=== PATIENT | female | born 1990 | race Caucasian/White ===

== ENCOUNTER 2021-02-13 02:26 | Emergency (ER) | payer OTHER, SELFPAY ==
[2021-02-13] VITALS (7 sets, daily range): BP systolic 92–108; BP diastolic 61–86; PULSE 39–54; RESP 11–14; TEMP 36.4; O2SAT 96–100; BMI 18.8
--- NOTE | ~2021-02-13 | CT_ITS ---
EXAMINATION: CT SOFT TISSUE NECK WITH CONTRAST CT CHEST WITH CONTRAST CLINICAL INFORMATION: Massive left sternal notch. Shortness of breath. Chest wall pain. COMPARISON: None TECHNIQUE: Following the intravenous administration of 60 mL of Omnipaque 350 intravenous contrast, helical imaging was performed in the axial plane with generation of coronal and sagittal reformatted images. This CT examination was performed using dose optimization techniques as appropriate, variously including the following: *Automated exposure control *Adjustment of mA and/or kV according to patient size (this includes techniques or standardized protocols for targeted exams where dose is matched to indication/reason for exam; i.e. extremities or head) *Use of iterative reconstruction technique DLP: 579 mGy-cm FINDINGS: NECK No cervical adenopathy is identified. The parotid glands are homogeneous in attenuation. The submandibular glands are normal. No contour abnormality or pathologic enhancement is seen within the oral cavity or pharyngeal mucosal space. The laryngeal structures are normal. The parapharyngeal fat is preserved. The carotid sheath vasculature opacify normally. No extra mucosal soft tissue mass or fluid collection is seen. No retropharyngeal fluid collection is seen. The thyroid gland is normal. The mastoid air cells and visualized portions of the paranasal sinuses are well-aerated. The temporomandibular joints are normal. No periapical disease is identified. No osseous abnormalities are seen. The imaged portions of the brain parenchyma are unremarkable. CHEST There is a destructive process centered at the left sternoclavicular articulation with erosive changes at the articulation between the proximal left clavicle superolateral aspect of the manubrium, associated periosteal reaction and new bone formation. There is ill-defined soft tissue within this destructive process and surrounding the left sternoclavicular articulation. The extent of this process measures 5.8 x 4.5 x 5.6 cm. Lungs are clear. No pleural effusion or pneumothorax. Normal heart size. No mediastinal adenopathy. Axilla are unremarkable. Imaged abdomen unremarkable. CT/CT soft tissue neck w con IMPRESSION: * Destructive masslike process centered at the LEFT sternoclavicular joint measuring up to 5.8 cm. The absence of sign/symptoms of infection, a neoplastic process must be considered. Tissue sampling is indicated. * No lymphadenopathy or evidence of metastatic disease within the neck or chest.
--- NOTE | 2021-02-13 02:51 | PC.NURSE ---
PT BELONGINGS PLACED IN [facility] ROOM BY SECURITY.
[2021-02-13 03:00] LABS: Glucose, Whole Blood 93 mg/dL (60-115)
--- NOTE | 2021-02-13 03:33 | ED.GENADULT ---
HPI - General Adult General Chief complaint: General Medical Stated complaint: Insomnia, substance abuse Time Seen by Provider: 02/13/21 03:21 Source: patient and EMS Mode of arrival: EMS History of Present Illness HPI narrative: 30-year-old female brought in by EMS after she was found on a sidewalk. Initially, patient was complaining of having not slept or eaten for 4 days and states that she is homeless and admits to heroin/cocaine/crack use. Patient states that she has had a mass at the upper portion of her chest for couple of weeks now but is otherwise a poor historian that is struggling to stay awake. Related Data Allergies Allergy/AdvReac Type Severity Reaction Status Date / Time No Known Allergies Allergy Unverified 05/14/20 18:46 [No Known Allergies*] Review of Systems Review of Systems: Pertinent positives and negatives as stated in HPI and remaining 10 point review of systems unable to obtain due to patient's drowsiness. [facility] Past Medical History Source: nursing notes reviewed Medical History Graves disease Opiate addiction Social History Social History Advance Directives: No Advance Directives Information Provided: No Physical Exam Vital Signs: Vital Signs: Last Vital Signs Temp 97.6 F 02/13/21 02:45 Pulse 39 L 02/13/21 08:00 Resp 14 02/13/21 08:00 BP 107/86 02/13/21 08:00 Pulse Ox 98 02/13/21 08:00 Body Mass Index 18.8 VITAL SIGNS: Reviewed. GENERAL: Unkempt, does not appear well, in no acute distress. HEAD: Normocephalic/atraumatic EYES: PERRLA, EOMI EARS: Ext canals without abnormality OROPHARYNX: no oral lesions noted, posterior pharynx clear and non-erythematous without noted tonsillar enlargement/erythema/exudates NECK: Supple, no adenopathy LUNGS: Normal breath sounds. No adventitious sounds or accessory muscle use. SpO2<100> CHEST WALL: There is a noted firm mass just left of the sternal notch without noted fluctuance CARDIOVASCULAR: Regular rate and rhythm without noted murmurs, no JVD or lower extremity edema. ABDOMEN: Soft, non-tender, non-distended with bowel sounds. SKIN: Inspection of the skin reveals no rashes, but noted track gaspar NEUROLOGIC: Alert and oriented x 4. Strength and sensation to light touch were grossly intact x 4. Course Course Course Narrative: 30-year-old female with history and clinical presentation consistent with significant polysubstance use and no evidence to suggest that patient is struggling with insomnia here in the ER. Concerns regarding the mass noted to the chest wall as possible abscess versus malunion. Review of investigations significant for destructive lesion at the left clavicle, however history and objective data in consistent with osteomyelitis after discussion with inpatient hospitalist team. In addition, patient remains drowsy and is found to be COVID-19 positive and will require further evaluation by subspecialty. Case was [place] [facility] [place]. Medical Decision Making Lab Data Result diagrams: 02/13/21 04:27 02/13/21 04:27 Labs: Lab Results 02/13/21 02/13/21 02/13/21 Range/Units 02:56 04:27 04:27 WBC 6.7 (4.8-10.8) X10*3/uL RBC 4.62 (4.20-5.50) X10*6/uL Hgb 12.9 (12.0-16.0) g/dl Hct 41.4 (37-47) % MCV 89.6 (80-98) fL MCH 27.9 (27.0-33.0) pg MCHC 31.2 (31.0-35.0) g/dl RDW 15.7 (11.0-16.0) % Plt Count 272 (160-400) X10*3/uL MPV 9.2 L (9.4-12.3) fL Immature Gran % (Auto) 0.1 (0.0-0.4) % Neut % (Auto) 46.7 (45-73) % Lymph % (Auto) 43.9 H (20-40) % [place] % (Auto) 7.4 (2-11) % Eos % (Auto) 1.5 (0-4) % Baso % (Auto) 0.4 (0-2) % Lymph # (Auto) 3.0 (1.2-4.9) X10*3/uL [place] # (Auto) 0.5 (0.1-1.2) X10*3/uL Eos # (Auto) 0.1 (0.0-0.4) X10*3/uL Baso # (Auto) 0.0 (0.0-0.2) X10*3/uL Abs Immat Gran (auto) 0.01 (0.00-0.03) X10*3/uL Absolute Neuts (auto) 3.1 (2.0-8.3) X10*3/uL Absolute Nucleated RBC 0.000 (0.0-0.012) X10*3/uL Nucleated RBC % (auto) 0.0 (0.0-0.2) /100WBC Sodium 145 (135-145) mmol/L Potassium 3.6 (3.3-5.1) mmol/L Chloride 105 (96-108) mmol/L Carbon Dioxide 33 H (22-29) mmol/L Anion Gap 11 L (12-20) BUN 10 (9-16) mg/dL Creatinine 0.78 (0.5-1.4) mg/dL Estim Creat Clear Calc 83.8 Estimated GFR > 60 POC Glucose 93 (60-115) mg/dL Random Glucose 93 (60-115) mg/dL Calcium 9.7 (8.4-10.2) mg/dL Total Bilirubin 0.3 (0.0-1.0) mg/dL AST 53 H (5-31) U/L ALT 50 H (0-31) U/L Alkaline Phosphatase 113 (39-117) U/L Total Protein 9.3 H (6.5-8.0) g/dL Albumin 4.3 (3.5-5.0) g/dL TSH 9.35 H (0.32-4.0) uIU/mL Free T4 0.92 (0.71-1.85) ng/dL Beta HCG, Quant < 2 mIU/mL ECG Data Attestation: I personally reviewed and interpreted this ECG as follows: Prior ECG tracings: available for review (05/12/2014 patient is now bradycardic and noted inverted T-wave in V2 but otherwise consistent) Interpretation: Sinus bradycardia, HR -36, inverted T-waves V2, NV/QRS/QTC are within normal limits. Discharge Plan Discharge Clinical Impression: Deformity, clavicle Patient Disposition: [facility] Transfer Details: Destructive lesion at left clavicle requiring subspecialty
[2021-02-13 04:32] LABS: Basophils Percent Auto 0.4 % (0-2); Eosinophils Absolute Auto 0.1 X10*3/uL (0.0-0.4); Eosinophils Percent Auto 1.5 % (0-4); Hematocrit 41.4 % (37-47); Hemoglobin 12.9 g/dl (12.0-16.0); Imm Gran Abs Auto 0.01 X10*3/uL (0.00-0.03); Imm Gran Pct Auto 0.1 % (0.0-0.4); Lymphocytes Percent Auto 43.9 % (20-40); MANUAL DIFF FLAG NO; Mean Corpuscular HGB Conc 31.2 g/dl (31.0-35.0); Mean Corpuscular Hemoglobin 27.9 pg (27.0-33.0); Mean Corpuscular Volume 89.6 fL (80-98); Mean Platelet Volume 9.2 fL (9.4-12.3); Monocytes Absolute Auto 0.5 X10*3/uL (0.1-1.2); Monocytes Percent Auto 7.4 % (2-11); Neutrophils Absolute Auto 3.1 X10*3/uL (2.0-8.3); Neutrophils Percent Auto 46.7 % (45-73); Platelet Count 272 X10*3/uL (160-400); Red Blood Count 4.62 X10*6/uL (4.20-5.50); Red Cell Distribution Width 15.7 % (11.0-16.0); White Blood Count 6.7 X10*3/uL (4.8-10.8)
[2021-02-13 05:07] LABS: Alanine Aminotransferase 50 U/L (0-31); Albumin Level 4.3 g/dL (3.5-5.0); Alkaline Phosphatase 113 U/L (39-117); Anion Gap 11 (12-20); Aspartate Amino Transferase 53 U/L (5-31); Bilirubin Total 0.3 mg/dL (0.0-1.0); Blood Urea Nitrogen 10 mg/dL (9-16); Calcium 9.7 mg/dL (8.4-10.2); Carbon Dioxide 33 mmol/L (22-29); Chloride 105 mmol/L (96-108); Creatinine Clr Calc Pharmacy 83.8; Estimated Glomerular Filt Rate > 60; Glucose Random 93 mg/dL (60-115); Potassium 3.6 mmol/L (3.3-5.1); Sodium 145 mmol/L (135-145); Total Protein 9.3 g/dL (6.5-8.0)
[2021-02-13 05:19] LABS: HCG Quantitative < 2 mIU/mL
[2021-02-13] MEDS: iohexoL 350 MG/ML 100 ML INFUS..BTL 60 ML IV (05:36)
[2021-02-13 05:51] LABS: TSH reflex Free T4 9.35 uIU/mL (0.32-4.0)
[2021-02-13 06:28] LABS: Free T4 (Free Thyroxine) 0.92 ng/dL (0.71-1.85)
[2021-02-13] MEDS: 0.9 % Sodium Chloride 1,000 ML 999 ML IV (06:43)
--- NOTE | 2021-02-13 07:35 | ECG_ITS ---
Test Reason : BRADYCARDIA Blood Pressure : / mmHG Vent. Rate : 036 BPM Atrial Rate : 036 BPM P-R Int : 124 ms QRS Dur : 090 ms QT Int : 522 ms P-R-T Axes : 067 072 037 degrees QTc Int : 403 ms Marked sinus bradycardia Nonspecific T wave abnormality Abnormal ECG When compared with ECG of 12-MAY-2014 10:03, Vent. rate has decreased BY 77 BPM Nonspecific T wave abnormality has replaced inverted T waves in Inferior leads T wave inversion now evident in Anterior leads Referred By: Amber Jiang Electronically Signed By:GUILLERMINA MALLOY
--- NOTE | 2021-02-13 07:38 | PC.NURSE ---
Report received from JOSE GUADALUPE Macias. Patient came to ER with complaints of insomnia. Patient is asleep on stretcher at this time. Arousable with significant stimulation. Remains bradycardic with rate 38-45. Respirations regular and even with O2 sat 100%. Enlarged area above left clavicle, will be getting a biopsy and admitted. Fluids finished infusing. component technician at bedside to obtain additional labs. Will continue to monitor.
--- NOTE | 2021-02-13 08:00 | PC.NURSE ---
@2403 DR RUEDA REQUEST CALL TO BE PLACED TO [facility] PT TX LINE [phone] AJITH ANSWERS, TAKES PT INFO,CALL BACK NUMBER AND ASKS TO SPEAK WITH DR RUEDA. DR RUEDA TAKES OVER CALL RIGHT AWAY.
--- NOTE | 2021-02-13 08:23 | PC.NURSE ---
@2815 CALL BACK FROM [facility] PT PLACEMENT LINE DEVIN ASKS TO SPEAK WITH DR MOHIT RUEDA TAKES OVER CALL RIGHT AWAY
[2021-02-13 08:27] LABS: COVID-19 Test Positive (Negative)
--- NOTE | 2021-02-13 10:05 | PC.NURSE ---
Patient remains asleep, arousable with stimuli. Found to be COVID positive. Plan is for transfer to [facility] at this time. Remains bradycardic on monitor. Respirations regular and even. IV patent. Awaiting transfer.
--- NOTE | 2021-02-13 11:15 | PC.NURSE ---
@11:00AM CALL FROM [facility] PT PLACEMENT WITH ROOM ASSIGNMENT SHANTE GIVES ROOM NUMBER OF [id number], ROOM 80A AND RN TO RN TO BE CALLED TO [phone]
--- NOTE | 2021-02-13 12:28 | PC.NURSE ---
RN TO RN REPORT GIVEN. PT AMBULATED TO BATHROOM INDEPENDENTLY, NO ISSUES. MORE ALERT AT THIS TIME, ORIENTED AND AWARE OF PLAN FOR TRANSFER. PT REPORTS EXPERIENCING WD SXS, COWS SCORE 9. CURRENTLY CONSUMING 2 BUNS DAILY LAST USE YESTERDAY. MD AWARE.
[2021-02-13 12:30] LABS: Glucose Urine UA NEG (NEG); Leukocyte Esterase Urine NEG (NEG); Nitrite Urine NEG (NEG); PH 6.5 (5.0-8.0); Urine Blood NEG (NEG); Urine Ketones NEG (NEG); Urine Protein NEG (NEG-TRACE)
[2021-02-13 12:35] LABS: Appearance Urine CLEAR; Color Urine YELLOW
--- NOTE | 2021-02-13 12:39 | PC.NURSE ---
@1233PM [facility] CALLED FOR ALS TRANSFER FOR THIS PT,,PER ANSWERS AND SAYS ABOUT A HALF HOUR TO AN HOUR D/T NO ALS TRUCK AVAILABLE AT THIS TIME
[2021-02-13] MEDS: ALPRAZolam 0.5 MG TABLET PO (13:16)
== END 2021-02-13 13:25 | disposition short-term general hospital (02) ==
PROVIDERS: Emergency Provider Student in an Organized Health Care Education/Training Program
DX: M95.8 Other specified acquired deformities of musculoskeletal system (principal); U07.1 COVID-19; G47.00 Insomnia, unspecified; F11.20 Opioid dependence, uncomplicated; E05.00 Thyrotoxicosis with diffuse goiter without thyrotoxic crisis or storm; Z59.0 Homelessness
CPT/HCPCS: 36415; 70491; 71260; 80053; 81003; 82947; 84439; 84443; 84702; 85025; 87040; 87635; 93005; 96360; 99285; Q9967

== ENCOUNTER 2021-12-06 11:44 | Observation (INO) | payer OTHER, SELFPAY ==
[2021-12-06 11:57] VITALS: BP 130/90; PULSE 75; O2SAT 100
[2021-12-06 12:12] VITALS: PULSE 65; RESP 18; TEMP 37; O2SAT 98; BMI 18.1
[2021-12-06 12:37] LABS: MANUAL DIFF FLAG NO
[2021-12-06 12:39] LABS: Basophils Percent Auto 0.6 % (0-2); Eosinophils Absolute Auto 0.1 X10*3/uL (0.0-0.4); Eosinophils Percent Auto 2.8 % (0-4); Hematocrit 35.2 % (37.0-47.0); Imm Gran Abs Auto 0.01 X10*3/uL (0.00-0.03); Imm Gran Pct Auto 0.2 % (0.0-0.4); Lymphocytes Absolute Auto 1.4 X10*3/uL (1.2-4.9); Lymphocytes Percent Auto 30.9 % (20-40); Mean Corpuscular HGB Conc 31.3 g/dl (31.0-35.0); Mean Corpuscular Hemoglobin 28.4 pg (27.0-33.0); Mean Corpuscular Volume 90.7 fL (80.0-98.0); Mean Platelet Volume 9.1 fL (9.4-12.3); Monocytes Absolute Auto 0.4 X10*3/uL (0.1-1.2); Monocytes Percent Auto 7.7 % (2-11); Neutrophils Absolute Auto 2.7 x10*3/uL (2.0-8.3); Neutrophils Percent Auto 57.8 % (45-73); Platelet Count 227 X10*3/uL (160-400); Red Blood Count 3.88 X10*6/uL (4.20-5.50); Red Cell Distribution Width 13.6 % (11.0-16.0); White Blood Count 4.7 X10*3/uL (4.8-10.8)
[2021-12-06 12:46] LABS: INTERNATIONAL NORM RATIO 1.1 (0.9-1.1)
[2021-12-06 12:48] LABS: Lactic Acid 1.3 mmol/L (0.5-2.0)
[2021-12-06 12:59] LABS: Alanine Aminotransferase 29 U/L (0-31); Albumin Level 3.5 g/dL (3.5-5.0); Alkaline Phosphatase 84 U/L (39-117); Anion Gap 10 (12-20); Aspartate Amino Transferase 30 U/L (5-31); Bilirubin Direct < 0.2 mg/dL (0.0-0.5); Bilirubin Total < 0.2 mg/dL (0.0-1.0); Blood Urea Nitrogen 11 mg/dL (9-16); Calcium 9.2 mg/dL (8.4-10.2); Carbon Dioxide 30 mmol/L (22-29); Chloride 104 mmol/L (96-108); Estimated Glomerular Filt Rate > 60; Glucose Random 124 mg/dL (60-115); Potassium 4.1 mmol/L (3.3-5.1); Sodium 140 mmol/L (135-145); Total Protein 6.9 g/dL (6.5-8.0)
--- NOTE | 2021-12-06 15:47 | ED.EXTPRO ---
HPI - Extremity Problem General Chief complaint: Extremity Injury, Upper Stated complaint: BASHIR HAND PAIN S/P IVDU A WEEK AGO Time Seen by Provider: 12/06/21 12:28 Source: patient and EMS Mode of arrival: EMS Limitations: no limitations History of Present Illness HPI Narrative: Patient comes to the emergency room complaining of bilateral hand pain, swelling. Patient admits to be IV drug user, she usually does not injecting her hands. Only in the forearms. Patient denies fever or chills. Related Data Allergies Allergy/AdvReac Type Severity Reaction Status Date / Time No Known Allergies Allergy Verified 12/06/21 12:17 [No Known Allergies*] Review of Systems Review of Systems: Constitutional : No Weight loss, No Fever, No Chills, No Night Sweats, No Fatigue, No Malaise ENT/Mouth : No Hearing loss, No Ear Pain, No Nasal Congestion, No Sinus Pain, No Hoarseness, No sore throat, No Rhinorrhea, No Swallowing Difficulty Eyes: No Eye Pain, No Swelling, No Redness, No Foreign Body, No Discharge, No Vision Changes Cardiovascular : No Chest Pain, No SOB, No Dyspnea on Exertion, No Orthopnea, No Edema, No Palpitations Respiratory : No Cough, No Sputum, No Wheezing, No Smoke Exposure, No Dyspnea Gastrointestinal : No Nausea, No Vomiting, No Diarrhea, No Constipation, No abdominal Pain, No Hematochezia, No Melena Genitourinary : no irregular bleeding, No Dysuria, No Urinary Frequency, No Hematuria, No Urinary Incontinence, No Urgency, No Flank Pain, No Urinary Flow Changes, No Hesitancy Musculoskeletal : No joint pain, No Myalgias, No Joint Swelling Skin : Complaining of bilateral hand pain, swelling, erythema Neuro : No Weakness, No Numbness, No Paresthesias, No Loss of Consciousness, No Dizziness, No Headache Psych : No Anxiety/Panic, No Depression, No SI/HI/AH/VH, No Social Issues, Heme/Lymph: No Bruising, No Bleeding,No Lymphadenopathy Endocrine : No Polyuria, No Polydipsia, No Temperature Intolerance PMFSH Past Medical History Medical History Graves disease Opiate addiction Social History Social History Alcohol intake: unknown Patient Tobacco Use Status: Tobacco use Unknown Advance Directives: No Advance Directives Information Provided: No Patient : No Physical Exam Vital Signs: Vital Signs: Last Vital Signs Temp 98.2 F 12/06/21 15:57 Pulse 65 12/06/21 15:57 Resp 16 12/06/21 15:57 BP 123/86 12/06/21 15:57 Pulse Ox 100 12/06/21 15:57 BMI result Body Mass Index 18.1 Const: Other: Appearance: Alert. Oriented X3. No acute distress. Eyes: Pupils equal, round and reactive to light. ENT: Pharynx normal. Neck: Normal inspection. Neck supple. No lymph nodes noted. No crepitus CVS: Normal heart rate and rhythm. Pulses normal. Normal S1 and S2 Respiratory: No respiratory distress. Breath sounds normal. No Wheezing. No rales Abdomen: Soft and nontender. No rigidity. No distention. Skin: Skin warm and dry. C extremities below Extremities: No lower extremity edema. Bilateral hands are edematous, erythematous, pain to touch. Patient is able to flex and extend all fingers and abduct/adduct fingers. See picture below Neuro: Oriented X 3. No motor deficit. No sensory deficit. Moving all extremities. No slurred speech. CN 2 through 12 grossly intact Psych: calm, cooperative, normal affect Course Course Course Narrative: Patient was started on vancomycin and Zosyn. At this time, imaging studies not necessary, tenosynovitis not suspected. Patient is able to flex and extend both hands abduct and adduct all fingers. Abscesses are not suspected. MDM - Extremity (Nontraumatic) Lab Data Result diagrams: 12/06/21 12:27 12/06/21 12:27 Labs: Lab Results 12/06/21 12/06/21 12/06/21 Range/Units 12:27 12:27 12:27 WBC 4.7 L (4.8-10.8) X10*3/uL RBC 3.88 L (4.20-5.50) X10*6/uL Hgb 11.0 L (12.0-16.0) g/dl Hct 35.2 L (37.0-47.0) % MCV 90.7 (80.0-98.0) fL MCH 28.4 (27.0-33.0) pg MCHC 31.3 (31.0-35.0) g/dl RDW 13.6 (11.0-16.0) % Plt Count 227 (160-400) X10*3/uL MPV 9.1 L (9.4-12.3) fL Immature Gran % (Auto) 0.2 (0.0-0.4) % Neut % (Auto) 57.8 (45-73) % Lymph % (Auto) 30.9 (20-40) % [place] % (Auto) 7.7 (2-11) % Eos % (Auto) 2.8 (0-4) % Baso % (Auto) 0.6 (0-2) % Lymph # (Auto) 1.4 (1.2-4.9) X10*3/uL [place] # (Auto) 0.4 (0.1-1.2) X10*3/uL Eos # (Auto) 0.1 (0.0-0.4) X10*3/uL Baso # (Auto) 0.0 (0.0-0.2) X10*3/uL Abs Immat Gran (auto) 0.01 (0.00-0.03) X10*3/uL Absolute Neuts (auto) 2.7 (2.0-8.3) x10*3/uL Absolute Nucleated RBC 0.000 (0.0-0.012) X10*3/uL Nucleated RBC % (auto) 0.0 (0.0-0.2) /100WBC PT 12.0 (9.9-13.0) SEC INR 1.1 (0.9-1.1) Sodium 140 (135-145) mmol/L Potassium 4.1 (3.3-5.1) mmol/L Chloride 104 (96-108) mmol/L Carbon Dioxide 30 H (22-29) mmol/L Anion Gap 10 L (12-20) BUN 11 (9-16) mg/dL Creatinine 0.66 (0.5-1.4) mg/dL Estim Creat Clear Calc 83.0 Estimated GFR > 60 Random Glucose 124 H (60-115) mg/dL Lactic Acid (0.5-2.0) mmol/L Calcium 9.2 (8.4-10.2) mg/dL Total Bilirubin < 0.2 (0.0-1.0) mg/dL Direct Bilirubin < 0.2 (0.0-0.5) mg/dL AST 30 D (5-31) U/L ALT 29 (0-31) U/L Alkaline Phosphatase 84 D (39-117) U/L Total Protein 6.9 D (6.5-8.0) g/dL Albumin 3.5 (3.5-5.0) g/dL TSH 4.88 H (0.32-4.0) uIU/mL COVID-19 ([facility]) (Negative) COVID-19 Clin Com 12/06/21 12/06/21 Range/Units 12:27 16:00 WBC (4.8-10.8) X10*3/uL RBC (4.20-5.50) X10*6/uL Hgb (12.0-16.0) g/dl Hct (37.0-47.0) % MCV (80.0-98.0) fL MCH (27.0-33.0) pg MCHC (31.0-35.0) g/dl RDW (11.0-16.0) % Plt Count (160-400) X10*3/uL MPV (9.4-12.3) fL Immature Gran % (Auto) (0.0-0.4) % Neut % (Auto) (45-73) % Lymph % (Auto) (20-40) % [place] % (Auto) (2-11) % Eos % (Auto) (0-4) % Baso % (Auto) (0-2) % Lymph # (Auto) (1.2-4.9) X10*3/uL [place] # (Auto) (0.1-1.2) X10*3/uL Eos # (Auto) (0.0-0.4) X10*3/uL Baso # (Auto) (0.0-0.2) X10*3/uL Abs Immat Gran (auto) (0.00-0.03) X10*3/uL Absolute Neuts (auto) (2.0-8.3) x10*3/uL Absolute Nucleated RBC (0.0-0.012) X10*3/uL Nucleated RBC % (auto) (0.0-0.2) /100WBC PT (9.9-13.0) SEC INR (0.9-1.1) Sodium (135-145) mmol/L Potassium (3.3-5.1) mmol/L Chloride (96-108) mmol/L Carbon Dioxide (22-29) mmol/L Anion Gap (12-20) BUN (9-16) mg/dL Creatinine (0.5-1.4) mg/dL Estim Creat Clear Calc Estimated GFR Random Glucose (60-115) mg/dL Lactic Acid 1.3 (0.5-2.0) mmol/L Calcium (8.4-10.2) mg/dL Total Bilirubin (0.0-1.0) mg/dL Direct Bilirubin (0.0-0.5) mg/dL AST (5-31) U/L ALT (0-31) U/L Alkaline Phosphatase (39-117) U/L Total Protein (6.5-8.0) g/dL Albumin (3.5-5.0) g/dL TSH (0.32-4.0) uIU/mL COVID-19 ([facility]) Negative (Negative) COVID-19 Clin Com See Note Discharge Plan Discharge Clinical Impression: Cellulitis of hand Patient Disposition: Admitted As Inpatient
[2021-12-06 15:57] VITALS: BP 123/86; PULSE 65; RESP 16; TEMP 36.8; O2SAT 100
[2021-12-06 16:24] LABS: COVID-19 Test Negative (Negative)
[2021-12-06] MEDS: Piperacillin Sodium/Tazobactam 3.375 GM in 0.9 % Sodium Chloride 50 ML IV (16:26)
[2021-12-06 16:28] LABS: TSH reflex Free T4 4.88 uIU/mL (0.32-4.0)
[2021-12-06] MEDS: vancomycin HCL 750 MG in 0.9 % Sodium Chloride 250 ML 265 MG IV (16:48)
[2021-12-06 17:04] LABS: Free T4 (Free Thyroxine) 0.84 ng/dL (0.71-1.85)
[2021-12-06 17:06] LABS: C Reactive Protein 1.35 mg/dL (< or = 0.50)
[2021-12-06 17:39] LABS: Erythrocyte Sedimentation Rate 49 MM/HR (0-20)
--- NOTE | 2021-12-06 17:41 | PM.IMHP ---
History of Present Illness Date of Service: 12/06/21 Attending physician on admission: Richard Lake Chief Complaint: hand cellulitis 31-year-old female ivdu came to the hospital because of hand cellulitis- patient says that she has regular uses heroin IV was injected in arms- has swelling of and from 1-2 days duration and also pain and swelling. [place] [address] and with friends, currently having erythema and pain in the hands that is why decided to come to the hospital. Denies any new complaint of chest pain or shortness of breath or abdominal pain or fever or chills or nausea or vomiting Denies any cough Denies any weakness or numbness. Review of Systems Review of Systems: As above. Yes all other systems are reviewed and are negative [facility] Medical History Graves disease Opiate addiction Pertinent family history: she denies any family hx of any disease. Social History Alcohol intake: unknown Patient Tobacco Use Status: Tobacco use Unknown Advance Directives: No Advance Directives Information Provided: No Patient : No Meds Allergies Allergy/AdvReac Type Severity Reaction Status Date / Time No Known Allergies Allergy Verified 12/06/21 12:17 [No Known Allergies*] Active Medications: Current Medications Enoxaparin Sodium (Enoxaparin Sodium 40 Mg/0.4 Ml Syringe) 40 mg SUBCUT DAILY [facility] Lactated Ringer's (Lr) 1,000 mls @ 100 mls/hr IVCONT .Q10H [facility] Piperacillin Sod/Tazobactam (Sod 3.375 gm/ Sodium Chloride) 50 mls @ 100 mls/hr IV Q6H [facility] Pharmacy Consult (Consult Rx Vancomycin Dosing) 1 each MISCELLANE DAILY PRN PRN Reason: Consult order Sodium Chloride (0.9 % Sodium Chloride Flush 3 Ml Syringe) 3 ml IVFLUSH QSHIFT [facility] Physical Exam Vital Signs and Narrative: Vital Signs: Last Vital Signs Temp 98.2 F 12/06/21 15:57 Pulse 65 12/06/21 15:57 Resp 16 12/06/21 15:57 BP 123/86 12/06/21 15:57 Pulse Ox 100 12/06/21 15:57 BMI result Body Mass Index 18.1 Appearance: Alert.? Oriented X3.? not in distress.? Eyes: Pupils equal, round and reactive to light.? Sclera nonicteric.? ENT: Pharynx normal.? Moist mucous membranes. cvs: rrr, [id number] , no murmur res: clear to auscultation ,no rhonchii or wheezing abd: no rebound or guarding ,nt, bs present. ext pulses present ,, bilateral hands swelling and erythema, but still can move all the fingers and make soft fist. neuro: axo3 , nonfocal. Results Labs CBC and Chem 7: 12/06/21 12:27 12/06/21 12:27 Labs: Laboratory Results - last 24 hr 12/06/21 12/06/21 12/06/21 12: 12:27 12:27 MCV 90.7 MCH 28.4 MCHC 31.3 RDW 13.6 Plt Count 227 MPV 9.1 L Immature Gran % (Auto) 0.2 Neut % (Auto) 57.8 Lymph % (Auto) 30.9 [place] % (Auto) 7.7 Eos % (Auto) 2.8 Baso % (Auto) 0.6 Lymph # (Auto) 1.4 [place] # (Auto) 0.4 Eos # (Auto) 0.1 Baso # (Auto) 0.0 Abs Immat Gran (auto) 0.01 Absolute Neuts (auto) 2.7 Absolute Nucleated RBC 0.000 Nucleated RBC % (auto) 0.0 ESR PT 12.0 INR 1.1 Anion Gap 10 L Estim Creat Clear Calc 83.0 Estimated GFR > 60 Random Glucose 124 H Lactic Acid Calcium 9.2 Total Bilirubin < 0.2 Direct Bilirubin < 0.2 AST 30 D ALT 29 Alkaline Phosphatase 84 D C-Reactive Protein 1.35 H Total Protein 6.9 D Albumin 3.5 TSH 4.88 H Free T4 0.84 COVID-19 ([facility]) COVID-19 Clin Com 12/06/21 12/06/21 12/06/21 12: 12:27 16:00 MCV MCH MCHC RDW Plt Count MPV Immature Gran % (Auto) Neut % (Auto) Lymph % (Auto) [place] % (Auto) Eos % (Auto) Baso % (Auto) Lymph # (Auto) [place] # (Auto) Eos # (Auto) Baso # (Auto) Abs Immat Gran (auto) Absolute Neuts (auto) Absolute Nucleated RBC Nucleated RBC % (auto) ESR 49 H PT INR Anion Gap Estim Creat Clear Calc Estimated GFR Random Glucose Lactic Acid 1.3 Calcium Total Bilirubin Direct Bilirubin AST ALT Alkaline Phosphatase C-Reactive Protein Total Protein Albumin TSH Free T4 COVID-19 ([facility]) Negative COVID-19 Clin Com See Note Assessment and Plan (1) Drug abuse: Status: Acute (2) Cellulitis of hand: Status: Acute Plan 31-year-old female who came to the hospital because of bilateral hand cellulitis in the setting of IVDU. 1. Bilateral hand cellulitis lactic acid normal, blood cultures sent, ESR CRP pending not septic started on broad-spectrum IV antibiotics , pain control if patient cellulitis worsen then may need imaging study id evaluation added. 2. IVDU: Urine toxicology psych for urine abuse. DVT prophylaxis with subQ Lovenox. Quality Stroke Does the patient have a stroke diagnosis?: No VTE Prior VTE?: No VTE Risk Level:: Medical - moderate - high VTE Device Contraindication: N/A - Device Ordered VTE Drug Contraindication: N/A - Med Ordered
[2021-12-06 20:00] VITALS: BP 124/74; PULSE 44; RESP 16; TEMP 36.8; O2SAT 99
[2021-12-06] MEDS: Lactated Ringers 1,000 ML 100 ML IVCONT (20:45)
[2021-12-06] MEDS: Enoxaparin Sodium 40 MG/0.4 ML SYRINGE SUBCUT (20:46)
--- NOTE | 2021-12-06 20:59 | PHA.PROG ---
Admission Date/Time: December 06, 2021 17:38 Indication: Weight in k.184 kg Serum Creatinine - Last 168 Hours 12/06/21 12:27 Creatinine 0.66 Estimated CrCl and GFR - Last 168 Hours 12/06/21 12:27 Estim Creat Clear Calc 83.0 Estimated GFR > 60 Vancomycin Loading Dose: 750 Current Vancomycin Dosing Regimen: 750 Q 12 Vancomycin Monitoring using AUC goal of 400 - 600 range with trough as surrogate marker: 443 Date and Time for next Vancomycin Level to be drawn: 12/07 @ 1500 Pharmacist Comments on Vancomycin Plan: Vancomycin dosing will take advantage of [employer] as a clinical decision support tool that uses Bayesian modeling to calculate individual patient's pharmacokinetic parameters and forecast the patient's drug concentration time course with the target goal AUC 24 range of 400 - 600 mg/L/hr.
[2021-12-06 23:52] VITALS: BP 139/91; PULSE 51; RESP 18; TEMP 36.6; O2SAT 100
--- NOTE | 2021-12-07 | ECG_ITS ---
Test Reason : bradycardia Blood Pressure : / mmHG Vent. Rate : 043 BPM Atrial Rate : 043 BPM P-R Int : 134 ms QRS Dur : 088 ms QT Int : 448 ms P-R-T Axes : 033 050 040 degrees QTc Int : 378 ms Marked sinus bradycardia Abnormal ECG When compared with ECG of 13-FEB-2021 07:41, No significant change was found Referred By: Richard Lake Electronically Signed By:Abdelrahman Lugo
[2021-12-07] MEDS: Piperacillin Sodium/Tazobactam 3.375 GM in 0.9 % Sodium Chloride 50 ML IV ×5 (01:00→23:25)
[2021-12-07] MEDS: 0.9 % Sodium Chloride Flush 3 ML SYRINGE IVFLUSH ×2 (01:01→23:28)
[2021-12-07 01:33] LABS: Amphetamine Screen Urine Not Detected (Not Detect); Barbiturates, Urine Not Detected (Not Detect); Benzodiazepines Screen Urine Not Detected (Not Detect); Cannabinoid Screen Urine POSITIVE (Not Detect); Cocaine Screen Urine POSITIVE (Not Detect); Fentanyl, urine POSITIVE (Not Detect); Opiate Screen Urine POSITIVE (Not Detect); Phencyclidine Screen Urine Not Detected (Not Detect)
[2021-12-07 04:00] VITALS: BP 130/85; PULSE 53; RESP 17; TEMP 37.2; O2SAT 98
[2021-12-07] MEDS: vancomycin HCL 750 MG in 0.9 % Sodium Chloride 250 ML 265 MG IV (04:38)
[2021-12-07 07:14] LABS: Hematocrit 34.9 % (37.0-47.0); Mean Corpuscular HGB Conc 31.5 g/dl (31.0-35.0); Mean Corpuscular Hemoglobin 28.4 pg (27.0-33.0); Mean Corpuscular Volume 90.2 fL (80.0-98.0); Mean Platelet Volume 9.4 fL (9.4-12.3); Platelet Count 238 X10*3/uL (160-400); Red Blood Count 3.87 X10*6/uL (4.20-5.50); Red Cell Distribution Width 13.8 % (11.0-16.0); White Blood Count 6.8 X10*3/uL (4.8-10.8)
[2021-12-07 07:16] LABS: Anion Gap 12 (12-20); Blood Urea Nitrogen 11 mg/dL (9-16); Calcium 8.7 mg/dL (8.4-10.2); Carbon Dioxide 25 mmol/L (22-29); Chloride 106 mmol/L (96-108); Creatinine Clr Calc Pharmacy 85.5; Estimated Glomerular Filt Rate > 60; Glucose Random 96 mg/dL (60-115); Potassium 4.3 mmol/L (3.3-5.1); Sodium 139 mmol/L (135-145)
[2021-12-07 07:55] VITALS: BP 117/64; PULSE 86; RESP 20; TEMP 36.2; O2SAT 98
[2021-12-07] MEDS: methADONE HCl 20 MG/2 ML ORAL.CONC PO (08:32)
[2021-12-07] MEDS: Enoxaparin Sodium 40 MG/0.4 ML SYRINGE SUBCUT (08:32)
--- NOTE | 2021-12-07 08:58 | MHC.CM.PN ---
CM met with Patient at bedside and addressed DAVIDSON with her, providing her with the original and placing a copy on the chart.Patient has received no Covid vax and [place] with [place]. Returning to the community appears to be the plan for dc and CM has initiated and will follow for dc planning.PCP is Dr. Sun.
--- NOTE | 2021-12-07 09:22 | MHC.RECOVRN ---
Met with pt in 354 after consult placed for substance use. Pt reports using heroin, 2 bundles daily, IV, and occasional cocaine use. Pt is currently experiencing withdrawal symptoms including diaphoresis, body aches, diarrhea, and anxiety. Pt would like to utilize methadone to manage withdrawal symptoms. Pt reports being on methadone in the past, a couple months ago, 65 mg. After discussion with Miranda Rand APRN, as well as provider, pt ordered 20 mg methadone now.
--- NOTE | 2021-12-07 10:54 | HE.PHANOTE ---
Vancomcycin Dosing Addendum Vancomycin trought scheduled today for 1500. Continue current regimen for now.
[2021-12-07 11:04] VITALS: BP 118/67; PULSE 80; RESP 19; TEMP 36.3; O2SAT 97
--- NOTE | 2021-12-07 11:36 | P.PNIM_ITS ---
Subjective Subjective Date of Service: 12/07/21 Interval History: b/l hand cellulitis ,possible opoid withdrawal. Review of Systems Still has bilateral hand swelling and pain, we also feel very anxious nauseated- she said feels with opioid withdrawals. Physical Exam Vital Signs: Vital Signs: Last Vital Signs Temp 97.3 F 12/07/21 11:04 Pulse 80 12/07/21 11:04 Resp 19 12/07/21 11:04 BP 118/67 12/07/21 11:04 Pulse Ox 97 12/07/21 11:04 BMI result Body Mass Index 18.1 Appearance: Alert.? Oriented X3.? not in distress.? Eyes: Pupils equal, round and reactive to light.? Sclera nonicteric.? ENT: Pharynx normal.? Moist mucous membranes. cvs: rrr, [id number] , no murmur res: clear to auscultation ,no rhonchii or wheezing abd: no rebound or guarding ,nt, bs present. ext pulses present , bilateral hands swelling and erythema, but still can move all the fingers and make soft fist. neuro: axo3 , nonfocal.? Objective Data Active Medications Enoxaparin Sodium (Enoxaparin Sodium 40 Mg/0.4 Ml Syringe) 40 mg SUBCUT DAILY [facility] Last Admin: 12/07/21 08:32 Dose: 40 mg Documented by: GLORIA Hydroxyzine HCl (Hydroxyzine Hcl 50 Mg Tablet) 50 mg PO Q8H PRN PRN Reason: anxiety/restlessness Lactated Ringer's (Lr) 1,000 mls @ 100 mls/hr IVCONT .Q10H [facility] Last Infusion: 12/07/21 07:01 Dose: 0 mls/hr Documented by: GLORIA Piperacillin Sod/Tazobactam (Sod 3.375 gm/ Sodium Chloride) 50 mls @ 100 mls/hr IV Q6H [facility] Last Infusion: 12/07/21 06:22 Dose: 0 mls/hr Documented by: CATHY Vancomycin HCl 750 mg/ Sodium (Chloride) 265 mls @ 265 mls/hr IV Q12H [facility] Last Infusion: 12/07/21 05:48 Dose: 0 mls/hr Documented by: CATHY Pharmacy Consult (Consult Rx Vancomycin Dosing) 1 each MISCELLANE DAILY PRN PRN Reason: Consult order Sodium Chloride (0.9 % Sodium Chloride Flush 3 Ml Syringe) 3 ml IVFLUSH QSHIFT [facility] Last Admin: 12/07/21 07:52 Dose: Not Given Documented by: GLORIA Non-Admin Reason: IV Running Labs CBC & Chem 7: 12/07/21 06:53 12/07/21 06:53 Labs: Laboratory Results - last 24 hr 12/06/21 12/06/21 12/06/21 12:27 12:27 12:27 MCV 90.7 MCH 28.4 MCHC 31.3 RDW 13.6 Plt Count 227 MPV 9.1 L Immature Gran % (Auto) 0.2 Neut % (Auto) 57.8 Lymph % (Auto) 30.9 Wallace % (Auto) 7.7 Eos % (Auto) 2.8 Baso % (Auto) 0.6 Lymph # (Auto) 1.4 Wallace # (Auto) 0.4 Eos # (Auto) 0.1 Baso # (Auto) 0.0 Abs Immat Gran (auto) 0.01 Absolute Neuts (auto) 2.7 Absolute Nucleated RBC 0.000 Nucleated RBC % (auto) 0.0 ESR PT 12.0 INR 1.1 Anion Gap 10 L Estim Creat Clear Calc 83.0 Estimated GFR > 60 Random Glucose 124 H Lactic Acid Calcium 9.2 Total Bilirubin < 0.2 Direct Bilirubin < 0.2 AST 30 D ALT 29 Alkaline Phosphatase 84 D C-Reactive Protein 1.35 H Total Protein 6.9 D Albumin 3.5 TSH 4.88 H Free T4 0.84 Urine Opiates Screen Urine Fentanyl Screen Ur Barbiturates Screen Ur Phencyclidine Scrn Ur Amphetamines Screen U Benzodiazepines Scrn Urine Cocaine Screen U Marijuana (THC) Screen COVID-19 ([facility]) COVID-19 Clin Com 12/06/21 12/06/21 12/06/21 12:27 12:27 16:00 MCV MCH MCHC RDW Plt Count MPV Immature Gran % (Auto) Neut % (Auto) Lymph % (Auto) Wallace % (Auto) Eos % (Auto) Baso % (Auto) Lymph # (Auto) Wallace # (Auto) Eos # (Auto) Baso # (Auto) Abs Immat Gran (auto) Absolute Neuts (auto) Absolute Nucleated RBC Nucleated RBC % (auto) ESR 49 H PT INR Anion Gap Estim Creat Clear Calc Estimated GFR Random Glucose Lactic Acid 1.3 Calcium Total Bilirubin Direct Bilirubin AST ALT Alkaline Phosphatase C-Reactive Protein Total Protein Albumin TSH Free T4 Urine Opiates Screen Urine Fentanyl Screen Ur Barbiturates Screen Ur Phencyclidine Scrn Ur Amphetamines Screen U Benzodiazepines Scrn Urine Cocaine Screen U Marijuana (THC) Screen COVID-19 ([facility]) Negative COVID-19 Clin Com See Note 12/07/21 12/07/21 12/07/21 00:50 06:53 06:53 MCV 90.2 MCH 28.4 MCHC 31.5 RDW 13.8 Plt Count 238 MPV 9.4 Immature Gran % (Auto) Neut % (Auto) Lymph % (Auto) Wallace % (Auto) Eos % (Auto) Baso % (Auto) Lymph # (Auto) Wallace # (Auto) Eos # (Auto) Baso # (Auto) Abs Immat Gran (auto) Absolute Neuts (auto) Absolute Nucleated RBC 0.000 Nucleated RBC % (auto) 0.0 ESR PT INR Anion Gap 12 Estim Creat Clear Calc 85.5 Estimated GFR > 60 Random Glucose 96 Lactic Acid Calcium 8.7 Total Bilirubin Direct Bilirubin AST ALT Alkaline Phosphatase C-Reactive Protein Total Protein Albumin TSH Free T4 Urine Opiates Screen POSITIVE H Urine Fentanyl Screen POSITIVE H Ur Barbiturates Screen Not Detected Ur Phencyclidine Scrn Not Detected Ur Amphetamines Screen Not Detected U Benzodiazepines Scrn Not Detected Urine Cocaine Screen POSITIVE H U Marijuana (THC) Screen POSITIVE H COVID-19 ([facility]) COVID-19 Clin Com Assessment and Plan (1) Drug abuse: Status: Acute (2) Cellulitis of hand: Status: Acute (3) Bradycardia: Status: Acute Plan 31-year-old female who came to the hospital because of bilateral hand cellulitis in the setting of IVDU. ?1. Bilateral hand cellulitis ?lactic acid normal, blood cultures pending, ESR: 49, CRP :1.35 ?not septic ?started on broad-spectrum IV antibiotics , pain control, vanco trough ?if patient cellulitis worsen then may need imaging study ?id evaluation added. 2.? IVDU: ? Urine toxicology ?psych for? urine abuse. 3. possible opoiods withdrawal: added methadone . 4. bradycardia: tsh improving(02/15: 9.35 , yesterday tsh 4.88) free t4 :0.84 normal asymptomatic ekg seems qtc fine , sinus moniter on tele ? DVT prophylaxis with subQ Lovenox. Quality Stroke Does the patient have a stroke diagnosis?: No VTE Prior VTE?: No VTE Risk Level:: Medical - moderate - high VTE Device Contraindication: N/A - Device Ordered VTE Drug Contraindication: N/A - Med Ordered
[2021-12-07] MEDS: Lactated Ringers 1,000 ML 100 ML IVCONT ×2 (12:04→23:32)
[2021-12-07 12:14] VITALS: BMI 18.1
--- NOTE | 2021-12-07 12:18 | MHC.CLN ---
PT IS MODERATELY MALNOURISHED PT WITH MILDLY DEPLETED SUBCUTANEOUS FAT AND MUSCLE MASS WITH 14% SIGNIFICANT WT LOSS R/T HOMELESSNESS AND IVDU DIET RX: REGULAR-APPROPRIATE PT NOT RECEPTIVE TO DRINKING ENSURE SUPPLEMENTS AT THIS TIME MONITOR PO INTAKE CLOSELY SEE FULL CLINICAL NUTRITION ASSESSMENT
--- NOTE | 2021-12-07 12:35 | HO.ADDICT_ITS ---
History of Present Illness Date of Service: 12/07/2021 Chief Complaint: Bilateral hand cellulitis Reason for Consult: opioid withdrawal Requesting physician: Richard Lake Discussed with referring provider: Yes Sources of Information: patient interviewed and chart reviewed Additional Sources of Information: Recovery Support RN [facility] Narrative: Patient is a 31 year old female with hx of Graves disease and OUD, currently medically admitted with bilateral hand cellulitis. Reporting daily IV heroin use and experiencing withdrawal sx. Consult requested to address sx Patient initially seen by Recovery Support RN--visibly uncomfortable. Restless, diaphoretic, reporting nausea, chills 20mg methadone ordered with good effect. When seen by this senior writer, still restless, but per RN other sx, including restlessness improved. Patient drowsy and reporting some improvement in sx, not feeling well. Will follow up when appropriate to obtain substance use history. Patient was able to report to [facility] 2 bundles of IV heroin usse QD and previous history of MOUD--methadone. [facility] chart review shows ED visits and hospital admissions related to RUMA dating back to 2013. Review of Systems Constitutional: Reports as per HPI Diagnostics Vital Signs (24Hr): Vital Signs - 24 hr 12/06/21 15:57 12/06/21 20:00 12/06/21 23:52 Temperature 98.2 F 98.3 F 97.8 F Pulse Rate 65 44 L 51 Respiratory Rate 16 16 18 Blood Pressure 123/86 124/74 139/91 H Pulse Oximetry 100 99 100 12/07/21 04:00 12/07/21 07:55 12/07/21 11:04 Temperature 98.9 F 97.2 F 97.3 F Pulse Rate 53 86 80 Respiratory Rate 17 20 19 Blood Pressure 130/85 117/64 118/67 Pulse Oximetry 98 98 97 BMI result Body Mass Index 18.1 Labs Results: 12/07/21 06:53 12/07/21 06:53 Labs: Laboratory Results - last 48 hr 12/06/21 12/06/21 12/06/21 12:27 12:27 12:27 WBC 4.7 L RBC 3.88 L Hgb 11.0 L Hct 35.2 L MCV 90.7 MCH 28.4 MCHC 31.3 RDW 13.6 Plt Count 227 MPV 9.1 L Immature Gran % (Auto) 0.2 Neut % (Auto) 57.8 Lymph % (Auto) 30.9 Wilkes % (Auto) 7.7 Eos % (Auto) 2.8 Baso % (Auto) 0.6 Lymph # (Auto) 1.4 Wilkes # (Auto) 0.4 Eos # (Auto) 0.1 Baso # (Auto) 0.0 Abs Immat Gran (auto) 0.01 Absolute Neuts (auto) 2.7 Absolute Nucleated RBC 0.000 Nucleated RBC % (auto) 0.0 ESR PT 12.0 INR 1.1 Sodium 140 Potassium 4.1 Chloride 104 Carbon Dioxide 30 H Anion Gap 10 L BUN 11 Creatinine 0.66 Estim Creat Clear Calc 83.0 Estimated GFR > 60 Random Glucose 124 H Lactic Acid Calcium 9.2 Total Bilirubin < 0.2 Direct Bilirubin < 0.2 AST 30 D ALT 29 Alkaline Phosphatase 84 D C-Reactive Protein 1.35 H Total Protein 6.9 D Albumin 3.5 TSH 4.88 H Free T4 0.84 Urine Opiates Screen Urine Fentanyl Screen Ur Barbiturates Screen Ur Phencyclidine Scrn Ur Amphetamines Screen U Benzodiazepines Scrn Urine Cocaine Screen U Marijuana (THC) Screen COVID-19 ([facility]) COVID-Crossborders 12/06/21 12/06/21 12/06/21 12:27 12:27 16:00 WBC RBC Hgb Hct MCV MCH MCHC RDW Plt Count MPV Immature Gran % (Auto) Neut % (Auto) Lymph % (Auto) Wilkes % (Auto) Eos % (Auto) Baso % (Auto) Lymph # (Auto) Wilkes # (Auto) Eos # (Auto) Baso # (Auto) Abs Immat Gran (auto) Absolute Neuts (auto) Absolute Nucleated RBC Nucleated RBC % (auto) ESR 49 H PT INR Sodium Potassium Chloride Carbon Dioxide Anion Gap BUN Creatinine Estim Creat Clear Calc Estimated GFR Random Glucose Lactic Acid 1.3 Calcium Total Bilirubin Direct Bilirubin AST ALT Alkaline Phosphatase C-Reactive Protein Total Protein Albumin TSH Free T4 Urine Opiates Screen Urine Fentanyl Screen Ur Barbiturates Screen Ur Phencyclidine Scrn Ur Amphetamines Screen U Benzodiazepines Scrn Urine Cocaine Screen U Marijuana (THC) Screen COVID-19 ([facility]) Negative COVID-Crossborders See Note 12/07/21 12/07/21 12/07/21 00:50 06:53 06:53 WBC 6.8 RBC 3.87 L Hgb 11.0 L Hct 34.9 L MCV 90.2 MCH 28.4 MCHC 31.5 RDW 13.8 Plt Count 238 MPV 9.4 Immature Gran % (Auto) Neut % (Auto) Lymph % (Auto) Wilkes % (Auto) Eos % (Auto) Baso % (Auto) Lymph # (Auto) Wilkes # (Auto) Eos # (Auto) Baso # (Auto) Abs Immat Gran (auto) Absolute Neuts (auto) Absolute Nucleated RBC 0.000 Nucleated RBC % (auto) 0.0 ESR PT INR Sodium 139 Potassium 4.3 Chloride 106 Carbon Dioxide 25 Anion Gap 12 BUN 11 Creatinine 0.64 Estim Creat Clear Calc 85.5 Estimated GFR > 60 Random Glucose 96 Lactic Acid Calcium 8.7 Total Bilirubin Direct Bilirubin AST ALT Alkaline Phosphatase C-Reactive Protein Total Protein Albumin TSH Free T4 Urine Opiates Screen POSITIVE H Urine Fentanyl Screen POSITIVE H Ur Barbiturates Screen Not Detected Ur Phencyclidine Scrn Not Detected Ur Amphetamines Screen Not Detected U Benzodiazepines Scrn Not Detected Urine Cocaine Screen POSITIVE H U Marijuana (THC) Screen POSITIVE H COVID-19 ([facility]) COVID-19 Clin Com Mental Status Exam Mental Status Exam Patient Appearance: Perspiring (diaphoretic, ill appearing ) Medications Medications Current Medications Enoxaparin Sodium (Enoxaparin Sodium 40 Mg/0.4 Ml Syringe) 40 mg SUBCUT DAILY [facility] Last Admin: 12/07/21 08:32 Dose: 40 mg Documented by: Hydroxyzine HCl (Hydroxyzine Hcl 50 Mg Tablet) 50 mg PO Q8H PRN PRN Reason: anxiety/restlessness Lactated Ringer's (Lr) 1,000 mls @ 100 mls/hr IVCONT .Q10H [facility] Last Infusion: 12/07/21 12:06 Dose: 0 mls/hr Documented by: Piperacillin Sod/Tazobactam (Sod 3.375 gm/ Sodium Chloride) 50 mls @ 100 mls/hr IV Q6H [facility] Last Admin: 12/07/21 12:01 Dose: 100 mls/hr Documented by: Vancomycin HCl 750 mg/ Sodium (Chloride) 265 mls @ 265 mls/hr IV Q12H [facility] Last Infusion: 12/07/21 05:48 Dose: Infused Documented by: Pharmacy Consult (Consult Rx Vancomycin Dosing) 1 each MISCELLANE DAILY PRN PRN Reason: Consult order Sodium Chloride (0.9 % Sodium Chloride Flush 3 Ml Syringe) 3 ml IVFLUSH QSHIFT [facility] Last Admin: 12/07/21 07:52 Dose: Not Given Documented by: Allergies Allergies Allergy/AdvReac Type Severity Reaction Status Date / Time No Known Allergies Allergy Verified 12/06/21 12:17 [No Known Allergies*] Assessment & Plan Assessment & Plan (1) Opioid withdrawal: Status: Acute Code(s): F11.23 - Opioid dependence with withdrawal Assessment and Plan: * methadone 10mg one time dose PRN for withdrawal * will follow up in AM to determine dosing --likely 30mg I spent __50____ minutes with the patient and/or on the patient floor today, greater than?50% of which was spent counseling/coordinating care. PMFSH Past Medical History Medical History (Updated 12/07/21 @ 12:57 by Miranda Rand CNP) Drug abuse Graves disease Opiate addiction Social History Social History Alcohol intake: unknown Patient Tobacco Use Status: Tobacco use Unknown Tobacco use type: Cigarette Cigarettes Per Day: 5 Second Hand Smoke Exposure: No service: No Current occupational status: unemployed
[2021-12-07 15:16] VITALS: BP 165/91; PULSE 43; RESP 17; TEMP 36.6; O2SAT 100
--- NOTE | 2021-12-07 15:35 | W.PM.IDCN ---
History of Present Illness Data of Consult Service Date: 12/07/21 Requesting physician: Richard Lake Primary Care Provider: DO JOHANA Poole Reason for consult: hand erythema She comes in with bilateral hand redness and pain. [place] [address] and uses IV drugs. She is difficult to get history from due to somnolence. Review of Systems Review of Systems: Yes all other systems are reviewed and are negative PMFSH Past Medical History Medical History Drug abuse Graves disease Opiate addiction Family History Family history: reviewed and not pertinent Social History Social History Alcohol intake: unknown Patient Tobacco Use Status: Tobacco use Unknown Tobacco use type: Cigarette Cigarettes Per Day: 5 Second Hand Smoke Exposure: No service: No Current occupational status: unemployed Meds Allergies Allergy/AdvReac Type Severity Reaction Status Date / Time No Known Allergies Allergy Verified 12/06/21 12:17 [No Known Allergies*] Active Medications: Current Medications Enoxaparin Sodium (Enoxaparin Sodium 40 Mg/0.4 Ml Syringe) 40 mg SUBCUT DAILY [facility] Last Admin: 12/07/21 08:32 Dose: 40 mg Documented by: Hydroxyzine HCl (Hydroxyzine Hcl 50 Mg Tablet) 50 mg PO Q8H PRN PRN Reason: anxiety/restlessness Lactated Ringer's (Lr) 1,000 mls @ 100 mls/hr IVCONT .Q10H [facility] Last Infusion: 12/07/21 12:38 Dose: 100 mls/hr Documented by: Piperacillin Sod/Tazobactam (Sod 3.375 gm/ Sodium Chloride) 50 mls @ 100 mls/hr IV Q6H [facility] Last Infusion: 12/07/21 12:38 Dose: Infused Documented by: Vancomycin HCl 750 mg/ Sodium (Chloride) 265 mls @ 265 mls/hr IV Q12H [facility] Last Infusion: 12/07/21 05:48 Dose: Infused Documented by: Methadone HCl (Methadone Hcl 20 Mg/2 Ml Oral.Conc) 10 mg PO ONCE PRN PRN Reason: Opiate Withdrawal Pharmacy Consult (Consult Rx Vancomycin Dosing) 1 each MISCELLANE DAILY PRN PRN Reason: Consult order Sodium Chloride (0.9 % Sodium Chloride Flush 3 Ml Syringe) 3 ml IVFLUSH QSHIFT [facility] Last Admin: 12/07/21 15:24 Dose: Not Given Documented by: Physical Exam Vital Signs: Vital Signs: Last Vital Signs Temp 97.8 F 12/07/21 15:16 Pulse 43 L 12/07/21 15:16 Resp 17 12/07/21 15:16 BP 165/91 H 12/07/21 15:16 Pulse Ox 100 12/07/21 15:16 BMI result Body Mass Index 18.1 Const: General: cooperative Eyes: General: appearance normal, both eyes and all related structures Resp: Effort & Inspection: normal respiratory effort Cardio: Rate: regular rate Rhythm: regular rhythm GI: Palpation (GI): Soft to palpation and nontender Skin: General skin exam: no rashes or lesions noted Extrem: Other: erythema bilateral hands can make fist Results Labs CBC & Chem 7: 12/07/21 06:53 12/07/21 06:53 Labs: Short CBC 12/07/21 Range/Units 06:53 WBC 6.8 (4.8-10.8) X10*3/uL Hgb 11.0 L (12.0-16.0) g/dl Hct 34.9 L (37.0-47.0) % Plt Count 238 (160-400) X10*3/uL BMP 12/07/21 06:53 Sodium 139 Potassium 4.3 Chloride 106 Carbon Dioxide 25 BUN 11 Creatinine 0.64 Calcium 8.7 Microbiology Microbiology Results: Microbiology 12/06/21 12:27 Blood - Venous Blood Culture - Preliminary No growth after 24 hours. 12/06/21 12:27 Blood - Venous Blood Culture - Preliminary No growth after 24 hours. Assessment and Plan (1) Cellulitis of hand: Status: Acute Probable staph and strep,less likely Pseudomonas in hand She has chronic left clavicular destructive lesion. She has HIV and Hepatitis C risk factors. Plan Would give Vancomycin and Zosyn Await cultures. Would see if clavicular lesion able to be biopsied by IR. Check HIV and Hepatitis C.
[2021-12-07 15:41] LABS: Vancomycin Trough 7.3 mcg/mL (10.0-20.0)
[2021-12-07] MEDS: vancomycin HCL 1,000 MG in 0.9 % Sodium Chloride 250 ML 270 MG IV (17:46)
[2021-12-07 19:36] VITALS: BP 162/89; PULSE 44; RESP 17; TEMP 36.9; O2SAT 100
[2021-12-07 23:50] VITALS: BP 177/103; PULSE 43; RESP 17; TEMP 36.9; O2SAT 99
[2021-12-08 03:20] VITALS: BP 187/96; PULSE 40; RESP 16; TEMP 36.9; O2SAT 100
[2021-12-08 04:19] LABS: ~HepC Num1 10.89 S/CO (0.00-0.79); ~Hepatitis C Antibody Reactive (Nonreactive)
[2021-12-08 04:28] LABS: HIV AB/AG Nonreactive (Nonreactive); HIV Num 1 0.07 S/CO (0.00-0.99)
[2021-12-08 05:27] LABS: Hematocrit 42.1 % (37.0-47.0); Hemoglobin 13.5 g/dl (12.0-16.0); Mean Corpuscular HGB Conc 32.1 g/dl (31.0-35.0); Mean Corpuscular Hemoglobin 28.5 pg (27.0-33.0); Mean Platelet Volume 11.5 fL (9.4-12.3); Platelet Count 145 X10*3/uL (160-400); Red Blood Count 4.73 X10*6/uL (4.20-5.50); Red Cell Distribution Width 13.8 % (11.0-16.0); White Blood Count 5.8 X10*3/uL (4.8-10.8)
[2021-12-08 05:46] LABS: Anion Gap 17 (12-20); Blood Urea Nitrogen 8 mg/dL (9-16); Calcium 9.3 mg/dL (8.4-10.2); Carbon Dioxide 20 mmol/L (22-29); Chloride 104 mmol/L (96-108); Creatinine Clr Calc Pharmacy 81.7; Estimated Glomerular Filt Rate > 60; Glucose Random 96 mg/dL (60-115); Potassium 4.3 mmol/L (3.3-5.1); Sodium 137 mmol/L (135-145)
[2021-12-08] MEDS: Piperacillin Sodium/Tazobactam 3.375 GM in 0.9 % Sodium Chloride 50 ML IV (06:18)
[2021-12-08] MEDS: hydrOXYzine HCL 50 MG TABLET PO (06:18)
[2021-12-08] MEDS: vancomycin HCL 1,000 MG in 0.9 % Sodium Chloride 250 ML 270 MG IV (06:55)
[2021-12-08 07:18] VITALS: BP 170/88; PULSE 38; RESP 17; TEMP 36.4; O2SAT 99
--- NOTE | 2021-12-08 07:41 | HE.PHANOTE ---
Vancomycin Dosing Addendum Vancomycin trough was 7.3 after 2 doses... the dose was then increased to 1000 mg q12h last night. Pt Cr is stable. Trough may be somewhat on the higher side. Insight is predicting an AUC of 566, trough of 15.8. Trough today at 1600.
[2021-12-08] MEDS: methADONE HCl 20 MG/2 ML ORAL.CONC 30 MG PO (09:37)
[2021-12-08] MEDS: Enoxaparin Sodium 40 MG/0.4 ML SYRINGE SUBCUT (09:37)
[2021-12-08] MEDS: Naloxone HCl Nasal TAKE HOME 4 MG SPRAY NOSTRILALT (11:32)
[2021-12-08 11:34] VITALS: BP 131/84; PULSE 50; RESP 17; TEMP 37.1; O2SAT 98
--- NOTE | 2021-12-08 12:01 | PC.NURSE ---
Patient was getting anxious and very persistent of leaving home. No reason given,just that she must go home and her ride is already here. Here for bilat hand cellulitis related to IV drug injections. Was seen by Miranda Rand this morning,received one dose of methadone for withdrawals. Dr Story,nursing power press supervisor and Miranda Rand notified. Narcan given to patient to take home. Patient alert and oriented,aware of risks of leaving,IV and quality assurance monitor body out.AMA form signed . Walked out accompanied by her father.
--- NOTE | 2021-12-08 12:16 | PM.DS ---
DS: Providers Provider Date of Service: 12/08/21 Date of admission: 12/06/21 17:38 Primary care physician: Lanette Sun DO Consults: 12/06/21 17:41 Consult to Psychiatry Routine Consulting Provider: Psych Covering Reason for consultation: heroine abuse Has provider been notified: No 12/06/21 17:50 Consult to Infectious Diseases Routine Consulting Provider: Annamarie Williamson Reason for consultation: b/l hand cellulitis Has provider been notified: No DS: Diagnosis Discharge Diagnosis (1) Cellulitis of hand: Status: Acute DS: Summary Hospital Course Hospital Course: from initial hpi: Chief Complaint: hand cellulitis ?31-year-old female ivdu? came to the hospital because of hand cellulitis-? patient says that she has regular uses heroin IV was injected in arms- has swelling of and from 1-2 days duration and also pain and swelling. ? She [place] [address] and with friends, currently having erythema and pain in the? hands that is why decided to? come to the hospital. ? Denies any new complaint of chest pain or shortness of breath or abdominal pain or fever or chills or nausea or vomiting Denies any cough Denies any weakness or numbness. hospital course: Patient was admitted for bilateral hand cellulitis associated with intravenous drug use. She was treated with vancomycin and Zosyn. She had some improvement but was still requiring IV antibiotics. Patient decided to leave against medical advice. She was made aware of the risk of doing so including . Patient demonstrated understanding. For her opiate dependence with withdrawal she was treated with methadone. Patient was also noted to have asymptomatic sinus bradycardia, Did not require intervention. Time Spent with Patient Time attestation: Total time spent providing and/or coordinating discharge services: Discharge coordination time: Greater than 30 minutes Quality: Safe Use of Opioids Does Pt have an Active Cancer Diagnosis on the Problem List?: No Quality: Stroke Does the patient have a stroke diagnosis?: No Physical Exam Vital Signs: Vital Signs: Last Vital Signs Temp 98.8 F 12/08/21 11:34 Pulse 50 12/08/21 11:34 Resp 17 12/08/21 11:34 BP 131/84 12/08/21 11:34 Pulse Ox 98 12/08/21 11:34 BMI result Body Mass Index 18.1 General: AO X 3, no acute distress Resp: CTA bilateral, no accessory muscles used CVS: S1,S2,RRR GI: soft, non tender, non distended Neuro: motor grossly intact, alert Psych: appropriate affect, appropriate insight skin: bilateral hand erythema DS: Data Data Completed and Pending Labs on day of discharge: Laboratory Results - last 24 hr 12/07/21 12/07/21 12/07/21 15:04 16:42 16:42 WBC RBC Hgb Hct MCV MCH MCHC RDW Plt Count MPV Absolute Nucleated RBC Nucleated RBC % (auto) Sodium Potassium Chloride Carbon Dioxide Anion Gap BUN Creatinine Estim Creat Clear Calc Estimated GFR Random Glucose Calcium Vancomycin Trough 7.3 L Hepatitis C Ab ([facility]) Reactive H HIV 1&2 Ab/P24 Ag 4thGn Nonreactive 12/08/21 12/08/21 05:00 05:00 WBC 5.8 RBC 4.73 D Hgb 13.5 D Hct 42.1 D MCV 89.0 MCH 28.5 MCHC 32.1 RDW 13.8 Plt Count 145 L D MPV 11.5 Absolute Nucleated RBC 0.000 Nucleated RBC % (auto) 0.0 Sodium 137 Potassium 4.3 Chloride 104 Carbon Dioxide 20 L Anion Gap 17 BUN 8 L Creatinine 0.67 Estim Creat Clear Calc 81.7 Estimated GFR > 60 Random Glucose 96 Calcium 9.3 D Vancomycin Trough Hepatitis C Ab ([facility]IA) HIV 1&2 Ab/P24 Ag 4thGn Preliminary micro results at discharge 12/06/21 12:27 Blood Culture - Preliminary Blood - Venous No growth after 24 hours. 12/06/21 12:27 Blood Culture - Preliminary Blood - Venous No growth after 24 hours. Discharge Plan Discharge Patient Disposition: Left Against Medical Advice Discharge Diagnosis: cellulitis, opiate withdrawal Referrals: Lanette Sun DO [Primary Care Provider] - 1 Week Discharge Orders: Discharge Order (Routine); Ordered 12/08/21 Ordered By: Robert Story Care Plan Goals: left ama Health Concerns: left ama Plan of Treatment: juanita dawn Assessment: left ama Discharge Date/Time: 12/08/21 11:35
--- NOTE | 2021-12-08 16:39 | P.PNADD_ITS ---
Subjective Subjective Date of Service: 12/08/21 Reason For Visit: Bilateral hand cellulitis Interim History: Patient seen in follow up X2 by this property underwriter Awake, alert, pleasant. reporting mild withdrawal sx. Methadone 30mg administered with good effect. RN notified this property underwriter that patient was requesting to be discharged. Patient seen again, stating that she wanted to leave to her friends home. Declined any medications at this time. Denied any withdrawal sx. Aare of risks and benefits realted to treatment/no treatment. Harm reduction discussion, including safer injection and overdose prevention. Patient aware of resources and Diagnostics Vital Signs (24Hr): Vital Signs - 24 hr 12/07/21 19:36 12/07/21 23:50 12/08/21 03:20 Temperature 98.4 F 98.4 F 98.5 F Pulse Rate 44 L 43 L 40 L Respiratory Rate 17 17 16 Blood Pressure 162/89 H 177/103 H 187/96 H Pulse Oximetry 100 99 100 12/08/21 07:18 12/08/21 11:34 Temperature 97.6 F 98.8 F Pulse Rate 38 L 50 Respiratory Rate 17 17 Blood Pressure 170/88 H 131/84 Pulse Oximetry 99 98 BMI result Body Mass Index 18.1 Labs Results: 12/08/21 05:00 12/08/21 05:00 Labs: Laboratory Results - last 48 hr 12/06/21 12/06/21 12/07/21 12:27 12:27 00:50 WBC RBC Hgb Hct MCV MCH MCHC RDW Plt Count MPV Absolute Nucleated RBC Nucleated RBC % (auto) ESR 49 H Sodium Potassium Chloride Carbon Dioxide Anion Gap BUN Creatinine Estim Creat Clear Calc Estimated GFR Random Glucose Calcium C-Reactive Protein 1.35 H Free T4 0.84 Vancomycin Trough Urine Opiates Screen POSITIVE H Urine Fentanyl Screen POSITIVE H Ur Barbiturates Screen Not Detected Ur Phencyclidine Scrn Not Detected Ur Amphetamines Screen Not Detected U Benzodiazepines Scrn Not Detected Urine Cocaine Screen POSITIVE H U Marijuana (THC) Screen POSITIVE H Hepatitis C Ab (EIA) HIV 1&2 Ab/P24 Ag 4thGn 12/07/21 12/07/21 12/07/21 06:53 06:53 15:04 WBC 6.8 RBC 3.87 L Hgb 11.0 L Hct 34.9 L MCV 90.2 MCH 28.4 MCHC 31.5 RDW 13.8 Plt Count 238 MPV 9.4 Absolute Nucleated RBC 0.000 Nucleated RBC % (auto) 0.0 ESR Sodium 139 Potassium 4.3 Chloride 106 Carbon Dioxide 25 Anion Gap 12 BUN 11 Creatinine 0.64 Estim Creat Clear Calc 85.5 Estimated GFR > 60 Random Glucose 96 Calcium 8.7 C-Reactive Protein Free T4 Vancomycin Trough 7.3 L Urine Opiates Screen Urine Fentanyl Screen Ur Barbiturates Screen Ur Phencyclidine Scrn Ur Amphetamines Screen U Benzodiazepines Scrn Urine Cocaine Screen U Marijuana (THC) Screen Hepatitis C Ab (EIA) HIV 1&2 Ab/P24 Ag 4thGn 12/07/21 12/07/21 12/08/21 16:42 16:42 05:00 WBC 5.8 RBC 4.73 D Hgb 13.5 D Hct 42.1 D MCV 89.0 MCH 28.5 MCHC 32.1 RDW 13.8 Plt Count 145 L D MPV 11.5 Absolute Nucleated RBC 0.000 Nucleated RBC % (auto) 0.0 ESR Sodium Potassium Chloride Carbon Dioxide Anion Gap BUN Creatinine Estim Creat Clear Calc Estimated GFR Random Glucose Calcium C-Reactive Protein Free T4 Vancomycin Trough Urine Opiates Screen Urine Fentanyl Screen Ur Barbiturates Screen Ur Phencyclidine Scrn Ur Amphetamines Screen U Benzodiazepines Scrn Urine Cocaine Screen U Marijuana (THC) Screen Hepatitis C Ab (EIA) Reactive H HIV 1&2 Ab/P24 Ag 4thGn Nonreactive 12/08/21 05:00 WBC RBC Hgb Hct MCV MCH MCHC RDW Plt Count MPV Absolute Nucleated RBC Nucleated RBC % (auto) ESR Sodium 137 Potassium 4.3 Chloride 104 Carbon Dioxide 20 L Anion Gap 17 BUN 8 L Creatinine 0.67 Estim Creat Clear Calc 81.7 Estimated GFR > 60 Random Glucose 96 Calcium 9.3 D C-Reactive Protein Free T4 Vancomycin Trough Urine Opiates Screen Urine Fentanyl Screen Ur Barbiturates Screen Ur Phencyclidine Scrn Ur Amphetamines Screen U Benzodiazepines Scrn Urine Cocaine Screen U Marijuana (THC) Screen Hepatitis C Ab (EIA) HIV 1&2 Ab/P24 Ag 4thGn Medications Allergies Allergies Allergy/AdvReac Type Severity Reaction Status Date / Time No Known Allergies Allergy Verified 12/06/21 12:17 [No Known Allergies*] Assessment & Plan Assessment & Plan Plan Would give Vancomycin and Zosyn Await cultures. Would see if clavicular lesion able to be biopsied by IR. Check HIV and Hepatitis C. I spent minutes with the patient and/or on the patient floor today, greater than?50% of which was spent counseling/coordinating care.
== END 2021-12-08 11:35 | disposition left against medical advice (07) ==
LOC: HO.ED 16:44 → HO.EDOVER 17:43 → HO.S3 18:54
PROVIDERS: Internal Medicine; Admitting Provider Internal Medicine; Emergency Provider Emergency Medicine; PCP Internal Medicine; Visit Provider Internal Medicine
DX: F11.23 Opioid dependence with withdrawal (principal); F11.282 Opioid dependence with opioid-induced sleep disorder; F11.288 Opioid dependence with other opioid-induced disorder; L03.113 Cellulitis of right upper limb; L03.114 Cellulitis of left upper limb; R61 Generalized hyperhidrosis; R00.1 Bradycardia, unspecified; M75.92 Shoulder lesion, unspecified, left shoulder; E05.00 Thyrotoxicosis with diffuse goiter without thyrotoxic crisis or storm; F17.210 Nicotine dependence, cigarettes, uncomplicated; Z20.822 Contact with and (suspected) exposure to COVID-19; Z11.4 Encounter for screening for human immunodeficiency virus [HIV]; Z11.59 Encounter for screening for other viral diseases; Z79.899 Other long term (current) drug therapy; Z59.02 Unsheltered homelessness; Z53.29 Procedure and treatment not carried out because of patient's decision for other reasons
CPT/HCPCS: 36415; 80048; 80076; 80202; 80307; 83605; 84439; 84443; 85025; 85027; 85610; 85652; 86140; 86803; 87040; 87389; 87635; 93005; 96361; 96365; 96366; 96367; 96372; 96375; 99218; 99285; J1650; J2543; J3370

== ENCOUNTER 2022-01-19 16:43 | Inpatient (IN) | payer OTHER, SELFPAY ==
--- NOTE | ~2022-01-19 | CT_ITS ---
EXAMINATION: CT HAND WITHOUT CONTRAST, RIGHT CLINICAL INFORMATION: IV drug use. Thumb swelling. COMPARISON: None TECHNIQUE: Contiguous axial CT images of the right hand were obtained without contrast. Multiplanar reformats were provided and reviewed. This CT examination was performed using dose optimization techniques as appropriate, variously including the following: *Automated exposure control *Adjustment of mA and/or kV according to patient size (this includes techniques or standardized protocols for targeted exams where dose is matched to indication/reason for exam; i.e. extremities or head) *Use of iterative reconstruction technique DLP: 116 mGy-cm FINDINGS: No acute fracture or dislocation. Cortical deformity at the base of the 5th metacarpal, likely the sequela of remote trauma. Normal carpal alignment. No significant joint space narrowing or marginal osteophytes. No concerning lytic or blastic osseous lesion. No periosteal reaction or CT evidence of acute osteomyelitis. There is skin thickening with prominent subcutaneous edema along the lateral aspect of the distal radius and extending along the base of the thumb. Volar to the distal radius there is a thick-walled fluid collection measuring approximately 1.1 x 1.2 cm in axial dimension (axial image 55/78), likely representing a small abscess. The visualized flexor and extensor tendons are grossly intact however, evaluation is limited on CT examination. CT/CT hand RT wo con IMPRESSION: Probable abscess formation within the soft tissues volar to the distal radius measuring up to 1.2 cm in greatest dimension. Prominent adjacent soft tissue edema/skin thickening extending along the lateral aspect of the radial styloid and base of the thumb, consistent with acute cellulitis. No CT evidence of adjacent osteomyelitis.
--- NOTE | ~2022-01-19 | XR_ITS ---
EXAMINATION: XR HAND, RIGHT CLINICAL INFORMATION: Right hand cellulitis COMPARISON: CT scan right hand, yesterday 01/19/2022. TECHNIQUE: PA, lateral, and oblique views of the right hand. FINDINGS: The soft tissue abscesses seen on the CT scan performed yesterday, not appreciated plain films today. Some mild degenerative changes present at the interphalangeal joints. No bony destructive lesions are seen to suggest osteomyelitis. No fractures. XR/XR hand RT min 3V IMPRESSION: No evidence of osteomyelitis. Mild degenerative changes.
[2022-01-19 16:55] VITALS: BP 112/68; BP 114/76; PULSE 68; RESP 16; TEMP 37.4; O2SAT 97; BMI 17.4
[2022-01-19 17:05] VITALS: BP 114/76; PULSE 56; RESP 16; TEMP 37.6; O2SAT 100
--- NOTE | 2022-01-19 17:05 | ED_ITS ---
HPI - Skin/Abscess/Foreign Bdy General Chief complaint: Skin/Abscess/Foreign Body Stated complaint: right hand infection Time Seen by Provider: 01/19/22 16:54 Source: patient, EMS and police Mode of arrival: EMS Limitations: no limitations History of Present Illness HPI narrative: patient comes to the emergency room in police custody. Patient has been complaining right hand swelling, pain. Patient is known to be an IV drug user. Patient was discharged from this hospital on December 08 for a similar complain t. However, the pain and swelling and erythema were on the dorsum of the hand, proximal to the thumb, now the swelling and redness expanded to the distal aspect of the thumb. Patient states that it hurts a lot to flex and extend the thumb on the right hand. Patient complaining of chills, no fever. Patient admits to using IV heroin earlier this morning. Related Data Home Medications Medication Instructions Recorded Confirmed No Known Home Meds 01/19/22 01/19/22 Allergies Allergy/AdvReac Type Severity Reaction Status Date / Time No Known Allergies Allergy Verified 12/06/21 12:17 [No Known Allergies*] Review of Systems Review of Systems: Constitutional : No Weight loss, No Fever, complaining of Chills, No Night Sweats, No Fatigue, No Malaise ENT/Mouth : No Hearing loss, No Ear Pain, No Nasal Congestion, No Sinus Pain, No Hoarseness, No sore throat, No Rhinorrhea, No Swallowing Difficulty Eyes: No Eye Pain, No Swelling, No Redness, No Foreign Body, No Discharge, No Vision Changes Cardiovascular : No Chest Pain, No SOB, No Dyspnea on Exertion, No Orthopnea, No Edema, No Palpitations Respiratory : No Cough, No Sputum, No Wheezing, No Smoke Exposure, No Dyspnea Gastrointestinal : No Nausea, No Vomiting, No Diarrhea, No Constipation, No abdominal Pain, No Hematochezia, No Melena Genitourinary : no irregular bleeding, No Dysuria, No Urinary Frequency, No Hematuria, No Urinary Incontinence, No Urgency, No Flank Pain, No Urinary Flow Changes, No Hesitancy Musculoskeletal : No joint pain, No Myalgias, complaining of left hand, thumb pain and swelling Skin : complaining of erythema in right forearm and right hand Neuro : No Weakness, No Numbness, No Paresthesias, No Loss of Consciousness, No Dizziness, No Headache Psych : No Anxiety/Panic, No Depression, No SI/HI/AH/VH, No Social Issues, Heme/Lymph: No Bruising, No Bleeding,No Lymphadenopathy Endocrine : No Polyuria, No Polydipsia, No Temperature Intolerance PMF Past Medical History Medical History Drug abuse Graves disease HCV (hepatitis C virus) Opiate addiction Social History Social History Alcohol intake: unknown Patient Tobacco Use Status: Tobacco use Unknown Tobacco use type: Cigarette Cigarettes Per Day: 5 Second Hand Smoke Exposure: No Advance Directives: No Advance Directives Information Provided: No service: No Current occupational status: unemployed Physical Exam Vital Signs: Vital Signs: Last Vital Signs Temp 99.6 F 01/19/22 17:05 Pulse 52 01/19/22 19:19 Resp 13 01/19/22 19:19 BP 117/83 01/19/22 19:19 Pulse Ox 98 01/19/22 19:19 BMI result Body Mass Index 17.4 Course Course Course Narrative: I was informed by the patient's nurse that the patient has poor access, multiple providers had already tried ultrasound-guided IV placement, including external jugular. I was able to insert an internal jugular on the right side some obtain labs and IV access. Patient was started on vancomycin, Zosyn and IV fluids. Sepsis not suspected. Per police department, at this time, since patient is being admitted, patient is no longer under their custody. They state that the offenses that she was arrested for a minor, not a threat to the public. Patient was given a sheet of information regarding her court date. CT scan shows a probable abscess formation within the soft tissue, volar to the distal radius, approximately 1.2 cm. At this time, there is no obvious abscess that we can easily drain. Orthopedic clinics consult will be obtained by our hospitalist. I discussed the patient with Dr. Barcenas, patient being admitted. MDM - Skin/Abscess/Foreign Bdy Lab Data Result diagrams: 01/19/22 19:29 01/19/22 19:29 Labs: Lab Results 01/19/22 01/19/22 01/19/22 Range/Units 17:08 17:31 19:29 WBC 3.7 L (4.8-10.8) X10*3/uL RBC 3.33 L D (4.20-5.50) X10*6/uL Hgb 9.7 L D (12.0-16.0) g/dl Hct 30.2 L D (37.0-47.0) % MCV 90.7 (80.0-98.0) fL MCH 29.1 (27.0-33.0) pg MCHC 32.1 (31.0-35.0) g/dl RDW 14.0 (11.0-16.0) % Plt Count 167 (160-400) X10*3/uL MPV 10.0 (9.4-12.3) fL Immature Gran % (Auto) 0.8 H (0.0-0.4) % Neut % (Auto) 56.5 (45-73) % Lymph % (Auto) 32.2 (20-40) % [place] % (Auto) 9.2 (2-11) % Eos % (Auto) 0.8 (0-4) % Baso % (Auto) 0.5 (0-2) % Lymph # (Auto) 1.2 (1.2-4.9) X10*3/uL [place] # (Auto) 0.3 (0.1-1.2) X10*3/uL Eos # (Auto) 0.0 (0.0-0.4) X10*3/uL Baso # (Auto) 0.0 (0.0-0.2) X10*3/uL Abs Immat Gran (auto) 0.03 (0.00-0.03) X10*3/uL Absolute Neuts (auto) 2.1 (2.0-8.3) x10*3/uL Absolute Nucleated RBC 0.000 (0.0-0.012) X10*3/uL Nucleated RBC % (auto) 0.0 (0.0-0.2) /100WBC ESR (0-20) MM/HR Sodium (135-145) mmol/L Potassium (3.3-5.1) mmol/L Chloride (96-108) mmol/L Carbon Dioxide (22-29) mmol/L Anion Gap (12-20) BUN (9-16) mg/dL Creatinine (0.5-1.4) mg/dL Estim Creat Clear Calc Estimated GFR Random Glucose (60-115) mg/dL Lactic Acid 1.3 (0.5-2.0) mmol/L Calcium (8.4-10.2) mg/dL Total Bilirubin (0.0-1.0) mg/dL Direct Bilirubin (0.0-0.5) mg/dL AST (5-31) U/L ALT (0-31) U/L Alkaline Phosphatase (39-117) U/L C-Reactive Protein (< or = 0.50) mg/dL C-React Prot High Sens Total Protein (6.5-8.0) g/dL Albumin (3.5-5.0) g/dL TSH (0.32-4.0) uIU/mL Free T4 (0.71-1.85) ng/dL Beta HCG, Quant mIU/mL Ethyl Alcohol mg/dL COVID-19 ([facility]) Negative (Negative) COVID-19 Clin Com See Note 01/19/22 01/19/22 01/19/22 Range/Units 19:29 19:29 19:29 WBC (4.8-10.8) X10*3/uL RBC (4.20-5.50) X10*6/uL Hgb (12.0-16.0) g/dl Hct (37.0-47.0) % MCV (80.0-98.0) fL MCH (27.0-33.0) pg MCHC (31.0-35.0) g/dl RDW (11.0-16.0) % Plt Count (160-400) X10*3/uL MPV (9.4-12.3) fL Immature Gran % (Auto) (0.0-0.4) % Neut % (Auto) (45-73) % Lymph % (Auto) (20-40) % [place] % (Auto) (2-11) % Eos % (Auto) (0-4) % Baso % (Auto) (0-2) % Lymph # (Auto) (1.2-4.9) X10*3/uL [place] # (Auto) (0.1-1.2) X10*3/uL Eos # (Auto) (0.0-0.4) X10*3/uL Baso # (Auto) (0.0-0.2) X10*3/uL Abs Immat Gran (auto) (0.00-0.03) X10*3/uL Absolute Neuts (auto) (2.0-8.3) x10*3/uL Absolute Nucleated RBC (0.0-0.012) X10*3/uL Nucleated RBC % (auto) (0.0-0.2) /100WBC ESR 34 H (0-20) MM/HR Sodium 139 (135-145) mmol/L Potassium 3.6 (3.3-5.1) mmol/L Chloride 104 (96-108) mmol/L Carbon Dioxide 32 H (22-29) mmol/L Anion Gap 7 L (12-20) BUN 18 H D (9-16) mg/dL Creatinine 0.64 (0.5-1.4) mg/dL Estim Creat Clear Calc 81.9 Estimated GFR > 60 Random Glucose 111 (60-115) mg/dL Lactic Acid (0.5-2.0) mmol/L Calcium 8.4 D (8.4-10.2) mg/dL Total Bilirubin 0.3 (0.0-1.0) mg/dL Direct Bilirubin 0.2 (0.0-0.5) mg/dL AST 41 H (5-31) U/L ALT 37 H (0-31) U/L Alkaline Phosphatase 67 D (39-117) U/L C-Reactive Protein 0.19 (< or = 0.50) mg/dL C-React Prot High Sens Cancelled Total Protein 6.6 (6.5-8.0) g/dL Albumin 3.3 L (3.5-5.0) g/dL TSH (0.32-4.0) uIU/mL Free T4 (0.71-1.85) ng/dL Beta HCG, Quant < 2 mIU/mL Ethyl Alcohol mg/dL COVID-19 ([facility]) (Negative) COVID-19 Clin Com 01/19/22 01/19/22 Range/Units 19:29 19:29 WBC (4.8-10.8) X10*3/uL RBC (4.20-5.50) X10*6/uL Hgb (12.0-16.0) g/dl Hct (37.0-47.0) % MCV (80.0-98.0) fL MCH (27.0-33.0) pg MCHC (31.0-35.0) g/dl RDW (11.0-16.0) % Plt Count (160-400) X10*3/uL MPV (9.4-12.3) fL Immature Gran % (Auto) (0.0-0.4) % Neut % (Auto) (45-73) % Lymph % (Auto) (20-40) % [place] % (Auto) (2-11) % Eos % (Auto) (0-4) % Baso % (Auto) (0-2) % Lymph # (Auto) (1.2-4.9) X10*3/uL [place] # (Auto) (0.1-1.2) X10*3/uL Eos # (Auto) (0.0-0.4) X10*3/uL Baso # (Auto) (0.0-0.2) X10*3/uL Abs Immat Gran (auto) (0.00-0.03) X10*3/uL Absolute Neuts (auto) (2.0-8.3) x10*3/uL Absolute Nucleated RBC (0.0-0.012) X10*3/uL Nucleated RBC % (auto) (0.0-0.2) /100WBC ESR (0-20) MM/HR Sodium (135-145) mmol/L Potassium (3.3-5.1) mmol/L Chloride (96-108) mmol/L Carbon Dioxide (22-29) mmol/L Anion Gap (12-20) BUN (9-16) mg/dL Creatinine (0.5-1.4) mg/dL Estim Creat Clear Calc Estimated GFR Random Glucose (60-115) mg/dL Lactic Acid (0.5-2.0) mmol/L Calcium (8.4-10.2) mg/dL Total Bilirubin (0.0-1.0) mg/dL Direct Bilirubin (0.0-0.5) mg/dL AST (5-31) U/L ALT (0-31) U/L Alkaline Phosphatase (39-117) U/L C-Reactive Protein (< or = 0.50) mg/dL C-React Prot High Sens Total Protein (6.5-8.0) g/dL Albumin (3.5-5.0) g/dL TSH 4.27 H (0.32-4.0) uIU/mL Free T4 0.95 (0.71-1.85) ng/dL Beta HCG, Quant mIU/mL Ethyl Alcohol < 10 mg/dL COVID-19 ([facility]) (Negative) COVID-19 Clin Com Imaging Data Hand CT: Radiologist's impression: FINDINGS: No acute fracture or dislocation. Cortical deformity at the base of the 5th metacarpal, likely the sequela of remote trauma. Normal carpal alignment. No significant joint space narrowing or marginal osteophytes. No concerning lytic or blastic osseous lesion. No periosteal reaction or CT evidence of acute osteomyelitis. There is skin thickening with prominent subcutaneous edema along the lateral aspect of the distal radius and extending along the base of the thumb. Volar to the distal radius there is a thick-walled fluid collection measuring approximately 1.1 x 1.2 cm in axial dimension (axial image 55/78), likely representing a small abscess. The visualized flexor and extensor tendons are grossly intact however, evaluation is limited on CT examination.? CT/CT hand RT wo con IMPRESSION: Probable abscess formation within the soft tissues volar to the distal radius measuring up to 1.2 cm in greatest dimension. Prominent adjacent soft tissue edema/skin thickening extending along the lateral aspect of the radial styloid and base of the thumb, consistent with acute cellulitis. ? No CT evidence of adjacent osteomyelitis. Discharge Plan Discharge Clinical Impression: Cellulitis of hand Patient Disposition: Admitted As Inpatient Prescriptions: No Action No Known Home Meds 0RF
[2022-01-19 17:35] LABS: COVID-19 Test Negative (Negative); IDNOW Serial# 9DB6401D
[2022-01-19 17:48] LABS: Lactic Acid 1.3 mmol/L (0.5-2.0)
--- NOTE | 2022-01-19 18:00 | PHA.MEDREC ---
Pharmacy Consult ? Medication Reconciliation Pharmacy has completed the medication reconciliation. pt has not started doxy
[2022-01-19 19:19] VITALS: BP 117/83; PULSE 52; RESP 13; O2SAT 98
[2022-01-19 19:34] LABS: MANUAL DIFF FLAG NO
[2022-01-19 19:41] LABS: Basophils Percent Auto 0.5 % (0-2); Eosinophils Percent Auto 0.8 % (0-4); Hematocrit 30.2 % (37.0-47.0); Hemoglobin 9.7 g/dl (12.0-16.0); Imm Gran Abs Auto 0.03 X10*3/uL (0.00-0.03); Imm Gran Pct Auto 0.8 % (0.0-0.4); Lymphocytes Absolute Auto 1.2 X10*3/uL (1.2-4.9); Lymphocytes Percent Auto 32.2 % (20-40); Mean Corpuscular HGB Conc 32.1 g/dl (31.0-35.0); Mean Corpuscular Hemoglobin 29.1 pg (27.0-33.0); Mean Corpuscular Volume 90.7 fL (80.0-98.0); Monocytes Absolute Auto 0.3 X10*3/uL (0.1-1.2); Monocytes Percent Auto 9.2 % (2-11); Neutrophils Absolute Auto 2.1 x10*3/uL (2.0-8.3); Neutrophils Percent Auto 56.5 % (45-73); Platelet Count 167 X10*3/uL (160-400); Red Blood Count 3.33 X10*6/uL (4.20-5.50); White Blood Count 3.7 X10*3/uL (4.8-10.8)
[2022-01-19 19:50] LABS: Ethanol < 10 mg/dL
[2022-01-19 19:56] LABS: C Reactive Protein 0.19 mg/dL (< or = 0.50)
[2022-01-19 19:58] LABS: Alanine Aminotransferase 37 U/L (0-31); Albumin Level 3.3 g/dL (3.5-5.0); Alkaline Phosphatase 67 U/L (39-117); Anion Gap 7 (12-20); Aspartate Amino Transferase 41 U/L (5-31); Bilirubin Direct 0.2 mg/dL (0.0-0.5); Bilirubin Total 0.3 mg/dL (0.0-1.0); Blood Urea Nitrogen 18 mg/dL (9-16); Calcium 8.4 mg/dL (8.4-10.2); Carbon Dioxide 32 mmol/L (22-29); Chloride 104 mmol/L (96-108); Creatinine Clr Calc Pharmacy 81.9; Estimated Glomerular Filt Rate > 60; Glucose Random 111 mg/dL (60-115); Potassium 3.6 mmol/L (3.3-5.1); Sodium 139 mmol/L (135-145); Total Protein 6.6 g/dL (6.5-8.0)
[2022-01-19 19:59] LABS: HCG Quantitative < 2 mIU/mL
[2022-01-19 20:00] VITALS: PULSE 41; RESP 13; O2SAT 99
[2022-01-19] MEDS: Piperacillin Sodium/Tazobactam 3.375 GM in 0.9 % Sodium Chloride 50 ML IV (20:03)
[2022-01-19] MEDS: 0.9 % Sodium Chloride 1,000 ML 999 ML IVCONT (20:03)
--- NOTE | 2022-01-19 20:06 | PC.NURSE ---
medicated per provider order.
[2022-01-19] MEDS: Lidocaine HCl 2 % MPF 5 ML VIAL INFILTRATI (20:07)
[2022-01-19 20:10] LABS: Erythrocyte Sedimentation Rate 34 MM/HR (0-20)
[2022-01-19 20:13] LABS: TSH reflex Free T4 4.27 uIU/mL (0.32-4.0)
[2022-01-19 20:45] LABS: Free T4 (Free Thyroxine) 0.95 ng/dL (0.71-1.85)
--- NOTE | 2022-01-19 21:04 | PC.NURSE ---
pt sleeping, vss - bradycardic (40-45bpm). medicated per provider order order.
[2022-01-19] MEDS: vancomycin HCL 750 MG in 0.9 % Sodium Chloride 250 ML 265 MG IV (21:06)
--- NOTE | 2022-01-19 21:43 | PM.IMHP ---
History of Present Illness Date of Service: 01/19/22 Chief Complaint: right thumb pain redness and swelling 31-year-old female with a past medical history of IV drug abuse, heroin abuse, hepatitis-C presented to the hospital today with a chief complaint of right thumb pain redness and swelling. Patient was brought in by the police-patient was in custody; subsequently police released her from custody after she was brought to the ER. Patient reports that over the past 2 weeks she has been having pain redness and swelling in her right thumb; denies injecting into the right thumb; denies any subjective fevers. Mentions that her range of motion of the thumb is significantly limited because of the pain. Patient reports she uses heroin every day and last use was the day before coming to the hospital. Denies being on any methadone program on Suboxone. Reports he drinks occasional alcohol and uses tobacco. Denies any chest pain or palpitations. Denies any fever chills cough or sputum production. Denies any GI symptoms. Review of all other systems is negative except mentioned above ER course: Per ER team patient noted to have right thumb pain redness and swelling concerning for cellulitis; CT scan showed 1.2 cm abscess-unable to drain; no gas; admitted to the hospital for antibiotics and possible orthopedics consult for further evaluation. FORMERLY [facility], [facility]–1983 Medical History Drug abuse Graves disease HCV (hepatitis C virus) Opiate addiction Social History Alcohol intake: unknown Patient Tobacco Use Status: Tobacco use Unknown Tobacco use type: Cigarette Cigarettes Per Day: 5 Second Hand Smoke Exposure: No Advance Directives: No Advance Directives Information Provided: No service: No Current occupational status: unemployed Meds Allergies Allergy/AdvReac Type Severity Reaction Status Date / Time No Known Allergies Allergy Verified 12/06/21 12:17 [No Known Allergies*] Active Medications: Current Medications Pharmacy Consult (Consult Rx Perform Med Rec) 1 each MISCELLANE ONCE PRN PRN Reason: Consult order Home Medications Medication Instructions Recorded Confirmed Last Taken Type No Known Home Meds 01/19/22 01/19/22 Unknown History Physical Exam Vital Signs and Narrative: Vital Signs: Last Vital Signs Temp 99.6 F 01/19/22 17:05 Pulse 41 L 01/19/22 20:00 Resp 13 01/19/22 20:00 BP 117/83 01/19/22 19:19 Pulse Ox 99 01/19/22 20:00 BMI result Body Mass Index 17.4 Gen: Appears be in no acute distress HEENT: NCAT, Moist mucosa. Pulmonary: Vesicular breath sounds, fair air entry CVS: Normal S1-S2 Abdomen: BS+, Soft, Nontender Extremities: Warm well perfused ; right thumb base warm tender and erythematous; range of motion limited secondary to the pain Neuro: Alert and awake. Results Labs CBC and Chem 7: 01/19/22 19:29 01/19/22 19:29 Labs: Laboratory Results - last 24 hr 01/19/22 01/19/22 01/19/22 17:08 17:31 19:29 MCV 90.7 MCH 29.1 MCHC 32.1 RDW 14.0 Plt Count 167 MPV 10.0 Immature Gran % (Auto) 0.8 H Neut % (Auto) 56.5 Lymph % (Auto) 32.2 [place] % (Auto) 9.2 Eos % (Auto) 0.8 Baso % (Auto) 0.5 Lymph # (Auto) 1.2 [place] # (Auto) 0.3 Eos # (Auto) 0.0 Baso # (Auto) 0.0 Abs Immat Gran (auto) 0.03 Absolute Neuts (auto) 2.1 Absolute Nucleated RBC 0.000 Nucleated RBC % (auto) 0.0 ESR Anion Gap Estim Creat Clear Calc Estimated GFR Random Glucose Lactic Acid 1.3 Calcium Total Bilirubin Direct Bilirubin AST ALT Alkaline Phosphatase C-Reactive Protein C-React Prot High Sens Total Protein Albumin TSH Free T4 Beta HCG, Quant Ethyl Alcohol COVID-19 ([facility]) Negative COVID-19 Clin Com See Note 01/19/22 01/19/22 01/19/22 19:29 19:29 19:29 MCV MCH MCHC RDW Plt Count MPV Immature Gran % (Auto) Neut % (Auto) Lymph % (Auto) [place] % (Auto) Eos % (Auto) Baso % (Auto) Lymph # (Auto) [place] # (Auto) Eos # (Auto) Baso # (Auto) Abs Immat Gran (auto) Absolute Neuts (auto) Absolute Nucleated RBC Nucleated RBC % (auto) ESR 34 H Anion Gap 7 L Estim Creat Clear Calc 81.9 Estimated GFR > 60 Random Glucose 111 Lactic Acid Calcium 8.4 D Total Bilirubin 0.3 Direct Bilirubin 0.2 AST 41 H ALT 37 H Alkaline Phosphatase 67 D C-Reactive Protein 0.19 C-React Prot High Sens Cancelled Total Protein 6.6 Albumin 3.3 L TSH Free T4 Beta HCG, Quant < 2 Ethyl Alcohol COVID-19 ([facility]) COVID-19 [facility] 01/19/22 01/19/22 19:29 19:29 MCV MCH MCHC RDW Plt Count MPV Immature Gran % (Auto) Neut % (Auto) Lymph % (Auto) [place] % (Auto) Eos % (Auto) Baso % (Auto) Lymph # (Auto) [place] # (Auto) Eos # (Auto) Baso # (Auto) Abs Immat Gran (auto) Absolute Neuts (auto) Absolute Nucleated RBC Nucleated RBC % (auto) ESR Anion Gap Estim Creat Clear Calc Estimated GFR Random Glucose Lactic Acid Calcium Total Bilirubin Direct Bilirubin AST ALT Alkaline Phosphatase C-Reactive Protein C-React Prot High Sens Total Protein Albumin TSH 4.27 H Free T4 0.95 Beta HCG, Quant Ethyl Alcohol < 10 COVID-19 ([facility]) COVID-19 Clin [facility] Imaging Radiologist's Impressions: Impressions Hand CT 01/19/22 17:25 IMPRESSION: Probable abscess formation within the soft tissues volar to the distal radius measuring up to 1.2 cm in greatest dimension. Prominent adjacent soft tissue edema/skin thickening extending along the lateral aspect of the radial styloid and base of the thumb, consistent with acute cellulitis. No CT evidence of adjacent osteomyelitis. Assessment and Plan (1) Opioid withdrawal: Status: Acute (2) Cellulitis of hand: Status: Acute Plan 31-year-old female with a past medical history of IV drug abuse, heroin abuse, hepatitis-C presented to the hospital today with a chief complaint of right thumb pain redness and swelling. Noted to have right thumb cellulitis/ abscess. Admitted for further management. Right thumb cellulitis /sepsis: CT scan showed 1.2 cm abscess in the distal radius; adjacent soft tissue swelling; Will continue the patient on IV vancomycin Consult orthopedics for further recommendations Id consult Pain control History of opiate abuse: Monitor on COWS protocol. Addiction Medicine consult. pupils are slightly decreased in size but patient response to verbal commands and breathing comfortably. Will monitor. Low threshold for Narcan. History of hep C: Outpatient follow-up with PCP/ GI. DVT prophylaxis: Lovenox Code status: Full code Quality Stroke Does the patient have a stroke diagnosis?: No VTE Prior VTE?: No VTE Risk Level:: Medical - moderate - high VTE Device Contraindication: Treatment Not Indicated VTE Drug Contraindication: N/A - Med Ordered
--- NOTE | 2022-01-19 21:57 | PHA.PROG ---
Admission Date/Time: January 19, 2022 21:39 Indication: OTHER? POSSIBLE CELLULITIS ABCESS Weight in k.37 kg Adjusted body weight in K.448 [place] body weight in K.5 Obesity Dosing Indication % IBW: Serum Creatinine - Last 168 Hours 01/19/22 19:29 Creatinine 0.64 Estimated CrCl and GFR - Last 168 Hours 01/19/22 19:29 Estim Creat Clear Calc 81.9 Estimated GFR > 60 Vancomycin Loading Dose: 750MG X1 GIVEN IN ED Current Vancomycin Dosing Regimen: 750MG Q12H Vancomycin Monitoring using AUC goal of 400 - 600 range with trough as surrogate marker: AUC 448, TROUGH 12.7 Date and Time for next Vancomycin Level to be drawn: 01/21 @0500 Pharmacist Comments on Vancomycin Plan: EMERGENCY DEPARTMENT DID NOT GIVE TRUE LOADING DOSE, DUE TO THIS ERROR, PATIENT WILL TAKE ABOUT 60 HOURS TO REACH THERAPEUTIC LEVEL Vancomycin dosing will take advantage of [employer] as a clinical decision support tool that uses Bayesian modeling to calculate individual patient's pharmacokinetic parameters and forecast the patient's drug concentration time course with the target goal AUC 24 range of 400 - 600 mg/L/hr.
[2022-01-19 23:17] LABS: Appearance Urine CLEAR; Color Urine YELLOW; Glucose Urine UA NEG (NEG); Leukocyte Esterase Urine NEG (NEG); Nitrite Urine NEG (NEG); PH 7.5 (5.0-8.0); Specific Gravity - Urine 1.015 (1.005-1.025); Urine Blood NEG (NEG); Urine Ketones NEG (NEG); Urine Protein NEG (NEG-TRACE)
[2022-01-19 23:27] VITALS: BP 129/76; PULSE 44; RESP 16; TEMP 36.6; O2SAT 98
--- NOTE | 2022-01-19 23:28 | PC.NURSE ---
PATIENT HAD HAM SANDWICH AND LEO MARY FOR DINNER ,ALSO HAD 3 ICE CREAM FOR SNACK .
[2022-01-19 23:31] LABS: Amphetamine Screen Urine Not Detected (Not Detect); Barbiturates, Urine Not Detected (Not Detect); Benzodiazepines Screen Urine Not Detected (Not Detect); Cannabinoid Screen Urine Not Detected (Not Detect); Cocaine Screen Urine POSITIVE (Not Detect); Fentanyl, urine POSITIVE (Not Detect); Opiate Screen Urine POSITIVE (Not Detect); Phencyclidine Screen Urine Not Detected (Not Detect)
[2022-01-20] MEDS: Enoxaparin Sodium 40 MG/0.4 ML SYRINGE SUBCUT ×2 (02:31→20:44)
[2022-01-20] MEDS: Dextrose 5 % and 0.45 % NaCl 1,000 ML 100 ML IVCONT ×2 (02:31→11:56)
--- NOTE | 2022-01-20 02:37 | PC.NURSE ---
medicated per provider order, IVF started.
[2022-01-20 04:00] VITALS: BP 142/83; PULSE 72; RESP 16; TEMP 36.4; O2SAT 98
[2022-01-20 07:36] LABS: MANUAL DIFF FLAG NO
[2022-01-20 07:45] LABS: Basophils Percent Auto 0.5 % (0-2); Eosinophils Absolute Auto 0.1 X10*3/uL (0.0-0.4); Eosinophils Percent Auto 2.4 % (0-4); Hematocrit 35.8 % (37.0-47.0); Hemoglobin 11.1 g/dl (12.0-16.0); Imm Gran Abs Auto 0.01 X10*3/uL (0.00-0.03); Imm Gran Pct Auto 0.3 % (0.0-0.4); Lymphocytes Absolute Auto 1.4 X10*3/uL (1.2-4.9); Lymphocytes Percent Auto 37.3 % (20-40); Mean Corpuscular Hemoglobin 28.2 pg (27.0-33.0); Mean Corpuscular Volume 90.9 fL (80.0-98.0); Mean Platelet Volume 10.9 fL (9.4-12.3); Monocytes Absolute Auto 0.3 X10*3/uL (0.1-1.2); Monocytes Percent Auto 7.8 % (2-11); Neutrophils Absolute Auto 1.9 x10*3/uL (2.0-8.3); Neutrophils Percent Auto 51.7 % (45-73); Red Blood Count 3.94 X10*6/uL (4.20-5.50); Red Cell Distribution Width 14.2 % (11.0-16.0); White Blood Count 3.7 X10*3/uL (4.8-10.8)
[2022-01-20] MEDS: vancomycin HCL 750 MG in 0.9 % Sodium Chloride 250 ML 265 MG IV ×2 (07:45→20:43)
[2022-01-20 08:02] LABS: Anion Gap 13 (12-20); Blood Urea Nitrogen 13 mg/dL (9-16); Calcium 8.3 mg/dL (8.4-10.2); Carbon Dioxide 23 mmol/L (22-29); Chloride 108 mmol/L (96-108); Creatinine Clr Calc Pharmacy 78.2; Estimated Glomerular Filt Rate > 60; Glucose Random 126 mg/dL (60-115); Magnesium 1.9 mg/dL (1.6-2.6); Potassium 3.5 mmol/L (3.3-5.1); Sodium 140 mmol/L (135-145)
[2022-01-20 08:14] LABS: Platelet Count 115 X10*3/uL (160-400)
--- NOTE | 2022-01-20 08:25 | P.CONOP_ITS ---
History of Present Illness HPI Consult date: 01/20/22 Chief complaint: Right hand cellulitis/abscess Narrative: This is a 31-year-old female who came into the emergency department with wors ening pain and redness of the right thumb. At the time of examination patient is asleep in her stretcher. Difficult to obtain a history because she is asleep and not cooperative with waking up. When she does wake, she states her right thumb hurts and nothing more. She was admitted to medical service, started on iv abx and orthopedics was consulted for further recommendations. Review of Systems Review of Systems: per [facility] Past Medical History Medical History Drug abuse Graves disease HCV (hepatitis C virus) Opiate addiction Social History Social History Alcohol intake: unknown Patient Tobacco Use Status: Tobacco use Unknown Tobacco use type: Cigarette Cigarettes Per Day: 5 Second Hand Smoke Exposure: No Advance Directives: No Advance Directives Information Provided: No service: No Current occupational status: unemployed Meds Allergies Allergy/AdvReac Type Severity Reaction Status Date / Time No Known Allergies Allergy Verified 12/06/21 12:17 [No Known Allergies*] Active Medications: Current Medications Acetaminophen (Acetaminophen 325 Mg Tablet) 650 mg PO Q6H PRN PRN Reason: Pain, Mild (Pain Scale 1-3) Docusate Sodium (Docusate Sodium 100 Mg Capsule) 100 mg PO BID [facility] Enoxaparin Sodium (Enoxaparin Sodium 40 Mg/0.4 Ml Syringe) 40 mg SUBCUT Q24H [facility] Last Admin: 01/20/22 02:31 Dose: 40 mg Documented by: Hydromorphone HCl (Hydromorphone Hcl 1 Mg/Ml Syringe) 0.5 mg IVPUSH Q4H PRN; Protocol PRN Reason: Pain, Severe (Pain Scale 7-10) Dextrose/Sodium Chloride (D51/2ns) 1,000 mls @ 100 mls/hr IVCONT .Q10H [facility] Last Admin: 01/20/22 02:31 Dose: 100 mls/hr Documented by: Vancomycin HCl 750 mg/ Sodium (Chloride) 265 mls @ 265 mls/hr IV Q12H [facility] Last Admin: 01/20/22 07:45 Dose: 265 mls/hr Documented by: Melatonin (Melatonin 3 Mg Tablet) 6 mg PO BEDTIME PRN PRN Reason: Insomnia Pharmacy Consult (Consult Rx Perform Med Rec) 1 each MISCELLANE ONCE PRN PRN Reason: Consult order Pharmacy Consult (Consult Rx Vancomycin Dosing) 1 each MISCELLANE DAILY PRN PRN Reason: Consult order Senna (Sennosides 8.6 Mg Tablet) 17.2 mg PO BEDTIME PRN PRN Reason: Constipation Sodium Chloride (0.9 % Sodium Chloride Flush 3 Ml Syringe) 3 ml IVFLUSH QSHIFT [facility] Last Admin: 01/20/22 07:45 Dose: Not Given Documented by: Home Medications Medication Instructions Recorded Confirmed Last Taken Type No Known Home Meds 01/19/22 01/19/22 Unknown History Physical Exam Vital Signs: Vital Signs: Last Vital Signs Temp 97.6 F 01/20/22 04:00 Pulse 72 01/20/22 04:00 Resp 16 01/20/22 04:00 BP 142/83 H 01/20/22 04:00 Pulse Ox 98 01/20/22 04:00 BMI result Body Mass Index 17.4 Const: General: comfortable and alert Extrem: Other: Right hand with redness along the thumb with abraisons to the lateral side of the thumb. No pain in the wrist with axial loading Mild discomfort in the cmc joint with axial loading Mild pain with flexion of the IP joint of the thumb She can actively move the hand and make a fist No abscess in the dorsum or thenar eminence of the right hand There is some swelling and tension along the base of the thumb on the lateral side Results Labs Result Diagrams: 01/20/22 07:30 01/20/22 07:30 Labs: Abnormal lab results 01/19/22 01/19/22 01/19/22 Range/Units 19:29 19:29 19:29 WBC 3.7 L (4.8-10.8) X10*3/uL RBC 3.33 L D (4.20-5.50) X10*6/uL Hgb 9.7 L D (12.0-16.0) g/dl Hct 30.2 L D (37.0-47.0) % Plt Count (160-400) X10*3/uL Immature Gran % (Auto) 0.8 H (0.0-0.4) % Absolute Neuts (auto) (2.0-8.3) x10*3/uL ESR 34 H (0-20) MM/HR Carbon Dioxide 32 H (22-29) mmol/L Anion Gap 7 L (12-20) BUN 18 H D (9-16) mg/dL Random Glucose (60-115) mg/dL Calcium (8.4-10.2) mg/dL AST 41 H (5-31) U/L ALT 37 H (0-31) U/L Albumin 3.3 L (3.5-5.0) g/dL TSH (0.32-4.0) uIU/mL Urine Opiates Screen (Not Detect) Urine Fentanyl Screen (Not Detect) Urine Cocaine Screen (Not Detect) 01/19/22 01/19/22 01/20/22 Range/Units 19:29 23:12 07:30 WBC 3.7 L (4.8-10.8) X10*3/uL RBC 3.94 L (4.20-5.50) X10*6/uL Hgb 11.1 L (12.0-16.0) g/dl Hct 35.8 L (37.0-47.0) % Plt Count 115 L D (160-400) X10*3/uL Immature Gran % (Auto) (0.0-0.4) % Absolute Neuts (auto) 1.9 L (2.0-8.3) x10*3/uL ESR (0-20) MM/HR Carbon Dioxide (22-29) mmol/L Anion Gap (12-20) BUN (9-16) mg/dL Random Glucose (60-115) mg/dL Calcium (8.4-10.2) mg/dL AST (5-31) U/L ALT (0-31) U/L Albumin (3.5-5.0) g/dL TSH 4.27 H (0.32-4.0) uIU/mL Urine Opiates Screen POSITIVE H (Not Detect) Urine Fentanyl Screen POSITIVE H (Not Detect) Urine Cocaine Screen POSITIVE H (Not Detect) 01/20/22 Range/Units 07:30 WBC (4.8-10.8) X10*3/uL RBC (4.20-5.50) X10*6/uL Hgb (12.0-16.0) g/dl Hct (37.0-47.0) % Plt Count (160-400) X10*3/uL Immature Gran % (Auto) (0.0-0.4) % Absolute Neuts (auto) (2.0-8.3) x10*3/uL ESR (0-20) MM/HR Carbon Dioxide (22-29) mmol/L Anion Gap (12-20) BUN (9-16) mg/dL Random Glucose 126 H (60-115) mg/dL Calcium 8.3 L (8.4-10.2) mg/dL AST (5-31) U/L ALT (0-31) U/L Albumin (3.5-5.0) g/dL TSH (0.32-4.0) uIU/mL Urine Opiates Screen (Not Detect) Urine Fentanyl Screen (Not Detect) Urine Cocaine Screen (Not Detect) H & H 01/19/22 01/20/22 Range/Units 19:29 07:30 Hgb 9.7 L D 11.1 L (12.0-16.0) g/dl Hct 30.2 L D 35.8 L (37.0-47.0) % All other labs normal. Diagnostic results Wrist/Hand CT: report reviewed (Probable abscess formation within the soft tissues volar to the distal radius measuring up to 1.2 cm in greatest dimension. Prominent adjacent soft tissue edema/skin thickening extending along the lateral aspect of the radial styloid and base of the thumb, consistent with acute cellulitis. No CT ev) Assessment and Plan (1) Cellulitis of hand: Status: Acute Plan Continue with IV abx and ROm of the hand and wrist. No evidence of septic joint involvement or abscess that requires drainage. No further intervention warranted at this time. If symptoms worsen, please reach out to the orthopedic team. Procedures Date of Service Date of Service: 01/20/22
--- NOTE | 2022-01-20 08:56 | PHA.PROG ---
Admission Date/Time: January 19, 2022 21:39 Indication: Right Hand Cellulitis/Abcess, sepsis Weight in k.37 kg Adjusted body weight in K.448 [place] body weight in K.5 Obesity Dosing Indication % IBW:88% Serum Creatinine - Last 168 Hours 01/19/22 01/20/22 19:29 07:30 Creatinine 0.64 0.67 Estimated CrCl and GFR - Last 168 Hours 01/19/22 01/20/22 19:29 07:30 Estim Creat Clear Calc 81.9 78.2 Estimated GFR > 60 > 60 Vancomycin Loading Dose: N/A Current Vancomycin Dosing Regimen: 750 mg Q12H Date and Time for next Vancomycin Level to be drawn: 01/21 @ 0500 Pharmacist Comments on Vancomycin Plan: Renal function is stable. Continue current regimen. Adequate loading dose was not given to the patient. Patient received vancomycin 750 mg (18 mg/kg). Patient's trough prior to the 4th dose may not be at therapeutic levels however expected AUC is 466 with a trough of 13.4. Lesa Milton PharmD Vancomycin dosing will take advantage of [employer] as a clinical decision support tool that uses Bayesian modeling to calculate individual patient's pharmacokinetic parameters and forecast the patient's drug concentration time course with the target goal AUC 24 range of 400 - 600 mg/L/hr.
[2022-01-20] MEDS: Docusate Sodium 100 MG CAPSULE PO ×2 (10:46→20:43)
[2022-01-20] MEDS: methADONE HCl 20 MG/2 ML ORAL.CONC 30 MG PO (10:46)
--- NOTE | 2022-01-20 12:15 | MHC.CM.PN ---
Addendum entered by Jillian Martínez 01/20/22 12:22: HCP ON FILE VAX X 1 Original Note: Female 31 DX Cellulitis She lives alone. She states that she is independent. She is on Suboxone. DP home with resumption of Suboxone. Patient will arrange for transport. She needs Care team consult when medically cleared.
--- NOTE | 2022-01-20 12:44 | P.PNIM_ITS ---
Subjective Subjective Date of Service: 01/20/22 Interval History: Somnolent easily arousable, complaining of withdrawal symptoms and pain in right thumb, denies fever chills, denies use of IV drugs in thumb, no acute issues since admission. Review of Systems [employer] no headache no dizziness CVS no chest pain GI no nausea, no vomiting, no abdominal pain General no fevers, no chills Review of Systems: Yes all other systems are reviewed and are negative Physical Exam 2 Vital Signs: Vital Signs: Last Vital Signs Temp 97.6 F 01/20/22 04:00 Pulse 72 01/20/22 04:00 Resp 16 01/20/22 04:00 BP 142/83 H 01/20/22 04:00 Pulse Ox 98 01/20/22 04:00 BMI result Body Mass Index 17.4 Const: Other: Gen: Somnolent easily arousable, in no acute distress Neck is supple Pulmonary:? Clear to auscultation, no wheeze no rhonchi CVS:? Normal S1-S2 Abdomen: BS+, Soft, Nontender Extremities: Lower extremities no edema Right hand examination: right thumb base warm, tender and erythematous, no fluctuation, no in duration, good range of motion MCP and IP joint, dry scaly skin with fissures Neuro: Nonfocal Objective Data Active Medications Acetaminophen (Acetaminophen 325 Mg Tablet) 650 mg PO Q6H PRN PRN Reason: Pain, Mild (Pain Scale 1-3) Docusate Sodium (Docusate Sodium 100 Mg Capsule) 100 mg PO BID [facility] Last Admin: 01/20/22 10:46 Dose: 100 mg Documented by: ERIKA Enoxaparin Sodium (Enoxaparin Sodium 40 Mg/0.4 Ml Syringe) 40 mg SUBCUT Q24H [facility] Last Admin: 01/20/22 02:31 Dose: 40 mg Documented by: MADDENL Hydromorphone HCl (Hydromorphone Hcl 1 Mg/Ml Syringe) 0.5 mg IVPUSH Q4H PRN; Protocol PRN Reason: Pain, Severe (Pain Scale 7-10) Vancomycin HCl 750 mg/ Sodium (Chloride) 265 mls @ 265 mls/hr IV Q12H [facility] Last Infusion: 01/20/22 10:28 Dose: 265 mls/hr Documented by: ERIKA Dextrose/Lactated Ringer's ([id number]) 1,000 mls @ 100 mls/hr IVCONT .Q10H [facility] Melatonin (Melatonin 3 Mg Tablet) 6 mg PO BEDTIME PRN PRN Reason: Insomnia Pharmacy Consult (Consult Rx Perform Med Rec) 1 each MISCELLANE ONCE PRN PRN Reason: Consult order Pharmacy Consult (Consult Rx Vancomycin Dosing) 1 each MISCELLANE DAILY PRN PRN Reason: Consult order Senna (Sennosides 8.6 Mg Tablet) 17.2 mg PO BEDTIME PRN PRN Reason: Constipation Sodium Chloride (0.9 % Sodium Chloride Flush 3 Ml Syringe) 3 ml IVFLUSH QSHIFT [facility] Last Admin: 01/20/22 07:45 Dose: Not Given Documented by: ERIKA Non-Admin Reason: IV Running Labs CBC & Chem 7: 01/20/22 07:30 01/20/22 07:30 Labs: Laboratory Results - last 24 hr 01/19/22 01/19/22 01/19/22 17:08 17:31 19:29 MCV 90.7 MCH 29.1 MCHC 32.1 RDW 14.0 Plt Count 167 MPV 10.0 Immature Gran % (Auto) 0.8 H Neut % (Auto) 56.5 Lymph % (Auto) 32.2 [place] % (Auto) 9.2 Eos % (Auto) 0.8 Baso % (Auto) 0.5 Lymph # (Auto) 1.2 [place] # (Auto) 0.3 Eos # (Auto) 0.0 Baso # (Auto) 0.0 Abs Immat Gran (auto) 0.03 Absolute Neuts (auto) 2.1 Absolute Nucleated RBC 0.000 Nucleated RBC % (auto) 0.0 ESR Anion Gap Estim Creat Clear Calc Estimated GFR Random Glucose Lactic Acid 1.3 Calcium Magnesium Total Bilirubin Direct Bilirubin AST ALT Alkaline Phosphatase C-Reactive Protein C-React Prot High Sens Total Protein Albumin TSH Free T4 Beta HCG, Quant Urine Color Urine Appearance Urine pH Ur Specific [place] Urine Protein Urine Glucose (UA) Urine Ketones Urine Blood Urine Nitrite Ur Leukocyte Esterase Urine Opiates Screen Urine Fentanyl Screen Ur Barbiturates Screen Ur Phencyclidine Scrn Ur Amphetamines Screen U Benzodiazepines Scrn Urine Cocaine Screen U Marijuana (THC) Screen Ethyl Alcohol COVID-19 ([facility]) Negative COVID-19 Clin Com See Note 05/01/19/22 01/19/22 19:29 19:29 19:29 MCV MCH MCHC RDW Plt Count MPV Immature Gran % (Auto) Neut % (Auto) Lymph % (Auto) [place] % (Auto) Eos % (Auto) Baso % (Auto) Lymph # (Auto) [place] # (Auto) Eos # (Auto) Baso # (Auto) Abs Immat Gran (auto) Absolute Neuts (auto) Absolute Nucleated RBC Nucleated RBC % (auto) ESR 34 H Anion Gap 7 L Estim Creat Clear Calc 81.9 Estimated GFR > 60 Random Glucose 111 Lactic Acid Calcium 8.4 D Magnesium Total Bilirubin 0.3 Direct Bilirubin 0.2 AST 41 H ALT 37 H Alkaline Phosphatase 67 D C-Reactive Protein 0.19 C-React Prot High Sens Cancelled Total Protein 6.6 Albumin 3.3 L TSH Free T4 Beta HCG, Quant < 2 Urine Color Urine Appearance Urine pH Ur Specific [place] Urine Protein Urine Glucose (UA) Urine Ketones Urine Blood Urine Nitrite Ur Leukocyte Esterase Urine Opiates Screen Urine Fentanyl Screen Ur Barbiturates Screen Ur Phencyclidine Scrn Ur Amphetamines Screen U Benzodiazepines Scrn Urine Cocaine Screen U Marijuana (THC) Screen Ethyl Alcohol COVID-19 ([facility]) COVID-19 Clin Com 01/19/22 01/19/22 01/19/22 19:29 19:29 23:12 MCV MCH MCHC RDW Plt Count MPV Immature Gran % (Auto) Neut % (Auto) Lymph % (Auto) [place] % (Auto) Eos % (Auto) Baso % (Auto) Lymph # (Auto) [place] # (Auto) Eos # (Auto) Baso # (Auto) Abs Immat Gran (auto) Absolute Neuts (auto) Absolute Nucleated RBC Nucleated RBC % (auto) ESR Anion Gap Estim Creat Clear Calc Estimated GFR Random Glucose Lactic Acid Calcium Magnesium Total Bilirubin Direct Bilirubin AST ALT Alkaline Phosphatase C-Reactive Protein C-React Prot High Sens Total Protein Albumin TSH 4.27 H Free T4 0.95 Beta HCG, Quant Urine Color YELLOW Urine Appearance CLEAR Urine pH 7.5 Ur Specific [place] 1.015 Urine Protein NEG Urine Glucose (UA) NEG Urine Ketones NEG Urine Blood NEG Urine Nitrite NEG Ur Leukocyte Esterase NEG Urine Opiates Screen Urine Fentanyl Screen Ur Barbiturates Screen Ur Phencyclidine Scrn Ur Amphetamines Screen U Benzodiazepines Scrn Urine Cocaine Screen U Marijuana (THC) Screen Ethyl Alcohol < 10 COVID-19 ([facility]) COVID-19 Clin Com 01/19/22 01/20/22 01/20/22 23:12 07:30 07:30 MCV 90.9 MCH 28.2 MCHC 31.0 RDW 14.2 Plt Count 115 L D MPV 10.9 Immature Gran % (Auto) 0.3 Neut % (Auto) 51.7 Lymph % (Auto) 37.3 [place] % (Auto) 7.8 Eos % (Auto) 2.4 Baso % (Auto) 0.5 Lymph # (Auto) 1.4 [place] # (Auto) 0.3 Eos # (Auto) 0.1 Baso # (Auto) 0.0 Abs Immat Gran (auto) 0.01 Absolute Neuts (auto) 1.9 L Absolute Nucleated RBC 0.000 Nucleated RBC % (auto) 0.0 ESR Anion Gap 13 Estim Creat Clear Calc 78.2 Estimated GFR > 60 Random Glucose 126 H Lactic Acid Calcium 8.3 L Magnesium 1.9 Total Bilirubin Direct Bilirubin AST ALT Alkaline Phosphatase C-Reactive Protein C-React Prot High Sens Total Protein Albumin TSH Free T4 Beta HCG, Quant Urine Color Urine Appearance Urine pH Ur Specific [place] Urine Protein Urine Glucose (UA) Urine Ketones Urine Blood Urine Nitrite Ur Leukocyte Esterase Urine Opiates Screen POSITIVE H Urine Fentanyl Screen POSITIVE H Ur Barbiturates Screen Not Detected Ur Phencyclidine Scrn Not Detected Ur Amphetamines Screen Not Detected U Benzodiazepines Scrn Not Detected Urine Cocaine Screen POSITIVE H U Marijuana (THC) Screen Not Detected Ethyl Alcohol COVID-19 ([facility]) COVID-19 Clin Com Assessment and Plan (1) Opioid withdrawal: Status: Acute (2) Cellulitis of hand: Status: Acute (3) HCV (hepatitis C virus): Status: Acute Plan 31-year-old female with a past medical history of IV drug abuse, heroin abuse, hepatitis-C presented to the hospital today with a chief complaint of right t humb pain redness and swelling.? Noted to have right thumb? cellulitis/ abscess.? Admitted for further management.? Right thumb cellulitis: Persistent right thumb pain, worse with movement, no induration no fluctuation at base of thumb CT scan showed? 1.2 cm abscess in the distal radius; adjacent soft tissue swelling; continue IV vancomycin and IV Zosyn Seen by orthopedic surgery they recommend to continue IV antibiotic, I&D not recommended Await ID input Continue as needed iv Dilaudid History of opiate/cocaine abuse:? U tox positive for opiates fentanyl and cocaine Complaining of withdrawal symptoms, seen by Addiction Team methadone 30 mg x 1 given Will add as needed Atarax/Ativan History of hep C: Outpatient follow-up with PCP/ GI.? DVT prophylaxis:? Lovenox Code status: Full code Will need continued inpatient hospitalization due to right thumb cellulitis requiring IV antibiotics and for opioid withdrawal being followed by addiction team. Quality Stroke Does the patient have a stroke diagnosis?: No VTE Prior VTE?: No VTE Risk Level:: Medical - moderate - high VTE Device Contraindication: Treatment Not Indicated VTE Drug Contraindication: N/A - Med Ordered
[2022-01-20] MEDS: Dextrose 5 % and Lactated Ring 1,000 ML 100 ML IVCONT ×2 (14:04→23:42)
[2022-01-20] MEDS: Piperacillin Sodium/Tazobactam 3.375 GM in 0.9 % Sodium Chloride 50 ML IV ×2 (14:05→20:01)
--- NOTE | 2022-01-20 15:21 | PC.NURSE ---
PT SLEPT MOST OF DAY. ALERT AND ORIENTED WHILE AWAKE.
--- NOTE | 2022-01-20 17:13 | PC.NURSE ---
Report given to Catina SHI and [facility]
[2022-01-20 17:34] VITALS: BP 134/84; PULSE 54; RESP 14; TEMP 36.8; O2SAT 99
--- NOTE | 2022-01-20 19:52 | HO.ADDICTCON ---
History of Present Illness Date of Service: 01/20/2022 Chief Complaint: Right hand cellulitis/abscess Reason for Consult: opioid use disorder--acute withdrawal Requesting physician: Adrian Choudhury Discussed with referring provider: No Sources of Information: patient interviewed and chart reviewed HPI Narrative: Patient is a 31 year old female with OUD currently medically admitted with abscess of the hand. Minimal history gathered as patient was not feeling well initiallly and unwilling to engage in interview with RN. She did report 2 bundles of heroin daily. Agreeable to methadone. Last use prior to ED admission Seen by recovery support during previous admission, additional substance use history gathered during that visit Review of Systems Constitutional: Reports as per HPI Diagnostics Vital Signs (24Hr): Vital Signs - 24 hr 01/19/22 20:00 01/19/22 23:27 01/20/22 04:00 Temperature 97.8 F 97.6 F Pulse Rate 41 L 44 L 72 Respiratory Rate 13 16 16 Blood Pressure 129/76 142/83 H Pulse Oximetry 99 98 98 01/20/22 17:34 Temperature 98.3 F Pulse Rate 54 Respiratory Rate 14 Blood Pressure 134/84 Pulse Oximetry 99 BMI result Body Mass Index 17.4 Labs Results: 01/20/22 07:30 01/20/22 07:30 Labs: Laboratory Results - last 48 hr 01/19/22 01/19/22 01/19/22 17:08 17:31 19:29 WBC 3.7 L RBC 3.33 L D Hgb 9.7 L D Hct 30.2 L D MCV 90.7 MCH 29.1 MCHC 32.1 RDW 14.0 Plt Count 167 MPV 10.0 Immature Gran % (Auto) 0.8 H Neut % (Auto) 56.5 Lymph % (Auto) 32.2 Adams % (Auto) 9.2 Eos % (Auto) 0.8 Baso % (Auto) 0.5 Lymph # (Auto) 1.2 Adams # (Auto) 0.3 Eos # (Auto) 0.0 Baso # (Auto) 0.0 Abs Immat Gran (auto) 0.03 Absolute Neuts (auto) 2.1 Absolute Nucleated RBC 0.000 Nucleated RBC % (auto) 0.0 ESR Sodium Potassium Chloride Carbon Dioxide Anion Gap BUN Creatinine Estim Creat Clear Calc Estimated GFR Random Glucose Lactic Acid 1.3 Calcium Magnesium Total Bilirubin Direct Bilirubin AST ALT Alkaline Phosphatase C-Reactive Protein C-React Prot High Sens Total Protein Albumin TSH Free T4 Beta HCG, Quant Urine Color Urine Appearance Urine pH Ur Specific Floyd Urine Protein Urine Glucose (UA) Urine Ketones Urine Blood Urine Nitrite Ur Leukocyte Esterase Urine Opiates Screen Urine Fentanyl Screen Ur Barbiturates Screen Ur Phencyclidine Scrn Ur Amphetamines Screen U Benzodiazepines Scrn Urine Cocaine Screen U Marijuana (THC) Screen Ethyl Alcohol COVID-19 ([facility]) Negative COVID-19 Clin Com See Note 01/19/22 01/19/22 01/19/22 19:29 19:29 19:29 WBC RBC Hgb Hct MCV MCH MCHC RDW Plt Count MPV Immature Gran % (Auto) Neut % (Auto) Lymph % (Auto) Adams % (Auto) Eos % (Auto) Baso % (Auto) Lymph # (Auto) Adams # (Auto) Eos # (Auto) Baso # (Auto) Abs Immat Gran (auto) Absolute Neuts (auto) Absolute Nucleated RBC Nucleated RBC % (auto) ESR 34 H Sodium 139 Potassium 3.6 Chloride 104 Carbon Dioxide 32 H Anion Gap 7 L BUN 18 H D Creatinine 0.64 Estim Creat Clear Calc 81.9 Estimated GFR > 60 Random Glucose 111 Lactic Acid Calcium 8.4 D Magnesium Total Bilirubin 0.3 Direct Bilirubin 0.2 AST 41 H ALT 37 H Alkaline Phosphatase 67 D C-Reactive Protein 0.19 C-React Prot High Sens Cancelled Total Protein 6.6 Albumin 3.3 L TSH Free T4 Beta HCG, Quant < 2 Urine Color Urine Appearance Urine pH Ur Specific Floyd Urine Protein Urine Glucose (UA) Urine Ketones Urine Blood Urine Nitrite Ur Leukocyte Esterase Urine Opiates Screen Urine Fentanyl Screen Ur Barbiturates Screen Ur Phencyclidine Scrn Ur Amphetamines Screen U Benzodiazepines Scrn Urine Cocaine Screen U Marijuana (THC) Screen Ethyl Alcohol COVID-19 ([facility]) COVID-19 [facility] Com 01/19/22 01/19/22 01/19/22 19:29 19:29 23:12 WBC RBC Hgb Hct MCV MCH MCHC RDW Plt Count MPV Immature Gran % (Auto) Neut % (Auto) Lymph % (Auto) Adams % (Auto) Eos % (Auto) Baso % (Auto) Lymph # (Auto) Adams # (Auto) Eos # (Auto) Baso # (Auto) Abs Immat Gran (auto) Absolute Neuts (auto) Absolute Nucleated RBC Nucleated RBC % (auto) ESR Sodium Potassium Chloride Carbon Dioxide Anion Gap BUN Creatinine Estim Creat Clear Calc Estimated GFR Random Glucose Lactic Acid Calcium Magnesium Total Bilirubin Direct Bilirubin AST ALT Alkaline Phosphatase C-Reactive Protein C-React Prot High Sens Total Protein Albumin TSH 4.27 H Free T4 0.95 Beta HCG, Quant Urine Color YELLOW Urine Appearance CLEAR Urine pH 7.5 Ur Specific Floyd 1.015 Urine Protein NEG Urine Glucose (UA) NEG Urine Ketones NEG Urine Blood NEG Urine Nitrite NEG Ur Leukocyte Esterase NEG Urine Opiates Screen Urine Fentanyl Screen Ur Barbiturates Screen Ur Phencyclidine Scrn Ur Amphetamines Screen U Benzodiazepines Scrn Urine Cocaine Screen U Marijuana (THC) Screen Ethyl Alcohol < 10 COVID-19 ([facility]) COVID-19 Clin Com 01/19/22 01/20/22 01/20/22 23:12 07:30 07:30 WBC 3.7 L RBC 3.94 L Hgb 11.1 L Hct 35.8 L MCV 90.9 MCH 28.2 MCHC 31.0 RDW 14.2 Plt Count 115 L D MPV 10.9 Immature Gran % (Auto) 0.3 Neut % (Auto) 51.7 Lymph % (Auto) 37.3 Adams % (Auto) 7.8 Eos % (Auto) 2.4 Baso % (Auto) 0.5 Lymph # (Auto) 1.4 Adams # (Auto) 0.3 Eos # (Auto) 0.1 Baso # (Auto) 0.0 Abs Immat Gran (auto) 0.01 Absolute Neuts (auto) 1.9 L Absolute Nucleated RBC 0.000 Nucleated RBC % (auto) 0.0 ESR Sodium 140 Potassium 3.5 Chloride 108 Carbon Dioxide 23 Anion Gap 13 BUN 13 Creatinine 0.67 Estim Creat Clear Calc 78.2 Estimated GFR > 60 Random Glucose 126 H Lactic Acid Calcium 8.3 L Magnesium 1.9 Total Bilirubin Direct Bilirubin AST ALT Alkaline Phosphatase C-Reactive Protein C-React Prot High Sens Total Protein Albumin TSH Free T4 Beta HCG, Quant Urine Color Urine Appearance Urine pH Ur Specific Floyd Urine Protein Urine Glucose (UA) Urine Ketones Urine Blood Urine Nitrite Ur Leukocyte Esterase Urine Opiates Screen POSITIVE H Urine Fentanyl Screen POSITIVE H Ur Barbiturates Screen Not Detected Ur Phencyclidine Scrn Not Detected Ur Amphetamines Screen Not Detected U Benzodiazepines Scrn Not Detected Urine Cocaine Screen POSITIVE H U Marijuana (THC) Screen Not Detected Ethyl Alcohol COVID-19 ([facility]) COVID-19 Clin Com Imaging Radiology Impressions: ITS Impressions Hand CT 01/19/22 17:25 IMPRESSION: Probable abscess formation within the soft tissues volar to the distal radius measuring up to 1.2 cm in greatest dimension. Prominent adjacent soft tissue edema/skin thickening extending along the lateral aspect of the radial styloid and base of the thumb, consistent with acute cellulitis. No CT evidence of adjacent osteomyelitis. Hand X-Ray 01/20/22 09:24 IMPRESSION: No evidence of osteomyelitis. Mild degenerative changes. Mental Status Exam Mental Status Exam Narrative: ill appearing Medications Medications Current Medications Acetaminophen (Acetaminophen 325 Mg Tablet) 650 mg PO Q6H PRN PRN Reason: Pain, Mild (Pain Scale 1-3) Docusate Sodium (Docusate Sodium 100 Mg Capsule) 100 mg PO BID [facility] Last Admin: 01/20/22 10:46 Dose: 100 mg Documented by: Enoxaparin Sodium (Enoxaparin Sodium 40 Mg/0.4 Ml Syringe) 40 mg SUBCUT Q24H [facility] Last Admin: 01/20/22 02:31 Dose: 40 mg Documented by: Hydromorphone HCl (Hydromorphone Hcl 1 Mg/Ml Syringe) 0.5 mg IVPUSH Q4H PRN; Protocol PRN Reason: Pain, Severe (Pain Scale 7-10) Hydroxyzine HCl (Hydroxyzine Hcl 25 Mg Tablet) 25 mg PO Q6H PRN PRN Reason: anxiety/restlessness Vancomycin HCl 750 mg/ Sodium (Chloride) 265 mls @ 265 mls/hr IV Q12H [facility] Last Infusion: 01/20/22 10:28 Dose: Infused Documented by: Dextrose/Lactated Ringer's (D5lr) 1,000 mls @ 100 mls/hr IVCONT .Q10H [facility] Last Admin: 01/20/22 14:04 Dose: 100 mls/hr Documented by: Piperacillin Sod/Tazobactam (Sod 3.375 gm/ Sodium Chloride) 50 mls @ 100 mls/hr IV Q6H [facility] Last Infusion: 01/20/22 15:02 Dose: Infused Documented by: Lorazepam (Lorazepam 2 Mg/Ml Vial) 0.5 mg IVPUSH Q6H PRN PRN Reason: anxiety/restlessness Melatonin (Melatonin 3 Mg Tablet) 6 mg PO BEDTIME PRN PRN Reason: Insomnia Methadone HCl (Methadone Hcl 20 Mg/2 Ml Oral.Conc) 40 mg PO DAILY [facility] Pharmacy Consult (Consult Rx Perform Med Rec) 1 each MISCELLANE ONCE PRN PRN Reason: Consult order Pharmacy Consult (Consult Rx Vancomycin Dosing) 1 each MISCELLANE DAILY PRN PRN Reason: Consult order Senna (Sennosides 8.6 Mg Tablet) 17.2 mg PO BEDTIME PRN PRN Reason: Constipation Sodium Chloride (0.9 % Sodium Chloride Flush 3 Ml Syringe) 3 ml IVFLUSH QSHIFT [facility] Last Admin: 01/20/22 15:36 Dose: Not Given Documented by: Allergies Allergies Allergy/AdvReac Type Severity Reaction Status Date / Time No Known Allergies Allergy Verified 12/06/21 12:17 [No Known Allergies*] Assessment & Plan Assessment & Plan (1) Opioid withdrawal: Status: Acute Code(s): F11.23 - Opioid dependence with withdrawal Assessment and Plan: methadone 30mg administered with good effect methadone 40mg tomorrow (01/21) RSRN to coordinate community OTP referral I spent ____25__ minutes with the patient and/or on the patient floor today, greater than?50% of which was spent counseling/coordinating care. [facility] Past Medical History Medical History Drug abuse Graves disease HCV (hepatitis C virus) Opiate addiction Social History Social History Alcohol intake: unknown Patient Tobacco Use Status: Tobacco use Unknown Tobacco use type: Cigarette Cigarettes Per Day: 5 Second Hand Smoke Exposure: No Advance Directives: No Advance Directives Information Provided: No service: No Current occupational status: unemployed
[2022-01-20 20:06] VITALS: BP 149/76; PULSE 45; TEMP 35.5; O2SAT 95
--- NOTE | 2022-01-20 20:30 | PC.NURSE ---
Assumed care of pt Pt tolerating abx Denies any pain NAD Will continue to monitor
[2022-01-20 21:55] VITALS: PULSE 45
--- NOTE | 2022-01-20 23:00 | PC.NURSE ---
Pt ambulatory to bathroom Gait even and steady
[2022-01-21] MEDS: Piperacillin Sodium/Tazobactam 3.375 GM in 0.9 % Sodium Chloride 50 ML IV ×4 (03:26→23:40)
[2022-01-21] MEDS: vancomycin HCL 750 MG in 0.9 % Sodium Chloride 250 ML 265 MG IV ×2 (06:16→19:47)
[2022-01-21] MEDS: 0.9 % Sodium Chloride Flush 3 ML SYRINGE IVFLUSH ×3 (07:48→19:54)
[2022-01-21 07:53] VITALS: BP 120/76; PULSE 51; RESP 16; TEMP 36.7; O2SAT 100
[2022-01-21 08:21] LABS: Creatinine Clr Calc Pharmacy 79.4; Estimated Glomerular Filt Rate > 60
[2022-01-21] MEDS: methADONE HCl 20 MG/2 ML ORAL.CONC 40 MG PO (09:12)
--- NOTE | 2022-01-21 09:15 | PHA.PROG ---
Admission Date/Time: January 19, 2022 21:39 Indication: Right Hand Cellulitis/Abcess, sepsis Weight in k.37 kg Adjusted body weight in K.448 [place] body weight in K.5 Obesity Dosing Indication % IBW:88% Serum Creatinine - Last 168 Hours 01/19/22 01/20/22 01/21/22 19:29 07:30 04:53 Creatinine 0.64 0.67 0.66 Estimated CrCl and GFR - Last 168 Hours 01/19/22 01/20/22 01/21/22 19:29 07:30 04:53 Estim Creat Clear Calc 81.9 78.2 79.4 Estimated GFR > 60 > 60 > 60 Vancomycin Loading Dose: N/A Current Vancomycin Dosing Regimen: 750 mg Q12H Vancomycin Trough 10.0 mcg/mL (10.0-20.0) 01/21/22 04:53 Pharmacist Comments on Vancomycin Plan: Trough is slightly subtherapeutic as it was drawn 2 hour prior to next dose instead of 1 hour. This is most likely due to patient no receiving an adequate loading dose. Patient is expected to be therapeutic after 4th dose. Renal function is stable. Continue current regimen. Expected AUC 423 with a trough of 11.6 Next trough 01/22 @ 1700 Lesa Milton PharmD Vancomycin dosing will take advantage of [employer] as a clinical decision support tool that uses Bayesian modeling to calculate individual patient's pharmacokinetic parameters and forecast the patient's drug concentration time course with the target goal AUC 24 range of 400 - 600 mg/L/hr.
[2022-01-21 12:13] VITALS: BP 116/83; PULSE 39; RESP 19; TEMP 36.5; O2SAT 99
--- NOTE | 2022-01-21 13:57 | P.PNIM_ITS ---
Subjective Subjective Date of Service: 01/21/22 Interval History: Awake alert complaining of withdrawal symptoms and right thumb pain, no acute overnight events denies fever chills, Review of Systems [employer] no headache no dizziness CVS no chest pain GI no nausea, no vomiting, no abdominal pain General no fevers, no chills Review of Systems: Yes all other systems are reviewed and are negative Physical Exam Vital Signs: Vital Signs: Last Vital Signs Temp 97.7 F 01/21/22 12:13 Pulse 39 L 01/21/22 12:13 Resp 19 01/21/22 12:13 BP 116/83 01/21/22 12:13 Pulse Ox 99 01/21/22 12:13 BMI result Body Mass Index 17.4 Const: Other: Gen:? Awake alert, no acute distress Neck supple Pulmonary:? Clear to auscultation, no wheeze no rhonchi CVS:? Normal S1-S2 Abdomen: BS+, Soft, Nontender Extremities:? Lower extremities no edema Right hand examination: right thumb less redness and swelling,no fluctuation, no induration, good range of motion MCP and IP joint, dry scaly skin with fissures Neuro:? Nonfocal Objective Data Active Medications Acetaminophen (Acetaminophen 325 Mg Tablet) 650 mg PO Q6H PRN PRN Reason: Pain, Mild (Pain Scale 1-3) Docusate Sodium (Docusate Sodium 100 Mg Capsule) 100 mg PO BID [facility] Last Admin: 01/21/22 09:12 Dose: Not Given Documented by: SUKHDEV Non-Admin Reason: Patient Refused Enoxaparin Sodium (Enoxaparin Sodium 40 Mg/0.4 Ml Syringe) 40 mg SUBCUT Q24H [facility] Last Admin: 01/20/22 20:44 Dose: 40 mg Documented by: TIFFAINE Hydromorphone HCl (Hydromorphone Hcl 1 Mg/Ml Syringe) 0.5 mg IVPUSH Q4H PRN; Protocol PRN Reason: Pain, Severe (Pain Scale 7-10) Hydroxyzine HCl (Hydroxyzine Hcl 25 Mg Tablet) 25 mg PO Q6H PRN PRN Reason: anxiety/restlessness Vancomycin HCl 750 mg/ Sodium (Chloride) 265 mls @ 265 mls/hr IV Q12H [facility] Last Infusion: 01/21/22 07:48 Dose: 0 mls/hr Documented by: SUKHDEV Dextrose/Lactated Ringer's (D5lr) 1,000 mls @ 100 mls/hr IVCONT .Q10H [facility] Last Admin: 01/21/22 07:50 Dose: Not Given Documented by: SUKHDEV Non-Admin Reason: IV Running Piperacillin Sod/Tazobactam (Sod 3.375 gm/ Sodium Chloride) 50 mls @ 100 mls/hr IV Q6H [facility] Last Infusion: 01/21/22 08:18 Dose: 0 mls/hr Documented by: SUKHDEV Lorazepam (Lorazepam 2 Mg/Ml Vial) 0.5 mg IVPUSH Q6H PRN PRN Reason: anxiety/restlessness Melatonin (Melatonin 3 Mg Tablet) 6 mg PO BEDTIME PRN PRN Reason: Insomnia Methadone HCl (Methadone Hcl 20 Mg/2 Ml Oral.Conc) 40 mg PO DAILY [facility] Last Admin: 01/21/22 09:12 Dose: 40 mg Documented by: SUKHDEV Pharmacy Consult (Consult Rx Perform Med Rec) 1 each MISCELLANE ONCE PRN PRN Reason: Consult order Pharmacy Consult (Consult Rx Vancomycin Dosing) 1 each MISCELLANE DAILY PRN PRN Reason: Consult order Senna (Sennosides 8.6 Mg Tablet) 17.2 mg PO BEDTIME PRN PRN Reason: Constipation Sodium Chloride (0.9 % Sodium Chloride Flush 3 Ml Syringe) 3 ml IVFLUSH QSHIFT [facility] Last Admin: 01/21/22 07:48 Dose: 3 ml Documented by: SUKHDEV Labs CBC & Chem 7: 01/20/22 07:30 01/21/22 04:53 Labs: Laboratory Results - last 24 hr 01/21/22 01/21/22 04:53 04:53 Estim Creat Clear Calc 79.4 Estimated GFR > 60 Vancomycin Trough 10.0 Microbiology Microbiology Results: Microbiology 01/19/22 19:28 Blood Culture - Preliminary Blood - Venous No growth after 24 hours. 01/19/22 17:31 Blood Culture - Preliminary Blood - Venous No growth after 24 hours. Assessment and Plan (1) Opioid withdrawal: Status: Acute (2) Cellulitis of hand: Status: Acute (3) HCV (hepatitis C virus): Status: Acute Plan 31-year-old female with a past medical history of IV drug abuse, heroin abuse, hepatitis-C presented to the hospital today with a chief complaint of right thumb pain redness and swelling.? Noted to have right thumb? cellulitis/ abscess .? Admitted for further management.? Right thumb cellulitis: less redness and swelling, afebrile, persistent pain worse with movement, no induration, no fluctuation at base of thumb, Seen by orthopedic surgery they recommend to continue IV antibiotic, I&D not recommended Await ID input CT scan showed? 1.2 cm abscess in the distal radius; adjacent soft tissue swelling; on IV vancomycin and IV Zosyn day2 , blood cultures x2 negative times 24 hours,if blood cultures remain negative will transition to by mouth antibiotic and discharge home Continue as needed iv Dilaudid History of opiate/cocaine abuse:? U tox positive for opiates fentanyl and cocaine Complaining of withdrawal symptoms, receiving methadone through Addiction Team, continue prn Atarax/Ativan, Outpatient community referral as per Addiction Team . Bradycardia chronic asymptomatic, normal TSH prior EKGs normal, methadone contr ibuting History of hep C: Outpatient follow-up with PCP/ GI.? DVT prophylaxis:? Lovenox Code status: Full code Will need continued inpatient hospitalization due to right thumb cellulitis requiring IV antibiotics and for opioid withdrawal being followed by addiction team. Quality Stroke Does the patient have a stroke diagnosis?: No VTE Prior VTE?: No VTE Risk Level:: Medical - moderate - high VTE Device Contraindication: Treatment Not Indicated VTE Drug Contraindication: N/A - Med Ordered
[2022-01-21 15:08] VITALS: BP 107/72; PULSE 48; RESP 20; TEMP 36.4; O2SAT 100
--- NOTE | 2022-01-21 15:10 | MHC.RECOVRN ---
Met with pt this morning in [facility] 9 to follow up regarding methadone initiation. 1100- Pt reports 40 mg was helpful and would like to continue tx outpatient. Pt would like linkage to [facility] in [place]. Pt does not have an ID, t/w will attempt to obtain one from [facility] [place]. HELLEN obtained. 1500-Awaiting email with copy of pts ID from [facility]. Referral sent to [facility]. Will forward ID once received.
--- NOTE | 2022-01-21 15:36 | P.CNID_ITS ---
History of Present Illness Data of Consult Service Date: 01/21/22 Requesting physician: Adrian Choudhury Primary Care Provider: DO JOHANA Poole Reason for consult: cellulitis/abscess right hand thumb She presents in police custody and now is released with a court date. She has complaints of right hand pain after injecting heroin into thumb. She does not give much information. She has no fever or chills now. She has no bacteremia. She has Hepatitis C antibody positive and HIV negative. Review of Systems Review of Systems: Yes all other systems are reviewed and are negative PMFSH Past Medical History Medical History Drug abuse Graves disease HCV (hepatitis C virus) Opiate addiction Family History Family history: reviewed and not pertinent Social History Social History Household Members: None Housing: Homeless Do you presently have visiting nurse or other home services: No Alcohol intake: unknown Patient Tobacco Use Status: Tobacco use Unknown Tobacco use type: Cigarette Cigarettes Per Day: 5 Second Hand Smoke Exposure: No Substance Use Type: Crack/Cocaine and Heroin service: No Current occupational status: unemployed Meds Allergies Allergy/AdvReac Type Severity Reaction Status Date / Time No Known Allergies Allergy Verified 12/06/21 12:17 [No Known Allergies*] Active Medications: Current Medications Acetaminophen (Acetaminophen 325 Mg Tablet) 650 mg PO Q6H PRN PRN Reason: Pain, Mild (Pain Scale 1-3) Docusate Sodium (Docusate Sodium 100 Mg Capsule) 100 mg PO BID [facility] Last Admin: 01/21/22 09:12 Dose: Not Given Documented by: Enoxaparin Sodium (Enoxaparin Sodium 40 Mg/0.4 Ml Syringe) 40 mg SUBCUT Q24H [facility] Last Admin: 01/20/22 20:44 Dose: 40 mg Documented by: Hydromorphone HCl (Hydromorphone Hcl 1 Mg/Ml Syringe) 0.5 mg IVPUSH Q4H PRN; Protocol PRN Reason: Pain, Severe (Pain Scale 7-10) Hydroxyzine HCl (Hydroxyzine Hcl 25 Mg Tablet) 25 mg PO Q6H PRN PRN Reason: anxiety/restlessness Vancomycin HCl 750 mg/ Sodium (Chloride) 265 mls @ 265 mls/hr IV Q12H [facility] Last Infusion: 01/21/22 07:48 Dose: Infused Documented by: Dextrose/Lactated Ringer's (D5lr) 1,000 mls @ 100 mls/hr IVCONT .Q10H [facility] Last Admin: 01/21/22 07:50 Dose: Not Given Documented by: Piperacillin Sod/Tazobactam (Sod 3.375 gm/ Sodium Chloride) 50 mls @ 100 mls/hr IV Q6H [facility] Last Infusion: 01/21/22 08:18 Dose: Infused Documented by: Lorazepam (Lorazepam 2 Mg/Ml Vial) 0.5 mg IVPUSH Q6H PRN PRN Reason: anxiety/restlessness Melatonin (Melatonin 3 Mg Tablet) 6 mg PO BEDTIME PRN PRN Reason: Insomnia Methadone HCl (Methadone Hcl 20 Mg/2 Ml Oral.Conc) 40 mg PO DAILY [facility] Last Admin: 01/21/22 09:12 Dose: 40 mg Documented by: Pharmacy Consult (Consult Rx Perform Med Rec) 1 each MISCELLANE ONCE PRN PRN Reason: Consult order Pharmacy Consult (Consult Rx Vancomycin Dosing) 1 each MISCELLANE DAILY PRN PRN Reason: Consult order Senna (Sennosides 8.6 Mg Tablet) 17.2 mg PO BEDTIME PRN PRN Reason: Constipation Sodium Chloride (0.9 % Sodium Chloride Flush 3 Ml Syringe) 3 ml IVFLUSH QSHIFT [facility] Last Admin: 01/21/22 07:48 Dose: 3 ml Documented by: Home Medications Medication Instructions Recorded Confirmed Last Taken Type No Known Home Meds 01/19/22 01/19/22 Unknown History Physical Exam Vital Signs: Vital Signs: Last Vital Signs Temp 97.6 F 01/21/22 15:08 Pulse 48 L 01/21/22 15:08 Resp 20 01/21/22 15:08 BP 107/72 01/21/22 15:08 Pulse Ox 100 01/21/22 15:08 BMI result Body Mass Index 17.4 Const: General: cooperative HEENT: Head: Yes normal to inspection Mouth: Normal oral and palatal mucosa present Resp: Effort & Inspection: normal respiratory effort Cardio: Rate: regular rate Rhythm: regular rhythm GI: Palpation (GI): Soft to palpation and nontender Skin: General skin exam: no rashes or lesions noted Extrem: Other: right hand mild erythema,can make fist Results Labs CBC & Chem 7: 01/20/22 07:30 01/21/22 04:53 Labs: BMP 01/21/22 04:53 Creatinine 0.66 Microbiology Microbiology Results: Microbiology 01/19/22 19:28 Blood - Venous Blood Culture - Preliminary No growth after 24 hours. 01/19/22 17:31 Blood - Venous Blood Culture - Preliminary No growth after 24 hours. Assessment and Plan (1) Cellulitis of hand: Status: Acute Cellulitis resolving. No abscess reported to drain now (2) HCV (hepatitis C virus): Status: Acute Would give po Augmentin and Doxycycline for a week. Follow with Hand Surgery. Check Hepatitis C viral load
--- NOTE | 2022-01-21 15:54 | P.PNADD_ITS ---
Subjective Subjective Date of Service: 01/21/22 Reason For Visit: Right hand cellulitis/abscess Interim History: Patient seen in follow up Received methadone 40mg today Awake, alert, pleasant and engaged in interview Noted to be bradycardic in the mid to high 40's.? methadone contributing. HR prior to initiating methadone was noted to be mid 40's, 50's. Last admission, same concern. When seen by this feature writer, patient reporting withdrawal sx were addressed by methadone and no c/o nausea, chills, restlessness, or pain. While PRN anxiety and pain medications are ordered, patient has not yet required any. Review of Systems Constitutional: Reports as per HPI and Reports no additional constitutional complaints Mental Status Exam Mental Status Exam Patient Appearance: Appropriate Patient Orientation: Person, Place, Time and Situation Affect Description: Calm Judgement: Fair Diagnostics Vital Signs (24Hr): Vital Signs - 24 hr 01/20/22 17:34 01/20/22 20:06 01/21/22 07:53 Temperature 98.3 F 96 F L 98.0 F Pulse Rate 54 45 L 51 Respiratory Rate 14 16 Blood Pressure 134/84 149/76 H 120/76 Pulse Oximetry 99 95 100 01/21/22 12:13 01/21/22 15:08 Temperature 97.7 F 97.6 F Pulse Rate 39 L 48 L Respiratory Rate 19 20 Blood Pressure 116/83 107/72 Pulse Oximetry 99 100 BMI result Body Mass Index 17.4 Labs Results: 01/20/22 07:30 01/21/22 04:53 Labs: Laboratory Results - last 48 hr 01/19/22 01/19/22 01/19/22 17:08 17:31 19:29 WBC 3.7 L RBC 3.33 L D Hgb 9.7 L D Hct 30.2 L D MCV 90.7 MCH 29.1 MCHC 32.1 RDW 14.0 Plt Count 167 MPV 10.0 Immature Gran % (Auto) 0.8 H Neut % (Auto) 56.5 Lymph % (Auto) 32.2 [place] % (Auto) 9.2 Eos % (Auto) 0.8 Baso % (Auto) 0.5 Lymph # (Auto) 1.2 [place] # (Auto) 0.3 Eos # (Auto) 0.0 Baso # (Auto) 0.0 Abs Immat Gran (auto) 0.03 Absolute Neuts (auto) 2.1 Absolute Nucleated RBC 0.000 Nucleated RBC % (auto) 0.0 ESR Sodium Potassium Chloride Carbon Dioxide Anion Gap BUN Creatinine Estim Creat Clear Calc Estimated GFR Random Glucose Lactic Acid 1.3 Calcium Magnesium Total Bilirubin Direct Bilirubin AST ALT Alkaline Phosphatase C-Reactive Protein C-React Prot High Sens Total Protein Albumin TSH Free T4 Beta HCG, Quant Urine Color Urine Appearance Urine pH Ur Specific [place] Urine Protein Urine Glucose (UA) Urine Ketones Urine Blood Urine Nitrite Ur Leukocyte Esterase Vancomycin Trough Urine Opiates Screen Urine Fentanyl Screen Ur Barbiturates Screen Ur Phencyclidine Scrn Ur Amphetamines Screen U Benzodiazepines Scrn Urine Cocaine Screen U Marijuana (THC) Screen Ethyl Alcohol COVID-19 ([facility]) Negative COVID-[place] See Note 01/19/22 01/19/22 01/19/22 19:29 19:29 19:29 WBC RBC Hgb Hct MCV MCH MCHC RDW Plt Count MPV Immature Gran % (Auto) Neut % (Auto) Lymph % (Auto) [place] % (Auto) Eos % (Auto) Baso % (Auto) Lymph # (Auto) [place] # (Auto) Eos # (Auto) Baso # (Auto) Abs Immat Gran (auto) Absolute Neuts (auto) Absolute Nucleated RBC Nucleated RBC % (auto) ESR 34 H Sodium 139 Potassium 3.6 Chloride 104 Carbon Dioxide 32 H Anion Gap 7 L BUN 18 H D Creatinine 0.64 Estim Creat Clear Calc 81.9 Estimated GFR > 60 Random Glucose 111 Lactic Acid Calcium 8.4 D Magnesium Total Bilirubin 0.3 Direct Bilirubin 0.2 AST 41 H ALT 37 H Alkaline Phosphatase 67 D C-Reactive Protein 0.19 C-React Prot High Sens Cancelled Total Protein 6.6 Albumin 3.3 L TSH Free T4 Beta HCG, Quant < 2 Urine Color Urine Appearance Urine pH Ur Specific [place] Urine Protein Urine Glucose (UA) Urine Ketones Urine Blood Urine Nitrite Ur Leukocyte Esterase Vancomycin Trough Urine Opiates Screen Urine Fentanyl Screen Ur Barbiturates Screen Ur Phencyclidine Scrn Ur Amphetamines Screen U Benzodiazepines Scrn Urine Cocaine Screen U Marijuana (THC) Screen Ethyl Alcohol COVID-19 ([facility]) COVID-[place] 01/19/22 01/19/22 01/19/22 19:29 19:29 23:12 WBC RBC Hgb Hct MCV MCH MCHC RDW Plt Count MPV Immature Gran % (Auto) Neut % (Auto) Lymph % (Auto) [place] % (Auto) Eos % (Auto) Baso % (Auto) Lymph # (Auto) [place] # (Auto) Eos # (Auto) Baso # (Auto) Abs Immat Gran (auto) Absolute Neuts (auto) Absolute Nucleated RBC Nucleated RBC % (auto) ESR Sodium Potassium Chloride Carbon Dioxide Anion Gap BUN Creatinine Estim Creat Clear Calc Estimated GFR Random Glucose Lactic Acid Calcium Magnesium Total Bilirubin Direct Bilirubin AST ALT Alkaline Phosphatase C-Reactive Protein C-React Prot High Sens Total Protein Albumin TSH 4.27 H Free T4 0.95 Beta HCG, Quant Urine Color YELLOW Urine Appearance CLEAR Urine pH 7.5 Ur Specific [place] 1.015 Urine Protein NEG Urine Glucose (UA) NEG Urine Ketones NEG Urine Blood NEG Urine Nitrite NEG Ur Leukocyte Esterase NEG Vancomycin Trough Urine Opiates Screen Urine Fentanyl Screen Ur Barbiturates Screen Ur Phencyclidine Scrn Ur Amphetamines Screen U Benzodiazepines Scrn Urine Cocaine Screen U Marijuana (THC) Screen Ethyl Alcohol < 10 COVID-19 ([facility]) COVID-19 Clin Com 01/19/22 01/20/22 01/20/22 23:12 07:30 07:30 WBC 3.7 L RBC 3.94 L Hgb 11.1 L Hct 35.8 L MCV 90.9 MCH 28.2 MCHC 31.0 RDW 14.2 Plt Count 115 L D MPV 10.9 Immature Gran % (Auto) 0.3 Neut % (Auto) 51.7 Lymph % (Auto) 37.3 [place] % (Auto) 7.8 Eos % (Auto) 2.4 Baso % (Auto) 0.5 Lymph # (Auto) 1.4 [place] # (Auto) 0.3 Eos # (Auto) 0.1 Baso # (Auto) 0.0 Abs Immat Gran (auto) 0.01 Absolute Neuts (auto) 1.9 L Absolute Nucleated RBC 0.000 Nucleated RBC % (auto) 0.0 ESR Sodium 140 Potassium 3.5 Chloride 108 Carbon Dioxide 23 Anion Gap 13 BUN 13 Creatinine 0.67 Estim Creat Clear Calc 78.2 Estimated GFR > 60 Random Glucose 126 H Lactic Acid Calcium 8.3 L Magnesium 1.9 Total Bilirubin Direct Bilirubin AST ALT Alkaline Phosphatase C-Reactive Protein C-React Prot High Sens Total Protein Albumin TSH Free T4 Beta HCG, Quant Urine Color Urine Appearance Urine pH Ur Specific [place] Urine Protein Urine Glucose (UA) Urine Ketones Urine Blood Urine Nitrite Ur Leukocyte Esterase Vancomycin Trough Urine Opiates Screen POSITIVE H Urine Fentanyl Screen POSITIVE H Ur Barbiturates Screen Not Detected Ur Phencyclidine Scrn Not Detected Ur Amphetamines Screen Not Detected U Benzodiazepines Scrn Not Detected Urine Cocaine Screen POSITIVE H U Marijuana (THC) Screen Not Detected Ethyl Alcohol COVID-19 ([facility]) COVID-19 [employer] Com 01/21/22 01/21/22 04:53 04:53 WBC RBC Hgb Hct MCV MCH MCHC RDW Plt Count MPV Immature Gran % (Auto) Neut % (Auto) Lymph % (Auto) [place] % (Auto) Eos % (Auto) Baso % (Auto) Lymph # (Auto) [place] # (Auto) Eos # (Auto) Baso # (Auto) Abs Immat Gran (auto) Absolute Neuts (auto) Absolute Nucleated RBC Nucleated RBC % (auto) ESR Sodium Potassium Chloride Carbon Dioxide Anion Gap BUN Creatinine 0.66 Estim Creat Clear Calc 79.4 Estimated GFR > 60 Random Glucose Lactic Acid Calcium Magnesium Total Bilirubin Direct Bilirubin AST ALT Alkaline Phosphatase C-Reactive Protein C-React Prot High Sens Total Protein Albumin TSH Free T4 Beta HCG, Quant Urine Color Urine Appearance Urine pH Ur Specific [place] Urine Protein Urine Glucose (UA) Urine Ketones Urine Blood Urine Nitrite Ur Leukocyte Esterase Vancomycin Trough 10.0 Urine Opiates Screen Urine Fentanyl Screen Ur Barbiturates Screen Ur Phencyclidine Scrn Ur Amphetamines Screen U Benzodiazepines Scrn Urine Cocaine Screen U Marijuana (THC) Screen Ethyl Alcohol COVID-19 ([facility]) COVID-19 Clin Com Imaging Radiology Impressions: ITS Impressions Hand CT 01/19/22 17:25 IMPRESSION: Probable abscess formation within the soft tissues volar to the distal radius measuring up to 1.2 cm in greatest dimension. Prominent adjacent soft tissue edema/skin thickening extending along the lateral aspect of the radial styloid and base of the thumb, consistent with acute cellulitis. No CT evidence of adjacent osteomyelitis. Hand X-Ray 01/20/22 09:24 IMPRESSION: No evidence of osteomyelitis. Mild degenerative changes. Medications Medications Current Medications Acetaminophen (Acetaminophen 325 Mg Tablet) 650 mg PO Q6H PRN PRN Reason: Pain, Mild (Pain Scale 1-3) Docusate Sodium (Docusate Sodium 100 Mg Capsule) 100 mg PO BID [facility] Last Admin: 01/21/22 09:12 Dose: Not Given Documented by: Enoxaparin Sodium (Enoxaparin Sodium 40 Mg/0.4 Ml Syringe) 40 mg SUBCUT Q24H [facility] Last Admin: 01/20/22 20:44 Dose: 40 mg Documented by: Hydromorphone HCl (Hydromorphone Hcl 1 Mg/Ml Syringe) 0.5 mg IVPUSH Q4H PRN; Protocol PRN Reason: Pain, Severe (Pain Scale 7-10) Hydroxyzine HCl (Hydroxyzine Hcl 25 Mg Tablet) 25 mg PO Q6H PRN PRN Reason: anxiety/restlessness Vancomycin HCl 750 mg/ Sodium (Chloride) 265 mls @ 265 mls/hr IV Q12H [facility] Last Infusion: 01/21/22 07:48 Dose: Infused Documented by: Dextrose/Lactated Ringer's ([id number]) 1,000 mls @ 100 mls/hr IVCONT .Q10H [facility] Last Admin: 01/21/22 07:50 Dose: Not Given Documented by: Piperacillin Sod/Tazobactam (Sod 3.375 gm/ Sodium Chloride) 50 mls @ 100 mls/hr IV Q6H [facility] Last Infusion: 01/21/22 08:18 Dose: Infused Documented by: Lorazepam (Lorazepam 2 Mg/Ml Vial) 0.5 mg IVPUSH Q6H PRN PRN Reason: anxiety/restlessness Melatonin (Melatonin 3 Mg Tablet) 6 mg PO BEDTIME PRN PRN Reason: Insomnia Methadone HCl (Methadone Hcl 20 Mg/2 Ml Oral.Conc) 35 mg PO DAILY [facility] Pharmacy Consult (Consult Rx Perform Med Rec) 1 each MISCELLANE ONCE PRN PRN Reason: Consult order Pharmacy Consult (Consult Rx Vancomycin Dosing) 1 each MISCELLANE DAILY PRN PRN Reason: Consult order Senna (Sennosides 8.6 Mg Tablet) 17.2 mg PO BEDTIME PRN PRN Reason: Constipation Sodium Chloride (0.9 % Sodium Chloride Flush 3 Ml Syringe) 3 ml IVFLUSH QSHIFT [facility] Last Admin: 01/21/22 07:48 Dose: 3 ml Documented by: Allergies Allergies Allergy/AdvReac Type Severity Reaction Status Date / Time No Known Allergies Allergy Verified 12/06/21 12:17 [No Known Allergies*] Assessment & Plan Assessment & Plan (1) Opioid withdrawal: Status: Acute Code(s): F11.23 - Opioid dependence with withdrawal Assessment and Plan: * symptoms improved * due to bradycardia, methadone dose will not be increased any further at this time. Dose decreased to 35mg tomorrow (01/22) * ? of better candidate for buprenorphine. Addiciton medicine will follow up tmrw and discuss with patient --case discussed with Kristy Lozada NP I spent ___25___ minutes with the patient and/or on the patient floor today, greater than?50% of which was spent counseling/coordinating care.
[2022-01-21 16:00] VITALS: PULSE 48
--- NOTE | 2022-01-21 16:28 | PC.NURSE ---
Report taken from ED. pt arrived to unit. admit completed by admit/d/c rn. safety and fall precautions maintained. no acute issues upon arrival. call pascal within reach. pt repositioning self in bed
[2022-01-21] MEDS: Dextrose 5 % and Lactated Ring 1,000 ML 100 ML IVCONT (17:27)
[2022-01-21 19:59] VITALS: BP 119/74; PULSE 51; RESP 16; TEMP 37; O2SAT 99
[2022-01-21 23:28] VITALS: BP 119/68; PULSE 87; RESP 18; TEMP 37.1; O2SAT 98
[2022-01-22] VITALS: PULSE 87
[2022-01-22] MEDS: LORazepam 2 MG/ML VIAL 0.5 MG IVPUSH ×2 (00:17→12:34)
[2022-01-22 03:30] VITALS: BP 121/87; PULSE 40; RESP 16; TEMP 36.7; O2SAT 100
[2022-01-22] MEDS: Piperacillin Sodium/Tazobactam 3.375 GM in 0.9 % Sodium Chloride 50 ML IV (05:18)
[2022-01-22] MEDS: Dextrose 5 % and Lactated Ring 1,000 ML 100 ML IVCONT (05:21)
[2022-01-22 07:42] VITALS: BP 123/77; PULSE 43; RESP 18; TEMP 36.4; O2SAT 100
[2022-01-22 08:00] VITALS: PULSE 48
[2022-01-22] MEDS: methADONE HCl 20 MG/2 ML ORAL.CONC 35 MG PO (08:41)
[2022-01-22] MEDS: 0.9 % Sodium Chloride Flush 3 ML SYRINGE IVFLUSH (08:41)
[2022-01-22] MEDS: Docusate Sodium 100 MG CAPSULE PO (08:42)
[2022-01-22] MEDS: Amoxicillin/Potassium Clav 875 MG TABLET PO (08:42)
[2022-01-22 08:52] LABS: Anion Gap 13 (12-20); Blood Urea Nitrogen 7 mg/dL (9-16); Calcium 8.8 mg/dL (8.4-10.2); Carbon Dioxide 25 mmol/L (22-29); Chloride 106 mmol/L (96-108); Creatinine Clr Calc Pharmacy 79.4; Estimated Glomerular Filt Rate > 60; Glucose Random 91 mg/dL (60-115); Potassium 4.3 mmol/L (3.3-5.1); Sodium 140 mmol/L (135-145)
--- NOTE | 2022-01-22 11:58 | MHC.RECOVSUP ---
Recovery Support note: This telegraphic typewriter repairer followed up with patient to discuss discharge plan. Patient would like to continue with methadone. Last dose letter provided. Information on the [facility] on [facility] provided. Patient has contact information for this telegraphic typewriter repairer in the event that she has any issues. Patient is reports she will need to go to the [place] [employer] after discharge to get her property. Encouraged patient to discuss this with CM prior to discharge. This telegraphic typewriter repairer is available as needed.
[2022-01-22 11:59] VITALS: BP 128/85; PULSE 55; RESP 18; TEMP 36.9; O2SAT 99
--- NOTE | 2022-01-22 13:04 | PM.DS ---
DS: Providers Provider Date of Service: 01/22/22 Date of admission: 01/19/22 21:39 Primary care physician: Lanette Sun DO Consults: 01/19/22 21:39 Addiction Medicine Routine Consulting Provider: Miranda Rand Reason for consultation: opiate abuse Consult to Infectious Diseases Routine Consulting Provider: Annamarie Williamson Reason for consultation: cellulitis/absces Consult to Orthopedics Routine Consulting Provider: Lucinda Tillman Reason for consultation: cellulitis/abscess of thumb DS: Diagnosis Discharge Diagnosis (1) Opioid withdrawal: Status: Acute DS: Summary Hospital Course Hospital Course: Chief Complaint:? right thumb pain redness and swelling ?31-year-old female with a past medical history of IV drug abuse, heroin abuse, hepatitis-C presented to the hospital today with a chief complaint of right thumb pain redness and swelling.? Patient was brought in by the police-patient was in custody; subsequently police released her from custody after she was brought to the ER.? Patient reports that over the past 2 weeks she has been having pain redness and swelling in her right thumb; denies injecting into the right thumb; denies any subjective fevers.? Mentions that her range of motion of the thumb is significantly limited because of the pain.? Patient reports she uses heroin every day and last use was the day before coming to the hospital.? Denies being on any methadone program on Suboxone.? Reports he drinks occasional alcohol and uses tobacco.? Denies any chest pain or palpitations.? Denies any fever chills cough or sputum production.? Denies any GI symptoms.? Review of all other systems is negative except mentioned above ER course: Per ER team patient noted to have right thumb pain redness and swelling concerning for cellulitis; CT scan showed 1.2 cm abscess-unable to drain; no gas; admitted to the hospital for antibiotics and possible orthopedics consult for further evaluation.? Hospital course 31-year-old female with a past medical history of IV drug abuse, heroin abuse, hepatitis-C presented to the hospital today with a chief complaint of right thumb pain redness and swelling.? Noted to have right thumb? cellulitis/ abscess. Admitted for further management.? Right thumb cellulitis CT scan showed 1.2 cm abscess within the soft tissues distal to radius , patient admitted to medical floor treated with IV vancomycin and Zosyn, seen by orthopedic surgery they recommend to continue IV antibiotics I&D was not recommended, patient responded well to above treatment redness swelling has significantly resolved patient is afebrile blood cultures x2 showed no growth patient seen by Infectious Disease she recommend 1 week of by mouth doxycycline and Augmentin. Polysubstance abuse,U tox positive for opiates fentanyl and cocaine, patient complained of withdrawal symptoms therefore seen by addiction team treated with methadone, good response, outpatient follow-up at clinic has been set up by recovery team patient has been strongly advised to abstain from illicit drug use. Bradycardia chronic asymptomatic, normal TSH prior EKGs normal History of hep C: Outpatient follow-up with PCP/ GI.? Time Spent with Patient Time attestation: Total time spent providing and/or coordinating discharge services: Discharge coordination time: Greater than 30 minutes Quality: Safe Use of Opioids Does Pt have an Active Cancer Diagnosis on the Problem List?: No Quality: Stroke Does the patient have a stroke diagnosis?: No Physical Exam Vital Signs: Vital Signs: Last Vital Signs Temp 98.4 F 01/22/22 11:59 Pulse 55 01/22/22 11:59 Resp 18 01/22/22 11:59 BP 128/85 01/22/22 11:59 Pulse Ox 99 01/22/22 11:59 BMI result Body Mass Index 17.4 Const: Other: Gen:? Awake alert, no acute distress Neck? supple Pulmonary:? Clear to auscultation, no wheeze no rhonchi CVS:? Normal S1-S2 Abdomen: BS+, Soft, Nontender Extremities:? Lower extremities no edema Right hand examination: right thumb redness and swelling resolved, no fluctuation, good range of motion MCP and IP joint, dry scaly skin with fissures Neuro:? Nonfocal DS: Data Data Completed and Pending Labs on day of discharge: Laboratory Results - last 24 hr 01/22/22 08:07 Sodium 140 Potassium 4.3 D Chloride 106 Carbon Dioxide 25 Anion Gap 13 BUN 7 L Creatinine 0.66 Estim Creat Clear Calc 79.4 Estimated GFR > 60 Random Glucose 91 Calcium 8.8 D Preliminary micro results at discharge 01/19/22 19:28 Blood Culture - Preliminary Blood - Venous No growth after 48 hours. 01/19/22 17:31 Blood Culture - Preliminary Blood - Venous No growth after 48 hours. Discharge Plan Discharge Patient Disposition: Home, Self-Care Discharge Diagnosis: Right thumb cellulitis/abscess Polysubstance abuse Bradycardia Referrals: Lanette Sun DO [Primary Care Provider] - 1 Week Discharge Medications: New doxycycline hyclate 100 mg Tablet 100 mg PO Q12H Qty: 14 0RF amoxicillin-pot clavulanate 875-125 mg Tablet 875 mg PO Q12H Qty: 14 0RF Discharge Orders: Discharge Order (Routine); Ordered 01/22/22 Ordered By: Adrian Choudhury Diet: advance to usual diet Activity on Discharge: As tolerated Stand Alone Forms: Patient Portal Discharge page Care Plan Goals: Right hand cellulitis take Augmentin and doxycycline 1 tablet twice daily for total 7 days, outpatient follow-up in clinic as arranged by Addiction Team Health Concerns: Polysubstance abuse/hepatitis-C strongly recommend to abstain from illicit drug use Plan of Treatment: Outpatient follow-up with primary care physician Assessment: As per discharge summary
--- NOTE | 2022-01-22 13:10 | MHC.CM.PN ---
PT TO DC HOME TODAY WITH RESUMPTION OF SUBOXONE TREATMENT PT TO ARRANGE TRANSPORT
--- NOTE | 2022-01-22 15:00 | HO.ADDICTPRO ---
Subjective Subjective Date of Service: 01/22/22 Reason For Visit: Right hand cellulitis/abscess Guardianship: No Medical Problems Affecting Mental Status: No Interim History: Patient pulse today at 0742 was 43. patient had received methadone 35mg this am, reduced from 40mg received yesterday. Reports ongoing withdrawal symptoms of chills, restlessness. Denies cravings. Medication Compliance: Yes Side effects from medications: No Review of Systems Review of Systems Reports as per HPI, and no additional complaints stated. Constitutional: Reports no additional constitutional complaints Mental Status Exam Mental Status Exam Narrative: NAD. Patient Appearance: Appropriate Patient Orientation: Person, Place, Time and Situation Level of Consciousness: Appropriate Patient Behavior: Appropriate, Cooperative and Good Eye Contact Mood Description: Calm Affect Description: Calm and Appropriate Patient Cognition Impaired: No Ability to Follow Directions: Excellent Speech Pattern: Clear, Appropriate and Coherent Memory Description: Intact Hallucinations: None Delusions: Not Present Thought Process: Intact Thought Content: positive for Intact Judgement: Fair Judgement and Insight: Judgement and insight regarding substance use disorder fair but adequate. Diagnostics Vital Signs (24Hr): Vital Signs - 24 hr 01/21/22 15:08 01/21/22 19:59 01/21/22 23:28 Temperature 97.6 F 98.6 F 98.7 F Pulse Rate 48 L 51 87 Respiratory Rate 20 16 18 Blood Pressure 107/72 119/74 119/68 Pulse Oximetry 100 99 98 01/22/22 03:30 01/22/22 07:42 01/22/22 11:59 Temperature 98.1 F 97.5 F 98.4 F Pulse Rate 40 L 43 L 55 Respiratory Rate 16 18 18 Blood Pressure 121/87 123/77 128/85 Pulse Oximetry 100 100 99 BMI result Body Mass Index 17.4 Labs Results: 01/20/22 07:30 01/22/22 08:07 Labs: Laboratory Results - last 48 hr 01/21/22 01/21/22 01/22/22 04:53 04:53 08:07 Sodium 140 Potassium 4.3 D Chloride 106 Carbon Dioxide 25 Anion Gap 13 BUN 7 L Creatinine 0.66 0.66 Estim Creat Clear Calc 79.4 79.4 Estimated GFR > 60 > 60 Random Glucose 91 Calcium 8.8 D Vancomycin Trough 10.0 Imaging Radiology Impressions: ITS Impressions Hand CT 01/19/22 17:25 IMPRESSION: Probable abscess formation within the soft tissues volar to the distal radius measuring up to 1.2 cm in greatest dimension. Prominent adjacent soft tissue edema/skin thickening extending along the lateral aspect of the radial styloid and base of the thumb, consistent with acute cellulitis. No CT evidence of adjacent osteomyelitis. Hand X-Ray 01/20/22 09:24 IMPRESSION: No evidence of osteomyelitis. Mild degenerative changes. Medications Medications Current Medications Acetaminophen (Acetaminophen 325 Mg Tablet) 650 mg PO Q6H PRN PRN Reason: Pain, Mild (Pain Scale 1-3) Amoxicillin/Clavulanate Potassium (Amoxicillin/Potassium Clav 875 Mg Tablet) 875 mg PO Q12H [facility] Last Admin: 01/22/22 08:42 Dose: 875 mg Documented by: Docusate Sodium (Docusate Sodium 100 Mg Capsule) 100 mg PO BID [facility] Last Admin: 01/22/22 08:42 Dose: 100 mg Documented by: Doxycycline Hyclate (Doxycycline Hyclate 100 Mg Tablet) 100 mg PO Q12H [facility] Last Admin: 01/22/22 08:42 Dose: 100 mg Documented by: Enoxaparin Sodium (Enoxaparin Sodium 40 Mg/0.4 Ml Syringe) 40 mg SUBCUT Q24H [facility] Last Admin: 01/21/22 19:54 Dose: Not Given Documented by: Hydromorphone HCl (Hydromorphone Hcl 1 Mg/Ml Syringe) 0.5 mg IVPUSH Q4H PRN; Protocol PRN Reason: Pain, Severe (Pain Scale 7-10) Hydroxyzine HCl (Hydroxyzine Hcl 25 Mg Tablet) 25 mg PO Q6H PRN PRN Reason: anxiety/restlessness Lorazepam (Lorazepam 2 Mg/Ml Vial) 0.5 mg IVPUSH Q6H PRN PRN Reason: anxiety/restlessness Last Admin: 01/22/22 12:34 Dose: 0.5 mg Documented by: Melatonin (Melatonin 3 Mg Tablet) 6 mg PO BEDTIME PRN PRN Reason: Insomnia Methadone HCl (Methadone Hcl 20 Mg/2 Ml Oral.Conc) 35 mg PO DAILY [facility] Last Admin: 01/22/22 08:41 Dose: 35 mg Documented by: Pharmacy Consult (Consult Rx Perform Med Rec) 1 each MISCELLANE ONCE PRN PRN Reason: Consult order Pharmacy Consult (Consult Rx Vancomycin Dosing) 1 each MISCELLANE DAILY PRN PRN Reason: Consult order Senna (Sennosides 8.6 Mg Tablet) 17.2 mg PO BEDTIME PRN PRN Reason: Constipation Sodium Chloride (0.9 % Sodium Chloride Flush 3 Ml Syringe) 3 ml IVFLUSH QSHIFT [facility] Last Admin: 01/22/22 08:41 Dose: 3 ml Documented by: Allergies Allergies Allergy/AdvReac Type Severity Reaction Status Date / Time No Known Allergies Allergy Verified 12/06/21 12:17 [No Known Allergies*] Assessment & Plan Assessment & Plan (1) Opioid withdrawal: Status: Acute Code(s): F11.23 - Opioid dependence with withdrawal Assessment and Plan: Patient reports overall improvement regarding withdrawals, however does continuen with some chills, restlessness . No diaphoresis, agitation noted. She reports that she was receiving methadone 65mg daily at [facility]. We discussed the bradycardia. She is aware of this, but states that she does not believe in any way it is related to methadone. We discussed keeping dose low at this time, and that she can discuss further with providers at [facility]. She has already been referred to the clinic. I offered a switch to suboxone, with microdosing, and a referral to [facility] for continued suboxone dosing. She stated that she has taken suboxone in the past, but she does not like it. She is not interested in suboxone at this time. She plans to present to methadone clinic tomorrow morning. She asked to speak with clinician from addiction consult team, regarding resources. He has been notified, and plans to see her prior to discharge, which is expected to be later today. Plan 1. Keep methadone dose at 35mg daily. 2. Patient to present to [facility] methadone clinic morning after discharge, for intake. I spent minutes with the patient and/or on the patient floor today, greater than?50% of which was spent counseling/coordinating care. Education Patient educated on: diagnosis, medication risk/benefits and substance abuse Informed Consent: understands
== END 2022-01-22 15:49 | disposition home or self-care (01) | DRG 383 ==
LOC: HO.ED 21:05 → HO.EDOVER 22:52 → HO.IMC 01-21 09:59
PROVIDERS: Admitting Provider Hospitalist; Emergency Provider Emergency Medicine; PCP Internal Medicine; Visit Provider Hospitalist
DX: L02.511 Cutaneous abscess of right hand (principal); F11.23 Opioid dependence with withdrawal; L03.113 Cellulitis of right upper limb; F19.10 Other psychoactive substance abuse, uncomplicated; Z20.822 Contact with and (suspected) exposure to COVID-19; Z86.19 Personal history of other infectious and parasitic diseases
CPT/HCPCS: 36415; 73130; 73200; 80048; 80076; 80202; 80307; 81003; 82077; 82565; 83605; 83735; 84439; 84443; 84702; 85025; 85652; 86140; 87040; 87635; 96361; 96374; 96375; 99285; J1650; J2060; J2543; J3370

== ENCOUNTER 2022-01-28 19:14 | Emergency (ER) | payer OTHER, SELFPAY ==
[2022-01-28 19:18] VITALS: BP 118/78; BP 142/86; PULSE 71; PULSE 75; RESP 16; TEMP 36.9; O2SAT 96; O2SAT 98; BMI 18.8
--- NOTE | 2022-01-28 19:40 | ECG_ITS ---
Test Reason : CHEST PAIN Blood Pressure : / mmHG Vent. Rate : 049 BPM Atrial Rate : 049 BPM P-R Int : 124 ms QRS Dur : 082 ms QT Int : 394 ms P-R-T Axes : 029 038 046 degrees QTc Int : 355 ms Sinus bradycardia with sinus arrhythmia Possible Anterior infarct , age undetermined Abnormal ECG When compared with ECG of 28-JAN-2022 19:27, Previous ECG has undetermined rhythm, needs review ST no longer elevated in Inferior leads ST no longer depressed in Anterior leads T wave inversion no longer evident in Lateral leads QT has shortened Referred By: Siva Huffman Electronically Signed By:LIZETTE LOPEZ MD
--- NOTE | 2022-01-28 19:42 | ED.CHESTPAIN ---
HPI - Chest Pain General Chief Complaint: Chest Pain Stated Complaint: drug use - cp Time Seen by Provider: 01/28/22 19:39 Source: patient, EMS and police Mode of arrival: EMS Limitations: no limitations History of Present Illness HPI narrative: 31-year-old female past medical history significant for hepatitis-C, IV drug abuse, presenting via ambulance and PD custody with complaints of bilateral hand pain and swellingX1 week and chest pain x1 day. Patient tells me that she thinks that she is withdrawing in her chest is hurting, she tells me she uses all drugs IV. She tells me she is having substernal severe chest pain, nonradiating. Tells me she has not had this before. She last used drugs this morning. She also reports bilateral hand pain and swelling, she tells me that she injects drugs to bilateral hands. Does not use clean needles. Reports subjective fevers and chills. Denies shortness of breath, nausea, vomiting, abdominal pain. MD complaint: chest pain Timing of current episode: constant Prior episodes: Yes Pain location: substernal Pain radiation: none Severity: severe Quality: sharp Relieving factors: nothing Exacerbating factors: nothing Treatment prior to arrival: none Related Data Previous Rx's Medication Instructions Recorded amoxicillin 875 mg-potassium 875 mg PO Q12H #14 tab 01/22/22 clavulanate 125 mg tablet doxycycline hyclate 100 mg tablet 100 mg PO Q12H #14 tab 01/22/22 cephalexin 500 mg tablet 500 mg PO Q6H 10 Days #40 tab 01/28/22 doxycycline hyclate 100 mg capsule 100 mg PO BID 10 Days #20 cap 01/28/22 Allergies Allergy/AdvReac Type Severity Reaction Status Date / Time No Known Allergies Allergy Verified 12/06/21 12:17 [No Known Allergies*] Review of Systems Review of Systems: Constitutional : No Weight loss, No Fever, No Chills, No Fatigue, No Malaise ENT/Mouth : No sore throat, No Rhinorrhea Eyes: No Eye Pain, No Swelling, No Redness Cardiovascular : + Chest Pain, No SOB, No Dyspnea on Exertion, No Orthopnea, No Edema, No Palpitations Respiratory : No Cough, No Sputum, No Wheezing Gastrointestinal : No Nausea, No Vomiting, No Diarrhea, No Constipation, No abdominal Pain, No Hematochezia, No Melena Genitourinary : No Dysuria, No Urinary Frequency, No Hematuria, Musculoskeletal : No joint pain, No Myalgias, No Joint Swelling Skin : + Skin Lesions, No rash Neuro : No Weakness, No Numbness, No Dizziness, No Headache Psych : No Anxiety/Panic, No Depression All other systems reviewed and are negative Yes all other systems are reviewed and are negative [facility] Past Medical History Attestation statement: The following information was validated with the patient. Source: old records reviewed and nursing notes reviewed Medical History Drug abuse Graves disease HCV (hepatitis C virus) Opiate addiction Social History Social History Household Members: None Housing: Homeless Do you presently have visiting nurse or other home services: No Alcohol intake: unknown Patient Tobacco Use Status: Tobacco use Unknown Tobacco use type: Cigarette Cigarettes Per Day: 5 Second Hand Smoke Exposure: No Substance Use Type: Crack/Cocaine and Heroin Advance Directives: No Advance Directives Information Provided: No service: No Current occupational status: unemployed Physical Exam Vital Signs: Vital Signs: Last Vital Signs Temp 98.5 F 01/28/22 19:18 Pulse 71 01/28/22 19:18 Resp 16 01/28/22 19:18 BP 118/78 01/28/22 19:18 Pulse Ox 98 01/28/22 19:18 BMI result Body Mass Index 18.8 VSS Appearance: Alert.? Oriented X3.? No acute distress.? Head: Normocephalic, atraumatic, no step-offs or deformities Eyes: Pupils equal, round and reactive to light.? ENT: Pharynx normal.? Neck: Normal inspection.? Neck supple.? CVS: Normal heart rate and rhythm.? Pulses normal.? Respiratory: No respiratory distress.? Breath sounds normal.? Abdomen: Soft and nontender.? Skin: Skin warm and dry.? Normal skin color.? Normal skin turgor.?+ cellulitis noted to bilateral hands, worse on the right hand she has skin cracking noted to the right thumb, early abscess formation noted to the right hand. Bilateral hands are warm, erythematous and painful. Extremities: No lower extremity edema.? No calf ttp. 5/5 strength to bilateral upper and lower extremities Back: No midline tenderness, no C-spine tenderness, full range of motion, no CVA tenderness bilaterally Neuro: Oriented X 3.? No motor deficit.? No sensory deficit. CN 2-12 intact Course Reevaluation(s) Reevaluation #1: Delay in labs and imaging due to patient being a tough stick. Time: 20:24 Reevaluation #2: Patient's CBC appears to be at baseline. No acute electrolyte abnormalities requiring intervention. Transaminases slightly elevated. Troponin negative, EKG nonischemic. COVID negative. UA, urine toxicology pending. Unlikely ACS, unlikely PE. Likely withdrawal. Time: 22:22 Reevaluation #3: At this time patient will be discharged back to group home with doxycycline and Keflex she was given a dose here today. At this time patient comfortably resting no acute distress, with no pain. Involuntary movements improved after Ativan. I suspect these are from opiate withdrawal. Comfortable with discharge home. In time of discharge patient with no complaints, vital signs stable. Time: 23:05 MDM - Chest Pain MDM Narrative Medical decision making narrative: 1944 31 yo f presents via ambulance with police with complaints of chest pain, subjective fevers and chills, bilateral hand swelling and pain. Physical examination significant for cellulitis noted to bilateral hands, worse on the right hand she has skin cracking noted to the right thumb, early abscess formation noted to the right hand however unable to drain at this time. Bilateral hands are warm, erythematous and painful. Regular rate, fast rhythm. Lungs clear. Abdomen soft nontender nondistended. Neuro exam is nonfocal. Patient is having involuntary body movements. Plan at this time is EKG, troponin, blood cultures, lactic acid, urine, PECK, chest CT. Medical Records Data Attestation: I reviewed the patient's medical records. Lab Data Attestation: I reviewed the patient's lab results. Result diagrams: 01/28/22 20:47 01/28/22 20:47 Labs: Lab Results 01/28/22 01/28/22 01/28/22 Range/Units 20:45 20:46 20:47 WBC 7.4 (4.8-10.8) X10*3/uL RBC 4.04 L (4.20-5.50) X10*6/uL Hgb 11.5 L (12.0-16.0) g/dl Hct 35.6 L (37.0-47.0) % MCV 88.1 (80.0-98.0) fL MCH 28.5 (27.0-33.0) pg MCHC 32.3 (31.0-35.0) g/dl RDW 14.1 (11.0-16.0) % Plt Count 235 D (160-400) X10*3/uL MPV 9.7 (9.4-12.3) fL Immature Gran % (Auto) 0.4 (0.0-0.4) % Neut % (Auto) 66.4 (45-73) % Lymph % (Auto) 25.2 (20-40) % [place] % (Auto) 6.7 (2-11) % Eos % (Auto) 0.9 (0-4) % Baso % (Auto) 0.4 (0-2) % Lymph # (Auto) 1.9 (1.2-4.9) X10*3/uL [place] # (Auto) 0.5 (0.1-1.2) X10*3/uL Eos # (Auto) 0.1 (0.0-0.4) X10*3/uL Baso # (Auto) 0.0 (0.0-0.2) X10*3/uL Abs Immat Gran (auto) 0.03 (0.00-0.03) X10*3/uL Absolute Neuts (auto) 4.9 (2.0-8.3) x10*3/uL Absolute Nucleated RBC 0.000 (0.0-0.012) X10*3/uL Nucleated RBC % (auto) 0.0 (0.0-0.2) /100WBC Sodium (135-145) mmol/L Potassium (3.3-5.1) mmol/L Chloride (96-108) mmol/L Carbon Dioxide (22-29) mmol/L Anion Gap (12-20) BUN (9-16) mg/dL Creatinine (0.5-1.4) mg/dL Estim Creat Clear Calc Estimated GFR Random Glucose (60-115) mg/dL Lactic Acid 1.3 (0.5-2.0) mmol/L Calcium (8.4-10.2) mg/dL Magnesium (1.6-2.6) mg/dL Total Bilirubin (0.0-1.0) mg/dL AST (5-31) U/L ALT (0-31) U/L Alkaline Phosphatase (39-117) U/L Troponin I High Sens (<3.5-17.0) ng/L Total Protein (6.5-8.0) g/dL Albumin (3.5-5.0) g/dL Ethyl Alcohol < 10 mg/dL COVID-19 ([facility]) (Negative) COVID-19 Clin Com 01/28/22 01/28/22 01/28/22 Range/Units 20:47 20:47 20:47 WBC (4.8-10.8) X10*3/uL RBC (4.20-5.50) X10*6/uL Hgb (12.0-16.0) g/dl Hct (37.0-47.0) % MCV (80.0-98.0) fL MCH (27.0-33.0) pg MCHC (31.0-35.0) g/dl RDW (11.0-16.0) % Plt Count (160-400) X10*3/uL MPV (9.4-12.3) fL Immature Gran % (Auto) (0.0-0.4) % Neut % (Auto) (45-73) % Lymph % (Auto) (20-40) % [place] % (Auto) (2-11) % Eos % (Auto) (0-4) % Baso % (Auto) (0-2) % Lymph # (Auto) (1.2-4.9) X10*3/uL [place] # (Auto) (0.1-1.2) X10*3/uL Eos # (Auto) (0.0-0.4) X10*3/uL Baso # (Auto) (0.0-0.2) X10*3/uL Abs Immat Gran (auto) (0.00-0.03) X10*3/uL Absolute Neuts (auto) (2.0-8.3) x10*3/uL Absolute Nucleated RBC (0.0-0.012) X10*3/uL Nucleated RBC % (auto) (0.0-0.2) /100WBC Sodium 138 (135-145) mmol/L Potassium 4.2 (3.3-5.1) mmol/L Chloride 102 (96-108) mmol/L Carbon Dioxide 26 (22-29) mmol/L Anion Gap 14 (12-20) BUN 20 H D (9-16) mg/dL Creatinine 0.67 (0.5-1.4) mg/dL Estim Creat Clear Calc 84.7 Estimated GFR > 60 Random Glucose 86 (60-115) mg/dL Lactic Acid (0.5-2.0) mmol/L Calcium 8.7 (8.4-10.2) mg/dL Magnesium 2.0 (1.6-2.6) mg/dL Total Bilirubin 0.4 (0.0-1.0) mg/dL AST 58 H (5-31) U/L ALT 51 H (0-31) U/L Alkaline Phosphatase 90 D (39-117) U/L Troponin I High Sens < 3.5 (<3.5-17.0) ng/L Total Protein 7.5 (6.5-8.0) g/dL Albumin 3.6 (3.5-5.0) g/dL Ethyl Alcohol mg/dL COVID-19 ([facility]) Negative (Negative) COVID-19 Clin Com See Note ECG Data ECG #1: Attestation: I personally reviewed and interpreted this ECG as follows: ECG interpretation date: 01/28/22 ECG interpretation time: 23:03 Prior ECG tracings: available for review Interpretation: Ventricular rate of 49 UT normal QRS normal, QT/QTC normal. EKG shows sinus bradycardia with sinus arrhythmia. No ST elevations or inversions concerning for ischemia. No significant changes when compared to EKG from 12/07/2021. Critical Care Time Critical Care Time Critical Care Time: No Discharge Plan Discharge Clinical Impression: Cellulitis of hand, Chest pain not due to acute coronary syndrome Patient Disposition: Home, Self-Care Instructions: Cellulitis (ED), Chest Wall Pain (ED) Additional Instructions: Take your medications as prescribed. If you were prescribed antibiotics today, it is important that you take your medication to their entirety, do not skip any doses, do not finish them early. Follow-up with your primary care provider this week. Return to the emergency department with new or worsening symptoms. Such as fevers, chills, chest pain, shortness of breath, nausea, vomiting, dizziness, headache, vision changes, lethargy In case of emergency call 911 Your symptoms are likely secondary to withdraw from drugs. Prescriptions: New doxycycline hyclate 100 mg capsule 100 mg PO BID 10 Days Qty: 20 0RF cephalexin 500 mg tablet 500 mg PO Q6H 10 Days Qty: 40 0RF No Action doxycycline hyclate 100 mg Tablet 100 mg PO Q12H Qty: 14 0RF amoxicillin-pot clavulanate 875-125 mg Tablet 875 mg PO Q12H Qty: 14 0RF Referrals: Physician,Unknown J [Primary Care Provider] - 2 days
[2022-01-28] MEDS: LORazepam 2 MG/ML VIAL 1 MG IVPUSH (20:48)
[2022-01-28] MEDS: 0.9 % Sodium Chloride 1,000 ML 999 ML IV (20:49)
[2022-01-28 20:54] LABS: MANUAL DIFF FLAG NO
[2022-01-28 20:56] LABS: Basophils Percent Auto 0.4 % (0-2); Eosinophils Absolute Auto 0.1 X10*3/uL (0.0-0.4); Eosinophils Percent Auto 0.9 % (0-4); Hematocrit 35.6 % (37.0-47.0); Hemoglobin 11.5 g/dl (12.0-16.0); Imm Gran Abs Auto 0.03 X10*3/uL (0.00-0.03); Imm Gran Pct Auto 0.4 % (0.0-0.4); Lymphocytes Absolute Auto 1.9 X10*3/uL (1.2-4.9); Lymphocytes Percent Auto 25.2 % (20-40); Mean Corpuscular HGB Conc 32.3 g/dl (31.0-35.0); Mean Corpuscular Hemoglobin 28.5 pg (27.0-33.0); Mean Corpuscular Volume 88.1 fL (80.0-98.0); Mean Platelet Volume 9.7 fL (9.4-12.3); Monocytes Absolute Auto 0.5 X10*3/uL (0.1-1.2); Monocytes Percent Auto 6.7 % (2-11); Neutrophils Absolute Auto 4.9 x10*3/uL (2.0-8.3); Neutrophils Percent Auto 66.4 % (45-73); Platelet Count 235 X10*3/uL (160-400); Red Blood Count 4.04 X10*6/uL (4.20-5.50); Red Cell Distribution Width 14.1 % (11.0-16.0); White Blood Count 7.4 X10*3/uL (4.8-10.8)
[2022-01-28 21:11] LABS: Lactic Acid 1.3 mmol/L (0.5-2.0)
[2022-01-28 21:13] LABS: Ethanol < 10 mg/dL
[2022-01-28 21:22] LABS: Troponin-I High Sensitivity < 3.5 ng/L (<3.5-17.0)
[2022-01-28 21:57] LABS: Alanine Aminotransferase 51 U/L (0-31); Albumin Level 3.6 g/dL (3.5-5.0); Alkaline Phosphatase 90 U/L (39-117); Anion Gap 14 (12-20); Aspartate Amino Transferase 58 U/L (5-31); Bilirubin Total 0.4 mg/dL (0.0-1.0); Blood Urea Nitrogen 20 mg/dL (9-16); Calcium 8.7 mg/dL (8.4-10.2); Carbon Dioxide 26 mmol/L (22-29); Chloride 102 mmol/L (96-108); Creatinine Clr Calc Pharmacy 84.7; Estimated Glomerular Filt Rate > 60; Glucose Random 86 mg/dL (60-115); Potassium 4.2 mmol/L (3.3-5.1); Sodium 138 mmol/L (135-145); Total Protein 7.5 g/dL (6.5-8.0)
[2022-01-28 22:09] LABS: COVID-19 Test Negative (Negative)
[2022-01-28] MEDS: cephALEXin 500 MG CAPSULE PO (23:26)
== END 2022-01-28 23:40 | disposition home or self-care (01) ==
PROVIDERS: Physician Assistant; Emergency Provider Internal Medicine
DX: R07.9 Chest pain, unspecified (principal); L03.114 Cellulitis of left upper limb; L03.113 Cellulitis of right upper limb; F11.23 Opioid dependence with withdrawal; Z20.822 Contact with and (suspected) exposure to COVID-19
CPT/HCPCS: 80053; 82077; 83605; 83735; 84484; 85025; 87040; 87635; 93005; 96361; 96374; 99284; J2060

== ENCOUNTER 2024-05-12 21:12 | Inpatient (IN) | payer MEDICAID, SELFPAY ==
--- NOTE | ~2024-05-12 | CT_ITS ---
EXAMINATION: CT HEAD WITHOUT CONTRAST CLINICAL INFORMATION: Encephalopathy. COMPARISON: None. TECHNIQUE: Contiguous axial imaging was performed from the skullbase to vertex without intravenous administration of contrast. This CT examination was performed using dose optimization techniques as appropriate, variously including the following: *Automated exposure control *Adjustment of mA and/or kV according to patient size (this includes techniques or standardized protocols for targeted exams where dose is matched to indication/reason for exam; i.e. extremities or head) *Use of iterative reconstruction technique DLP: 1060 mGy-cm. FINDINGS: There is no evidence of acute intracranial hemorrhage or territorial infarction. No abnormal mass effect or midline shift is seen. Rose to white matter differentiation is well preserved. No extra-axial fluid collections are identified. The ventricles are normal in size. There is no abnormal attenuation within the brain parenchyma. The osseous structures and soft tissues are normal. The paranasal sinuses are well aerated. There is fluid in the dependent mastoid air cells, more so on the left side. CT/CT head/brain wo IV con IMPRESSION: No acute intracranial hemorrhage or territorial infarction. Moderate left mastoid effusion and milder amount of fluid in the right mastoid air cells, of indeterminate etiology. Electronically signed by: Corky Ennis MD 05/13/2024 01:28 PM EDT RP
--- NOTE | ~2024-05-12 | XR_ITS ---
EXAMINATION: XR CHEST CLINICAL INFORMATION: Encephalopathy COMPARISON: None available. TECHNIQUE: Frontal view of the chest was obtained. FINDINGS: No significant abnormality is noted involving the heart, lungs, mediastinum, bony thorax or soft tissues. XR/XR chest 1V IMPRESSION: Unremarkable examination. Electronically signed by: Kenneth Hall MD 05/13/2024 01:56 PM EDT RP
--- NOTE | ~2024-05-12 | CT_ITS ---
EXAMINATION: CT ABDOMEN AND PELVIS WITHOUT CONTRAST CLINICAL INFORMATION: Biliary diarrhea. COMPARISON: None available. TECHNIQUE: Multidetector volumetric imaging was performed from the superior aspect of the liver through the pubic symphysis. Sagittal and coronal reformatted images were obtained on the technologist's workstation. This CT examination was performed using dose optimization techniques as appropriate, variously including the following: *Automated exposure control *Adjustment of mA and/or kV according to patient size (this includes techniques or standardized protocols for targeted exams where dose is matched to indication/reason for exam; i.e. extremities or head) *Use of iterative reconstruction technique DLP: 384 mGy-cm FINDINGS: LUNG BASES: No pleural or pericardial effusion. LIVER, GALLBLADDER, AND BILIARY TREE: The noncontrast liver is normal in size and contour. No biliary ductal dilatation is present. The gallbladder is unremarkable. PANCREAS: Unremarkable. SPLEEN: Unremarkable. ADRENAL GLANDS: Unremarkable. KIDNEYS AND URETERS: The kidneys are symmetric in size. No hydronephrosis or perinephric stranding. BLADDER: Unremarkable. GASTROINTESTINAL TRACT: Diffuse colonic wall thickening. The distal colon and rectum are fluid-filled. No small bowel obstruction. Appendix is within normal limits. ABDOMINAL WALL: No significant hernia is appreciated. LYMPH NODES: No bulky lymphadenopathy. VASCULAR: Normal caliber terminal aorta. PELVIC VISCERA: Unremarkable. OSSEOUS STRUCTURES: Age-indeterminate moderate L1 compression fracture. CT/CT abdomen pelvis wo IV con IMPRESSION: Diffuse colonic wall thickening. The distal colon and rectum are fluid-filled. These findings likely represent colitis. Infectious and inflammatory etiologies should be considered. Age-indeterminate moderate L1 compression fracture. Consider MRI lumbar spine to assess acuity. Electronically signed by: Dallas Magana MD 05/13/2024 02:34 PM EDT
--- NOTE | 2024-05-12 21:25 | PC.NURSE ---
pt medicated per OCT for pt safety. order placed at 2123, medication given right away, scanned into system later at 2142 once safer to do so.
--- NOTE | 2024-05-12 21:35 | PC.NURSE ---
pt incont of large amount of BM at this time, unable to control bowels or body movements. pt flailing all extremities, unsafe on the bed. assist full body sponge bath, bed changed, room cleaned. all soiled clothes double bagged in belongings bags, will need clothes to go home in.
[2024-05-12] MEDS: LORazepam 2 MG/ML VIAL IM (21:42)
[2024-05-12] MEDS: Loperamide HCl 2 MG CAPSULE 4 MG PO (21:43)
[2024-05-12] MEDS: Haloperidol Lactate 5 MG/ML VIAL IM (21:43)
[2024-05-12] MEDS: diphenhydrAMINE HCL 50 MG/ML VIAL IM (21:43)
[2024-05-12 21:58] VITALS: BP 133/88; PULSE 120; RESP 18; TEMP 36.6; O2SAT 97; BMI 20.5
--- NOTE | 2024-05-12 22:06 | ED_ITS ---
HPI - Overdose General Chief Complaint: General Medical Stated Complaint: involuntary movements,vomiting,strange behavior Time Seen by Provider: 05/12/24 21:20 Source: EMS Mode of arrival: EMS Limitations: altered mental status History of Present Illness ED Provider: mariel VAUGHN Narrative: Patient's history of polysubstance abuse opiates fentanyl and cocaine was found by PD on the street vomiting strange behavior with involuntary movements intoxicated from unknown substance incontinent of stool and urine having diarrhea on arrival Related Data Previous Rx's ?Medication ?Instructions ?Recorded amoxicillin 875 mg-potassium 875 mg PO Q12H #14 tabs 01/22/22 clavulanate 125 mg tablet doxycycline hyclate 100 mg tablet 100 mg PO Q12H #14 tabs 01/22/22 cephalexin 500 mg tablet 500 mg PO Q6H 10 days #40 tabs 01/28/22 doxycycline hyclate 100 mg capsule 100 mg PO BID 10 days #20 caps 01/28/22 Allergies Allergy/AdvReac Type Severity Reaction Status Date / Time No Known Allergies Allergy Verified 05/12/24 22:09 [No Known Allergies*] Review of Systems Review of Systems: Yes Unobtainable due to mental status PMFSH Past Medical History Medical History HCV (hepatitis C virus) Drug abuse Opiate addiction Graves disease Social History Social History Household Members: None Housing: Homeless Do you presently have visiting nurse or other home services: No Alcohol intake: unknown Comment: ashwin Patient Tobacco Use Status: Tobacco use Unknown Tobacco use type: Cigarette Cigarettes Per Day: 5 Smoked in Last 30 Days: No Second Hand Smoke Exposure: No Use of substances other than those prescribed or required for medical reasons: Yes Substance Use Type: Marijuana Last Used Substance: Just Prior to Admission service: No Current occupational status: unemployed Physical Exam Vital Signs: Vital Signs: Last Vital Signs Temp 97.8 F 05/12/24 21:58 Pulse 71 05/13/24 06:30 Resp 16 05/13/24 06:30 BP 101/68 05/13/24 06:30 Pulse Ox 96 05/13/24 06:30 O2 Del Method Room Air 05/13/24 06:30 BMI result Body Mass Index 20.5 Appearance: Alert. Not staying still moving all over Eyes: PERRLA, No Nystagmus HEENT: Pharynx normal. Oral Mucosa moist atraumatic Neck: Normal inspection. Neck supple. CVS: Normal heart rate and rhythm. Pulses normal. Respiratory: No respiratory distress. Equal air entry bilateral, no wheezing/rales/rhonchi Abdomen: Soft and nontender. Bowel sounds are present, no mass palpable, no CVA tenderness Skin: Skin warm and dry. Normal skin color. Normal skin turgor. Extremities: No lower extremity edema. No calf tenderness Neuro: Intoxicated moving all 4 extremities Medications Administered Discontinued Medications Generic Name Dose Route Start Last Admin Trade Name Freq PRN Reason Stop Dose Admin Diphenhydramine HCl 50 mg 05/12/24 21:24 05/12/24 21:43 Diphenhydramine Hcl 50 Mg/Ml Vial IM 05/12/24 21:25 50 mg ONCE ONE Administration Haloperidol Lactate 5 mg 05/12/24 21:24 05/12/24 21:43 Haloperidol Lactate 5 Mg/Ml Vial IM 05/12/24 21:25 5 mg STAT STA Administration Loperamide HCl 4 mg 05/12/24 21:29 05/12/24 21:43 Loperamide Hcl 2 Mg Capsule PO 05/12/24 21:30 4 mg ONCE ONE Administration Lorazepam 2 mg 05/12/24 21:24 05/12/24 21:42 Lorazepam 2 Mg/Ml Vial IM 05/12/24 21:25 2 mg ONCE ONE Administration Ondansetron HCl 4 mg 05/12/24 21:34 05/13/24 04:15 Ondansetron Hcl 4 Mg/2 Ml Vial IVPUSH 05/12/24 21:35 Not Given ONCE ONE Medical Decision Making Medical Decision Making MDM Narrative: Patient's history of polysubstance abuse came here intoxicated had to give Haldol and Ativan to stop moving around during stay in the ER patient had loose bowels which areblood-tinged had 4 large bowel movements also patient has vomited few times Differential Diagnosis Differential Diagnoses: The differential diagnosis associated with the presentation includes Polysubstance abuse/colitis Lab Data [facility] Lab Attestation statement: I reviewed the patient's lab results. Labs: Lab Results 05/13/24 Range/Units 05:26 Stool Occult Blood POSITIVE (NEGATIVE) C. difficile Tox B Gene NEGATIVE (Negative) Discharge Plan Discharge Clinical Impression: Polysubstance abuse Patient Disposition: Still a Patient Prescriptions: No Action doxycycline hyclate 100 mg capsule 100 mg PO BID 10 Days Qty: 20 0RF cephalexin 500 mg tablet 500 mg PO Q6H 10 Days Qty: 40 0RF doxycycline hyclate 100 mg Tablet 100 mg PO Q12H Qty: 14 0RF amoxicillin-pot clavulanate 875-125 mg Tablet 875 mg PO Q12H Qty: 14 0RF Print Language: Serbian
[2024-05-13] VITALS (8 sets, daily range): BP systolic 101–136; BP diastolic 60–89; PULSE 65–87; RESP 14–16; TEMP 36.3–36.6; O2SAT 93–99
--- NOTE | 2024-05-13 04:12 | MHC.EDTECH ---
jennifer fink from [facility] (). Done at 0000 and 0200
--- NOTE | 2024-05-13 04:12 | PC.NURSE ---
pt resting comfortably with eyes closed, changes position periodically, O2 maintaining 94% on monitor, has had a few other episodes of bowel incontinence.
--- NOTE | 2024-05-13 05:24 | MHC.EDTECH ---
Patient changed due to BM incontinence. Stool seems bloody and foamy. C-DIFF panel ordered. Pt tolerate well. Responds to verbal stimuli
[2024-05-13 05:34] LABS: OBS Int Ctl Valid YES; OBS1 POSITIVE (NEGATIVE)
[2024-05-13 06:32] LABS: CDiff Gene PCR NEGATIVE (Negative)
[2024-05-13 09:16] LABS: MANUAL DIFF FLAG NO
[2024-05-13 09:23] LABS: Basophils Percent Auto 0.3 % (0-2); Eosinophils Absolute Auto 0.1 X10*3/uL (0.0-0.4); Eosinophils Percent Auto 0.7 % (0-4); Hematocrit 41.1 % (37.0-47.0); Hemoglobin 12.6 g/dl (12.0-16.0); Imm Gran Abs Auto 0.22 X10*3/uL (0.00-0.03); Imm Gran Pct Auto 1.5 % (0.0-0.4); Lymphocytes Absolute Auto 1.2 X10*3/uL (1.2-4.9); Lymphocytes Percent Auto 8.5 % (20-40); Mean Corpuscular HGB Conc 30.7 g/dl (31.0-35.0); Mean Corpuscular Hemoglobin 26.6 pg (27.0-33.0); Mean Corpuscular Volume 86.9 fL (80.0-98.0); Mean Platelet Volume 9.6 fL (9.4-12.3); Monocytes Absolute Auto 0.6 X10*3/uL (0.1-1.2); Monocytes Percent Auto 4.3 % (2-11); Neutrophils Absolute Auto 12.3 x10*3/uL (2.0-8.3); Neutrophils Percent Auto 84.7 % (45-73); Platelet Count 243 X10*3/uL (160-400); Red Blood Count 4.73 X10*6/uL (4.20-5.50); Red Cell Distribution Width 16.3 % (11.0-16.0); White Blood Count 14.6 X10*3/uL (4.8-10.8)
[2024-05-13] MEDS: 0.9 % Sodium Chloride 1,000 ML 999 ML IVCONT (09:23)
[2024-05-13 09:42] LABS: Alanine Aminotransferase 58 U/L (0-31); Albumin Level 4.3 g/dL (3.5-5.0); Alkaline Phosphatase 289 U/L (39-117); Anion Gap 19 (12-20); Aspartate Amino Transferase 100 U/L (5-31); Bilirubin Total 0.6 mg/dL (0.0-1.0); Blood Urea Nitrogen 39 mg/dL (9-16); Calcium 9.9 mg/dL (8.4-10.2); Carbon Dioxide 25 mmol/L (22-29); Chloride 108 mmol/L (96-108); Creatinine Clr Calc Pharmacy 45.1; Estimated Glomerular Filt Rate 41; Ethanol < 10 mg/dL; Glucose Random 97 mg/dL (60-115); Potassium 4.2 mmol/L (3.3-5.1); Sodium 148 mmol/L (135-145); Total Protein 9.2 g/dL (6.5-8.0)
--- NOTE | 2024-05-13 09:55 | PC.NURSE ---
Pt incontinent of stool. Red specks/mucus looking stool. MD Amato called to bedside to evaluate. Pt cleaned up, new bed linens placed. 20g IV placed in left bicep ultrasound guided. D5 1/2 NS running at 200ml/hr, pt NPO at this time d/t drowsiness. A/ox3, respirations even and unlabored, no increased wob/sob noted, s1 and s2 heard, NSR on monitor technician. Dulce Maria BAUM at bedside, plan to admit pt. Call pascal within reach, all needs met at this time.
--- NOTE | 2024-05-13 10:08 | ED_ITS ---
HPI - General Adult General Chief complaint: General Medical Stated complaint: involuntary movements,vomiting,strange behavior Time Seen by Provider: 05/12/24 21:20 Source: EMS Mode of arrival: EMS Limitations: altered mental status Related Data Previous Rx's ?Medication ?Instructions ?Recorded amoxicillin 875 mg-potassium 875 mg PO Q12H #14 tabs 01/22/22 clavulanate 125 mg tablet doxycycline hyclate 100 mg tablet 100 mg PO Q12H #14 tabs 01/22/22 cephalexin 500 mg tablet 500 mg PO Q6H 10 days #40 tabs 01/28/22 doxycycline hyclate 100 mg capsule 100 mg PO BID 10 days #20 caps 01/28/22 Allergies Allergy/AdvReac Type Severity Reaction Status Date / Time No Known Allergies Allergy Verified 05/12/24 22:09 [No Known Allergies*] PMFSH Past Medical History Medical History HCV (hepatitis C virus) Drug abuse Opiate addiction Graves disease Social History Social History Household Members: None Housing: Homeless Do you presently have visiting nurse or other home services: No Alcohol intake: unknown Comment: ashwin Patient Tobacco Use Status: Tobacco use Unknown Tobacco use type: Cigarette Cigarettes Per Day: 5 Smoked in Last 30 Days: No Second Hand Smoke Exposure: No Use of substances other than those prescribed or required for medical reasons: Yes Substance Use Type: Marijuana Last Used Substance: Just Prior to Admission service: No Current occupational status: unemployed Physical Exam ED Vital Signs: Vital Signs - 24 hr 05/12/24 21:58 05/13/24 00:46 05/13/24 02:03 Temperature 97.8 F Pulse Rate 120 H 80 81 Respiratory Rate 18 14 16 Blood Pressure 133/88 106/64 112/70 Pulse Oximetry 97 93 94 Oxygen Delivery Method Room Air Room Air Room Air 05/13/24 04:06 05/13/24 06:30 05/13/24 09:13 Temperature 97.7 F Pulse Rate 76 71 65 Respiratory Rate 16 16 15 Blood Pressure 108/73 101/68 119/89 Pulse Oximetry 94 96 95 Oxygen Delivery Method Room Air Room Air Room Air BMI result Body Mass Index 20.5 Medications Administered Discontinued Medications Generic Name Dose Route Start Last Admin Trade Name Freq PRN Reason Stop Dose Admin Diphenhydramine HCl 50 mg 05/12/24 21:24 05/12/24 21:43 Diphenhydramine Hcl 50 Mg/Ml Vial IM 05/12/24 21:25 50 mg ONCE ONE Administration Haloperidol Lactate 5 mg 05/12/24 21:24 05/12/24 21:43 Haloperidol Lactate 5 Mg/Ml Vial IM 05/12/24 21:25 5 mg STAT STA Administration Sodium Chloride 1,000 mls @ 999 mls/hr 05/13/24 09:00 05/13/24 09:23 Ns IVCONT 05/13/24 10:00 999 mls/hr .Q1H1M FADI Administration Loperamide HCl 4 mg 05/12/24 21:29 05/12/24 21:43 Loperamide Hcl 2 Mg Capsule PO 05/12/24 21:30 4 mg ONCE ONE Administration Lorazepam 2 mg 05/12/24 21:24 05/12/24 21:42 Lorazepam 2 Mg/Ml Vial IM 05/12/24 21:25 2 mg ONCE ONE Administration Ondansetron HCl 4 mg 05/12/24 21:34 05/13/24 04:15 Ondansetron Hcl 4 Mg/2 Ml Vial IVPUSH 05/12/24 21:35 Not Given ONCE ONE Medical Decision Making Lab Data 05/13/24 09:13 05/13/24 09:13 Labs: Lab Results 05/13/24 05/13/24 05/13/24 Range/Units 05:26 09:12 09:13 WBC 14.6 H (4.8-10.8) X10*3/uL RBC 4.73 (4.20-5.50) X10*6/uL Hgb 12.6 (12.0-16.0) g/dl Hct 41.1 (37.0-47.0) % MCV 86.9 (80.0-98.0) fL MCH 26.6 L (27.0-33.0) pg MCHC 30.7 L (31.0-35.0) g/dl RDW 16.3 H (11.0-16.0) % Plt Count 243 (160-400) X10*3/uL MPV 9.6 (9.4-12.3) fL Immature Gran % (Auto) 1.5 H (0.0-0.4) % Neut % (Auto) 84.7 H (45-73) % Lymph % (Auto) 8.5 L (20-40) % Mcleod % (Auto) 4.3 (2-11) % Eos % (Auto) 0.7 (0-4) % Baso % (Auto) 0.3 (0-2) % Lymph # (Auto) 1.2 (1.2-4.9) X10*3/uL Mcleod # (Auto) 0.6 (0.1-1.2) X10*3/uL Eos # (Auto) 0.1 (0.0-0.4) X10*3/uL Baso # (Auto) 0.0 (0.0-0.2) X10*3/uL Abs Immat Gran (auto) 0.22 H (0.00-0.03) X10*3/uL Absolute Neuts (auto) 12.3 H (2.0-8.3) x10*3/uL Absolute Nucleated RBC 0.000 (0.0-0.012) X10*3/uL Nucleated RBC % (auto) 0.0 (0.0-0.2) /100WBC Sodium 148 H (135-145) mmol/L Potassium 4.2 (3.3-5.1) mmol/L Chloride 108 (96-108) mmol/L Carbon Dioxide 25 (22-29) mmol/L Anion Gap 19 (12-20) BUN 39 H (9-16) mg/dL Creatinine 1.48 H (0.5-1.4) mg/dL Estim Creat Clear Calc 45.1 Estimated GFR 41 Random Glucose 97 (60-115) mg/dL Lactic Acid 1.0 (0.5-2.0) mmol/L Calcium 9.9 D (8.4-10.2) mg/dL Total Bilirubin 0.6 (0.0-1.0) mg/dL AST 100 H (5-31) U/L ALT 58 H (0-31) U/L Alkaline Phosphatase 289 H (39-117) U/L Total Protein 9.2 H (6.5-8.0) g/dL Albumin 4.3 (3.5-5.0) g/dL Stool Occult Blood POSITIVE (NEGATIVE) Ethyl Alcohol < 10 mg/dL C. difficile Tox B Gene NEGATIVE (Negative) Discharge Plan Discharge Clinical Impression: Polysubstance abuse Patient Disposition: Still a Patient Prescriptions: No Action doxycycline hyclate 100 mg capsule 100 mg PO BID 10 Days Qty: 20 0RF cephalexin 500 mg tablet 500 mg PO Q6H 10 Days Qty: 40 0RF doxycycline hyclate 100 mg Tablet 100 mg PO Q12H Qty: 14 0RF amoxicillin-pot clavulanate 875-125 mg Tablet 875 mg PO Q12H Qty: 14 0RF Print Language: Polish
[2024-05-13] MEDS: Dextrose 5 % and 0.45 % NaCl 1,000 ML 200 ML IVCONT (10:37)
--- OUTSIDE RECORDS SUMMARY | 2024-05-13 10:38 | XMS_ITS | Continuity of Care Document ---
Author Organization [facility] ter Address [address] [place] [address]- Care Team Providers Care Handbag Frames Inspector Name Role Phone Hayden Rehman MD Primary Care Physician [phone] Encounter [facility] Date(s): 09/05/19 - 09/12/[address] [address]- [facility] Attending Physician: Lanette Sun DO Allergies, Adverse Reactions, Alerts Substance Reaction Severity Status NKA Active Immunizations Given and Recorded Vaccine Date Status Refusal Reason influenza virus vaccine, inactivated 11/09/16 Give n tetanus/diphtheria/pertussis, acel(Tdap) 11/09/16 Given Not Given Vaccine Date Status Refusal Reason pneumococcal 23-valent vaccine 01/19/17 Not Given Patient Refuses Medications Clonidine 0 Refills, Maintenance, 02/07/19 10:58:41 EDT Start Date: 02/07/19 Status: Ordered ibuprofen 600 mg oral tablet 600 mg, 1, tablet, By Mouth, Every 8 hours, PRN, with food or milk not to exceed 3200 mg/day, # 30 tablet, Refills 0, Tot. Refills 0, Maintenance, as needed for pain, 04/12/18 9:42:05 EDT, Print Requisition Start Date: 04/12/18 Status: Ordered Suboxone 4 mg-1 mg sublingual film Sublingual, Daily, 0 Refills, Maintenance, 02/07/19 10:59:08 EDT Start Date: 02/07/19 Status: Ordered Tylenol 325 mg oral tablet 650 mg, 2, tablet, By Mouth, Every 8 hours, PRN, not to exceed 4000 mg/day, # 120 tablet, Refills 0, Tot. 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 Sex
--- OUTSIDE RECORDS SUMMARY | 2024-05-13 10:38 | XMS_ITS | Continuity of Care Document ---
Author Organization [facility] ter Address [address] [place] [id number]- Care Team Providers Care Vice President Mission Integration Name Role Phone Ori SHULTZ, Hayden Mario Primary Care Physician Encounter [facility] [place](s): 01/17/22 - 01/18/[address] [address]- Encounter Diagnosis Polysubstance abuse(Final) - 01/18/22 Discharge Disposition: A-D/C Home Attending Physician: Rikki Wing MD Admitting Physician: Rikki Wing MD Referring Physician: Not on Staff, Referring MD Allergies, Adverse Reactions, Alerts No Known Allergies Immunizations Given and Recorded Vaccine Date Status Refusal Reason influenza virus vaccine, inactivated 11/09/16 Give n tetanus/diphtheria/pertussis, acel(Tdap) 11/09/16 Given Not Given Vaccine Date Status Refusal Reason pneumococcal 23-valent vaccine 01/19/17 Not Given Patient Refuses Medications doxycycline hyclate 100 mg oral capsule 1 capsule = 100 mg, By Mouth, Daily, for 10 days, # 10 capsule, 0 Refills, Acute 01/28/22 14:29:00 EDT, 01/18/22 14:29:00 EDT, Capsule, [facility], Partial fill upon patient request if the prescription is for a schedule II opioid drug. Start Date: 01/18/22 Stop Date: 01/28/22 Status: Ordered Tylenol 325 mg oral tablet [...] diffuse goiter(Confirmed) Active Hepatitis C(Confirmed) 2018 Active Results Radiology Reports * Exam Date Time Procedure Performing Provider Status 01/18/22 2:07 AM Chest Portable Nieves Alma Rosa; Auth (Verified) Notes: (Chest Portable) Reason For Exam: Shortness of Breath RESULT: Chest Portable Examination: Portable chest performed on 01/18/2022. History: Shortness of breath. Cocaine use. Findings: A frontal view of the chest is compared to a prior study dated 04/12/2018. The cardiac and mediastinal silhouettes are within normal limits. The lungs are clear. The osseous and soft tissue structures are unremarkable. IMPRESSION: There is no acute cardiopulmonary disease. WSN: [id number] Ordering Physician: Sepideh Parrish Dictated By: Arleen Mcclelland MD Dictated Date/Time: 01/18/22 8:02 am Reviewed By: Arleen Mcclelland MD Signed By: Arleen Mcclelland MD Signed Date/Time: 01/18/22 8:02 am Transcribed By: JORGE Transcribed Date/Time: 01/18/22 8:01 am Vital Signs Most recent to oldest [Reference Range]: 1 2 3 Oxygen Saturation [94-100 %] 98 % (01/18/22 3:01 PM) 97 % (01/18/22 12:08 PM) 97 % (01/18/22 11:01 AM) Pulse Rate [55-90 bpm] 56 bpm (01/18/22 3:01 PM) 66 bpm (01/18/22 12:08 PM) 59 bpm (01/18/22 11:01 AM) Blood Pressure [90-138/55-84 mm Hg] 126/77mm Hg (01/18/22 3:01 PM) 105/71mm Hg (01/18/22 12:08 PM) 107/73mm Hg (01/18/22 11:01 AM) Respiratory Rate [16-30 br/min] 18 br/min (01/18/22 3:01 PM) 18 br/min (01/18/22 12:08 PM) 18 br/min (01/18/22 11:01 AM) Temperature [96.8-100.4 DegF] 98.2 DegF (01/18/22 12:08 PM) 98.7 DegF (01/18/22 2:48 AM) 99.1 DegF (01/17/22 11:10 PM) Liters per Minute 2 L/min (01/18/22 7:54 AM) 2 L/min (01/18/22 3:21 AM) 1 L/min (01/18/22 2:48 AM) Mode of Delivery (Oxygen) Room air (01/18/22 3:01 PM) Room air (01/18/22 12:08 PM) Nasal cannula (01/18/22 7:54 AM) Temperature Route Oral (01/18/22 12:08 PM) Rectal (01/18/22 2:48 AM) Oral (01/17/22 11:10 PM) Social History Social History Type Response Tobacco Use: 4 or less cigar ettes(less than 1/4 pack)/day in last 30 days. Sex
--- OUTSIDE RECORDS SUMMARY | 2024-05-13 10:38 | XMS_ITS | Continuity of Care Document ---
Author Organization [facility] Address [address] [place] [id number]- Care Team Providers Care Admissions Advisor Name Role Phone Ori SHULTZ, Hayden Mario Primary Care Physician [place] [facility] [place] 02/16/21 - 04/25/21 [facility] [address] [place] [id number] Attending Physician: Audi Chou MD Admitting Physician: Audi Chou MD Referring Physician: Joe Nunn MD Allergies, Adverse Reactions, Alerts Substance Reaction Severity Status NKA Active Immunizations Given and Recorded Vaccine Date Status Refusal Reason influenza virus vaccine, inactivated 11/09/16 Give n tetanus/diphtheria/pertussis, acel(Tdap) 11/09/16 Given Not Given Vaccine Date Status Refusal Reason pneumococcal 23-valent vaccine 01/19/17 Not Given Patient Refuses Medications Tylenol 325 mg oral tablet 650 mg, [...]
--- OUTSIDE RECORDS SUMMARY | 2024-05-13 10:38 | XMS_ITS | Continuity of Care Document ---
Author Organization [facility] Address [address] [place] [address]- Care Team Providers Care Radio Director Name Role Phone Hayden Rehman MD Primary Care Physician Encounter [facility] [place] Date(s): 03/26/21 - 04/25/21 [facility] [address] [place] [id number] Attending Physician: AdmAlan wang Admitting Physician: Admtr, ArMonica Referring Physician: Admtr, Ar8 Allergies, Adverse Reactions, Alerts Substance Reaction Severity [...]
--- OUTSIDE RECORDS SUMMARY | 2024-05-13 10:38 | XMS_ITS | Continuity of Care Document ---
Author Organization [facility] ter Address [address] [place] [address]- Care Team Providers Care Director Of Student Life Name Role Phone Hayden Rehman MD Primary Care Physician [phone] [place] [facility] [place] 02/13/21 - 02/16/[address] [address] Discharge Disposition: A-D/C AMA Attending Physician: Joe Nunn MD Admitting Physician: Kathia Odom MD Referring Physician: Not on Staff, Referring MD Allergies, Adverse Reactions, Alerts Substance Reaction Severity Status NKA Active Immunizations Given and Recorded Vaccine Date Status Refusal Reason influenza virus vaccine, inactivated 11/09/16 Give n tetanus/diphtheria/pertussis, acel(Tdap) 11/09/16 Given Not Given Vaccine Date Status Refusal Reason pneumococcal 23-valent vaccine 01/19/17 Not Given Patient Refuses Medications Bactrim DS 800 mg-160 mg oral tablet 1 tablet, By Mouth, 2 times a day, for 42 days, # 84 tablet, 0 Refills, Acute 03/30/21 11:39:00 EDT, 02/16/21 11:39:00 EDT, Tablet, Partial fill upon patient request if the prescription is for a schedule II opioid drug. Start Date: 02/16/21 Stop Date: 03/30/21 Status: Ordered methadone 5 mg oral tablet 5 mg, Tablet, By Mouth, 02/16/21 9:00:00 EDT Start Date: 02/16/21 Stop Date: 02/16/21 Status: Completed Tylenol 325 mg oral tablet 650 mg, [...] goiter(Confirmed) Active Hepatitis C(Confirmed) 2018 Active Results Orders for Microbiology Reports Name Date AFB Culture w/ AFB Smear, Nonrespiratory (ACID FAST CULT,NON-RESP) 02/13/21 Anaerobic Culture (ANAEROBIC CULTURE) Fungal Culture, Nonrespiratory (FUNGAL C ULT,NON-RESPIRATORY) 02/13/21 Sterile Body Fluid Culture W/ Gram Smear (STERILE FLUID CULT.) 02/13/21 Blood Culture 02/13/21 Blood Culture #2 02/13/21 Microbiology Reports TEST:Anaerobic Culture STATUS:Auth (Verified) BODY SITE: SOURCE:JOINT COLLECTED DATE/TIME:02/13/21 10:00 PM Anaerobic Culture SPECIMEN DESCRIPTION : JOINT FLUID LEFT STERNOCLAVICULAR JOINT SPECIAL REQUESTS : NONE CULTURE : NO ANAEROBES ISOLATED REPORT STATUS : FINAL 02/15/2021 TEST:Sterile Fluid Culture STATUS:Auth (Verified) BODY SITE: SOURCE:JOINT COLLECTED DATE/TIME:02/13/21 10:00 PM Sterile Fluid Culture SPECIMEN DESCRIPTION : JOINT FLUID LEFT STERNOCLAVICULAR JOINT SPECIAL REQUESTS : NONE GRAM STAIN : 1+ TISSUE CELLS 1+ RBC'S NO ORGANISMS SEEN CULTURE : 1+ STAPHYLOCOCCUS AUREUS, METHICILLIN RESISTANT. METHICILLIN RESISTANT STAPH AUREUS SHOULD BE CONSIDERED CLINICALLY RESISTANT TO ALL BETA-LACTAMS. Result reported to the [facility]. CRITICAL VALUE CALLED AND VERIFIED BY READBACK FOR: STAPH SPECIES IN CULTURE TO Noemy LIMA AT 0850,02/15/21 BY 173. REPORT STATUS : FINAL 02/16/2021 ORGANISM 1+ STAPHYLOCOCCUS AUREUS, METHICILLIN RESISTANT. METHICILLIN RESISTANT STAPH AUREUS SHOULD BE CONSIDERED CLINICALLY RESISTANT TO ALL BETA-LACTAMS. Result reported to the [facility]. METHOD MIN. INHIB. CONC. (MCG/ML) CIPROFLOXACIN SUSCEPTIBLE CLINDAMYCIN SUSCEPTIBLE ERYTHROMYCIN RESISTANT INDUCIBLE CLINDAMYCI NEGATIVE LEVOFLOXACIN SUSCEPTIBLE LINEZOLID SUSCEPTIBLE OXACILLIN RESISTANT RIFAMPIN SUSCEPTIBLE RIFAMPIN RIFAMPIN SHOULD NOT BE USED ALONE FOR ANTIMICROBIAL RIFAMPIN THERAPY. TETRACYCLINE SUSCEPTIBLE TRIMETH/SULFAMETHOX SUSCEPTIBLE VANCOMYCIN SUSCEPTIBLE TEST:Fungal Culture, Non-Respiratory STATUS:Unauthenticated BODY SITE: SOURCE:JOINT COLLECTED DATE/TIME:02/13/21 10:00 PM Fungal Culture, Non-Respiratory SPECIMEN DESCRIPTION : JOINT FLUID LEFT STERNOCLAVICULAR JOINT SPECIAL REQUESTS : ADD ON [id number] DIRECT EXAM : NO FUNGAL ELEMENTS OBSERVED CULTURE : NO FUNGI ISOLATED AFTER 1 DAY REPORT STATUS : PRELIMINARY REPORT TEST:AFB Culture w/AFB Smear, Non-Respiratory STATUS:Unauthenticated BODY SITE: SOURCE:JOINT COLLECTED DATE/TIME:02/13/21 10:00 PM AFB Culture w/AFB Smear, Non-Respiratory SPECIMEN DESCRIPTION : JOINT FLUID LEFT STERNOCLAVICULAR JOINT SPECIAL REQUESTS : ADD ON [id number] DIRECT EXAM : NO ACID FAST BACILLI SEEN ON DIRECT SMEAR, TEST PERFORMED AT [facility] CULTURE : SPECIMEN SENT TO [facility], [place], [place] REPORT STATUS : PRELIMINARY REPORT TEST:Blood Culture, Second Order STATUS:Unauthenticated BODY SITE: SOURCE:Blood COLLECTED DATE/TIME:02/13/21 6:16 PM Blood Culture, Second Order SPECIMEN DESCRIPTION : BLOOD NO SITE SPECIAL REQUESTS : NONE CULTURE : NO GROWTH 3 DAYS REPORT STATUS : PRELIMINARY REPORT TEST:Blood Culture STATUS:Unauthenticated BODY SITE: SOURCE:Blood COLLECTED DATE/TIME:02/13/21 4:50 PM Blood Culture SPECIMEN DESCRIPTION : BLOOD SPECIAL REQUESTS : NONE CULTURE : NO GROWTH 3 DAYS REPORT STATUS : PRELIMINARY REPORT Vital Signs Most recent to oldest [Reference Range]: 1 2 3 Weight 38 kg (02/15/21 12:36 PM) Oxygen Saturation [94-100 %] 100 % (02/16/21 8:00 AM) 100 % (02/16/21 4:00 AM) 99 % (02/16/21 12:16 AM) Pulse Rate [55-90 bpm] 53 bpm *L* (02/16/21 8:00 AM) 80 bpm (02/16/21 4:00 AM) 81 bpm (02/16/21 12:16 AM) Blood Pressure [90-138/55-84 mm Hg] 109/75mm Hg (02/16/21 8:00 AM) 114/75mm Hg (02/16/21 4:00 AM) 104/69mm Hg (02/16/21 12:16 AM) Respiratory Rate [16-30 br/min] 18 br/min (02/16/21 9:39 AM) 17 br/min (02/16/21 8:00 AM) 17 br/min (02/16/21 4:00 AM) Temperature [96.8-100.4 DegF] 98.6 DegF (02/16/21 8:00 AM) 98.5 DegF (02/16/21 4:00 AM) 98.1 DegF (02/16/21 12:16 AM) Mode of Delivery (Oxygen) Room air (02/16/21 12:16 AM) Room air (02/15/21 8:00 PM) Room air (02/15/21 3:42 PM) Blood pressure sites Arm, right (02/16/21 8:00 AM) Arm, right (02/16/21 4:00 AM) Arm, right (02/16/21 12:16 AM) Temperature Route Oral (02/16/21 8:00 AM) Oral (02/16/21 4:00 AM) Oral (02/16/21 12:16 AM) Weight Obtained Via Bed scale (02/15/21 12:36 PM) Social History Social History Type Response Tobacco Use: 4 or less cigar ettes(less than 1/4 pack)/day in last 30 days. Sex
--- NOTE | 2024-05-13 10:52 | P.HPHOSP_ITS ---
History of Present Illness Date of Service: 05/13/24 Attending physician on admission: Robert Story Chief Complaint: erratic behavior 33 year old female with history of graves disease, history of hep c (unclear if treated), and polysubstance abuse presented to the ED via EMS last night after being found down in an alley. The patient is somnolent but arousable smelling of feces and urine on exam. She is oriented x3 and has no complaints but is a very limited historian due to somnolence. She states she only smoked marijuana which she got from her friend yesterday, denies other substance use. Denies alcohol use. Per the RN, patient came in agitated with erratic behavior requiring benadryl, haldol, and ativan. Since last night has been incontinent of diarrhea which patient states started several days ago. Denies fevers, chills, abd pain, nausea, vomiting. RN reports flecks of bright red blood in the stool. CDiff was negative. Stool occult blood positive. No anemia. Leukocytosis 14.5. Maico with creat 1.48, BUN 39, sodium 148. Total bili within normal limits. Lactic acid 1.0. AST 100, ALT 58, alkaline phosphatase 269. In the ED has received loperamide, Haldol, lorazepam, Benadryl, 1 L IV NS and 1 L D5/0.45% NS. Review of Systems 2 Review of Systems: Yes all other systems are reviewed and are negative [facility] Medical History HCV (hepatitis C virus) Drug abuse Opiate addiction Graves disease Social History Household Members: None Housing: Homeless Do you presently have visiting nurse or other home services: No Alcohol intake: unknown Comment: ashwin Patient Tobacco Use Status: Tobacco use Unknown Tobacco use type: Cigarette Cigarettes Per Day: 5 Smoked in Last 30 Days: No Second Hand Smoke Exposure: No Use of substances other than those prescribed or required for medical reasons: Yes Substance Use Type: Marijuana Last Used Substance: Just Prior to Admission Advance Directives: No Advance Directives Information Provided: No service: No Current occupational status: unemployed Meds Allergies Allergy/AdvReac Type Severity Reaction Status Date / Time No Known Allergies Allergy Verified 05/12/24 22:09 [No Known Allergies*] Active Medications: Current Medications Dextrose/Sodium Chloride (D51/2ns) 1,000 mls @ 200 mls/hr IVCONT .Q5H FADI Last Admin: 05/13/24 10:37 Dose: 200 mls/hr Physical Exam 2 Vital Signs and Narrative: Vital Signs: Last Vital Signs Temp 97.7 F 05/13/24 09:13 Pulse 65 05/13/24 09:13 Resp 15 05/13/24 09:13 BP 119/89 05/13/24 09:13 Pulse Ox 95 05/13/24 09:13 O2 Del Method Room Air 05/13/24 09:13 BMI result Body Mass Index 20.5 Constitutional - somnolent but arousable, No apparent distress, smelling of feces and urine Eyes - PERRLA, EOMI Cardiovascular - S1S2, RRR, No edema Respiratory - Normal lung expansion, Normal respiratory effort, No respiratory distress, CTA bilaterally Gastrointestinal - NT / ND; +BS; No rebound or guarding Extremities - no calf tenderness bilaterally, no swelling Skin - Warm/Dry. Scarring noted bue, no scabbing or appreciable abscess noted Neurological - somnolent but arousable, oriented x3, limited historian Psychological - Appropriate affect Results Labs 05/13/24 09:13 05/13/24 09:13 Labs: Laboratory Results - last 24 hr 05/13/24 05/13/24 05/13/24 05:26 09:12 09:13 MCV 86.9 MCH 26.6 L MCHC 30.7 L RDW 16.3 H Plt Count 243 MPV 9.6 Immature Gran % (Auto) 1.5 H Neut % (Auto) 84.7 H Lymph % (Auto) 8.5 L [place] % (Auto) 4.3 Eos % (Auto) 0.7 Baso % (Auto) 0.3 Lymph # (Auto) 1.2 [place] # (Auto) 0.6 Eos # (Auto) 0.1 Baso # (Auto) 0.0 Abs Immat Gran (auto) 0.22 H Absolute Neuts (auto) 12.3 H Absolute Nucleated RBC 0.000 Nucleated RBC % (auto) 0.0 Anion Gap 19 Estim Creat Clear Calc 45.1 Estimated GFR 41 Random Glucose 97 Lactic Acid 1.0 Calcium 9.9 D Total Bilirubin 0.6 AST 100 H ALT 58 H Alkaline Phosphatase 289 H Total Protein 9.2 H Albumin 4.3 Stool Occult Blood POSITIVE Ethyl Alcohol < 10 C. difficile Tox B Gene NEGATIVE Assessment and Plan (1) Heme positive stool: Status: Acute (2) Acute hypernatremia: Status: Acute (3) MAICO (acute kidney injury): Status: Acute (4) Toxic metabolic encephalopathy: Status: Acute (5) Polysubstance abuse: Status: Acute Plan 33 year old female with history of graves disease, history of hep c (unclear if treated), and polysubstance abuse admitted for further management of MAICO #Acute kidney injury -likely due to hypovolemia from GI losses and poor PO intake -IV LR -Avoid nephrotoxins -monitor i&o -follow renal fx/lytes #Acute hypernatremia -due to dehydration -Received 1L IV NS, 1L IV D5/0.45% NS. Continue IV LR -follow lytes #Acute diarrhea with BRBPR -no significant anemia but possibly hemoconcentrated -CDiff negative, +stool occult blood -Check GI panel -check CT abd/pelvis to evaluate for acute pathology -Recheck CBC -GI consult -follow h/h #Acute metabolic encephalopathy -suspect toxic in setting of likely r/t drug use -UDS pending. Check UA given incontinence -check head ct and cxr -monitor mentation -keep NPO for now given lethargy, advance diet once more awake. IVF as abvoe #Acute leukocytosis -suspect concentrated due to dehdyration vs reactive from diarrhea. No sepsis -follow cbc #Transaminitits -likely r/t drug use -check hep panel, viral load, hiv #Hx Graves -not currently on meds. Check TSH w/ refelx free t4 dvt prophylaxis- scps given gi bleed full code pt requires inpt stay at least 2 midnights for management of maico and toxic metabolic encephalopathy currently npo requiring ivf, monitoring of renal function/lytes and mentation Quality Stroke Does the patient have a stroke diagnosis?: No VTE Prior VTE?: No VTE Risk Level:: Medical - moderate - high VTE Device Contraindication: N/A - Device Ordered VTE Drug Contraindication: Treatment Not Indicated
[2024-05-13 11:39] LABS: MANUAL DIFF FLAG NO
[2024-05-13 11:44] LABS: Appearance Urine Cloudy; Color Urine Dark Yellow; Glucose Urine UA Negative (Negative); Leukocyte Esterase Urine Trace (Negative); Nitrite Urine Negative (Negative); Specific Gravity - Urine 1.025 (1.005-1.025); UMIC TRIGGER UACC YES; Urine Blood Negative (Negative); Urine Ketones Trace mg/dL (Negative); Urine Protein 30 (1+) mg/dL (Neg-Trace)
[2024-05-13 11:47] LABS: Basophils Percent Auto 0.2 % (0-2); Hematocrit 32.7 % (37.0-47.0); Hemoglobin 10.2 g/dl (12.0-16.0); Imm Gran Abs Auto 0.09 X10*3/uL (0.00-0.03); Imm Gran Pct Auto 0.9 % (0.0-0.4); Lymphocytes Percent Auto 10.7 % (20-40); Mean Corpuscular HGB Conc 31.2 g/dl (31.0-35.0); Mean Corpuscular Hemoglobin 27.1 pg (27.0-33.0); Mean Platelet Volume 9.6 fL (9.4-12.3); Monocytes Absolute Auto 0.4 X10*3/uL (0.1-1.2); Monocytes Percent Auto 4.5 % (2-11); Neutrophils Percent Auto 83.7 % (45-73); Platelet Count 167 X10*3/uL (160-400); Red Blood Count 3.76 X10*6/uL (4.20-5.50); Red Cell Distribution Width 16.2 % (11.0-16.0); White Blood Count 9.5 X10*3/uL (4.8-10.8)
[2024-05-13 12:01] LABS: Amphetamine Screen Urine Not Detected (Not Detect); Barbiturates, Urine Not Detected (Not Detect); Benzodiazepines Screen Urine Not Detected (Not Detect); Buprenorphine Scr Not Detected (Not Detect); Cannabinoid Screen Urine POSITIVE (Not Detect); Cocaine Screen Urine POSITIVE (Not Detect); Fentanyl, urine POSITIVE (Not Detect); Methadone Screen, Urine Positive (Not Detect); Opiate Screen Urine POSITIVE (Not Detect); Oxycodone Screen Urine Not Detected (Not Detect); Phencyclidine Screen Urine Not Detected (Not Detect)
[2024-05-13 12:05] LABS: TSH reflex Free T4 4.71 uIU/mL (0.32-4.0)
[2024-05-13] MEDS: Pantoprazole Sodium 40 MG/10 ML VIAL IVPUSH ×2 (12:24→17:19)
[2024-05-13] MEDS: Lactated Ringers 1,000 ML 100 ML IVCONT (12:26)
[2024-05-13 12:28] LABS: Bacteria Urine None Seen (None Seen); RBC Urine 0-2 /HPF (0-2); WBC Urine 0-5 /HPF (0-5)
[2024-05-13 12:40] LABS: Free T4 (Free Thyroxine) 0.75 ng/dL (0.71-1.85)
--- NOTE | 2024-05-13 12:48 | PHA.MEDREC ---
Addendum entered by Cee Winters RPh 05/13/24 12:57: reviewed by [facility]. Original Note: Pharmacy Consult ? Medication Reconciliation Pharmacy has completed the medication reconciliation. Tried to spake with patient, however she was not responsive. Called patient mother to confirm med list. Patients mother doesn't think her daughter takes any medication because she is an addict. There are no claims for patient.
--- NOTE | 2024-05-13 12:53 | PC.NURSE ---
Late Charting: Resumed care of pt at 0700. Pt arousable to verbal stimuli, respirations even and unlabored, s1 and s2 heard, abdomen soft, non-tender on palpation. Plan for admit d/t MAICO, hypernatremia, and + occult stool. 20g IV ultrasound guided placed in left bicep by MD Amato. LR running at 100ml/hr. Pt incontinent of stool, full bed changed and washed up. Mucus like stool with red specks, liquid, stool sample taken and sent to lab. Pt straight cath, 400ml dark yellow urine. Pt aware of NPO. Resting quietly in bed, call pascal within reach, all needs met at this time.
[2024-05-13 13:34] LABS: HBS Num1 0.65 mIU/mL (0-7.99); HBc Num1 0.18 S/CO (0.00-0.79); HBsAGNum1 0.23 S/CO (0.00-0.99); HIV AB/AG Nonreactive (Nonreactive); HIV Num 1 0.06 S/CO (0.00-0.99); Hepatitis B Core Antibody Nonreactive (Nonreactive); Hepatitis B Surface Antigen Negative (Negative); ~HepC Num1 12.27 S/CO (0.00-0.79); ~Hepatitis B Surface Antibody NONREACTIVE (Nonreactive); ~Hepatitis C Antibody Reactive (Nonreactive)
--- NOTE | 2024-05-13 13:43 | PC.NURSE ---
Patient with fecal incontinence, changed and repositioned
[2024-05-13 15:20] LABS: Adenovirus F 40/41 Not Detected (Not Detect.); Astrovirus Not Detected (Not Detect.); Campylobacter Not Detected (Not Detect.); Cryptosporidium Not Detected (Not Detect.); Cyclospora cayetanensis Not Detected (Not Detect.); E. coli EAEC Not Detected (Not Detect.); E. coli EPEC Detected (Not Detect.); E. coli ETEC Not Detected (Not Detect.); E. coli STEC Not Detected (Not Detect.); Entamoeba histolytica Not Detected (Not Detect.); Giardia lamblia Not Detected (Not Detect.); Norovirus GI/GII Not Detected (Not Detect.); Plesiomonas shigelloides Not Detected (Not Detect.); Rotavirus A Not Detected (Not Detect.); Salmonella Not Detected (Not Detect.); Sapovirus Not Detected (Not Detect.); Shigella sp./EIEC Not Detected (Not Detect.); Vibrio Not Detected (Not Detect.); Vibrio Cholerae Not Detected (Not Detect.); Yersinia enterocolitica Not Detected (Not Detect.)
[2024-05-13] MEDS: Azithromycin 500 MG in 0.9 % Sodium Chloride 250 ML 125 MG IV ×2 (17:16→19:45)
--- NOTE | 2024-05-13 17:21 | PM.EVENT ---
Event Note Date of Service: 05/13/24 Event Note: GI Consult- Full note dictated. History from RN and EMR. The patient is presently uncooperative in regard to giving any history due to her recent polysubstance abuse and treatment for her agitation on admission. Imp: Based on her clinical history, her CT results, and the GI panel results with an apparent + EPEC infection, I suspect this represents an infectious colitis. There has been no sign of bleeding since admission to the medical floor. Her abdomen is benign. She has already received a dose of IV Azithromycin. Rec: Supportive care, observation, and advance diet as tolerated. If problems persist a Flexible Sigmoidoscopy or colonoscopy can be done at some point. Thanks Time Spent With Patient Time: Total time managing care of this patient today ____ minutes.
[2024-05-14] MEDS: Lactated Ringers 1,000 ML 100 ML IVCONT ×2 (00:59→09:23)
--- NOTE | 2024-05-14 01:39 | CONS_ITS ---
DATE OF SERVICE: 05/13/2024 REASON FOR CONSULTATION: Diarrhea, abnormal CT scan of GI tract, and hematochezia. HISTORY OF PRESENT ILLNESS: This has been obtained strictly from the patient's nurse, and the medical record. The patient has not been speaking due to a combination of polysubstance abuse, medication for agitation, and perhaps some underlying emotional issue. The patient is an unfortunate 33-year-old female with a history of substance abuse who was brought to the ER after being found outside with poor mental status. She was found to have a tox screen positive for several items including fentanyl, cocaine, methadone, and marijuana. She had to be treated for agitation in the ER with medications including Haldol and Benadryl. She did have some diarrhea in the ER, mixed with red blood. She has continued to have diarrhea on the medical floor, but no further bleeding. There has been no melena. There has been no nausea, no vomiting by report. Her GI panel was positive for EPEC and she received a dose of IV azithromycin for that. I do not have any report of previous GI problems such as inflammatory bowel disease. CURRENT MEDICATIONS: Include acetaminophen, IV azithromycin, Imodium p.r.n., milk of magnesia p.r.n., Zofran p.r.n., and IV pantoprazole. PAST MEDICAL HISTORY: Polysubstance abuse, Graves disease. Positive hepatitis C antibody. SOCIAL HISTORY: This is not readily available, but she obviously has a history of substance abuse. REVIEW OF SYSTEMS: Not available. PHYSICAL EXAMINATION: GENERAL: Patient is a young female in no distress. SKIN: Warm and dry. She is somewhat pale. ABDOMEN: Soft, nondistended, and no obvious tenderness. LABORATORY DATA: White blood cell count on admission was 14.6 with a repeat of 9.5. Hemoglobin 12.6 on admission with repeat of 10.2. Normal MCV. Platelets 167,000. Sodium 148, potassium 4.2, BUN 39, creatinine 1.5, AST 100, ALT 58, alkaline phosphatase 289, total bilirubin 0.6, albumin 4.3, TSH 4.7. Stool was heme positive. GI panel was positive for EPEC. Her toxicology screen was positive for opiates, methadone, fentanyl, cocaine and marijuana. Alcohol level was nondetectable. Stool for C diff was negative. Hepatitis B antigen was negative. Hepatitis C antibody is positive. Hepatitis C viral load is pending. HIV is negative. Her CT of her abdomen and pelvis describes a normal-appearing liver, pancreas, and spleen. There is some diffuse colonic wall thickening consistent with possible colitis. There is no bowel obstruction. She had a CT scan of the head that was negative for any acute hemorrhage or infarction. IMPRESSION: The patient is a 33-year-old unfortunate female with history of polysubstance abuse presenting with some diarrhea, some bleeding, abnormal CT scan of the colon, and positive GI panel. This may very well represent an infectious colitis, and I would therefore finish the treatment for that and continue supportive care with IV fluids and observation. At this point, I do not think a colonoscopy or sigmoidoscopy is required given her clinical history, but clearly if her symptoms of the diarrhea and bleeding persist, then we may need to proceed with that at some point. However at this point, I would see how she does after treatment for the presumed infection. Hopefully things will stabilize and her diet will be able to be advanced. I doubt, this represents inflammatory bowel disease or ischemic bowel. This has been discussed with the hospitalist staff. Please contact me if she has any worsening GI issues such as bleeding or persistent diarrhea. Thank for consultation. MD CHIQUITA Rosenthal/GABRIELA / [id number] GENEVIEVE
[2024-05-14 04:00] VITALS: BP 138/95; PULSE 64; RESP 16; TEMP 36.7; O2SAT 97
[2024-05-14] MEDS: Pantoprazole Sodium 40 MG/10 ML VIAL IVPUSH ×2 (05:53→15:44)
[2024-05-14 07:46] VITALS: BP 150/94; PULSE 60; RESP 14; TEMP 37.2; O2SAT 97
--- NOTE | 2024-05-14 08:46 | P.PNIM_ITS ---
Subjective Subjective Date of Service: 05/14/24 Physical Exam 2 Vital Signs: Vital Signs: Last Vital Signs Temp 98.9 F 05/14/24 07:46 Pulse 60 05/14/24 07:46 Resp 14 05/14/24 07:46 BP 150/94 H 05/14/24 07:46 Pulse Ox 97 05/14/24 07:46 O2 Del Method Room Air 05/14/24 07:46 BMI result Body Mass Index 20.5 General: AO X 3, no acute distress Resp: CTA bilateral, no accessory muscles used CVS: S1,S2,RRR GI: soft, non tender, non distended Neuro: motor grossly intact, alert Psych: appropriate affect, appropriate insight Objective Data Active Medications Acetaminophen (Acetaminophen 325 Mg Tablet) 650 mg PO Q6H PRN PRN Reason: Pain, Mild (Pain Scale 1-3), fever or headache Lactated Ringer's (Lr) 1,000 mls @ 100 mls/hr IVCONT .Q10H [facility] Last Admin: 05/14/24 05:09 Dose: Not Given Documented By: KRISSY Non-Admin Reason: IV Running Loperamide HCl (Loperamide Hcl 2 Mg Capsule) 2 mg PO Q4H PRN PRN Reason: Diarrhea Magnesium Hydroxide (Milk Of Magnesia 30 Ml Oral.Susp) 30 ml PO DAILY PRN PRN Reason: Constipation Ondansetron HCl (Ondansetron Hcl 4 Mg/2 Ml Vial) 4 mg IVPUSH Q8H PRN PRN Reason: Nausea and Vomiting Pantoprazole Sodium (Pantoprazole Sodium 40 Mg/10 Ml Vial) 40 mg IVPUSH BID@0630,1630 [facility] Last Admin: 05/14/24 05:53 Dose: 40 mg Documented By: KRISSY Labs 05/13/24 11:33 05/13/24 09:13 Labs: Laboratory Results - last 24 hr 05/13/24 05/13/24 05/13/24 09:12 09:13 11:08 MCV 86.9 MCH 26.6 L MCHC 30.7 L RDW 16.3 H Plt Count 243 MPV 9.6 Immature Gran % (Auto) 1.5 H Neut % (Auto) 84.7 H Lymph % (Auto) 8.5 L [place] % (Auto) 4.3 Eos % (Auto) 0.7 Baso % (Auto) 0.3 Lymph # (Auto) 1.2 [place] # (Auto) 0.6 Eos # (Auto) 0.1 Baso # (Auto) 0.0 Abs Immat Gran (auto) 0.22 H Absolute Neuts (auto) 12.3 H Absolute Nucleated RBC 0.000 Nucleated RBC % (auto) 0.0 Anion Gap 19 Estim Creat Clear Calc 45.1 Estimated GFR 41 Random Glucose 97 Lactic Acid 1.0 Calcium 9.9 D Total Bilirubin 0.6 AST 100 H ALT 58 H Alkaline Phosphatase 289 H Total Protein 9.2 H Albumin 4.3 TSH 4.71 H Free T4 0.75 Urine Color Urine Appearance Urine pH Ur Specific [place] Urine Protein Urine Glucose (UA) Urine Ketones Urine Blood Urine Nitrite Ur Leukocyte Esterase Urine RBC Urine WBC Ur Squamous Epith Cells Urine Bacteria Hyaline Casts Stl C. cayetanensis PCR Not Detected Stool Rotavirus A PCR Not Detected Stl Adenov F 40/41 PCR Not Detected Stool Astrovirus (PCR) Not Detected Stool Campylobacter PCR Not Detected Stool Cryptosporidium PCR Not Detected Stl Sh Tox Pr E STEC PCR Not Detected Stool E coli O157 PCR Not applicable Stl Enterotoxigenic E PCR Not Detected Stool EPEC (PCR) Detected A Stool EAEC (PCR) Not Detected Stl E. histolytica PCR Not Detected Stool Giardia Lamblia PCR Not Detected Stl P. shigelloides PCR Not Detected Stool Salmonella PCR Not Detected Stool Sapovirus (PCR) Not Detected Stl Shigella/EIEC PCR Not Detected St Y.enterocolitica PCR Not Detected Stool Vibrio (PCR) Not Detected Stl Vibrio cholerae PCR Not Detected Stl Norovirus GI/GII PCR Not Detected Urine Opiates Screen Ur Buprenorphine Scrn Ur Oxycodone Screen Urine Methadone Screen Urine Fentanyl Screen Ur Barbiturates Screen Ur Phencyclidine Scrn Ur Amphetamines Screen U Benzodiazepines Scrn Urine Cocaine Screen U Marijuana (THC) Screen Ethyl Alcohol < 10 Hep Bs Antigen Hep Bs Antibody Hep B Core Total Ab Hepatitis C Ab (EIA) HIV 1&2 Ab/P24 Ag 4thGn 05/13/24 11:33 MCV 87.0 MCH 27.1 MCHC 31.2 RDW 16.2 H Plt Count 167 D MPV 9.6 Immature Gran % (Auto) 0.9 H Neut % (Auto) 83.7 H Lymph % (Auto) 10.7 L [place] % (Auto) 4.5 Eos % (Auto) 0.0 Baso % (Auto) 0.2 Lymph # (Auto) 1.0 L [place] # (Auto) 0.4 Eos # (Auto) 0.0 Baso # (Auto) 0.0 Abs Immat Gran (auto) 0.09 H Absolute Neuts (auto) 8.0 Absolute Nucleated RBC 0.000 Nucleated RBC % (auto) 0.0 Anion Gap Cancelled Estim Creat Clear Calc Cancelled Estimated GFR Cancelled Random Glucose Cancelled Lactic Acid Calcium Cancelled Total Bilirubin AST ALT Alkaline Phosphatase Total Protein Albumin TSH Free T4 Urine Color Dark Yellow Urine Appearance Cloudy Urine pH 5.0 Ur Specific [place] 1.025 Urine Protein 30 (1+) H Urine Glucose (UA) Negative Urine Ketones Trace Urine Blood Negative Urine Nitrite Negative Ur Leukocyte Esterase Trace H Urine RBC 0-2 Urine WBC 0-5 Ur Squamous Epith Cells 3-5 Urine Bacteria None Seen Hyaline Casts 3-5 Stl C. cayetanensis PCR Stool Rotavirus A PCR Stl Adenov F 40/41 PCR Stool Astrovirus (PCR) Stool Campylobacter PCR Stool Cryptosporidium PCR Stl Sh Tox Pr E STEC PCR Stool E coli O157 PCR Stl Enterotoxigenic E PCR Stool EPEC (PCR) Stool EAEC (PCR) Stl E. histolytica PCR Stool Giardia Lamblia PCR Stl P. shigelloides PCR Stool Salmonella PCR Stool Sapovirus (PCR) Stl Shigella/EIEC PCR St Y.enterocolitica PCR Stool Vibrio (PCR) Stl Vibrio cholerae PCR Stl Norovirus GI/GII PCR Urine Opiates Screen POSITIVE H Ur Buprenorphine Scrn Not Detected Ur Oxycodone Screen Not Detected Urine Methadone Screen Positive H Urine Fentanyl Screen POSITIVE H Ur Barbiturates Screen Not Detected Ur Phencyclidine Scrn Not Detected Ur Amphetamines Screen Not Detected U Benzodiazepines Scrn Not Detected Urine Cocaine Screen POSITIVE H U Marijuana (THC) Screen POSITIVE H Ethyl Alcohol Hep Bs Antigen Negative Hep Bs Antibody NONREACTIVE Hep B Core Total Ab Nonreactive Hepatitis C Ab (EIA) Reactive H HIV 1&2 Ab/P24 Ag 4thGn Nonreactive Assessment and Plan (1) Toxic metabolic encephalopathy: Status: Acute Plan 33F PMH graves, hcv, polysubstance depednence presented with diarrhea, lizeth, ams Acute toxic metabolic encephalopathy Due to polysubstance abuse imrpoved lizeth hydrate, monitor colitis ecodianna, s/p 1gm azithro symptomatic management polysubstance dependence monitor for withdrawal history of graves not on meds, outpatient follow up hcv outpatient follow up low risk for dvt - early ambulation full code reason for continued hospitalization:needing iv hydration, still with diarrhea Quality Stroke Does the patient have a stroke diagnosis?: No VTE Prior VTE?: No VTE Risk Level:: Medical - moderate - high VTE Device Contraindication: N/A - Device Ordered VTE Drug Contraindication: Treatment Not Indicated
[2024-05-14] MEDS: Loperamide HCl 2 MG CAPSULE PO (09:22)
[2024-05-14 10:20] LABS: Basophils Percent Auto 0.4 % (0-2); Eosinophils Percent Auto 0.1 % (0-4); Hemoglobin 10.5 g/dl (12.0-16.0); Imm Gran Abs Auto 0.06 X10*3/uL (0.00-0.03); Imm Gran Pct Auto 0.5 % (0.0-0.4); Lymphocytes Absolute Auto 1.8 X10*3/uL (1.2-4.9); Lymphocytes Percent Auto 15.5 % (20-40); MANUAL DIFF FLAG SCAN; Mean Corpuscular HGB Conc 31.8 g/dl (31.0-35.0); Mean Corpuscular Hemoglobin 26.9 pg (27.0-33.0); Mean Corpuscular Volume 84.6 fL (80.0-98.0); Monocytes Absolute Auto 0.7 X10*3/uL (0.1-1.2); Monocytes Percent Auto 5.9 % (2-11); Neutrophils Absolute Auto 8.8 x10*3/uL (2.0-8.3); Neutrophils Percent Auto 77.6 % (45-73); PLT CLUMP 1; Red Cell Distribution Width 16.2 % (11.0-16.0); SCAN SMEAR FLAG 1
[2024-05-14 10:21] LABS: White Blood Count 11.4 X10*3/uL (4.8-10.8)
[2024-05-14 10:45] LABS: Anion Gap 17 (12-20); Blood Urea Nitrogen 24 mg/dL (9-16); Chloride 110 mmol/L (96-108); Glucose Random 67 mg/dL (60-115); Potassium 3.8 mmol/L (3.3-5.1); Sodium 142 mmol/L (135-145)
[2024-05-14 10:52] LABS: SLIDE REVIEW VERIFIED
[2024-05-14 11:05] LABS: Calcium 8.2 mg/dL (8.4-10.2); Carbon Dioxide 19 mmol/L (22-29); Creatinine Clr Calc Pharmacy 90.3; Estimated Glomerular Filt Rate > 60
--- NOTE | 2024-05-14 14:08 | MHC.CM.PN ---
Pt said she lives alone, she does not have any home health services or DME. HCP discussed, she declined to complete form. She does not have a PCP, declined to complete one. DCP: home, self care. CM to follow for DC needs.
[2024-05-14 15:10] VITALS: BP 152/86; PULSE 67; RESP 18; TEMP 36.5; O2SAT 96
[2024-05-14 19:35] VITALS: BP 141/89; PULSE 71; RESP 18; TEMP 36.3; O2SAT 99
[2024-05-14 21:12] LABS: HCV Log PCR 6.44 Log IU/mL (NOT DETECTED)
[2024-05-15 03:45] VITALS: BP 137/84; PULSE 53; RESP 16; TEMP 36.4; O2SAT 97
[2024-05-15] MEDS: Pantoprazole Sodium 40 MG/10 ML VIAL IVPUSH (05:35)
[2024-05-15 07:07] VITALS: BP 157/98; PULSE 56; RESP 15; TEMP 36.2; O2SAT 96
[2024-05-15 09:55] LABS: Alanine Aminotransferase 33 U/L (0-31); Alkaline Phosphatase 120 U/L (39-117); Anion Gap 12 (12-20); Aspartate Amino Transferase 40 U/L (5-31); Bilirubin Direct 0.1 mg/dL (0.0-0.5); Bilirubin Total 0.4 mg/dL (0.0-1.0); Blood Urea Nitrogen 11 mg/dL (9-16); Calcium 8.4 mg/dL (8.4-10.2); Carbon Dioxide 23 mmol/L (22-29); Chloride 106 mmol/L (96-108); Creatinine Clr Calc Pharmacy 96.8; Estimated Glomerular Filt Rate > 60; Glucose Fasting 138 mg/dL (60-99); Potassium 3.4 mmol/L (3.3-5.1); Sodium 138 mmol/L (135-145); Total Protein 6.5 g/dL (6.5-8.0)
--- NOTE | 2024-05-15 10:58 | P.DS_ITS ---
DS: Providers Provider Date of Service: 05/15/24 Date of admission: 05/13/24 10:54 Date of discharge: 05/15/24 Primary care physician: Unknown Physician Consults: 05/13/24 10:46 Consult to Gastroenterology Routine Consulting Provider: Imtiaz Koehler Reason for consultation: bloody diarrhea DS: Diagnosis Discharge Diagnosis (1) Toxic metabolic encephalopathy: Status: Acute (2) Acute hypernatremia: Status: Acute (3) Polysubstance abuse: Status: Acute (4) MAICO (acute kidney injury): Status: Acute (5) Colitis: Status: Acute DS: Summary Hospital Course Hospital Course: Admission note HPI 33 year old female with history of graves disease, history of hep c (unclear if treated), and polysubstance abuse presented to the ED via EMS last night after being found down in an alley. The patient is somnolent but arousable smelling of feces and urine on exam. She is oriented x3 and has no complaints but is a very limited historian due to somnolence. She states she only smoked marijuana which she got from her friend yesterday, denies other substance use. Denies alcohol use. Per the RN, patient came in agitated with erratic behavior requiring benadryl, haldol, and ativan. Since last night has been incontinent of diarrhea which patient states started several days ago. Denies fevers, chills, abd pain, nausea, vomiting. RN reports flecks of bright red blood in the stool. CDiff was negative. Stool occult blood positive. No anemia. Leukocytosis 14.5. Maico with creat 1.48, BUN 39, sodium 148. Total bili within normal limits. Lactic acid 1.0. AST 100, ALT 58, alkaline phosphatase 269. In the ED has received loperamide, Haldol, lorazepam, Benadryl, 1 L IV NS and 1 L D5/0.45% NS. Hospital course The patient was treated for Colitis with IV fluids and antibiotics as shown on CT scan of the abdomen. evaluated by GI specialist who recommended medical management and avoid any procedures. She was monitored for drug abuse and altered mentation which improved back to baseline. The patient was advised about plan of discharge but she did not wait and decided to leave AMA. To send 5 more days of antibiotics for treatment. Discharge plan Avoid drugs Continue Augmentin Drink plenty of fluids Time Attestation Discharge Coordination Time (in mins): 38 Quality: Safe Use of Opioids Does Pt have an Active Cancer Diagnosis on the Problem List?: No Quality: Stroke Does the patient have a stroke diagnosis?: No Physical Exam Vital Signs: Vital Signs: Last Vital Signs Temp 97.2 F 05/15/24 07:07 Pulse 56 05/15/24 07:07 Resp 15 05/15/24 07:07 BP 157/98 H 05/15/24 07:07 Pulse Ox 96 05/15/24 07:07 O2 Del Method Room Air 05/15/24 07:07 BMI result Body Mass Index 20.5 Const: Other: Constitutional : Awake, interactive, not in distress Neck : Normal inspection, Supple Cardiovascular : RRR, no JVP, no lower extremity edema Respiratory : good bilateral air entry, no crackles, wheezes or rhonchi Gastrointestinal: soft, lax, Normal bowel sounds, Non tender Skin : Warm, Dry Neurological : Alert & oriented x3, No focal deficit DS: Data Data Completed and Pending Completed studies during hospitalization [Text1]: Procedures Insertion of Infusion Device into Right Internal Jugular Vein, Percutaneous Approach (01/19/22) Labs on day of discharge: Laboratory Results - last 24 hr 05/13/24 05/14/24 05/15/24 11:33 10:00 09:00 Sodium 138 Potassium 3.4 Chloride 106 Carbon Dioxide 19 L 23 Anion Gap 12 BUN 11 Creatinine 0.74 0.69 Estim Creat Clear Calc 90.3 96.8 Estimated GFR > 60 > 60 Fasting Glucose 138 H Calcium 8.2 L D 8.4 Total Bilirubin 0.4 Direct Bilirubin 0.1 AST 40 H ALT 33 H Alkaline Phosphatase 120 H Total Protein 6.5 Albumin 3.0 L Hep C Viral Load 8027970 H Hep C Viral Load Log 6.[address] scan - abdomen: Radiologist's impression: ITS Impressions Chest X-Ray 05/13/24 12:10 IMPRESSION: Unremarkable examination. Electronically signed by: Kenneth Hall MD 05/13/2024 01:56 PM EDT RP Abdomen/Pelvis CT 05/13/24 12:39 IMPRESSION: Diffuse colonic wall thickening. The distal colon and rectum are fluid-filled. These findings likely represent colitis. Infectious and inflammatory etiologies should be considered. Age-indeterminate moderate L1 compression fracture. Consider MRI lumbar spine to assess acuity. Electronically signed by: Dallas Magana MD 05/13/2024 02:34 PM EDT RP Head CT 05/13/24 12:39 IMPRESSION: No acute intracranial hemorrhage or territorial infarction. Moderate left mastoid effusion and milder amount of fluid in the right mastoid air cells, of indeterminate etiology. Electronically signed by: Corky Ennis MD 05/13/2024 01:28 PM EDT RP Discharge Plan Discharge Anticipated Discharge Date/Time: 05/15/24 10:54 Patient Disposition: Left Against Medical Advice Discharge Diagnosis: Colitis Referrals: Physician,Unknown J [Primary Care Provider] - 1 Week Discharge Medications: New amoxicillin-pot clavulanate 875-125 mg tablet 1 tab PO BID Qty: 10 0RF Discharge Orders: Discharge Order (Routine); Ordered 05/15/24 Ordered By: Markell Dutta Diet: Advance to usual diet Activity on Discharge: As tolerated Print Language: Luxembourgish Care Plan Goals: Avoid drugs Continue Augmentin Health Concerns: . Plan of Treatment: . Assessment: . Discharge Date/Time: 05/15/24 10:12
== END 2024-05-15 10:12 | disposition left against medical advice (07) | DRG 248 ==
LOC: HO.ED 05-13 10:35 → HO.EDOVER 05-13 10:55 → HO.S3 05-13 11:42
PROVIDERS: Internal Medicine; Admitting Provider Physician Assistant; Emergency Provider Emergency Medicine; Visit Provider Student in an Organized Health Care Education/Training Program
DX: A04.0 Enteropathogenic Escherichia coli infection (principal); G92.8 Other toxic encephalopathy; N17.9 Acute kidney failure, unspecified; E87.0 Hyperosmolality and hypernatremia; E86.1 Hypovolemia; K62.5 Hemorrhage of anus and rectum; E86.0 Dehydration; E05.00 Thyrotoxicosis with diffuse goiter without thyrotoxic crisis or storm; F19.220 Other psychoactive substance dependence with intoxication, uncomplicated; Z59.02 Unsheltered homelessness
CPT/HCPCS: 36415; 70450; 71045; 74176; 80048; 80053; 80076; 80307; 81001; 81003; 82272; 83605; 84439; 84443; 85025; 86704; 86706; 86803; 87340; 87389; 87493; 87507; 87522; 99285; J0456; J1200; J1630; J2060; J2470; J7120

== ENCOUNTER → 2024-05-13 10:54 | Outpatient (BNV) | payer MEDICAID, SELFPAY | PROVIDERS: Admitting Provider Physician Assistant; Emergency Provider Emergency Medicine; Visit Provider Physician Assistant | DX: G92.8 Other toxic encephalopathy (principal); F19.10 Other psychoactive substance abuse, uncomplicated; N17.9 Acute kidney failure, unspecified; R19.7 Diarrhea, unspecified | CPT/HCPCS: 99223; 99232; 99239 ==

== ENCOUNTER 2024-11-18 06:58 | Inpatient (IN) | payer MEDICAID, SELFPAY ==
[2024-11-18] VITALS (7 sets, daily range): BP systolic 107–143; BP diastolic 65–96; PULSE 73–92; RESP 14–20; TEMP 37.4–39.1; O2SAT 94–100; BMI 18.3
--- NOTE | ~2024-11-18 | XR_ITS ---
EXAMINATION: XR HAND 3 OR MORE VIEWS RIGHT, XR WRIST 3 OR MORE VIEWS RIGHT HISTORY: r/o osteo COMPARISON: Comparison is made with the prior examination of the right hand dated 01/20/2022. FINDINGS: Six views of the right hand and wrist are submitted. Osseous mineralization is normal. There is no fracture or dislocation. There is severe arthritis involving the DIP joints of the 2nd, 3rd, and 4th fingers with joint space narrowing, osteophyte formation and multiple erosions. The remaining joint spaces are maintained. There is marked dorsal soft tissue swelling. XR/XR hand RT min 3V IMPRESSION: Marked dorsal soft tissue swelling. 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 If there remains clinical concern for osteomyelitis, MRI can be performed. Electronically signed by: Imtiaz Alves MD 11/18/2024 09:00 AM EDT
--- NOTE | ~2024-11-18 | XR_ITS ---
EXAMINATION: XR HAND 3 OR MORE VIEWS RIGHT, XR WRIST 3 OR MORE VIEWS RIGHT HISTORY: r/o osteo COMPARISON: Comparison is made with the prior examination of the right hand dated 01/20/2022. FINDINGS: Six views of the right hand and wrist are submitted. Osseous mineralization is normal. There is no fracture or dislocation. There is severe arthritis involving the DIP joints of the 2nd, 3rd, and 4th fingers with joint space narrowing, osteophyte formation and multiple erosions. The remaining joint spaces are maintained. There is marked dorsal soft tissue swelling. XR/XR wrist RT min 3V IMPRESSION: Marked dorsal soft tissue swelling. 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 If there remains clinical concern for osteomyelitis, MRI can be performed. Electronically signed by: Imtiaz Alves MD 11/18/2024 09:00 AM EDT
--- NOTE | ~2024-11-18 | MR_ITS ---
EXAMINATION: MR LUMBAR SPINE WITHOUT AND WITH CONTRAST CLINICAL INFORMATION: IV drug abuser, low back pain. Difficulty ambulating. COMPARISON: None available. TECHNIQUE: MRI of the lumbar spine was obtained using routine sequences with and without contrast. Intravenous contrast: (Gadavist) 5 mL. No reported immediate complications. FINDINGS: Last rib-bearing vertebra labeled T12. There is a hypointense T1 hyperintense T2 STIR heterogeneously enhancing signal within the inferior endplate of L2 and superior endplate of L3 and to a lesser extent into the posterior elements. There is no abnormal enhancement within the intervertebral disc L2-3. There is no overt abscess/phlegmon in the epidural compartment of the central spinal canal. There is no phlegmon and/or abscess in the prevertebral compartment. There is no abnormal enhancement in the leptomeningeal compartment. There is an old superior endplate compression deformity representing 40% volume loss with a 3 mm retropulsion upon central canal at L1 vertebra. There is a grade 1 anterolisthesis T12-L1. There is a grade 1 retrolisthesis L1-2. There is multilevel marginal osteophyte formation and disc desiccation. The conus medullaris and at inferior endplate of L1 with normal signal. T12-L1: No disc herniation. No neuroforamina stenosis. L1-2: Broad-based disc bulging. Facet joint hypertrophy as well as ligamentum flavum. No central spinal canal stenosis. Bilateral neuroforamina narrowing. L2-3: Broad-based disc bulging. Facet joint and ligamentum flavum hypertrophy. Reduced AP diameter of the thecal sac and the neural foramina likely encroaching the neural elements. L3-4: Broad-based disc bulging. Facet joint and ligamentum flavum hypertrophy. Reduced AP diameter of the thecal sac and the neural foramina likely encroaching the neural elements. L4-5: Broad-based disc bulging. Facet joint and ligamentum flavum hypertrophy. Reduced AP diameter of the thecal sac and the neural foramina encroaching the neural elements. L5-S1: Broad-based disc bulging. Facet joint hypertrophy. No central spinal canal stenosis bilateral neuroforamina stenosis encroaching the exiting nerve roots. Fat-containing umbilical hernia. MR/MR lumbar spine wo/w con IMPRESSION: Concerning osteomyelitis without abscess and/or phlegmon or epidural abscess at L2-3. Multilevel spondylosis L2-3 to L5-S1 resulting in central spinal canal and bilateral neuroforamina stenosis. Electronically signed by: Trevon Whaley MD 11/18/2024 12:52 PM EDT
--- NOTE | 2024-11-18 07:17 | ED_ITS ---
HPI - General Adult General Chief complaint: Back Pain/Injury Stated complaint: methadone clinic-edema R hand from shooting up Time Seen by Provider: 11/18/24 07:17 Source: patient, EMS, RN notes reviewed and old records reviewed Mode of arrival: EMS History of Present Illness ED Provider: Brittanie Ndiaye PA-C HPI narrative: 34-year-old female with a past medical history of Graves disease, hepatitis-C, polysubstance abuse, presenting to the ED via EMS from methadone clinic complaining of severe low back pain x 1 week with difficulty ambulating. Also reports right hand and right foot pain, swelling, erythema x few days. Admits to active IVDA of heroin and cocaine. Does inject into right hand. Denies injecting into foot. Denies fever, chills, nausea/vomiting, abdominal pain, incontinence Related Data Home Medications ?Medication ?Instructions ?Recorded ?Confirmed methadone 10 mg/mL oral 80 mg PO DAILY 11/18/24 11/18/24 concentrate (Methadone Intensol) Previous Rx's ?Medication ?Instructions ?Recorded amoxicillin 875 mg-potassium 1 tab PO BID #10 tabs 05/15/24 clavulanate 125 mg tablet Allergies Allergy/AdvReac Type Severity Reaction Status Date / Time No Known Allergies Allergy Verified 11/18/24 07:38 [No Known Allergies*] Review of Systems 2 Review of Systems: Yes all other systems are reviewed and are negative Constitutional: Constitutional: Reports as per [facility] Past Medical History Attestation statement: The following information was validated with the patient. Source: old records reviewed Medical History HCV (hepatitis C virus) Drug abuse Opiate addiction Graves disease Social History Social History Household Members: Unknown / Unable to assess Housing: Homeless Do you presently have visiting nurse or other home services: No Unable to assess alcohol history related to: Unknown Alcohol intake: unknown Comment: ashwin Patient Tobacco Use Status: Tobacco use Unknown Tobacco use type: Cigarette Cigarettes Per Day: 5 Smoked in Last 30 Days: Yes Second Hand Smoke Exposure: No Use of substances other than those prescribed or required for medical reasons: Yes Substance Use Type: Crack/Cocaine and IV Drugs Substance Use Frequency: Daily Last Used Substance: Days (ago) Any prior treatment program specific to substance use: Yes ([facility] methadone clinic) Advance Directives: Yes Advance Directives Information Provided: Yes Advance Directives on File: No Do you have a plan to hurt others: No Plan Patient : No service: No Current occupational status: unemployed Physical Exam ED Vital Signs: Vital Signs - 24 hr 11/18/24 07:36 11/18/24 10:00 Temperature 99.7 F Pulse Rate 73 92 Respiratory Rate 20 14 Blood Pressure 135/80 107/65 Pulse Oximetry 100 96 Oxygen Delivery Method Room Air Room Air BMI result Body Mass Index 18.3 Const Other: Appears under the influence General: cooperative, no acute distress and poor hygiene Orientation/consciousness: patient oriented x3 Limitations: no limitations HENMT Head: Yes normal to inspection and Yes atraumatic Ears: hearing grossly normal bilaterally General nose exam: Normal external nose present Face and sinus: Yes normal facial exam Eyes General: appearance normal, both eyes and all related structures EOM: EOMs intact bilaterally Neck Neck: Yes normal visual inspection and Yes no meningeal signs Resp Effort & Inspection: normal respiratory effort and no respiratory distress Auscultation: clear to auscultation bilaterally Cardio Rate: regular rate Heart sounds: S1 normal heart sound present and S2 normal heart sound present Back/Spine/Pelvis Other: + lower lumbar midline and paraspinal reproducible tenderness. No erythema or warmth. No lesions. No ecchymosis. Skin Rashes: no rashes Neuro General: patient oriented x3, tone normal, moves all extremities, no meningeal signs, no focal motor deficits and CN's II-XI intact bilaterally Cranial nerves: Yes CN's II-XII intact bilaterally Extrem Other: Please refer to images above. Right hand with appreciable +swelling, wound with surrounding erythema and warmth extending proximally. + ttp Right foot with diffuse swelling and erythema. Warm to touch. Diffusely tender. NV intact No crepitus. compartments soft. No fluctuance or induration Course Course Course Narrative: -1152---no leukocytosis. H&H at patient's baseline. ESR and CRP elevated -chronic transaminitis. Viral testing negative -UA infected XR wrist RT min 3V/XR hand RT min 3V IMPRESSION: Marked dorsal soft tissue swelling. 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 If there remains clinical concern for osteomyelitis, MRI can be performed. 1301--MR lumbar spine wo/w con IMPRESSION: Concerning osteomyelitis without abscess and/or phlegmon or epidural abscess at L2-3. Multilevel spondylosis L2-3 to L5-S1 resulting in central spinal canal and bilateral neuroforamina stenosis. > plan to admit for further management Medications Administered Generic Name Dose Route Start Last Admin Trade Name Freedwin PRN Reason Stop Dose Admin Acetaminophen 650 mg 11/18/24 13:30 11/18/24 16:03 Acetaminophen 325 Mg Tablet PO 650 mg Q6H PRN Administration Pain, Mild 1-3,fever,headache Enoxaparin Sodium 40 mg 11/18/24 14:00 11/18/24 16:01 Enoxaparin Sodium 40 Mg/0.4 Ml Syringe SUBCUT 40 mg Q24H FADI Administration Piperacillin Sod/Tazobactam 100 mls @ 200 mls/hr 11/18/24 15:00 11/18/24 16:01 Sod 4.5 gm/ Sodium Chloride IV 200 mls/hr Q6H FADI Administration Indomethacin 25 mg 11/18/24 15:00 11/18/24 16:00 Indomethacin 25 Mg Capsule PO 25 mg TID FADI Administration Sodium Chloride 3 ml 11/18/24 16:00 11/18/24 16:03 0.9 % Sodium Chloride Flush 3 Ml Syringe IVFLUSH 3 ml QSHIFT FADI Administration Discontinued Medications Generic Name Dose Route Start Last Admin Trade Name Freedwin PRN Reason Stop Dose Admin Acetaminophen 650 mg 11/18/24 07:41 11/18/24 08:52 Acetaminophen 325 Mg Tablet PO 11/18/24 07:42 650 mg ONCE ONE Administration Gadobutrol 7.5 ml 11/18/24 12:03 11/18/24 12:04 Gadobutrol 7.5 Ml Vial IVPUSH 11/18/24 12:04 5 ml ONCE ONE Administration Sodium Chloride 1,000 mls @ 999 mls/hr 11/18/24 07:45 11/18/24 11:06 Ns IV 11/18/24 08:45 Infused .Q1H1M FADI Infusion Piperacillin Sod/Tazobactam 100 mls @ 200 mls/hr 11/18/24 07:38 11/18/24 11:05 Sod 4.5 gm/ Sodium Chloride IV 11/18/24 08:07 Infused ONCE ONE Infusion Vancomycin HCl 1,250 mg/ 250 mls @ 166.667 mls/hr 11/18/24 07:45 11/18/24 13:48 Sodium Chloride IV 11/18/24 09:14 Infused ONCE ONE Infusion Lorazepam 2 mg 11/18/24 09:00 11/18/24 09:06 Lorazepam 1 Mg Tablet PO 11/18/24 09:01 2 mg ONCE ONE Administration Medical Decision Making Medical Decision Making MDM Narrative: 34-year-old female with a past medical history of Graves disease, hepatitis-C, polysubstance abuse, presenting to the ED via EMS from methadone clinic complaining of severe low back pain x 1 week with difficulty ambulating. Also reports right hand and right foot pain, swelling, erythema x few days. On exam low-grade temp 99.7 degrees, appears uncomfortable, cannot lay on back, PE as above, please refer to images. +midline spinous ttp & lumbar MSK reproducible tenderness. Wound/cellulitis noted RUE & RLE. Concern for cellulitis vs osteomyelitis vs epidural abscess, vs UTI/pyelo vs MSK pain. Lower suspicion for cord compression or cauda equina at this time. No evidence of drainable collection. Low suspicion for compartment syndrome Plan: EKG, labs, UA, tox screen, x-ray, MRI, empiric IV antibiotics, admission Please refer to course for remaining clinical decision making, interpretation of labs/imaging results, and discussions with consultants and/or family members. Differential Diagnosis Differential Diagnoses: The differential diagnosis associated with the presentation includes As above Admission/Observation Consideration of admission/observation: Escalation of care including admission/observation considered Consult Healthcare Provider Management of the patient was discussed with: Hospitalist Lab Data [facility] Lab Attestation statement: I reviewed the patient's lab results. 11/18/24 08:14 11/18/24 10:05 Labs: Lab Results 11/18/24 11/18/24 11/18/24 Range/Units 08:14 08:16 09:16 WBC 10.6 (4.8-10.8) X10*3/uL RBC 4.24 (4.20-5.50) X10*6/uL Hgb 12.1 (12.0-16.0) g/dl Hct 36.1 L (37.0-47.0) % MCV 85.1 (80.0-98.0) fL MCH 28.5 (27.0-33.0) pg MCHC 33.5 (31.0-35.0) g/dl RDW 14.9 (11.0-16.0) % Plt Count 149 L (160-400) X10*3/uL MPV 10.4 (9.4-12.3) fL Immature Gran % (Auto) 0.7 H (0.0-0.4) % Neut % (Auto) 86.6 H (45-73) % Lymph % (Auto) 8.1 L (20-40) % [place] % (Auto) 4.5 (2-11) % Eos % (Auto) 0.0 (0-4) % Baso % (Auto) 0.1 (0-2) % Lymph # (Auto) 0.9 L (1.2-4.9) X10*3/uL [place] # (Auto) 0.5 (0.1-1.2) X10*3/uL Eos # (Auto) 0.0 (0.0-0.4) X10*3/uL Baso # (Auto) 0.0 (0.0-0.2) X10*3/uL Abs Immat Gran (auto) 0.07 H (0.00-0.03) X10*3/uL Absolute Neuts (auto) 9.2 H (2.0-8.3) x10*3/uL Absolute Nucleated RBC 0.000 (0.0-0.012) X10*3/uL Nucleated RBC % (auto) 0.0 (0.0-0.2) /100WBC ESR 85 H (0-20) MM/HR Sodium (135-145) mmol/L Potassium (3.3-5.1) mmol/L Chloride (96-108) mmol/L Carbon Dioxide (22-29) mmol/L Anion Gap (12-20) BUN (9-16) mg/dL Creatinine (0.5-1.4) mg/dL Estim Creat Clear Calc Estimated GFR Random Glucose (60-115) mg/dL Lactic Acid (0.5-2.0) mmol/L Calcium (8.4-10.2) mg/dL Magnesium (1.6-2.6) mg/dL Total Bilirubin (0.0-1.0) mg/dL Direct Bilirubin (0.0-0.5) mg/dL AST (5-31) U/L ALT (0-31) U/L Alkaline Phosphatase (39-117) U/L Total Creatine Kinase (26-140) U/L C-Reactive Protein (< or = 0.50) mg/dL B-Natriuretic Peptide 80 (<100) pg/mL Total Protein (6.5-8.0) g/dL Albumin (3.5-5.0) g/dL TSH (0.32-4.0) uIU/mL Free T4 (0.71-1.85) ng/dL Urine Color Dark Yellow Urine Appearance Cloudy Urine pH 8.0 (5.0-9.0) Ur Specific [place] 1.020 (1.005-1.025) Urine Protein 30 (1+) H (Neg-Trace) mg/dL Urine Glucose (UA) Negative (Negative) mg/dL Urine Ketones 40 (Negative) mg/dL Urine Blood Negative (Negative) Urine Nitrite Negative (Negative) Ur Leukocyte Esterase Large (3+) H (Negative) Urine RBC 0-2 (0-2) /HPF Urine WBC >50 H (0-5) /HPF Ur Squamous Epith Cells 3-5 (0-2) /HPF Urine Bacteria 2+ (None Seen) Hyaline Casts 3-5 (0-2) /LPF Urine Test NEGATIVE (NEGATIVE) Urine Opiates Screen POSITIVE H (Not Detect) Ur Buprenorphine Scrn Not Detected (Not Detect) ng/mL Ur Oxycodone Screen Not Detected (Not Detect) ng/mL Urine Methadone Screen Positive H (Not Detect) ng/mL Urine Fentanyl Screen POSITIVE H (Not Detect) Ur Barbiturates Screen Not Detected (Not Detect) Ur Phencyclidine Scrn Not Detected (Not Detect) Ur Amphetamines Screen Not Detected (Not Detect) U Benzodiazepines Scrn Not Detected (Not Detect) Urine Cocaine Screen POSITIVE H (Not Detect) U Marijuana (THC) Screen Not Detected (Not Detect) Ethyl Alcohol mg/dL Influenza Type A (PCR) NEGATIVE (Negative) Influenza Type B (PCR) NEGATIVE (Negative) RSV RNA Qual (PCR) NEGATIVE (Negative) SARS-CoV-2 RNA (RT-PCR) NEGATIVE (Negative) 11/18/24 Range/Units 10:05 WBC (4.8-10.8) X10*3/uL RBC (4.20-5.50) X10*6/uL Hgb (12.0-16.0) g/dl Hct (37.0-47.0) % MCV (80.0-98.0) fL MCH (27.0-33.0) pg MCHC (31.0-35.0) g/dl RDW (11.0-16.0) % Plt Count (160-400) X10*3/uL MPV (9.4-12.3) fL Immature Gran % (Auto) (0.0-0.4) % Neut % (Auto) (45-73) % Lymph % (Auto) (20-40) % [place] % (Auto) (2-11) % Eos % (Auto) (0-4) % Baso % (Auto) (0-2) % Lymph # (Auto) (1.2-4.9) X10*3/uL [place] # (Auto) (0.1-1.2) X10*3/uL Eos # (Auto) (0.0-0.4) X10*3/uL Baso # (Auto) (0.0-0.2) X10*3/uL Abs Immat Gran (auto) (0.00-0.03) X10*3/uL Absolute Neuts (auto) (2.0-8.3) x10*3/uL Absolute Nucleated RBC (0.0-0.012) X10*3/uL Nucleated RBC % (auto) (0.0-0.2) /100WBC ESR (0-20) MM/HR Sodium 133 L (135-145) mmol/L Potassium 3.6 (3.3-5.1) mmol/L Chloride 101 (96-108) mmol/L Carbon Dioxide 23 (22-29) mmol/L Anion Gap 13 (12-20) BUN 9 (9-16) mg/dL Creatinine 0.59 (0.5-1.4) mg/dL Estim Creat Clear Calc 106.8 Estimated GFR > 60 Random Glucose 100 (60-115) mg/dL Lactic Acid 0.7 (0.5-2.0) mmol/L Calcium 8.5 (8.4-10.2) mg/dL Magnesium 1.9 (1.6-2.6) mg/dL Total Bilirubin 1.2 H (0.0-1.0) mg/dL Direct Bilirubin 0.4 (0.0-0.5) mg/dL AST 47 H (5-31) U/L ALT 47 H (0-31) U/L Alkaline Phosphatase 74 (39-117) U/L Total Creatine Kinase 53 (26-140) U/L C-Reactive Protein 17.23 H (< or = 0.50) mg/dL B-Natriuretic Peptide (<100) pg/mL Total Protein 8.0 (6.5-8.0) g/dL Albumin 3.7 (3.5-5.0) g/dL TSH 5.46 H (0.32-4.0) uIU/mL Free T4 0.83 (0.71-1.85) ng/dL Urine Color Urine Appearance Urine pH (5.0-9.0) Ur Specific [place] (1.005-1.025) Urine Protein (Neg-Trace) mg/dL Urine Glucose (UA) (Negative) mg/dL Urine Ketones (Negative) mg/dL Urine Blood (Negative) Urine Nitrite (Negative) Ur Leukocyte Esterase (Negative) Urine RBC (0-2) /HPF Urine WBC (0-5) /HPF Ur Squamous Epith Cells (0-2) /HPF Urine Bacteria (None Seen) Hyaline Casts (0-2) /LPF Urine Test (NEGATIVE) Urine Opiates Screen (Not Detect) Ur Buprenorphine Scrn (Not Detect) ng/mL Ur Oxycodone Screen (Not Detect) ng/mL Urine Methadone Screen (Not Detect) ng/mL Urine Fentanyl Screen (Not Detect) Ur Barbiturates Screen (Not Detect) Ur Phencyclidine Scrn (Not Detect) Ur Amphetamines Screen (Not Detect) U Benzodiazepines Scrn (Not Detect) Urine Cocaine Screen (Not Detect) U Marijuana (THC) Screen (Not Detect) Ethyl Alcohol < 10 mg/dL Influenza Type A (PCR) (Negative) Influenza Type B (PCR) (Negative) RSV RNA Qual (PCR) (Negative) SARS-CoV-2 RNA (RT-PCR) (Negative) Independent Interpretation I performed an independent interpretation of an: EKG and Plain X-Ray Radiology Impression Discussion of test interpretation with radiology: I have reviewed the radiologist's reading. Independent Historian Clinical information obtained from an independent historian. History obtained from or confirmed by: EMS External Record Review External record reviewed: Inpatient record, Office record, Outpatient record, Prior outpatient labs, Prior outpatient radiology, Primary care record and Outside ED record Tests considered The following testing was considered but not selected: As above Prescription Management I considered prescription management with: Pain Medication and Antibiotic Chronic Conditions Patient?s care impacted by: Other (Hep C) Social Determinants Patient?s care significantly limited by Social Determinants of Health including: Inadequate housing, Low income, Alcoholism and drug addiction in family, Problems related to primary support group, Unemployment, Problems related to employment and Other Social Determinant of Health Critical Care Time Critical Care Time Critical Care Time: Yes Total Critical Care Time: 45 Attestation: I have personally provided critical care time exclusive of time spent on separately billable procedures. Time includes review of lab data, radiology results, discussion with consultants, and monitoring for potential decompensation. Intervention performed as documented. Discharge Plan Discharge Clinical Impression: Acute osteomyelitis of lumbar spine, Cellulitis of right hand, Cellulitis of right foot Patient Disposition: Admitted As Inpatient Interventions: Admission Worksheet (ED) Last Done: 11/18/24 14:38
--- NOTE | 2024-11-18 07:34 | ECG_ITS ---
Test Reason : sepsis Blood Pressure : */* mmHG Vent. Rate : 78 BPM Atrial Rate : 78 BPM P-R Int : 142 ms QRS Dur : 74 ms QT Int : 380 ms P-R-T Axes : 55 23 25 degrees QTcB Int : 433 ms Normal sinus rhythm Nonspecific T wave abnormality Abnormal ECG When compared with ECG of 28-Jan-2022 22:49, Vent. rate has increased by 29 bpm Nonspecific T wave abnormality now evident in Inferior leads Nonspecific T wave abnormality now evident in Lateral leads QT has lengthened Referred By: Brittanie Ndiaye Electronically Signed By: LIZETTE LOPEZ MD
[2024-11-18 08:24] LABS: MANUAL DIFF FLAG NO
[2024-11-18 08:27] LABS: Basophils Percent Auto 0.1 % (0-2); Hematocrit 36.1 % (37.0-47.0); Hemoglobin 12.1 g/dl (12.0-16.0); Imm Gran Abs Auto 0.07 X10*3/uL (0.00-0.03); Imm Gran Pct Auto 0.7 % (0.0-0.4); Lymphocytes Absolute Auto 0.9 X10*3/uL (1.2-4.9); Lymphocytes Percent Auto 8.1 % (20-40); Mean Corpuscular HGB Conc 33.5 g/dl (31.0-35.0); Mean Corpuscular Hemoglobin 28.5 pg (27.0-33.0); Mean Corpuscular Volume 85.1 fL (80.0-98.0); Mean Platelet Volume 10.4 fL (9.4-12.3); Monocytes Absolute Auto 0.5 X10*3/uL (0.1-1.2); Monocytes Percent Auto 4.5 % (2-11); Neutrophils Absolute Auto 9.2 x10*3/uL (2.0-8.3); Neutrophils Percent Auto 86.6 % (45-73); Platelet Count 149 X10*3/uL (160-400); Red Blood Count 4.24 X10*6/uL (4.20-5.50); Red Cell Distribution Width 14.9 % (11.0-16.0); White Blood Count 10.6 X10*3/uL (4.8-10.8)
[2024-11-18 08:50] LABS: B Type Natriuretic Peptide 80 pg/mL (<100)
[2024-11-18] MEDS: Piperacillin Sodium/Tazobactam 4.5 GM in 0.9 % Sodium Chloride 100 ML IV ×3 (08:52→20:45)
[2024-11-18] MEDS: Acetaminophen 325 MG TABLET 650 MG PO ×2 (08:52→16:03)
[2024-11-18] MEDS: 0.9 % Sodium Chloride 1,000 ML 999 ML IV (08:58)
[2024-11-18] MEDS: LORazepam 1 MG TABLET 2 MG PO (09:06)
[2024-11-18 09:23] LABS: Appearance Urine Cloudy; Color Urine Dark Yellow; Glucose Urine UA Negative (Negative); Leukocyte Esterase Urine Large (3+) (Negative); Nitrite Urine Negative (Negative); UMIC TRIGGER UACC YES; UPreg QC Valid YES; Urine Blood Negative (Negative); Urine Ketones 40 mg/dL (Negative); Urine Protein 30 (1+) mg/dL (Neg-Trace)
[2024-11-18 09:25] LABS: Bacteria Urine 2+ (None Seen); RBC Urine 0-2 /HPF (0-2); UACC Culture Trigger YES; Urine Pregnancy NEGATIVE (NEGATIVE); WBC Urine >50 /HPF (0-5)
[2024-11-18 09:33] LABS: Amphetamine Screen Urine Not Detected (Not Detect); Barbiturates, Urine Not Detected (Not Detect); Benzodiazepines Screen Urine Not Detected (Not Detect); Buprenorphine Scr Not Detected (Not Detect); Cannabinoid Screen Urine Not Detected (Not Detect); Cocaine Screen Urine POSITIVE (Not Detect); Fentanyl, urine POSITIVE (Not Detect); Methadone Screen, Urine Positive (Not Detect); Opiate Screen Urine POSITIVE (Not Detect); Oxycodone Screen Urine Not Detected (Not Detect); Phencyclidine Screen Urine Not Detected (Not Detect)
[2024-11-18 09:52] LABS: Influenza A PCR NEGATIVE (Negative); Influenza B PCR NEGATIVE (Negative); Resp Syncy Virus RNA Qual PCR NEGATIVE (Negative); SARS COV2 PCR INHOUSE NEGATIVE (Negative)
[2024-11-18 10:23] LABS: Erythrocyte Sedimentation Rate 85 MM/HR (0-20)
[2024-11-18 10:28] LABS: Alanine Aminotransferase 47 U/L (0-31); Albumin Level 3.7 g/dL (3.5-5.0); Alkaline Phosphatase 74 U/L (39-117); Anion Gap 13 (12-20); Aspartate Amino Transferase 47 U/L (5-31); Bilirubin Direct 0.4 mg/dL (0.0-0.5); Bilirubin Total 1.2 mg/dL (0.0-1.0); Blood Urea Nitrogen 9 mg/dL (9-16); C Reactive Protein 17.23 mg/dL (< or = 0.50); Calcium 8.5 mg/dL (8.4-10.2); Carbon Dioxide 23 mmol/L (22-29); Chloride 101 mmol/L (96-108); Creatinine Clr Calc Pharmacy 106.8; Estimated Glomerular Filt Rate > 60; Ethanol < 10 mg/dL; Glucose Random 100 mg/dL (60-115); Magnesium 1.9 mg/dL (1.6-2.6); Potassium 3.6 mmol/L (3.3-5.1); Sodium 133 mmol/L (135-145)
[2024-11-18 10:40] LABS: Lactic Acid 0.7 mmol/L (0.5-2.0)
[2024-11-18] MEDS: vancomycin HCL 1,250 MG in 0.9 % Sodium Chloride 250 ML 166.67 MG IV (11:05)
--- NOTE | 2024-11-18 11:33 | PC.NURSE ---
patient transported to MRI.
[2024-11-18] MEDS: gadobutroL 7.5 ML VIAL IVPUSH (12:04)
--- NOTE | 2024-11-18 13:41 | P.HPHOSP_ITS ---
History of Present Illness Date of Service: 11/18/24 Attending physician on admission: Markell Dutta Chief Complaint: back pain 34-year-old female with history of Graves disease, history of hepatitis-C, polysubstance abuse on methadone presented to the ED earlier today for evaluation of 10/10 pain over the lumbar spine. She states this pain started about 3 days ago. The pain is so intense that she has difficulty walking though denies any weakness or paresthesias. No bowel/bladder dysfunction. Does endorse some dysuria however. She also has redness and swelling over the right hand. Reports injecting heroin/fentanyl into the hands bilaterally, last use was yesterday. She did receive her methadone dose this morning. She is quite somnolent on arrival but is arousable and able to give an appropriate history. She denies any fevers or chills. She is right-hand dominant. In the ED, vital signs are stable. There is no leukocytosis. Renal function and electrolyte levels are normal except for sodium 133. ESR is 85, CRP 17.23. Total bili 1.2, AST 47, ALT 47. Urinalysis with 3+ leukocytes, negative nitrites, significant urinary sediment and 2+ bacteria. Urine tox screen positive for opiates, methadone, fentanyl, cocaine. She is negative for COVID-19, RSV, influenza. X- ray of the right wrist and hand shows significant swelling with severe arthritis involving the D IP joints of the 2nd, 3rd, 4th fingers possibly representing of erosive osteoarthritis or other inflammatory arthropathy. Lumbar spine MRI shows concerns for osteomyelitis without abscess and or phlegmon or epidural abscess at L2-3. There is also multilevel spondylosis L2-3 to L5-S1 resulting in central spinal canal and bilateral neural foraminal stenosis. In the ED, has received acetaminophen, lorazepam, Zosyn, vancomycin. Review of Systems 2 Review of Systems: Yes all other systems are reviewed and are negative [facility] Medical History HCV (hepatitis C virus) Drug abuse Opiate addiction Graves disease Social History Household Members: Unknown / Unable to assess Housing: Homeless Do you presently have visiting nurse or other home services: No Unable to assess alcohol history related to: Unknown Alcohol intake: unknown Comment: ashwin Patient Tobacco Use Status: Tobacco use Unknown Tobacco use type: Cigarette Cigarettes Per Day: 5 Smoked in Last 30 Days: Yes Second Hand Smoke Exposure: No Use of substances other than those prescribed or required for medical reasons: Yes Substance Use Type: Crack/Cocaine and IV Drugs Substance Use Frequency: Daily Last Used Substance: Days (ago) Any prior treatment program specific to substance use: Yes ([facility] methad[facility]) Advance Directives: Yes Advance Directives Information Provided: Yes Advance Directives on File: No Do you have a plan to hurt others: No Plan Patient : No service: No Current occupational status: unemployed Meds Allergies Allergy/AdvReac Type Severity Reaction Status Date / Time No Known Allergies Allergy Verified 11/18/24 07:38 [No Known Allergies*] Active Medications: Current Medications Acetaminophen (Acetaminophen 325 Mg Tablet) 650 mg PO Q6H PRN PRN Reason: Pain, Mild 1-3,fever,headache Calcium Carbonate (Calcium Carbonate 750 Mg Tab.Chew) 750 mg PO Q4H PRN PRN Reason: Heartburn Enoxaparin Sodium (Enoxaparin Sodium 40 Mg/0.4 Ml Syringe) 40 mg SUBCUT Q24H FADI Hydromorphone HCl (Hydromorphone Hcl 0.5 Mg/0.5 Ml Syringe) 0.5 mg IVPUSH Q4H PRN; Protocol PRN Reason: Pain, Severe (Pain Scale 7-10) Piperacillin Sod/Tazobactam (Sod 4.5 gm/ Sodium Chloride) 100 mls @ 200 mls/hr IV Q6H FADI Magnesium Hydroxide (Milk Of Magnesia 30 Ml Oral.Susp) 30 ml PO DAILY PRN PRN Reason: Constipation Melatonin (Melatonin 3 Mg Tablet) 6 mg PO BEDTIME PRN PRN Reason: Insomnia Oxycodone HCl (Oxycodone Hcl Immed Release 5 Mg Tablet) 5 mg PO Q6H PRN PRN Reason: Pain, Moderate(Pain Scale 4-6) Pharmacy Consult (Consult Rx Vancomycin Dosing) 1 each MISCELLANE DAILY PRN PRN Reason: Consult order Sodium Chloride (0.9 % Sodium Chloride Flush 3 Ml Syringe) 3 ml IVFLUSH QSHIFT FADI Home Medications ?Medication ?Instructions ?Recorded ?Confirmed ?Last Taken ?Type methadone 10 mg/mL oral 80 mg PO DAILY 0311/18/24 11/18/24 06:32 History concentrate (Methadone Intensol) Physical Exam 2 Vital Signs and Narrative: Vital Signs: Last Vital Signs Temp 99.7 F 11/18/24 07:36 Pulse 92 11/18/24 10:00 Resp 14 11/18/24 10:00 BP 107/65 11/18/24 10:00 Pulse Ox 96 11/18/24 10:00 O2 Del Method Room Air 11/18/24 10:00 BMI result Body Mass Index 18.3 Constitutional - somnolent but arousable, No apparent distress Eyes - PERRLA, EOMI. Exophthalmos Cardiovascular - S1S2, RRR, No edema Respiratory - Normal lung expansion, Normal respiratory effort, No respiratory distress, CTA bilaterally Gastrointestinal - NT / ND; +BS; No rebound or guarding Extremities - no calf tenderness bilaterally, no swelling Skin - Warm/Dry. Erythema of the dorsum of the R hand extending into the 2nd-4th fingers and radial aspect of the wrist and central abscess noted with many tracks gaspar over the dorsum of the hands bilaterally. R foot with erythema and warmth over the dorsum of the foot and R ankle Neurological - somnolent and arousable & oriented x3, CN II-XII in tact, 5/5 strength BUE and BLE Psychological - Appropriate affect Results Labs 11/18/24 08:14 11/18/24 10:05 Labs: Laboratory Results - last 24 hr 11/18/24 11/18/24 11/18/24 08:14 08:16 09:16 MCV 85.1 MCH 28.5 MCHC 33.5 RDW 14.9 Plt Count 149 L MPV 10.4 Immature Gran % (Auto) 0.7 H Neut % (Auto) 86.6 H Lymph % (Auto) 8.1 L [place] % (Auto) 4.5 Eos % (Auto) 0.0 Baso % (Auto) 0.1 Lymph # (Auto) 0.9 L [place] # (Auto) 0.5 Eos # (Auto) 0.0 Baso # (Auto) 0.0 Abs Immat Gran (auto) 0.07 H Absolute Neuts (auto) 9.2 H Absolute Nucleated RBC 0.000 Nucleated RBC % (auto) 0.0 ESR 85 H Anion Gap Estim Creat Clear Calc Estimated GFR Random Glucose Lactic Acid Calcium Magnesium Total Bilirubin Direct Bilirubin AST ALT Alkaline Phosphatase Total Creatine Kinase C-Reactive Protein B-Natriuretic Peptide 80 Total Protein Albumin Urine Color Dark Yellow Urine Appearance Cloudy Urine pH 8.0 Ur Specific [place] 1.020 Urine Protein 30 (1+) H Urine Glucose (UA) Negative Urine Ketones 40 Urine Blood Negative Urine Nitrite Negative Ur Leukocyte Esterase Large (3+) H Urine RBC 0-2 Urine WBC >50 H Ur Squamous Epith Cells 3-5 Urine Bacteria 2+ Hyaline Casts 3-5 Urine Test NEGATIVE Urine Opiates Screen POSITIVE H Ur Buprenorphine Scrn Not Detected Ur Oxycodone Screen Not Detected Urine Methadone Screen Positive H Urine Fentanyl Screen POSITIVE H Ur Barbiturates Screen Not Detected Ur Phencyclidine Scrn Not Detected Ur Amphetamines Screen Not Detected U Benzodiazepines Scrn Not Detected Urine Cocaine Screen POSITIVE H U Marijuana (THC) Screen Not Detected Ethyl Alcohol Influenza Type A (PCR) NEGATIVE Influenza Type B (PCR) NEGATIVE RSV RNA Qual (PCR) NEGATIVE SARS-CoV-2 RNA (RT-PCR) NEGATIVE 11/18/24 10:05 MCV MCH MCHC RDW Plt Count MPV Immature Gran % (Auto) Neut % (Auto) Lymph % (Auto) [place] % (Auto) Eos % (Auto) Baso % (Auto) Lymph # (Auto) [place] # (Auto) Eos # (Auto) Baso # (Auto) Abs Immat Gran (auto) Absolute Neuts (auto) Absolute Nucleated RBC Nucleated RBC % (auto) ESR Anion Gap 13 Estim Creat Clear Calc 106.8 Estimated GFR > 60 Random Glucose 100 Lactic Acid 0.7 Calcium 8.5 Magnesium 1.9 Total Bilirubin 1.2 H Direct Bilirubin 0.4 AST 47 H ALT 47 H Alkaline Phosphatase 74 Total Creatine Kinase 53 C-Reactive Protein 17.23 H B-Natriuretic Peptide Total Protein 8.0 Albumin 3.7 Urine Color Urine Appearance Urine pH Ur Specific [place] Urine Protein Urine Glucose (UA) Urine Ketones Urine Blood Urine Nitrite Ur Leukocyte Esterase Urine RBC Urine WBC Ur Squamous Epith Cells Urine Bacteria Hyaline Casts Urine Test Urine Opiates Screen Ur Buprenorphine Scrn Ur Oxycodone Screen Urine Methadone Screen Urine Fentanyl Screen Ur Barbiturates Screen Ur Phencyclidine Scrn Ur Amphetamines Screen U Benzodiazepines Scrn Urine Cocaine Screen U Marijuana (THC) Screen Ethyl Alcohol < 10 Influenza Type A (PCR) Influenza Type B (PCR) RSV RNA Qual (PCR) SARS-CoV-2 RNA (RT-PCR) Imaging Radiologist's Impressions: Impressions Wrist X-Ray 11/18/24 07:34 IMPRESSION: Marked dorsal soft tissue swelling. 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 If there remains clinical concern for osteomyelitis, MRI can be performed. Electronically signed by: Imtiaz Alves MD 11/18/2024 09:00 AM EDT RP Hand X-Ray 11/18/24 08:40 IMPRESSION: Marked dorsal soft tissue swelling. 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 If there remains clinical concern for osteomyelitis, MRI can be performed. Electronically signed by: Imtiaz Alves MD 11/18/2024 09:00 AM EDT RP Lumbar Spine MRI 11/18/24 11:40 IMPRESSION: Concerning osteomyelitis without abscess and/or phlegmon or epidural abscess at L2-3. Multilevel spondylosis L2-3 to L5-S1 resulting in central spinal canal and bilateral neuroforamina stenosis. Electronically signed by: Trevon Whaley MD 11/18/2024 12:52 PM EDT RP Assessment and Plan (1) Cellulitis of right foot: Status: Acute (2) Cellulitis of right hand: Status: Acute (3) Acute osteomyelitis of lumbar spine: Status: Acute Plan 33 year old female with history of graves disease, history of hep c (unclear if treated), and polysubstance abuse admitted for further management of cellulitis of the hand and osteomyelitis lumbar spine Acute cellulitis R hand recent injection into dorsum R hand IV vano and zosyn pain management prn ortho consult Follow cultures Meeting sepsis criteria @1607 abx as above. Repeat lactic acid ordered. Blood cultures pending. No hypotension Acute osteomyelitis lumbar spine No leukocytosis or other SIRS criteria. No sepsis MRI lumbar spine concerning for osteomyelitis without abscess phlegmon or epidural abscess at L2-L3 IV vancomycin and Zosyn (initiated 11/18) Pain management p.r.n. Infectious disease consult Follow cultures Acute UTI abx as above await cultures Inflammatory arthropathy ?r/t infection NSAIDs for now. Indomethacin 25mg TID Multilevel spondylosis with central canal stenosis outpt follow up. pain management as above Polysubstance/IVDA Continue methadone Check hep b/c and HIV Addiction med consult Chronic hepatitis C viral load pending Transaminitits chronic, r/t liver disease/hepatitis Hx Graves Exopthalmos present not currently on meds. Check TSH w/ refelx free t4 dvt prophylaxis- lovenox full code pt requires inpt stay at least 2 midnights for management of acute cellulitis of hand r/t ivda and osteomyelitis of the hand requiring iv abx, close monitoring of cultures, and expert consultation Quality Stroke Does the patient have a stroke diagnosis?: No VTE Prior VTE?: No VTE Risk Level:: Medical - moderate - high VTE Device Contraindication: Treatment Not Indicated VTE Drug Contraindication: N/A - Med Ordered
--- NOTE | 2024-11-18 13:54 | PHA.PROG ---
Admission Date/Time: Indication: OTHER Weight in k.9 kg Adjusted body weight in Kg: Ione body weight in Kg: Obesity Dosing Indication % IBW: Serum Creatinine - Last 168 Hours 11/18/24 10:05 Creatinine 0.59 Estimated CrCl and GFR - Last 168 Hours 11/18/24 10:05 Estim Creat Clear Calc 106.8 Estimated GFR > 60 Vancomycin Loading Dose: 1250 mg Current Vancomycin Dosing Regimen: 1000 mg q12h Vancomycin Monitoring using AUC goal of 400 - 600 range with trough as surrogate marker: CAY=191 TROUGH=13.4 Date and Time for next Vancomycin Level to be drawn: 11/19/24 @1000 Pharmacist Comments on Vancomycin Plan: Vancomycin dosing will take advantage of [employer] as a clinical decision support tool that uses Bayesian modeling to calculate individual patient's pharmacokinetic parameters and forecast the patient's drug concentration time course with the target goal AUC 24 range of 400 - 600 mg/L/hr.
--- NOTE | 2024-11-18 14:21 | HE.PHANOTE ---
METHADONE Pt received 80mg on 11/18/24 @ 0632 at [facility] ([phone])
[2024-11-18 14:29] LABS: TSH reflex Free T4 5.46 uIU/mL (0.32-4.0)
--- NOTE | 2024-11-18 14:42 | P.CONOP_ITS ---
History of Present Illness HPI Consult date: 11/18/24 Chief complaint: Osteo Lumbar Spine, Cellulitis hand Narrative: Patient is a 34-year-old female admitted to the hospital for evaluation of lumbar spine osteomyelitis, and also cellulitis of the right hand Patient was arousable but largely unresponsive to questions, so HPI obtained from ED provider Brittanie Ndiaye: 34-year-old female with a past medical history of Graves disease, hepatitis-C, polysubstance abuse, presenting to the ED via EMS from methadone clinic complaining of severe low back pain x 1 week with difficulty ambulating. Also reports right hand and right foot pain, swelling, erythema x few days. Admits to active IVDA of heroin and cocaine. Does inject into right hand. Denies injecting into foot. Denies fever, chills, nausea/vomiting, abdominal pain, incontinence Review of Systems 2 Review of Systems: Yes all other systems are reviewed and are negative PMFSH Past Medical History Medical History HCV (hepatitis C virus) Drug abuse Opiate addiction Graves disease Social History Social History Household Members: Unknown / Unable to assess Housing: Homeless Do you presently have visiting nurse or other home services: No Unable to assess alcohol history related to: Unknown Alcohol intake: unknown Comment: ashwin Patient Tobacco Use Status: Tobacco use Unknown Tobacco use type: Cigarette Cigarettes Per Day: 5 Smoked in Last 30 Days: Yes Second Hand Smoke Exposure: No Use of substances other than those prescribed or required for medical reasons: Yes Substance Use Type: Crack/Cocaine and IV Drugs Substance Use Frequency: Daily Last Used Substance: Days (ago) Any prior treatment program specific to substance use: Yes ([facility] methad[facility]) Advance Directives: Yes Advance Directives Information Provided: Yes Advance Directives on File: No Do you have a plan to hurt others: No Plan Patient : No service: No Current occupational status: unemployed Meds Allergies Allergy/AdvReac Type Severity Reaction Status Date / Time No Known Allergies Allergy Verified 11/18/24 07:38 [No Known Allergies*] Active Medications: Current Medications Acetaminophen (Acetaminophen 325 Mg Tablet) 650 mg PO Q6H PRN PRN Reason: Pain, Mild 1-3,fever,headache Calcium Carbonate (Calcium Carbonate 750 Mg Tab.Chew) 750 mg PO Q4H PRN PRN Reason: Heartburn Enoxaparin Sodium (Enoxaparin Sodium 40 Mg/0.4 Ml Syringe) 40 mg SUBCUT Q24H FADI Hydromorphone HCl (Hydromorphone Hcl 0.5 Mg/0.5 Ml Syringe) 0.5 mg IVPUSH Q4H PRN; Protocol PRN Reason: Pain, Severe (Pain Scale 7-10) Piperacillin Sod/Tazobactam (Sod 4.5 gm/ Sodium Chloride) 100 mls @ 200 mls/hr IV Q6H FADI Vancomycin HCl 1,000 mg/ (Sodium Chloride) 270 mls @ 270 mls/hr IV Q12H FADI Indomethacin (Indomethacin 25 Mg Capsule) 25 mg PO TID FADI Magnesium Hydroxide (Milk Of Magnesia 30 Ml Oral.Susp) 30 ml PO DAILY PRN PRN Reason: Constipation Melatonin (Melatonin 3 Mg Tablet) 6 mg PO BEDTIME PRN PRN Reason: Insomnia Methadone HCl (Methadone Hcl 20 Mg/2 Ml Oral.Conc) 80 mg PO DAILY [facility] Oxycodone HCl (Oxycodone Hcl Immed Release 5 Mg Tablet) 5 mg PO Q6H PRN PRN Reason: Pain, Moderate(Pain Scale 4-6) Pharmacy Consult (Consult Rx Vancomycin Dosing) 1 each MISCELLANE DAILY PRN PRN Reason: Consult order Sodium Chloride (0.9 % Sodium Chloride Flush 3 Ml Syringe) 3 ml IVFLUSH QSHIFT [facility] Home Medications ?Medication ?Instructions ?Recorded ?Confirmed ?Last Taken ?Type methadone 10 mg/mL oral 80 mg PO DAILY 11/18/24 11/18/24 11/18/24 06:32 History concentrate (Methadone Intensol) Physical Exam 2 Vital Signs: Vital Signs: Last Vital Signs Temp 99.3 F 11/18/24 14:00 Pulse 78 11/18/24 14:00 Resp 14 11/18/24 14:00 BP 107/67 11/18/24 14:00 Pulse Ox 97 11/18/24 14:00 O2 Del Method Room Air 11/18/24 14:00 BMI result Body Mass Index 18.3 Extrem: Other: Patient is alert, oriented, and in no acute distress. Neuro: Normal sensation of the tips of all digits of the right hand at this time Vascular: Cap refill brisk Pain: No visible signs of tenderness to palpation of the right hand ROM: Patient is able to get close to making a closed fist with the right hand Skin: There is noted to be an approximately 1 cm wound noted in the area of the 1st webspace of the dorsal right hand No active discharge at this time General: Significant erythema with associated what he edema noted of the dorsal aspect of the right hand Psych: Appears grossly normal Affect normal Attitude cooperative Results Labs 11/18/24 08:14 11/18/24 10:05 Labs: Abnormal lab results 11/18/24 11/18/24 11/18/24 Range/Units 08:14 08:16 09:16 Hct 36.1 L (37.0-47.0) % Plt Count 149 L (160-400) X10*3/uL Immature Gran % (Auto) 0.7 H (0.0-0.4) % Neut % (Auto) 86.6 H (45-73) % Lymph % (Auto) 8.1 L (20-40) % Lymph # (Auto) 0.9 L (1.2-4.9) X10*3/uL Abs Immat Gran (auto) 0.07 H (0.00-0.03) X10*3/uL Absolute Neuts (auto) 9.2 H (2.0-8.3) x10*3/uL ESR 85 H (0-20) MM/HR Sodium (135-145) mmol/L Total Bilirubin (0.0-1.0) mg/dL AST (5-31) U/L ALT (0-31) U/L C-Reactive Protein (< or = 0.50) mg/dL TSH (0.32-4.0) uIU/mL Urine Protein 30 (1+) H (Neg-Trace) mg/dL Ur Leukocyte Esterase Large (3+) H (Negative) Urine WBC >50 H (0-5) /HPF Urine Opiates Screen POSITIVE H (Not Detect) Urine Methadone Screen Positive H (Not Detect) ng/mL Urine Fentanyl Screen POSITIVE H (Not Detect) Urine Cocaine Screen POSITIVE H (Not Detect) 11/18/24 Range/Units 10:05 Hct (37.0-47.0) % Plt Count (160-400) X10*3/uL Immature Gran % (Auto) (0.0-0.4) % Neut % (Auto) (45-73) % Lymph % (Auto) (20-40) % Lymph # (Auto) (1.2-4.9) X10*3/uL Abs Immat Gran (auto) (0.00-0.03) X10*3/uL Absolute Neuts (auto) (2.0-8.3) x10*3/uL ESR (0-20) MM/HR Sodium 133 L (135-145) mmol/L Total Bilirubin 1.2 H (0.0-1.0) mg/dL AST 47 H (5-31) U/L ALT 47 H (0-31) U/L C-Reactive Protein 17.23 H (< or = 0.50) mg/dL TSH 5.46 H (0.32-4.0) uIU/mL Urine Protein (Neg-Trace) mg/dL Ur Leukocyte Esterase (Negative) Urine WBC (0-5) /HPF Urine Opiates Screen (Not Detect) Urine Methadone Screen (Not Detect) ng/mL Urine Fentanyl Screen (Not Detect) Urine Cocaine Screen (Not Detect) H & H 11/18/24 Range/Units 08:14 Hgb 12.1 (12.0-16.0) g/dl Hct 36.1 L (37.0-47.0) % All other labs normal. Assessment and Plan (1) Cellulitis of right hand: Status: Acute Plan 1. Cellulitis of right hand Patient is educated about this condition Patient was educated about the typical treatment course No acute orthopedic intervention indicated No surgical intervention indicated at this time Recommend admission to Medicine for IV antibiotics and pain management Orthopedics will sign off at this time, please re-consult with any concerns Procedures Date of Service Date of Service: 11/18/24
[2024-11-18 15:16] LABS: Free T4 (Free Thyroxine) 0.83 ng/dL (0.71-1.85)
[2024-11-18] MEDS: Indomethacin 25 MG CAPSULE PO ×2 (16:00→20:53)
[2024-11-18] MEDS: Enoxaparin Sodium 40 MG/0.4 ML SYRINGE SUBCUT (16:01)
[2024-11-18] MEDS: 0.9 % Sodium Chloride Flush 3 ML SYRINGE IVFLUSH (16:03)
--- NOTE | 2024-11-18 17:23 | PHA.MEDREC ---
Addendum entered by Oscar Feliz RPh 11/18/24 18:04: MED REC CHECKED BY [facility] Original Note: Pharmacy Consult ? Medication Reconciliation Pharmacy has completed the medication reconciliation. Patient was very drowsy. When asked if she takes methadone she nodded her head. When asked if she takes any other prescriptions or medications she shakes her head no. There is no claim history. Called [facility] and [facility], they both verified no history for her.
[2024-11-18 19:17] LABS: Lactic Acid 0.5 mmol/L (0.5-2.0)
--- NOTE | 2024-11-18 20:55 | PC.NURSE ---
Patient is alert and oriented x4, able to make her needs know, VSS. Patient complaints of 9/10 pain in lower back. Right hand and right foot/lower leg remain with erythema, edematous, warm to touch.Patient medicated with Indocin 25 mg PO, effect pending. Zosyn 4.5 gM IV started, infusing via 20 G in R upper arm, patient tolerating well, no adverse reactions noted. Patient currently resting in stretcher bed, dinner tray provided to patient, call pascal in patient's reach.
[2024-11-19] MEDS: 0.9 % Sodium Chloride Flush 3 ML SYRINGE IVFLUSH ×3 (02:02→14:56)
[2024-11-19] MEDS: vancomycin HCL 1,000 MG in 0.9 % Sodium Chloride 250 ML 270 MG IV ×2 (02:02→12:59)
[2024-11-19 02:06] VITALS: BP 99/61; PULSE 54; RESP 12; TEMP 36.7; O2SAT 97
[2024-11-19] MEDS: Piperacillin Sodium/Tazobactam 4.5 GM in 0.9 % Sodium Chloride 100 ML IV ×3 (03:13→19:33)
[2024-11-19 05:26] LABS: HBS Num1 0.26 mIU/mL (0-7.99); HBc Num1 0.25 S/CO (0.00-0.79); HBsAGNum1 0.29 S/CO (0.00-0.99); HIV AB/AG Nonreactive (Nonreactive); HIV Num 1 0.11 S/CO (0.00-0.99); Hepatitis B Core Antibody Nonreactive (Nonreactive); Hepatitis B Surface Antigen Negative (Negative); ~HepC Num1 11.09 S/CO (0.00-0.79); ~Hepatitis B Surface Antibody NONREACTIVE (Nonreactive); ~Hepatitis C Antibody Reactive (Nonreactive)
--- NOTE | 2024-11-19 07:00 | CA_ITS ---
Transthoracic Echocardiogram Patient (Last, First, Middle): Janell Ayala, Gender: Female Date of : 1990 Age: 34 Procedure Date: 11/19/2024 Procedure Type: Transthoracic Echocardiogram Location: [facility] – [place] Height: 165.1 cm Weight: 49.9 kg BSA: 1.53 m2 Heart Rate: bpm BP: 99 / 61 mmHg Sorority Mother: TO Referring MD: Markell Dutta MD Artist Consultant: Marc Manzo MD Symptoms: Bacteremia, IVDU to r o vegetations Study Quality: Fair ECG Rhythm: Sinus Conclusions: - Essentially normal study without any obvious evidence of vegetations Findings Left Ventricle Normal left ventricular size, thickness, and systolic function. The visually estimated ejection fraction is between 60-65%. Spectral Doppler is indicative of a normal filling pattern. Right Ventricle Normal right ventricular cavity size and systolic function. Atria Both atria are normal in size. There is no evidence of interatrial shunt. Aortic Valve Normal aortic valve structure and function. There is no aortic valve stenosis. There is no aortic valve regurgitation. Mitral Valve Normal mitral valve structure and function. There is trace mitral valve regurgitation. There is no mitral valve stenosis. Pulmonic Valve The pulmonic valve is likely normal. Tricuspid Valve Normal tricuspid valve structure. There is trace tricuspid valve regurgitation. The right ventricular systolic pressure is normal. The right ventricular systolic pressure is 18 mmHg. Normal right atrial pressure. There is no evidence of pulmonary hypertension. Great Vessels All visible segments of the aorta are normal in size. The pulmonary artery was not well visualized. Pericardium/Pleural There is no evidence of pericardial effusion. Measurements 2D Linear Measurements IVSd: 0.70 0.6-0.9/0.6-1.0 cm LVIDd: 4.72 3.9-5.3/4.2-5.9 cm LVIDd Index: 3.08 2.4-3.2/2.2-3.1 cm/m2 LVIDs: 3.10 2.0-3.6 cm LVPWd: 0.66 0.7-1.1 cm LA Diam: 2.90 2.7-3.8/3.0-4.0 cm LAIDs Index: 1.90 1.5-2.3 cm/m2 LV Mass: 124.39 67-162/88-224 g LV Mass Index: 81.30 43-95/49-115 g/m2 LVOT Diam: 1.90 3.0+(-)1.3 cm 2D Systolic Function EF 4C: 57.40 >55% EF 2C: 67.80 >55% EF BiP: 63.90 >55% Mitral Valve MV Pk E: 1.03 MV PK A: 0.58 MV Decel Time: 204.00 E/A: 1.80 E'Lateral: 12.90 E'Medial: 9.14 E/E' Med: 11.30 E/E' Lat: 8.00 PHT: 60.00 MVA PHT: 3.67 Decel Reynolds: 5.08 Aortic Valve AoV Pk Jaylon: 1.65 AoV Mn Jaylon: 1.18 AoV VTI: 0.35 AoV Pk Grad: 11.00 Aov Mn Grad: 6.00 MADI Cont.VTI: 2.05 LVOT LVOT Pk Jaylon: 1.26 LVOT Mn Jaylon: 0.86 LVOT VTI: 0.25 LVOT Pk Grad: 6.00 LVOT Mn Grad: 3.00 LVOT Diam: 1.90 LVOT Area: 2.84 Diastolic Function MV Pk E: 1.03 MV Pk A: 0.58 E/A: 1.80 E'Medial: 9.14 E/E' Med: 11.30 E' Laterial: 12.90 E/E' Lat: 8.00 Right Ventricle TAPSE (mm): 21.00 TVS' Jaylon: 14.00 Tricuspid Valve TR Pk Jaylon: 1.94 TR Pk Grad: 15.00 RA Press: 3.00 RVSP: 18.00 Great Vessels Aorta Ao Asc: 3.00 2.1-3.4 cm Ao Arch: 2.50 Updated in Other Vendor System with Status of Final Marc Manzo MD electronically signed on 11/19/2024 3:45:01 PM with status of Final
[2024-11-19 07:30] VITALS: BP 110/76; PULSE 75; RESP 18; TEMP 36.5; O2SAT 98
[2024-11-19] MEDS: Indomethacin 25 MG CAPSULE PO ×3 (10:33→21:32)
[2024-11-19] MEDS: methADONE HCl 20 MG/2 ML ORAL.CONC 80 MG PO (10:34)
--- NOTE | 2024-11-19 11:09 | PC.NURSE ---
Patient arrived to med surg unit ~0730, pt drowsy/lethargic, not able to answer all admission questions at this time - pt able to stand and pivot from stretcher to bed, resting comfortably, VSS, wakes to verbal stimuli and light touch
[2024-11-19 11:32] LABS: MANUAL DIFF FLAG NO
[2024-11-19 11:36] LABS: Basophils Percent Auto 0.3 % (0-2); Eosinophils Percent Auto 0.1 % (0-4); Hematocrit 32.9 % (37.0-47.0); Imm Gran Abs Auto 0.05 X10*3/uL (0.00-0.03); Imm Gran Pct Auto 0.6 % (0.0-0.4); Lymphocytes Absolute Auto 0.7 X10*3/uL (1.2-4.9); Lymphocytes Percent Auto 8.5 % (20-40); Mean Corpuscular HGB Conc 33.4 g/dl (31.0-35.0); Mean Corpuscular Hemoglobin 28.8 pg (27.0-33.0); Mean Corpuscular Volume 86.1 fL (80.0-98.0); Mean Platelet Volume 9.8 fL (9.4-12.3); Monocytes Absolute Auto 0.4 X10*3/uL (0.1-1.2); Monocytes Percent Auto 4.4 % (2-11); Neutrophils Absolute Auto 6.8 x10*3/uL (2.0-8.3); Neutrophils Percent Auto 86.1 % (45-73); Platelet Count 179 X10*3/uL (160-400); Red Blood Count 3.82 X10*6/uL (4.20-5.50); Red Cell Distribution Width 14.6 % (11.0-16.0); White Blood Count 7.9 X10*3/uL (4.8-10.8)
--- NOTE | 2024-11-19 11:50 | P.PNIM_ITS ---
Subjective Subjective Date of Service: 11/19/24 Interval History: Seen and evaluated this morning sleepy and reporting beind tired blood cultures positive for GPC no other events Review of Systems Review of Systems: Yes all other systems are reviewed and are negative Physical Exam 2 Vital Signs: Vital Signs: Last Vital Signs Temp 97.7 F 11/19/24 07:30 Pulse 75 11/19/24 07:30 Resp 18 11/19/24 07:30 BP 110/76 11/19/24 07:30 Pulse Ox 98 11/19/24 07:30 O2 Del Method Room Air 11/19/24 07:30 BMI result Body Mass Index 18.3 Const: Other: Constitutional : Awake, interactive, not in distress Neck : Normal inspection, Supple Cardiovascular : RRR, no JVP, no lower extremity edema Respiratory : good bilateral air entry, no crackles, wheezes or rhonchi Gastrointestinal: soft, lax, Normal bowel sounds, Non tender Skin : Warm, Dry, dorsum of right hand erythema and swelling with warmth and tenderness. Right foot with erythema and warmth over the dorsum part extending to the ankle Neurological : Alert & oriented x3, No focal deficit , CN 2-12 within normal Objective Data Active Medications Acetaminophen (Acetaminophen 325 Mg Tablet) 650 mg PO Q6H PRN PRN Reason: Pain, Mild 1-3,fever,headache Last Admin: 11/18/24 16:03 Dose: 650 mg Documented By: JASE Calcium Carbonate (Calcium Carbonate 750 Mg Tab.Chew) 750 mg PO Q4H PRN PRN Reason: Heartburn Enoxaparin Sodium (Enoxaparin Sodium 40 Mg/0.4 Ml Syringe) 40 mg SUBCUT Q24H [facility] Last Admin: 11/18/24 16:01 Dose: 40 mg Documented By: JASE Hydromorphone HCl (Hydromorphone Hcl 0.5 Mg/0.5 Ml Syringe) 0.5 mg IVPUSH Q4H PRN; Protocol PRN Reason: Pain, Severe (Pain Scale 7-10) Piperacillin Sod/Tazobactam (Sod 4.5 gm/ Sodium Chloride) 100 mls @ 200 mls/hr IV Q6H [facility] Last Infusion: 11/19/24 03:45 Dose: Infused Documented By: YANIV Vancomycin HCl 1,000 mg/ (Sodium Chloride) 270 mls @ 270 mls/hr IV Q12H [facility] Last Infusion: 11/19/24 03:03 Dose: Infused Documented By: YANIV Indomethacin (Indomethacin 25 Mg Capsule) 25 mg PO TID [facility] Last Admin: 11/19/24 10:33 Dose: 25 mg Documented By: WANDER Magnesium Hydroxide (Milk Of Magnesia 30 Ml Oral.Susp) 30 ml PO DAILY PRN PRN Reason: Constipation Melatonin (Melatonin 3 Mg Tablet) 6 mg PO BEDTIME PRN PRN Reason: Insomnia Methadone HCl (Methadone Hcl 20 Mg/2 Ml Oral.Conc) 80 mg PO DAILY [facility] Last Admin: 11/19/24 10:34 Dose: 80 mg Documented By: WANDER Co-signed By: MARLIN Oxycodone HCl (Oxycodone Hcl Immed Release 5 Mg Tablet) 5 mg PO Q6H PRN PRN Reason: Pain, Moderate(Pain Scale 4-6) Pharmacy Consult (Consult Rx Vancomycin Dosing) 1 each MISCELLANE DAILY PRN PRN Reason: Consult order Sodium Chloride (0.9 % Sodium Chloride Flush 3 Ml Syringe) 3 ml IVFLUSH QSHIFT [facility] Last Admin: 11/19/24 09:06 Dose: 3 ml Documented By: WANDER Labs 11/19/24 11:25 11/18/24 10:05 Labs: Laboratory Results - last 24 hr 11/18/24 11/18/24 11/18/24 10:05 15:06 18:56 MCV MCH MCHC RDW Plt Count MPV Immature Gran % (Auto) Neut % (Auto) Lymph % (Auto) [place] % (Auto) Eos % (Auto) Baso % (Auto) Lymph # (Auto) [place] # (Auto) Eos # (Auto) Baso # (Auto) Abs Immat Gran (auto) Absolute Neuts (auto) Absolute Nucleated RBC Nucleated RBC % (auto) Lactic Acid 0.5 TSH 5.46 H Free T4 0.83 Hep Bs Antigen Negative Hep Bs Antibody NONREACTIVE Hep B Core Total Ab Nonreactive Hepatitis C Ab (EIA) Reactive H HIV 1&2 Ab/P24 Ag 4thGn Nonreactive 11/19/24 11:25 MCV 86.1 MCH 28.8 MCHC 33.4 RDW 14.6 Plt Count 179 MPV 9.8 Immature Gran % (Auto) 0.6 H Neut % (Auto) 86.1 H Lymph % (Auto) 8.5 L [place] % (Auto) 4.4 Eos % (Auto) 0.1 Baso % (Auto) 0.3 Lymph # (Auto) 0.7 L [place] # (Auto) 0.4 Eos # (Auto) 0.0 Baso # (Auto) 0.0 Abs Immat Gran (auto) 0.05 H Absolute Neuts (auto) 6.8 Absolute Nucleated RBC 0.000 Nucleated RBC % (auto) 0.0 Lactic Acid TSH Free T4 Hep Bs Antigen Hep Bs Antibody Hep B Core Total Ab Hepatitis C Ab (EIA) HIV 1&2 Ab/P24 Ag 4thGn Microbiology Microbiology Results: Microbiology 11/18/24 10:05 Urine Culture - Final Urine clean catch - Clean Catch Midstream 11/18/24 08:16 Blood Culture - Preliminary Blood - Venous Prelim: GPC Gram Stain only 11/18/24 08:14 Blood Culture - Preliminary Blood - Venous Prelim: GPC Gram Stain only Assessment and Plan (1) Cellulitis of right foot: Status: Acute (2) Acute osteomyelitis of lumbar spine: Status: Acute (3) Toxic metabolic encephalopathy: Status: Acute (4) Polysubstance abuse: Status: Acute (5) Bacteremia: Status: Acute Plan 33 year old female with history of graves disease, history of hep c (unclear if treated), and polysubstance abuse admitted for further management of cellulitis of the hand and osteomyelitis lumbar spine sepsis 2/2 GPC Bacteremia with Acute cellulitis R hand recent injection into dorsum R hand repeat blood cultures 11/19 continue IV vano and zosyn pain management prn ortho consult recommended Abx treatment, no intervention needed at this point check Echo Acute osteomyelitis lumbar spine MRI lumbar spine concerning for osteomyelitis without abscess phlegmon or epidural abscess at L2-L3 IV vancomycin and Zosyn (initiated 11/18) Pain management p.r.n. Infectious disease consult Follow cultures Bacteruria No growth in Cx. bilateral joint pain could be 2/2 Inflammatory arthropathy Indomethacin 25mg TID Multilevel spondylosis with central canal stenosis based on MRI finding outpt follow up. pain management as above Polysubstance/IVDA Continue methadone Addiction med consult Chronic hepatitis C, noticed back in 2023, will need outpatient treatment viral load pending Transaminitits chronic, r/t liver disease/hepatitis Hx Graves Exopthalmos present mildly elevated TSH w/ normal free t4 dvt prophylaxis- lovenox full code pt requires inpt stay overnight for management of GPC bacteremia r/t ivda and osteomyelitis of the hand requiring iv abx, close monitoring of cultures, and expert consultation Quality Stroke Does the patient have a stroke diagnosis?: No VTE Prior VTE?: No VTE Risk Level:: Medical - moderate - high VTE Device Contraindication: Treatment Not Indicated VTE Drug Contraindication: N/A - Med Ordered
[2024-11-19 11:56] LABS: Anion Gap 14 (12-20); Blood Urea Nitrogen 14 mg/dL (9-16); Calcium 9.4 mg/dL (8.4-10.2); Carbon Dioxide 25 mmol/L (22-29); Chloride 104 mmol/L (96-108); Creatinine Clr Calc Pharmacy 98.4; Estimated Glomerular Filt Rate > 60; Glucose Random 90 mg/dL (60-115); Potassium 3.3 mmol/L (3.3-5.1); Sodium 140 mmol/L (135-145)
[2024-11-19 12:05] VITALS: BMI 19.5
[2024-11-19 12:46] LABS: Vancomycin Random 10.6 mcg/mL (15-20)
--- NOTE | 2024-11-19 12:52 | HE.PHANOTE ---
Re: [place] Good renal function, however there was a large decline from 11/18 to 11/19. Trough was pulled late, and took a long time to receive the results of the law draw. Trough returned at 10.6. Continue current dose of 1,000mg q12h with predicted AUC 491, predicted trough 13.5. Next trough 11/20 @ 1000.
[2024-11-19] MEDS: Enoxaparin Sodium 40 MG/0.4 ML SYRINGE SUBCUT (12:59)
[2024-11-19 15:11] VITALS: BP 106/66; PULSE 69; RESP 17; TEMP 36.4; O2SAT 98
--- NOTE | 2024-11-19 15:53 | PM.EVENT ---
Event Note Date of Service: 11/19/24 Event Note: Addiction consult placed for patient with OUD medically admitted with osteo of the spine Attempted to meet with patient, however she is very tired and asks to meet again later. She denies any withdrawal sx, but is endorsing pain in her back. Plan: will follow up in AM has methadone and PRN medications ordered Time Spent With Patient Time: Total time managing care of this patient today ____ minutes.
[2024-11-19 19:09] VITALS: BP 91/54; PULSE 54; RESP 17; TEMP 36; O2SAT 99
--- NOTE | 2024-11-19 23:48 | PC.NURSE ---
This nurse assumed care at 1900. Patient very drowsy, easily arousable. POC checked just to make sure patient is not hypoglycemic and it was 100.
--- NOTE | 2024-11-19 23:48 | W.PM.IDCN ---
History of Present Illness Data of Consult Service Date: 11/18/24 Requesting physician: Markell Dutta Primary Care Provider: Unknown Physician HPI Reason for consult: sepsis,OM LS spine She presents to ER with one week 9/10 pain LS spine. She had no fever or chills She shoots heroin usually into hand there. She has IVDU Review of Systems Review of Systems: Yes Unobtainable due to mental condition PMFSH Past Medical History Medical History HCV (hepatitis C virus) Drug abuse Opiate addiction Graves disease Family History Family history: reviewed and not pertinent Social History Social History Household Members: Unknown / Unable to assess Housing: Unknown / Unable to assess Unable to assess alcohol history related to: Unknown Alcohol intake: unknown Comment: ashwin Patient Tobacco Use Status: Tobacco use Unknown Tobacco use type: Cigarette Cigarettes Per Day: 5 Second Hand Smoke Exposure: No Substance Use Type: Crack/Cocaine, Heroin, IV Drugs and Opiates service: No Current occupational status: unemployed Meds Allergies Allergy/AdvReac Type Severity Reaction Status Date / Time No Known Allergies Allergy Verified 11/18/24 07:38 [No Known Allergies*] Active Medications: Current Medications Acetaminophen (Acetaminophen 325 Mg Tablet) 650 mg PO Q6H PRN PRN Reason: Pain, Mild 1-3,fever,headache Last Admin: 11/18/24 16:03 Dose: 650 mg Calcium Carbonate (Calcium Carbonate 750 Mg Tab.Chew) 750 mg PO Q4H PRN PRN Reason: Heartburn Enoxaparin Sodium (Enoxaparin Sodium 40 Mg/0.4 Ml Syringe) 40 mg SUBCUT Q24H [facility] Last Admin: 11/19/24 12:59 Dose: 40 mg Hydromorphone HCl (Hydromorphone Hcl 0.5 Mg/0.5 Ml Syringe) 0.5 mg IVPUSH Q4H PRN; Protocol PRN Reason: Pain, Severe (Pain Scale 7-10) Vancomycin HCl 1,000 mg/ (Sodium Chloride) 270 mls @ 270 mls/hr IV Q12H [facility] Last Infusion: 11/19/24 14:06 Dose: Infused Indomethacin (Indomethacin 25 Mg Capsule) 25 mg PO TID [facility] Last Admin: 11/19/24 21:32 Dose: 25 mg Magnesium Hydroxide (Milk Of Magnesia 30 Ml Oral.Susp) 30 ml PO DAILY PRN PRN Reason: Constipation Melatonin (Melatonin 3 Mg Tablet) 6 mg PO BEDTIME PRN PRN Reason: Insomnia Methadone HCl (Methadone Hcl 20 Mg/2 Ml Oral.Conc) 80 mg PO DAILY [facility] Last Admin: 11/19/24 10:34 Dose: 80 mg Oxycodone HCl (Oxycodone Hcl Immed Release 5 Mg Tablet) 5 mg PO Q6H PRN PRN Reason: Pain, Moderate(Pain Scale 4-6) Pharmacy Consult (Consult Rx Vancomycin Dosing) 1 each MISCELLANE DAILY PRN PRN Reason: Consult order Sodium Chloride (0.9 % Sodium Chloride Flush 3 Ml Syringe) 3 ml IVFLUSH QSHIFT [facility] Last Admin: 11/19/24 14:56 Dose: 3 ml Home Medications ?Medication ?Instructions ?Recorded ?Confirmed ?Last Taken ?Type methadone 10 mg/mL oral 80 mg PO DAILY 11/18/24 11/18/24 11/18/24 06:32 History concentrate (Methadone Intensol) Physical Exam Vital Signs: Vital Signs: Last Vital Signs Temp 96.8 F 11/19/24 19:09 Pulse 54 11/19/24 19:09 Resp 17 11/19/24 19:09 BP 91/54 L 11/19/24 19:09 Pulse Ox 99 11/19/24 19:09 O2 Del Method Room Air 11/19/24 19:09 BMI result Body Mass Index 19.5 Const: General: cooperative HEENT: Head: Yes normal to inspection Face and sinus: Yes normal facial exam Mouth: Normal oral and palatal mucosa present Teeth and gingiva: dentition normal Eyes: General: appearance normal, both eyes and all related structures Pupils: Equal, round and reactive pupils present Resp: Effort & Inspection: normal respiratory effort Cardio: Rate: regular rate Rhythm: regular rhythm GI: Palpation (GI): Soft to palpation and nontender : General: Yes no CVA tenderness Back/Spine/Pelvis: Back: no CVA tenderness Skin: General skin exam: no rashes or lesions noted Neuro: General: moves all extremities Cranial nerves: Yes Equal, round and reactive pupils present Extrem: General: Yes normal to inspection Psych: Other: somnolen Results Labs 11/19/24 11:25 11/19/24 11:25 Labs: Short CBC 11/19/24 Range/Units 11:25 WBC 7.9 (4.8-10.8) X10*3/uL Hgb 11.0 L (12.0-16.0) g/dl Hct 32.9 L (37.0-47.0) % Plt Count 179 (160-400) X10*3/uL BMP 11/19/24 11:25 Sodium 140 Potassium 3.3 Chloride 104 Carbon Dioxide 25 BUN 14 Creatinine 0.64 Calcium 9.4 D Microbiology Microbiology Results: Microbiology 11/18/24 08:16 Blood - Venous Blood Culture - Preliminary Prelim: GPC Gram Stain only 11/18/24 10:05 Urine clean catch - Clean Catch Midstream Urine Culture - Final 11/18/24 08:14 Blood - Venous Blood Culture - Preliminary Prelim: GPC Gram Stain only Assessment and Plan (1) Bacteremia: Status: Acute (2) Cellulitis of right foot: Status: Acute (3) Cellulitis of right hand: Status: Acute (4) Acute osteomyelitis of lumbar spine: Status: Acute Plan Gram positive bacteremian,possible staph or strep OM consequence IVDU. Probably 6 weeks Vancomycin or Daptomycin Echo unremarkable.
[2024-11-20] MEDS: vancomycin HCL 1,000 MG in 0.9 % Sodium Chloride 250 ML 270 MG IV (00:17)
[2024-11-20 03:18] VITALS: BP 115/69; PULSE 61; RESP 17; TEMP 36.3; O2SAT 98
[2024-11-20] MEDS: oxyCODONE HCl Immed Release 5 MG TABLET PO ×2 (04:21→13:55)
[2024-11-20 04:48] LABS: Glucose, Whole Blood 100 mg/dL (60-115)
[2024-11-20] MEDS: HYDROmorphone HCl 0.5 MG/0.5 ML SYRINGE IVPUSH ×2 (05:14→14:45)
[2024-11-20] MEDS: methADONE HCl 20 MG/2 ML ORAL.CONC 80 MG PO (06:19)
[2024-11-20 08:00] VITALS: BP 123/74; PULSE 74; RESP 14; TEMP 37.1; O2SAT 95
[2024-11-20] MEDS: Indomethacin 25 MG CAPSULE PO ×3 (08:16→20:39)
--- NOTE | 2024-11-20 09:29 | P.PNIM_ITS ---
Subjective Subjective Date of Service: 11/20/24 Interval History: no new complaints Physical Exam 2 Vital Signs: Vital Signs: Last Vital Signs Temp 98.7 F 11/20/24 08:00 Pulse 74 11/20/24 08:00 Resp 14 11/20/24 08:00 BP 123/74 11/20/24 08:00 Pulse Ox 95 11/20/24 08:00 O2 Del Method Room Air 11/20/24 08:00 BMI result Body Mass Index 19.5 Const: Other: Constitutional : Awake, interactive, not in distress Neck : Normal inspection, Supple Cardiovascular : RRR, no JVP, no lower extremity edema Respiratory : good bilateral air entry, no crackles, wheezes or rhonchi Gastrointestinal: soft, lax, Normal bowel sounds, Non tender Skin : Warm, Dry, dorsum of right hand erythema and swelling with warmth and tenderness. Right foot with erythema and warmth over the dorsum part extending to the ankle Neurological : Alert & oriented x3, No focal deficit , CN 2-12 within normal Objective Data Active Medications Acetaminophen (Acetaminophen 325 Mg Tablet) 650 mg PO Q6H PRN PRN Reason: Pain, Mild 1-3,fever,headache Last Admin: 11/18/24 16:03 Dose: 650 mg Documented By: JASE Calcium Carbonate (Calcium Carbonate 750 Mg Tab.Chew) 750 mg PO Q4H PRN PRN Reason: Heartburn Enoxaparin Sodium (Enoxaparin Sodium 40 Mg/0.4 Ml Syringe) 40 mg SUBCUT Q24H [facility] Last Admin: 11/19/24 12:59 Dose: 40 mg Documented By: WANDER Hydromorphone HCl (Hydromorphone Hcl 0.5 Mg/0.5 Ml Syringe) 0.5 mg IVPUSH Q4H PRN; Protocol PRN Reason: Pain, Severe (Pain Scale 7-10) Last Admin: 11/20/24 05:14 Dose: 0.5 mg Documented By: GLORIA Vancomycin HCl 1,000 mg/ (Sodium Chloride) 270 mls @ 270 mls/hr IV Q12H [facility] Last Infusion: 11/20/24 01:17 Dose: Infused Documented By: GLORIA Indomethacin (Indomethacin 25 Mg Capsule) 25 mg PO TID [facility] Last Admin: 11/20/24 08:16 Dose: 25 mg Documented By: FABIOLA Magnesium Hydroxide (Milk Of Magnesia 30 Ml Oral.Susp) 30 ml PO DAILY PRN PRN Reason: Constipation Melatonin (Melatonin 3 Mg Tablet) 6 mg PO BEDTIME PRN PRN Reason: Insomnia Methadone HCl (Methadone Hcl 20 Mg/2 Ml Oral.Conc) 80 mg PO DAILY [facility] Last Admin: 11/20/24 06:19 Dose: 80 mg Documented By: GLORIA Co-signed By: JOSE Oxycodone HCl (Oxycodone Hcl Immed Release 5 Mg Tablet) 5 mg PO Q6H PRN PRN Reason: Pain, Moderate(Pain Scale 4-6) Last Admin: 11/20/24 04:21 Dose: 5 mg Documented By: GLORIA Pharmacy Consult (Consult Rx Vancomycin Dosing) 1 each MISCELLANE DAILY PRN PRN Reason: Consult order Sodium Chloride (0.9 % Sodium Chloride Flush 3 Ml Syringe) 3 ml IVFLUSH QSHIFT [facility] Last Admin: 11/20/24 08:21 Dose: Not Given Documented By: FABIOLA Non-Admin Reason: Patient Asleep Labs 11/19/24 11:25 11/19/24 11:25 Labs: Laboratory Results - last 24 hr 11/19/24 11/19/24 11:25 21:31 MCV 86.1 MCH 28.8 MCHC 33.4 RDW 14.6 Plt Count 179 MPV 9.8 Immature Gran % (Auto) 0.6 H Neut % (Auto) 86.1 H Lymph % (Auto) 8.5 L [place] % (Auto) 4.4 Eos % (Auto) 0.1 Baso % (Auto) 0.3 Lymph # (Auto) 0.7 L [place] # (Auto) 0.4 Eos # (Auto) 0.0 Baso # (Auto) 0.0 Abs Immat Gran (auto) 0.05 H Absolute Neuts (auto) 6.8 Absolute Nucleated RBC 0.000 Nucleated RBC % (auto) 0.0 Anion Gap 14 Estim Creat Clear Calc 98.4 Estimated GFR > 60 POC Glucose 100 Random Glucose 90 Calcium 9.4 D Random Vancomycin 10.6 L Microbiology Microbiology Results: Microbiology 11/18/24 08:16 Blood Culture - Preliminary Blood - Venous Prelim: GPC Gram Stain only 11/18/24 10:05 Urine Culture - Final Urine clean catch - Clean Catch Midstream 11/18/24 08:14 Blood Culture - Preliminary Blood - Venous Prelim: GPC Gram Stain only Assessment and Plan (1) Cellulitis of right foot: Status: Acute (2) Acute osteomyelitis of lumbar spine: Status: Acute (3) Toxic metabolic encephalopathy: Status: Acute (4) Polysubstance abuse: Status: Acute (5) Bacteremia: Status: Acute Plan 33F PMH graves disease, history of hep c (unclear if treated), and polysubstance abuse admitted for further management of cellulitis of the hand and osteomyelitis lumbar spine sepsis 2/2 MRSA Bacteremia with Acute cellulitis R hand and osteomyelitis of lumbar spine without abscess follow up repeat blood cultures 11/19 plan for 6 weeks iv vanc or dapto (potential end date december 30, 2024) pain management ortho consult recommended Abx treatment, no intervention needed at this point echo unremarkable Bacteruria No growth in Cx. bilateral joint pain could be 2/2 Inflammatory arthropathy Indomethacin 25mg TID Multilevel spondylosis with central canal stenosis based on MRI finding outpt follow up. pain management as above Polysubstance/IVDA Continue methadone Addiction med following Chronic hepatitis C, noticed back in 2023, will need outpatient treatment viral load pending Transaminitits chronic, r/t liver disease/hepatitis Hx Graves Exopthalmos present mildly elevated TSH w/ normal free t4 dvt prophylaxis- lovenox full code reason for continued hospitalization:awaiting cultures Quality Stroke Does the patient have a stroke diagnosis?: No VTE Prior VTE?: No VTE Risk Level:: Medical - moderate - high VTE Device Contraindication: Treatment Not Indicated VTE Drug Contraindication: N/A - Med Ordered
[2024-11-20 10:28] LABS: MANUAL DIFF FLAG NO
[2024-11-20 10:33] LABS: Basophils Percent Auto 0.2 % (0-2); Eosinophils Absolute Auto 0.1 X10*3/uL (0.0-0.4); Eosinophils Percent Auto 0.9 % (0-4); Hematocrit 29.6 % (37.0-47.0); Hemoglobin 9.8 g/dl (12.0-16.0); Imm Gran Abs Auto 0.04 X10*3/uL (0.00-0.03); Imm Gran Pct Auto 0.6 % (0.0-0.4); Lymphocytes Absolute Auto 0.8 X10*3/uL (1.2-4.9); Mean Corpuscular HGB Conc 33.1 g/dl (31.0-35.0); Mean Corpuscular Hemoglobin 28.4 pg (27.0-33.0); Mean Corpuscular Volume 85.8 fL (80.0-98.0); Mean Platelet Volume 9.6 fL (9.4-12.3); Monocytes Absolute Auto 0.5 X10*3/uL (0.1-1.2); Monocytes Percent Auto 7.7 % (2-11); Neutrophils Absolute Auto 4.9 x10*3/uL (2.0-8.3); Neutrophils Percent Auto 77.6 % (45-73); Platelet Count 151 X10*3/uL (160-400); Red Blood Count 3.45 X10*6/uL (4.20-5.50); Red Cell Distribution Width 14.2 % (11.0-16.0); White Blood Count 6.4 X10*3/uL (4.8-10.8)
[2024-11-20 10:46] LABS: Anion Gap 10 (12-20); Blood Urea Nitrogen 14 mg/dL (9-16); Calcium 8.5 mg/dL (8.4-10.2); Carbon Dioxide 30 mmol/L (22-29); Chloride 105 mmol/L (96-108); Estimated Glomerular Filt Rate > 60; Glucose Random 118 mg/dL (60-115); Potassium 3.4 mmol/L (3.3-5.1); Sodium 142 mmol/L (135-145)
--- NOTE | 2024-11-20 13:21 | MHC.RECOVRN ---
Attempted to meet with pt, however, she is very tired and asks to meet again later. Pt screens positive for AUDIT C, however, declines brief intervention due to reporting no alcohol use. Will continue to follow. Discussed with Miranda Rand APRN.
[2024-11-20] MEDS: vancomycin HCL 1,250 MG in 0.9 % Sodium Chloride 250 ML 166.67 MG IV ×2 (13:27→23:34)
--- NOTE | 2024-11-20 13:36 | MHC.CM.PN ---
pt not medically ready for dc bed search continues waitng cultures for id and will need picc line
[2024-11-20] MEDS: Enoxaparin Sodium 40 MG/0.4 ML SYRINGE SUBCUT (14:43)
[2024-11-20 15:40] VITALS: BP 133/85; PULSE 78; RESP 18; TEMP 37; O2SAT 99
[2024-11-20] MEDS: HYDROmorphone HCl 0.5 MG/0.5 ML SYRINGE 1 MG IVPUSH ×2 (16:09→18:57)
[2024-11-20] MEDS: 0.9 % Sodium Chloride Flush 3 ML SYRINGE IVFLUSH ×2 (16:14→23:34)
--- NOTE | 2024-11-20 16:41 | HO.WOUND ---
Wound Consult: Initial 34yr old?female admitted to [facility] on 11/18/24 - See progress notes and H&P for detailed history.? Wound consult placed for Right Hand.? Patient agreeable to assessment and photo documentation.? Patient reports the right foot was swollen - both lower legs, heels and feet were assessed - sacrum and coccyx area assessed no injury noted. Skin remains intact and WNL. The right hand she reports is from injections sites. At this time is requests no dressing change. Right Hand Etiology: Injection site ??Present on Admission Measurements: 4cm x 4cm x 0.2cm Wound Bed: scattered dry scabs with pigmentation changes noted Drainage / Odor: None noted Edges: ? irregular [place] wound: swelling noted ? No Induration, Fluctuance or Warmth noted Pain: pain reported Goals of Treatment: ? Recommend foam cover dressing to allow for autolytic debridement and protect from environment Recommendations: 1. Off Load all bony prominences with use of pillows and heel boots if needed.? Apply Preventative foams where needed. ? 2. Monitor for incontinence and moisture control, use barrier creams when needed for prevention and treatment. 3. Provide adequate and supplemental nutrition.? 4. When applicable maintain blood glucose levels per Providers order. 5. Right Hand - Cleanse with NS moist gauze, pat dry. Apply skin prep cover with foam dressing. Change every 3 days and PRN. Re-consult wound care Nurse for wound deterioration or wound changes.
--- NOTE | 2024-11-20 18:39 | PC.NURSE ---
Difficult to get pt pain under control - increasing Pain meds per MD. Pt 10/10 pain in her spine, in great distress. MD adjusting meds
[2024-11-20 19:38] VITALS: BP 128/91; PULSE 73; RESP 14; TEMP 37.8; O2SAT 97
[2024-11-20] MEDS: Acetaminophen 325 MG TABLET 650 MG PO (20:39)
[2024-11-21] MEDS: HYDROmorphone HCl 0.5 MG/0.5 ML SYRINGE 1 MG IVPUSH ×6 (02:35→23:18)
[2024-11-21 02:48] VITALS: BP 147/97; PULSE 73; RESP 18; TEMP 36.1; O2SAT 99
[2024-11-21] MEDS: Melatonin 3 MG TABLET 6 MG PO ×2 (03:19→20:35)
[2024-11-21] MEDS: oxyCODONE HCl Immed Release 5 MG TABLET PO (04:11)
[2024-11-21] MEDS: methADONE HCl 20 MG/2 ML ORAL.CONC 80 MG PO (06:37)
[2024-11-21] MEDS: 0.9 % Sodium Chloride Flush 3 ML SYRINGE IVFLUSH ×3 (07:48→20:36)
[2024-11-21] MEDS: Indomethacin 25 MG CAPSULE PO ×3 (07:49→20:35)
[2024-11-21 08:03] LABS: Hematocrit 31.8 % (37.0-47.0); Hemoglobin 10.4 g/dl (12.0-16.0); Mean Corpuscular HGB Conc 32.7 g/dl (31.0-35.0); Mean Corpuscular Volume 85.7 fL (80.0-98.0); Mean Platelet Volume 10.6 fL (9.4-12.3); Platelet Count 125 X10*3/uL (160-400); Red Blood Count 3.71 X10*6/uL (4.20-5.50); White Blood Count 6.8 X10*3/uL (4.8-10.8)
[2024-11-21 08:14] LABS: Anion Gap 12 (12-20); Blood Urea Nitrogen 7 mg/dL (9-16); Calcium 8.9 mg/dL (8.4-10.2); Carbon Dioxide 32 mmol/L (22-29); Chloride 100 mmol/L (96-108); Creatinine Clr Calc Pharmacy 108.6; Estimated Glomerular Filt Rate > 60; Glucose Random 107 mg/dL (60-115); Potassium 3.1 mmol/L (3.3-5.1); Sodium 141 mmol/L (135-145)
[2024-11-21 08:26] VITALS: BP 139/97; PULSE 79; RESP 18; TEMP 36.4; O2SAT 94
[2024-11-21] MEDS: Potassium Chloride ER 20 MEQ TAB.ER.PRT 40 MEQ PO (08:35)
--- NOTE | 2024-11-21 10:33 | HO.ADDICTCON ---
History of Present Illness Date of Service: 11/21/2024 Chief Complaint: Osteo Lumbar Spine, Cellulitis hand Reason for Consult: RUMA Sources of Information: patient interviewed and chart reviewed HPI Narrative: Patient is a 34 year old female with OUD medically admitted with osteo of the spine. Patient seen in room 372, she is laying in bed, eyes closed, but awake and engaged in interview. She appears weak, pale and uncomfortable. She is tearful, reporting pain in her back and occasionally her leg that shoots up to my neck Current methadone dose 80mg daily, via [facility] OTP Hep. C+ with VL, HIV - (most recent screen 11/19/24) Per ID, will require 6 weeks IV abx for osteomyelitis Review of Systems Constitutional: Reports as per HPI, Reports difficulty sleeping, Reports poor appetite and Reports weakness Musculoskeletal: Reports back pain and Reports radiating pain into limb Reports weakness Diagnostics Vital Signs (24Hr): Vital Signs - 24 hr 11/20/24 15:40 11/20/24 19:38 11/21/24 02:48 Temperature 98.6 F 100.0 F 97 F Pulse Rate 78 73 73 Respiratory Rate 18 14 18 Blood Pressure 133/85 128/91 H 147/97 H Pulse Oximetry 99 97 99 Oxygen Delivery Method Room Air Room Air Room Air 11/21/24 08:26 Temperature 97.6 F Pulse Rate 79 Respiratory Rate 18 Blood Pressure 139/97 H Pulse Oximetry 94 Oxygen Delivery Method Room Air BMI result Body Mass Index 19.5 Labs 11/21/24 07:56 11/21/24 07:56 Labs: Laboratory Results - last 48 hr 11/19/24 11/19/24 11/20/24 11:25 21:31 10:13 WBC 7.9 6.4 RBC 3.82 L 3.45 L Hgb 11.0 L 9.8 L Hct 32.9 L 29.6 L MCV 86.1 85.8 MCH 28.8 28.4 MCHC 33.4 33.1 RDW 14.6 14.2 Plt Count 179 151 L MPV 9.8 9.6 Immature Gran % (Auto) 0.6 H 0.6 H Neut % (Auto) 86.1 H 77.6 H Lymph % (Auto) 8.5 L 13.0 L [place] % (Auto) 4.4 7.7 Eos % (Auto) 0.1 0.9 Baso % (Auto) 0.3 0.2 Lymph # (Auto) 0.7 L 0.8 L [place] # (Auto) 0.4 0.5 Eos # (Auto) 0.0 0.1 Baso # (Auto) 0.0 0.0 Abs Immat Gran (auto) 0.05 H 0.04 H Absolute Neuts (auto) 6.8 4.9 Absolute Nucleated RBC 0.000 0.000 Nucleated RBC % (auto) 0.0 0.0 Sodium 140 142 Potassium 3.3 3.4 Chloride 104 105 Carbon Dioxide 25 30 H Anion Gap 14 10 L BUN 14 14 Creatinine 0.64 0.60 Estim Creat Clear Calc 98.4 105.0 Estimated GFR > 60 > 60 POC Glucose 100 Random Glucose 90 118 H Calcium 9.4 D 8.5 D Random Vancomycin 10.6 L 10.0 L 11/21/24 07:56 WBC 6.8 RBC 3.71 L Hgb 10.4 L Hct 31.8 L MCV 85.7 MCH 28.0 MCHC 32.7 RDW 14.0 Plt Count 125 L MPV 10.6 Immature Gran % (Auto) Neut % (Auto) Lymph % (Auto) [place] % (Auto) Eos % (Auto) Baso % (Auto) Lymph # (Auto) [place] # (Auto) Eos # (Auto) Baso # (Auto) Abs Immat Gran (auto) Absolute Neuts (auto) Absolute Nucleated RBC 0.000 Nucleated RBC % (auto) 0.0 Sodium 141 Potassium 3.1 L Chloride 100 Carbon Dioxide 32 H Anion Gap 12 BUN 7 L Creatinine 0.58 Estim Creat Clear Calc 108.6 Estimated GFR > 60 POC Glucose Random Glucose 107 Calcium 8.9 Random Vancomycin Imaging Radiology Impressions: ITS Impressions Wrist X-Ray 11/18/24 07:34 IMPRESSION: Marked dorsal soft tissue swelling. 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 If there remains clinical concern for osteomyelitis, MRI can be performed. Electronically signed by: Imtiaz Alves MD 11/18/2024 09:00 AM EDT Hand X-Ray 11/18/24 08:40 IMPRESSION: Marked dorsal soft tissue swelling. 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 If there remains clinical concern for osteomyelitis, MRI can be performed. Electronically signed by: Imtiaz Alves MD 11/18/2024 09:00 AM EDT RP Lumbar Spine MRI 11/18/24 11:40 IMPRESSION: Concerning osteomyelitis without abscess and/or phlegmon or epidural abscess at L2-3. Multilevel spondylosis L2-3 to L5-S1 resulting in central spinal canal and bilateral neuroforamina stenosis. Electronically signed by: Trevon Whaley MD 11/18/2024 12:52 PM EDT RP Mental Status Exam Mental Status Exam Level of Consciousness: Appropriate Patient Behavior: Appropriate (tearful) Mood Description: Anxious Affect Description: Anxious Speech Pattern: Clear Thought Content: positive for Intact Judgement: Good Medications Medications Current Medications Acetaminophen (Acetaminophen 325 Mg Tablet) 650 mg PO Q6H PRN PRN Reason: Pain, Mild 1-3,fever,headache Last Admin: 11/20/24 20:39 Dose: 650 mg Calcium Carbonate (Calcium Carbonate 750 Mg Tab.Chew) 750 mg PO Q4H PRN PRN Reason: Heartburn Enoxaparin Sodium (Enoxaparin Sodium 40 Mg/0.4 Ml Syringe) 40 mg SUBCUT Q24H [facility] Last Admin: 11/20/24 14:43 Dose: 40 mg Hydromorphone HCl (Hydromorphone Hcl 0.5 Mg/0.5 Ml Syringe) 1 mg IVPUSH Q3H PRN; Protocol PRN Reason: Pain, Severe (Pain Scale 7-10) Last Admin: 11/21/24 08:36 Dose: 1 mg Vancomycin HCl 1,250 mg/ (Sodium Chloride) 250 mls @ 166.667 mls/hr IV Q12H [facility] Last Infusion: 11/21/24 01:07 Dose: Infused Indomethacin (Indomethacin 25 Mg Capsule) 25 mg PO TID [facility] Last Admin: 11/21/24 07:49 Dose: 25 mg Magnesium Hydroxide (Milk Of Magnesia 30 Ml Oral.Susp) 30 ml PO DAILY PRN PRN Reason: Constipation Melatonin (Melatonin 3 Mg Tablet) 6 mg PO BEDTIME PRN PRN Reason: Insomnia Last Admin: 11/21/24 03:19 Dose: 6 mg Methadone HCl (Methadone Hcl 20 Mg/2 Ml Oral.Conc) 80 mg PO DAILY [facility] Last Admin: 11/21/24 06:37 Dose: 80 mg Oxycodone HCl (Oxycodone Hcl Immed Release 5 Mg Tablet) 5 mg PO Q6H PRN PRN Reason: Pain, Moderate(Pain Scale 4-6) Last Admin: 11/21/24 04:11 Dose: 5 mg Pharmacy Consult (Consult Rx Vancomycin Dosing) 1 each MISCELLANE DAILY PRN PRN Reason: Consult order Sodium Chloride (0.9 % Sodium Chloride Flush 3 Ml Syringe) 3 ml IVFLUSH QSHIFT [facility] Last Admin: 11/21/24 07:48 Dose: 3 ml Allergies Allergies Allergy/AdvReac Type Severity Reaction Status Date / Time No Known Allergies Allergy Verified 11/18/24 07:38 [No Known Allergies*] Assessment & Plan Assessment & Plan (1) Opioid use disorder, severe, dependence: Status: Acute Code(s): F11.20 - Opioid dependence, uncomplicated Assessment and Plan: discussed splitting methadone to address discomfort in the evenings as she was reporting poor sleep, would like to hold off on this for now and see if pain medications can be adjusted discussed with attending provider and oxycodone dose to be increased. also has dilaudid PRN available as well melatonin changed from PRN to scheduled to assist with sleep will continue to follow--will consider adjusting methadone dose if needed Total time managing care of this patient today __30__ minutes. PMFSH Past Medical History Medical History HCV (hepatitis C virus) Drug abuse Opiate addiction Graves disease Family History Family history: reviewed and not pertinent Social History Social History Household Members: Unknown / Unable to assess Housing: Unknown / Unable to assess Unable to assess alcohol history related to: Unknown Alcohol intake: unknown Comment: ashwin Patient Tobacco Use Status: Tobacco use Unknown Tobacco use type: Cigarette Cigarettes Per Day: 5 Second Hand Smoke Exposure: No Substance Use Type: Crack/Cocaine, Heroin, IV Drugs and Opiates service: No Current occupational status: unemployed
[2024-11-21 11:13] LABS: Vancomycin Random 9.8 mcg/mL (15-20)
--- NOTE | 2024-11-21 11:22 | P.PNIM_ITS ---
Subjective Subjective Date of Service: 11/21/24 Interval History: no new complaints Physical Exam 2 Vital Signs: Vital Signs: Last Vital Signs Temp 97.6 F 11/21/24 08:26 Pulse 79 11/21/24 08:26 Resp 18 11/21/24 08:26 BP 139/97 H 11/21/24 08:26 Pulse Ox 94 11/21/24 08:26 O2 Del Method Room Air 11/21/24 08:26 BMI result Body Mass Index 19.5 Const: Other: Constitutional : Awake, interactive, not in distress Neck : Normal inspection, Supple Cardiovascular : RRR, no JVP, no lower extremity edema Respiratory : good bilateral air entry, no crackles, wheezes or rhonchi Gastrointestinal: soft, lax, Normal bowel sounds, Non tender Skin : Warm, Dry, dorsum of right hand erythema and swelling with warmth and tenderness. Right foot with erythema and warmth over the dorsum part extending to the ankle Neurological : Alert & oriented x3, No focal deficit , CN 2-12 within normal Objective Data Active Medications Acetaminophen (Acetaminophen 325 Mg Tablet) 650 mg PO Q6H PRN PRN Reason: Pain, Mild 1-3,fever,headache Last Admin: 11/20/24 20:39 Dose: 650 mg Documented By: GLORIA Calcium Carbonate (Calcium Carbonate 750 Mg Tab.Chew) 750 mg PO Q4H PRN PRN Reason: Heartburn Enoxaparin Sodium (Enoxaparin Sodium 40 Mg/0.4 Ml Syringe) 40 mg SUBCUT Q24H [facility] Last Admin: 11/20/24 14:43 Dose: 40 mg Documented By: FABIOLA Hydromorphone HCl (Hydromorphone Hcl 0.5 Mg/0.5 Ml Syringe) 1 mg IVPUSH Q3H PRN; Protocol PRN Reason: Pain, Severe (Pain Scale 7-10) Last Admin: 11/21/24 08:36 Dose: 1 mg Documented By: STEVE Vancomycin HCl 1,250 mg/ (Sodium Chloride) 250 mls @ 166.667 mls/hr IV Q12H [facility] Last Infusion: 11/21/24 01:07 Dose: Infused Documented By: GLORIA Indomethacin (Indomethacin 25 Mg Capsule) 25 mg PO TID [facility] Last Admin: 11/21/24 07:49 Dose: 25 mg Documented By: STEVE Magnesium Hydroxide (Milk Of Magnesia 30 Ml Oral.Susp) 30 ml PO DAILY PRN PRN Reason: Constipation Melatonin (Melatonin 3 Mg Tablet) 6 mg PO BEDTIME [facility] Methadone HCl (Methadone Hcl 20 Mg/2 Ml Oral.Conc) 80 mg PO DAILY [facility] Last Admin: 11/21/24 06:37 Dose: 80 mg Documented By: GLORIA Co-signed By: HELLEN Oxycodone HCl (Oxycodone Hcl Immed Release 5 Mg Tablet) 10 mg PO Q4H PRN PRN Reason: Pain, Moderate(Pain Scale 4-6) Pharmacy Consult (Consult Rx Vancomycin Dosing) 1 each MISCELLANE DAILY PRN PRN Reason: Consult order Sodium Chloride (0.9 % Sodium Chloride Flush 3 Ml Syringe) 3 ml IVFLUSH QSHIFT [facility] Last Admin: 11/21/24 07:48 Dose: 3 ml Documented By: STEVE Labs 11/21/24 07:56 11/21/24 07:56 Labs: Laboratory Results - last 24 hr 11/21/24 11/21/24 07:56 10:53 MCV 85.7 MCH 28.0 MCHC 32.7 RDW 14.0 Plt Count 125 L MPV 10.6 Absolute Nucleated RBC 0.000 Nucleated RBC % (auto) 0.0 Anion Gap 12 Estim Creat Clear Calc 108.6 Estimated GFR > 60 Random Glucose 107 Calcium 8.9 Random Vancomycin 9.8 L Microbiology Microbiology Results: Microbiology 11/19/24 11:25 Blood Culture - Preliminary Blood - Venous No growth after 24 hours. 11/19/24 11:25 Blood Culture - Final Blood - Venous Methicillin Res Staph Aureus 11/18/24 08:16 Blood Culture - Final Blood - Venous Methicillin Res Staph Aureus 11/18/24 08:14 Blood Culture - Final Blood - Venous Methicillin Res Staph Aureus Assessment and Plan (1) Cellulitis of right foot: Status: Acute (2) Acute osteomyelitis of lumbar spine: Status: Acute (3) Toxic metabolic encephalopathy: Status: Acute (4) Polysubstance abuse: Status: Acute (5) Bacteremia: Status: Acute Plan 33F PMH graves disease, history of hep c (unclear if treated), and polysubstance abuse admitted for further management of cellulitis of the hand and osteomyelitis lumbar spine sepsis 2/2 MRSA Bacteremia with Acute cellulitis R hand and osteomyelitis of lumbar spine without abscess Repeat blood culture from 11/19/2024 is still positive, follow up repeat from 11/21/2024, if still positive will change to daptomycin plan for 6 weeks iv vanc or dapto (potential end date january 01, 2025) pain management ortho consult recommended Abx treatment, no intervention needed at this point echo unremarkable Bacteruria No growth in Cx. bilateral joint pain could be 2/2 Inflammatory arthropathy Indomethacin 25mg TID Multilevel spondylosis with central canal stenosis based on MRI finding outpt follow up. pain management as above Polysubstance/IVDA Continue methadone Addiction med following Chronic hepatitis C, noticed back in 2023, will need outpatient treatment viral load pending Transaminitits chronic, r/t liver disease/hepatitis Hx Graves Exopthalmos present mildly elevated TSH w/ normal free t4 dvt prophylaxis- lovenox full code reason for continued hospitalization:awaiting cultures Quality Stroke Does the patient have a stroke diagnosis?: No VTE Prior VTE?: No VTE Risk Level:: Medical - moderate - high VTE Device Contraindication: Treatment Not Indicated VTE Drug Contraindication: N/A - Med Ordered
--- NOTE | 2024-11-21 11:41 | HE.PHANOTE ---
RE: VANCO DOSING Trough came back as 9.8 mg/L and renal function is stable. Dose is increased to 1000 mg q8h (indication osteo?), next trough is scheduled for 11/22/24 @1000.
[2024-11-21] MEDS: vancomycin HCL 1,000 MG in 0.9 % Sodium Chloride 250 ML 270 MG IV ×2 (11:56→19:26)
[2024-11-21] MEDS: Enoxaparin Sodium 40 MG/0.4 ML SYRINGE SUBCUT (15:00)
[2024-11-21 16:00] VITALS: BP 134/87; PULSE 55; RESP 14; TEMP 36.9; O2SAT 98
[2024-11-21 19:08] VITALS: BP 143/83; PULSE 69; RESP 18; TEMP 37.2; O2SAT 96
[2024-11-21] MEDS: oxyCODONE HCl Immed Release 5 MG TABLET 10 MG PO (20:35)
[2024-11-21 21:19] LABS: HCV Log PCR 6.51 Log IU/mL (NOT DETECTED); HepC Viral Load 3230000 IU/mL (NOT DETECTED)
[2024-11-22] MEDS: oxyCODONE HCl Immed Release 5 MG TABLET 10 MG PO ×4 (01:15→15:06)
[2024-11-22 02:17] VITALS: BP 147/90; PULSE 60; RESP 18; TEMP 36.4; O2SAT 98
[2024-11-22] MEDS: HYDROmorphone HCl 0.5 MG/0.5 ML SYRINGE 1 MG IVPUSH ×5 (02:27→20:30)
[2024-11-22] MEDS: vancomycin HCL 1,000 MG in 0.9 % Sodium Chloride 250 ML 270 MG IV (04:03)
[2024-11-22] MEDS: methADONE HCl 20 MG/2 ML ORAL.CONC 80 MG PO (06:23)
[2024-11-22 07:50] VITALS: BP 154/102; PULSE 74; RESP 18; TEMP 36.4; O2SAT 92
[2024-11-22] MEDS: 0.9 % Sodium Chloride Flush 3 ML SYRINGE IVFLUSH ×2 (08:12→14:29)
[2024-11-22] MEDS: Indomethacin 25 MG CAPSULE PO ×3 (08:13→20:32)
--- NOTE | 2024-11-22 09:13 | P.PNIM_ITS ---
Subjective Subjective Date of Service: 11/22/24 Interval History: no new complaints Physical Exam 2 Vital Signs: Vital Signs: Last Vital Signs Temp 97.5 F 11/22/24 07:50 Pulse 74 11/22/24 07:50 Resp 18 11/22/24 07:50 BP 154/102 H 11/22/24 07:50 Pulse Ox 92 11/22/24 07:50 O2 Del Method Room Air 11/22/24 07:50 BMI result Body Mass Index 19.5 Const: Other: Constitutional : Awake, interactive, not in distress Neck : Normal inspection, Supple Cardiovascular : RRR, no JVP, no lower extremity edema Respiratory : good bilateral air entry, no crackles, wheezes or rhonchi Gastrointestinal: soft, lax, Normal bowel sounds, Non tender Skin : Warm, Dry, dorsum of right hand erythema and swelling with warmth and tenderness. Right foot with erythema and warmth over the dorsum part extending to the ankle Neurological : Alert & oriented x3, No focal deficit , CN 2-12 within normal Objective Data Active Medications Acetaminophen (Acetaminophen 325 Mg Tablet) 650 mg PO Q6H PRN PRN Reason: Pain, Mild 1-3,fever,headache Last Admin: 11/20/24 20:39 Dose: 650 mg Documented By: GLORIA Calcium Carbonate (Calcium Carbonate 750 Mg Tab.Chew) 750 mg PO Q4H PRN PRN Reason: Heartburn Enoxaparin Sodium (Enoxaparin Sodium 40 Mg/0.4 Ml Syringe) 40 mg SUBCUT Q24H [facility] Last Admin: 11/21/24 15:00 Dose: 40 mg Documented By: STEVE Hydromorphone HCl (Hydromorphone Hcl 0.5 Mg/0.5 Ml Syringe) 1 mg IVPUSH Q3H PRN; Protocol PRN Reason: Pain, Severe (Pain Scale 7-10) Last Admin: 11/22/24 05:40 Dose: 1 mg Documented By: GLORIA Vancomycin HCl 1,000 mg/ (Sodium Chloride) 270 mls @ 270 mls/hr IV Q8H [facility] Last Infusion: 11/22/24 05:10 Dose: Infused Documented By: GLORIA Indomethacin (Indomethacin 25 Mg Capsule) 25 mg PO TID [facility] Last Admin: 11/22/24 08:13 Dose: 25 mg Documented By: STEVE Magnesium Hydroxide (Milk Of Magnesia 30 Ml Oral.Susp) 30 ml PO DAILY PRN PRN Reason: Constipation Melatonin (Melatonin 3 Mg Tablet) 6 mg PO BEDTIME [facility] Last Admin: 11/21/24 20:35 Dose: 6 mg Documented By: GLORIA Methadone HCl (Methadone Hcl 20 Mg/2 Ml Oral.Conc) 80 mg PO DAILY [facility] Last Admin: 11/22/24 06:23 Dose: 80 mg Documented By: GLORIA Co-signed By: JUSTYN Oxycodone HCl (Oxycodone Hcl Immed Release 5 Mg Tablet) 10 mg PO Q4H PRN PRN Reason: Pain, Moderate(Pain Scale 4-6) Last Admin: 11/22/24 06:23 Dose: 10 mg Documented By: GLORIA Pharmacy Consult (Consult Rx Vancomycin Dosing) 1 each MISCELLANE DAILY PRN PRN Reason: Consult order Sodium Chloride (0.9 % Sodium Chloride Flush 3 Ml Syringe) 3 ml IVFLUSH QSHIFT [facility] Last Admin: 11/22/24 08:12 Dose: 3 ml Documented By: STEVE Labs 11/21/24 07:56 11/21/24 07:56 Labs: Laboratory Results - last 24 hr 11/18/24 11/21/24 15:06 10:53 Random Vancomycin 9.8 L Hep C Viral Load [id number] H Hep C Viral Load Log 6.51 H Microbiology Microbiology Results: Microbiology 11/19/24 11:25 Blood Culture - Preliminary Blood - Venous No growth after 48 hours. 11/19/24 11:25 Blood Culture - Final Blood - Venous Methicillin Res Staph Aureus 11/18/24 08:16 Blood Culture - Final Blood - Venous Methicillin Res Staph Aureus 11/18/24 08:14 Blood Culture - Final Blood - Venous Methicillin Res Staph Aureus Assessment and Plan (1) Cellulitis of right foot: Status: Acute (2) Acute osteomyelitis of lumbar spine: Status: Acute (3) Toxic metabolic encephalopathy: Status: Acute (4) Polysubstance abuse: Status: Acute (5) Bacteremia: Status: Acute Plan 33F PMH graves disease, history of hep c (unclear if treated), and polysubstance abuse admitted for further management of cellulitis of the hand and osteomyelitis lumbar spine sepsis 2/2 MRSA Bacteremia with Acute cellulitis R hand and osteomyelitis of lumbar spine without abscess Repeat blood culture from 11/19/2024 is still positive, follow up repeat from 11/21/2024, if still positive will change to daptomycin plan for 6 weeks iv vanc or dapto (potential end date january 01, 2025) pain management ortho consult recommended Abx treatment, no intervention needed at this point echo unremarkable Bacteruria No growth in Cx. bilateral joint pain could be 2/2 Inflammatory arthropathy Indomethacin 25mg TID Multilevel spondylosis with central canal stenosis based on MRI finding outpt follow up. pain management as above Polysubstance/IVDA Continue methadone Addiction med following Chronic hepatitis C, noticed back in 2023, will need outpatient treatment viral load pending Transaminitits chronic, r/t liver disease/hepatitis Hx Graves Exopthalmos present mildly elevated TSH w/ normal free t4 dvt prophylaxis- lovenox full code reason for continued hospitalization:awaiting cultures Quality Stroke Does the patient have a stroke diagnosis?: No VTE Prior VTE?: No VTE Risk Level:: Medical - moderate - high VTE Device Contraindication: Treatment Not Indicated VTE Drug Contraindication: N/A - Med Ordered
[2024-11-22 10:55] LABS: Creatinine Clr Calc Pharmacy 112.5; Estimated Glomerular Filt Rate > 60
[2024-11-22 10:56] LABS: Vancomycin Random 17.4 mcg/mL (15-20)
--- NOTE | 2024-11-22 11:17 | HE.PHANOTE ---
RE: VANCO DOSING Trough came back as 17.4 mg/L, renal function is stable. Concern that level is going to be supratherapeutic if keeping 1000 mg q8h so changing frequency to 1500 mg q12h, starting at 1600. Next trough is scheduled for 11/23/24 @1400.
[2024-11-22 12:08] VITALS: BP 122/89; PULSE 54; RESP 16; TEMP 36.3; O2SAT 95
[2024-11-22] MEDS: Enoxaparin Sodium 40 MG/0.4 ML SYRINGE SUBCUT (14:28)
[2024-11-22] MEDS: vancomycin HCL 1,500 MG in 0.9 % Sodium Chloride 500 ML 333.33 MG IV (15:11)
[2024-11-22 15:22] VITALS: BP 123/83; PULSE 56; RESP 16; TEMP 36.1; O2SAT 97
[2024-11-22 19:20] VITALS: BP 124/83; PULSE 62; RESP 18; TEMP 36.2; O2SAT 100
[2024-11-22] MEDS: Melatonin 3 MG TABLET 6 MG PO (20:32)
[2024-11-23] MEDS: oxyCODONE HCl Immed Release 5 MG TABLET 10 MG PO ×2 (00:41→20:36)
[2024-11-23] MEDS: HYDROmorphone HCl 0.5 MG/0.5 ML SYRINGE 1 MG IVPUSH ×5 (02:24→23:23)
[2024-11-23 03:23] VITALS: BP 131/96; PULSE 57; RESP 18; TEMP 36.3; O2SAT 95
[2024-11-23] MEDS: vancomycin HCL 1,500 MG in 0.9 % Sodium Chloride 500 ML 333.33 MG IV (03:36)
[2024-11-23 07:53] VITALS: BP 157/103; PULSE 89; RESP 18; TEMP 37; O2SAT 100
[2024-11-23] MEDS: Indomethacin 25 MG CAPSULE PO ×3 (08:14→20:35)
[2024-11-23] MEDS: methADONE HCl 20 MG/2 ML ORAL.CONC 80 MG PO (08:14)
--- NOTE | 2024-11-23 09:31 | P.PNIM_ITS ---
Subjective Subjective Date of Service: 11/23/24 Interval History: no new complaints Physical Exam 2 Vital Signs: Vital Signs: Last Vital Signs Temp 98.6 F 11/23/24 07:53 Pulse 89 11/23/24 07:53 Resp 18 11/23/24 07:53 BP 157/103 H 11/23/24 07:53 Pulse Ox 100 11/23/24 07:53 O2 Del Method Room Air 11/23/24 07:53 BMI result Body Mass Index 19.5 Const: Other: Constitutional : Awake, interactive, not in distress Neck : Normal inspection, Supple Cardiovascular : RRR, no JVP, no lower extremity edema Respiratory : good bilateral air entry, no crackles, wheezes or rhonchi Gastrointestinal: soft, lax, Normal bowel sounds, Non tender Skin : Warm, Dry, dorsum of right hand erythema and swelling with warmth and tenderness. Right foot with erythema and warmth over the dorsum part extending to the ankle Neurological : Alert & oriented x3, No focal deficit , CN 2-12 within normal Objective Data Active Medications Acetaminophen (Acetaminophen 325 Mg Tablet) 650 mg PO Q6H PRN PRN Reason: Pain, Mild 1-3,fever,headache Last Admin: 11/20/24 20:39 Dose: 650 mg Documented By: GLORIA Calcium Carbonate (Calcium Carbonate 750 Mg Tab.Chew) 750 mg PO Q4H PRN PRN Reason: Heartburn Enoxaparin Sodium (Enoxaparin Sodium 40 Mg/0.4 Ml Syringe) 40 mg SUBCUT Q24H [facility] Last Admin: 11/22/24 14:28 Dose: 40 mg Documented By: STEVE Hydromorphone HCl (Hydromorphone Hcl 0.5 Mg/0.5 Ml Syringe) 1 mg IVPUSH Q3H PRN; Protocol PRN Reason: Pain, Severe (Pain Scale 7-10) Last Admin: 11/23/24 08:55 Dose: 1 mg Documented By: ANTOINETTE Vancomycin HCl 1,500 mg/ (Sodium Chloride) 500 mls @ 333.333 mls/hr IV Q12H [facility] Last Infusion: 11/23/24 05:18 Dose: Infused Documented By: MARY CARMEN Indomethacin (Indomethacin 25 Mg Capsule) 25 mg PO TID [facility] Last Admin: 11/23/24 08:14 Dose: 25 mg Documented By: ANTOINETTE Magnesium Hydroxide (Milk Of Magnesia 30 Ml Oral.Susp) 30 ml PO DAILY PRN PRN Reason: Constipation Melatonin (Melatonin 3 Mg Tablet) 6 mg PO BEDTIME [facility] Last Admin: 11/22/24 20:32 Dose: 6 mg Documented By: MARY CARMEN Methadone HCl (Methadone Hcl 20 Mg/2 Ml Oral.Conc) 80 mg PO DAILY [facility] Last Admin: 11/23/24 08:14 Dose: 80 mg Documented By: ANTOINETTE Co-signed By: SHARON Oxycodone HCl (Oxycodone Hcl Immed Release 5 Mg Tablet) 10 mg PO Q4H PRN PRN Reason: Pain, Moderate(Pain Scale 4-6) Last Admin: 11/23/24 00:41 Dose: 10 mg Documented By: MARY CARMEN Comments: per pt request Pharmacy Consult (Consult Rx Vancomycin Dosing) 1 each MISCELLANE DAILY PRN PRN Reason: Consult order Sodium Chloride (0.9 % Sodium Chloride Flush 3 Ml Syringe) 3 ml IVFLUSH QSHIFT [facility] Last Admin: 11/23/24 08:23 Dose: Not Given Documented By: ANTOINETTE Non-Admin Reason: Previously Administered Labs 11/21/24 07:56 11/22/24 10:31 Labs: Laboratory Results - last 24 hr 11/22/24 11/22/24 10:31 10:35 Hold Purple Top Cancelled Estim Creat Clear Calc 112.5 Estimated GFR > 60 Hold Yellow Top See Note Random Vancomycin 17.4 Microbiology Microbiology Results: Microbiology 11/21/24 10:53 Blood Culture - Preliminary Blood - Venous No growth after 24 hours. 11/21/24 07:55 Blood Culture - Preliminary Blood - Venous No growth after 24 hours. Assessment and Plan (1) Cellulitis of right foot: Status: Acute (2) Acute osteomyelitis of lumbar spine: Status: Acute (3) Toxic metabolic encephalopathy: Status: Acute (4) Polysubstance abuse: Status: Acute (5) Bacteremia: Status: Acute Plan 33F PMH graves disease, history of hep c (unclear if treated), and polysubstance abuse admitted for further management of cellulitis of the hand and osteomyelitis lumbar spine sepsis 2/2 MRSA Bacteremia with Acute cellulitis R hand and osteomyelitis of lumbar spine without abscess Repeat blood culture from 11/19/2024 is still positive, follow up repeat from 11/21/2024, if still positive will change to daptomycin plan for 6 weeks iv vanc or dapto (potential end date january 01, 2025) pain management ortho consult recommended Abx treatment, no intervention needed at this point echo unremarkable Bacteruria No growth in Cx. bilateral joint pain could be 2/2 Inflammatory arthropathy Indomethacin 25mg TID Multilevel spondylosis with central canal stenosis based on MRI finding outpt follow up. pain management as above Polysubstance/IVDA Continue methadone Addiction med following Chronic hepatitis C, noticed back in 2023, will need outpatient treatment viral load pending Transaminitits chronic, r/t liver disease/hepatitis Hx Graves Exopthalmos present mildly elevated TSH w/ normal free t4 dvt prophylaxis- lovenox full code reason for continued hospitalization:awaiting cultures Quality Stroke Does the patient have a stroke diagnosis?: No VTE Prior VTE?: No VTE Risk Level:: Medical - moderate - high VTE Device Contraindication: Treatment Not Indicated VTE Drug Contraindication: N/A - Med Ordered
[2024-11-23 14:05] LABS: Vancomycin Random 18.2 mcg/mL (15-20)
[2024-11-23 14:06] LABS: Creatinine Clr Calc Pharmacy 101.7; Estimated Glomerular Filt Rate > 60
--- NOTE | 2024-11-23 14:25 | HE.PHANOTE ---
Vancomycin addendum: Level came back at 18.2, decreased dose to 1250 mg q 12 hours will recheck level vahid
[2024-11-23] MEDS: vancomycin HCL 1,250 MG in 0.9 % Sodium Chloride 250 ML 166.67 MG IV (15:05)
[2024-11-23] MEDS: Enoxaparin Sodium 40 MG/0.4 ML SYRINGE SUBCUT (15:06)
[2024-11-23 15:24] VITALS: BP 131/87; PULSE 54; RESP 14; TEMP 36.8; O2SAT 96
[2024-11-23 19:24] VITALS: BP 122/77; PULSE 66; RESP 18; TEMP 36.4; O2SAT 97
[2024-11-23] MEDS: Melatonin 3 MG TABLET 6 MG PO (20:35)
[2024-11-24] MEDS: HYDROmorphone HCl 0.5 MG/0.5 ML SYRINGE 1 MG IVPUSH ×3 (03:04→13:34)
[2024-11-24] MEDS: vancomycin HCL 1,250 MG in 0.9 % Sodium Chloride 250 ML 166.67 MG IV ×2 (03:11→16:43)
[2024-11-24 03:22] VITALS: BP 152/94; PULSE 52; RESP 18; TEMP 36.3; O2SAT 96
[2024-11-24 07:53] VITALS: BP 138/97; PULSE 93; RESP 18; TEMP 36.6; O2SAT 95
[2024-11-24] MEDS: methADONE HCl 20 MG/2 ML ORAL.CONC 80 MG PO (08:06)
[2024-11-24] MEDS: Indomethacin 25 MG CAPSULE PO ×3 (08:06→20:13)
[2024-11-24] MEDS: Lidocaine 4 % Patch ADH..PATCH 1 PATCH TRANSDERMA (08:07)
--- NOTE | 2024-11-24 08:30 | HO.PM.IMPN ---
Subjective Subjective Date of Service: 11/24/24 Interval History: back pain Physical Exam Vital Signs: Vital Signs: Last Vital Signs Temp 97.9 F 11/24/24 07:53 Pulse 93 11/24/24 07:53 Resp 18 11/24/24 07:53 BP 138/97 H 11/24/24 07:53 Pulse Ox 95 11/24/24 07:53 O2 Del Method Room Air 11/24/24 07:53 BMI result Body Mass Index 19.5 Const: Other: Constitutional : Awake, interactive, not in distress Neck : Normal inspection, Supple Cardiovascular : RRR, no JVP, no lower extremity edema Respiratory : good bilateral air entry, no crackles, wheezes or rhonchi Gastrointestinal: soft, lax, Normal bowel sounds, Non tender Skin : Warm, Dry, dorsum of right hand erythema and swelling with warmth and tenderness. Right foot with erythema and warmth over the dorsum part extending to the ankle Neurological : Alert & oriented x3, No focal deficit , CN 2-12 within normal Objective Data Active Medications Acetaminophen (Acetaminophen 325 Mg Tablet) 650 mg PO Q6H PRN PRN Reason: Pain, Mild 1-3,fever,headache Last Admin: 11/20/24 20:39 Dose: 650 mg Documented By: GLORIA Calcium Carbonate (Calcium Carbonate 750 Mg Tab.Chew) 750 mg PO Q4H PRN PRN Reason: Heartburn Enoxaparin Sodium (Enoxaparin Sodium 40 Mg/0.4 Ml Syringe) 40 mg SUBCUT Q24H [facility] Last Admin: 11/23/24 15:06 Dose: 40 mg Documented By: ANTOINETTE Hydromorphone HCl (Hydromorphone Hcl 0.5 Mg/0.5 Ml Syringe) 1 mg IVPUSH Q3H PRN; Protocol PRN Reason: Pain, Severe (Pain Scale 7-10) Last Admin: 11/24/24 07:28 Dose: 1 mg Documented By: ANTOINETTE Vancomycin HCl 1,250 mg/ (Sodium Chloride) 250 mls @ 166.667 mls/hr IV Q12H [facility] Last Infusion: 11/24/24 04:47 Dose: Infused Documented By: MARY CARMEN Indomethacin (Indomethacin 25 Mg Capsule) 25 mg PO TID [facility] Last Admin: 11/24/24 08:06 Dose: 25 mg Documented By: ANTOINETTE Lidocaine (Lidocaine 4 % Patch Adh..Patch) 1 patch TRANSDERMA DAILY [facility]; Protocol Last Admin: 11/24/24 08:07 Dose: 1 patch Documented By: ANTOINETTE Magnesium Hydroxide (Milk Of Magnesia 30 Ml Oral.Susp) 30 ml PO DAILY PRN PRN Reason: Constipation Melatonin (Melatonin 3 Mg Tablet) 6 mg PO BEDTIME [facility] Last Admin: 11/23/24 20:35 Dose: 6 mg Documented By: MARY CRAMEN Methadone HCl (Methadone Hcl 20 Mg/2 Ml Oral.Conc) 80 mg PO DAILY [facility] Last Admin: 11/24/24 08:06 Dose: 80 mg Documented By: ANTOINETTE Co-signed By: MARLIN Oxycodone HCl (Oxycodone Hcl Immed Release 5 Mg Tablet) 10 mg PO Q4H PRN PRN Reason: Pain, Moderate(Pain Scale 4-6) Last Admin: 11/23/24 20:36 Dose: 10 mg Documented By: MARY CARMEN Comments: per pt request Pharmacy Consult (Consult Rx Vancomycin Dosing) 1 each MISCELLANE DAILY PRN PRN Reason: Consult order Sodium Chloride (0.9 % Sodium Chloride Flush 3 Ml Syringe) 3 ml IVFLUSH QSHIFT [facility] Last Admin: 11/24/24 07:32 Dose: Not Given Documented By: ANTOINETTE Non-Admin Reason: Previously Administered Labs 11/21/24 07:56 11/23/24 13:44 Labs: Laboratory Results - last 24 hr 11/23/24 13:44 Estim Creat Clear Calc 101.7 Estimated GFR > 60 Random Vancomycin 18.2 Microbiology Microbiology Results: Microbiology 11/21/24 10:53 Blood Culture - Preliminary Blood - Venous No growth after 48 hours. 11/21/24 07:55 Blood Culture - Preliminary Blood - Venous No growth after 48 hours. Assessment and Plan (1) Cellulitis of right foot: Status: Acute (2) Acute osteomyelitis of lumbar spine: Status: Acute (3) Toxic metabolic encephalopathy: Status: Acute (4) Polysubstance abuse: Status: Acute (5) Bacteremia: Status: Acute Plan 33F PMH graves disease, history of hep c (unclear if treated), and polysubstance abuse admitted for further management of cellulitis of the hand and osteomyelitis lumbar spine sepsis 2/2 MRSA Bacteremia with Acute cellulitis R hand and osteomyelitis of lumbar spine without abscess Repeat blood culture from 11/19/2024 is still positive, follow up repeat from 11/21/2024, if still positive will change to daptomycin plan for 6 weeks iv vanc or dapto (potential end date january 01, 2025) pain management ortho consult recommended Abx treatment, no intervention needed at this point echo unremarkable Bacteruria No growth in Cx. bilateral joint pain could be 2/2 Inflammatory arthropathy Indomethacin 25mg TID Multilevel spondylosis with central canal stenosis based on MRI finding outpt follow up. pain management as above Polysubstance/IVDA Continue methadone Addiction med following Chronic hepatitis C, noticed back in 2023, will need outpatient treatment viral load pending Transaminitits chronic, r/t liver disease/hepatitis Hx Graves Exopthalmos present mildly elevated TSH w/ normal free t4 dvt prophylaxis- lovenox full code reason for continued hospitalization:awaiting cultures Quality Stroke Does the patient have a stroke diagnosis?: No VTE Prior VTE?: No VTE Risk Level:: Medical - moderate - high VTE Device Contraindication: Treatment Not Indicated VTE Drug Contraindication: N/A - Med Ordered
[2024-11-24 10:15] LABS: Creatinine Clr Calc Pharmacy 95.5; Estimated Glomerular Filt Rate > 60
--- NOTE | 2024-11-24 10:40 | HO.ADDICTPRO ---
Subjective Subjective Date of Service: 11/24/24 Reason For Visit: Osteo Lumbar Spine, Cellulitis hand Interim History: Patient seen in follow up for OUD Patient laying in bed, eyes closed, answering questions. Reporting that pain is improving and feels sleep has also improved Review of Systems Constitutional: Reports as per HPI Mental Status Exam Mental Status Exam Patient Appearance: Appropriate Level of Consciousness: Awake and Appropriate Patient Behavior: Appropriate Mood Description: Calm Affect Description: Calm Speech Pattern: Clear Hallucinations: None Delusions: Not Present Thought Process: Intact Thought Content: positive for Intact Judgement: Good Diagnostics Vital Signs (24Hr): Vital Signs - 24 hr 11/23/24 15:24 11/23/24 19:24 11/24/24 03:22 Temperature 98.3 F 97.5 F 97.3 F Pulse Rate 54 66 52 Respiratory Rate 14 18 18 Blood Pressure 131/87 122/77 152/94 H Pulse Oximetry 96 97 96 Oxygen Delivery Method Room Air Room Air Room Air 11/24/24 07:53 Temperature 97.9 F Pulse Rate 93 Respiratory Rate 18 Blood Pressure 138/97 H Pulse Oximetry 95 Oxygen Delivery Method Room Air BMI result Body Mass Index 19.5 Labs 11/21/24 07:56 11/25/24 08:25 Labs: Laboratory Results - last 48 hr 11/22/24 11/22/24 11/23/24 10:31 10:35 13:44 Hold Purple Top Cancelled Creatinine 0.56 0.62 Estim Creat Clear Calc 112.5 101.7 Estimated GFR > 60 > 60 Random Vancomycin 17.4 18.2 11/24/24 09:47 Hold Purple Top Creatinine 0.66 Estim Creat Clear Calc 95.5 Estimated GFR > 60 Random Vancomycin Imaging Radiology Impressions: ITS Impressions Wrist X-Ray 11/18/24 07:34 IMPRESSION: Marked dorsal soft tissue swelling. 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 If there remains clinical concern for osteomyelitis, MRI can be performed. Electronically signed by: Imtiaz Alves MD 11/18/2024 09:00 AM EDT RP Hand X-Ray 11/18/24 08:40 IMPRESSION: Marked dorsal soft tissue swelling. 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 If there remains clinical concern for osteomyelitis, MRI can be performed. Electronically signed by: Imtiaz Alves MD 11/18/2024 09:00 AM EDT RP Lumbar Spine MRI 11/18/24 11:40 IMPRESSION: Concerning osteomyelitis without abscess and/or phlegmon or epidural abscess at L2-3. Multilevel spondylosis L2-3 to L5-S1 resulting in central spinal canal and bilateral neuroforamina stenosis. Electronically signed by: Trevon Whaley MD 11/18/2024 12:52 PM EDT RP Medications Medications Current Medications Acetaminophen (Acetaminophen 325 Mg Tablet) 650 mg PO Q6H PRN PRN Reason: Pain, Mild 1-3,fever,headache Last Admin: 11/20/24 20:39 Dose: 650 mg Calcium Carbonate (Calcium Carbonate 750 Mg Tab.Chew) 750 mg PO Q4H PRN PRN Reason: Heartburn Enoxaparin Sodium (Enoxaparin Sodium 40 Mg/0.4 Ml Syringe) 40 mg SUBCUT Q24H [facility] Last Admin: 11/23/24 15:06 Dose: 40 mg Hydromorphone HCl (Hydromorphone Hcl 0.5 Mg/0.5 Ml Syringe) 1 mg IVPUSH Q3H PRN; Protocol PRN Reason: Pain, Severe (Pain Scale 7-10) Last Admin: 11/24/24 07:28 Dose: 1 mg Vancomycin HCl 1,250 mg/ (Sodium Chloride) 250 mls @ 166.667 mls/hr IV Q12H [facility] Last Infusion: 11/24/24 04:47 Dose: Infused Indomethacin (Indomethacin 25 Mg Capsule) 25 mg PO TID [facility] Last Admin: 11/24/24 08:06 Dose: 25 mg Lidocaine (Lidocaine 4 % Patch Adh..Patch) 1 patch TRANSDERMA DAILY [facility]; Protocol Last Admin: 11/24/24 08:07 Dose: 1 patch Magnesium Hydroxide (Milk Of Magnesia 30 Ml Oral.Susp) 30 ml PO DAILY PRN PRN Reason: Constipation Melatonin (Melatonin 3 Mg Tablet) 6 mg PO BEDTIME [facility] Last Admin: 11/23/24 20:35 Dose: 6 mg Methadone HCl (Methadone Hcl 20 Mg/2 Ml Oral.Conc) 80 mg PO DAILY [facility] Last Admin: 11/24/24 08:06 Dose: 80 mg Oxycodone HCl (Oxycodone Hcl Immed Release 5 Mg Tablet) 10 mg PO Q4H PRN PRN Reason: Pain, Moderate(Pain Scale 4-6) Last Admin: 11/23/24 20:36 Dose: 10 mg Pharmacy Consult (Consult Rx Vancomycin Dosing) 1 each MISCELLANE DAILY PRN PRN Reason: Consult order Sodium Chloride (0.9 % Sodium Chloride Flush 3 Ml Syringe) 3 ml IVFLUSH QSHIFT [facility] Last Admin: 11/24/24 07:32 Dose: Not Given Allergies Allergies Allergy/AdvReac Type Severity Reaction Status Date / Time No Known Allergies Allergy Verified 11/18/24 07:38 [No Known Allergies*] Assessment & Plan Assessment & Plan (1) Opioid use disorder, severe, dependence: Status: Acute Code(s): F11.20 - Opioid dependence, uncomplicated Assessment and Plan: start taper of IV pain meds, as she will eventually d/c to SNF for IV abx no follow up indicated at this time --stable on methadone dose and connected to [facility] in the community per ID note will require IV abx for several weeks--will need guest dosing arranged once nursing facility is identified Total time managing care of this patient today __20__ minutes.
[2024-11-24] MEDS: Enoxaparin Sodium 40 MG/0.4 ML SYRINGE SUBCUT (13:34)
[2024-11-24 15:39] VITALS: BP 137/94; PULSE 64; RESP 16; TEMP 36.6; O2SAT 96
[2024-11-24 16:27] LABS: Vancomycin Trough 16.6 mcg/mL (10.0-20.0)
--- NOTE | 2024-11-24 16:36 | HE.PHANOTE ---
VANCO DOSE ADJUSTMENT BASED ON SCR AND TROUGH OF 16.6 DOSE CONTINUED AT 1250 Q 12H. NEXT LEVEL 11/25 @ 1400
[2024-11-24 19:44] VITALS: BP 135/89; PULSE 56; RESP 16; TEMP 37; O2SAT 97
[2024-11-24] MEDS: Melatonin 3 MG TABLET 6 MG PO (20:12)
[2024-11-24] MEDS: HYDROmorphone HCl 1 MG/ML SYRINGE IVPUSH (20:14)
[2024-11-24] MEDS: 0.9 % Sodium Chloride Flush 3 ML SYRINGE IVFLUSH (20:22)
[2024-11-25] MEDS: HYDROmorphone HCl 1 MG/ML SYRINGE IVPUSH ×5 (02:38→22:03)
[2024-11-25] MEDS: vancomycin HCL 1,250 MG in 0.9 % Sodium Chloride 250 ML 166.67 MG IV (02:47)
[2024-11-25 04:00] VITALS: BP 145/94; PULSE 57; RESP 16; TEMP 36.1; O2SAT 97
[2024-11-25 07:18] VITALS: BP 133/87; PULSE 64; RESP 16; TEMP 37.1; O2SAT 98
[2024-11-25] MEDS: Indomethacin 25 MG CAPSULE PO (07:37)
[2024-11-25] MEDS: Lidocaine 4 % Patch ADH..PATCH 1 PATCH TRANSDERMA (07:37)
[2024-11-25] MEDS: methADONE HCl 20 MG/2 ML ORAL.CONC 80 MG PO (07:38)
[2024-11-25] MEDS: 0.9 % Sodium Chloride Flush 3 ML SYRINGE IVFLUSH ×3 (07:45→22:00)
[2024-11-25] MEDS: oxyCODONE HCl Immed Release 5 MG TABLET 10 MG PO (07:54)
[2024-11-25] MEDS: Acetaminophen 325 MG TABLET 650 MG PO (07:54)
[2024-11-25 08:59] LABS: Estimated Glomerular Filt Rate > 60
--- NOTE | 2024-11-25 11:40 | P.PNIM_ITS ---
Subjective Subjective Date of Service: 11/25/24 Interval History: hands much better but with dip symmetric swelling Physical Exam 2 Vital Signs: Vital Signs: Last Vital Signs Temp 98.7 F 11/25/24 07:18 Pulse 64 11/25/24 07:18 Resp 16 11/25/24 07:18 BP 133/87 11/25/24 07:18 Pulse Ox 98 11/25/24 07:18 O2 Del Method Room Air 11/25/24 07:18 BMI result Body Mass Index 19.5 Const: Other: Constitutional : Awake, interactive, not in distress Neck : Normal inspection, Supple Cardiovascular : RRR, no JVP, no lower extremity edema Respiratory : good bilateral air entry, no crackles, wheezes or rhonchi Gastrointestinal: soft, lax, Normal bowel sounds, Non tender Objective Data Active Medications Acetaminophen (Acetaminophen 325 Mg Tablet) 650 mg PO Q6H PRN PRN Reason: Pain, Mild 1-3,fever,headache Last Admin: 11/25/24 07:54 Dose: 650 mg Documented By: ASHUTOSH Calcium Carbonate (Calcium Carbonate 750 Mg Tab.Chew) 750 mg PO Q4H PRN PRN Reason: Heartburn Enoxaparin Sodium (Enoxaparin Sodium 40 Mg/0.4 Ml Syringe) 40 mg SUBCUT Q24H [facility] Last Admin: 11/24/24 13:34 Dose: 40 mg Documented By: ANTOINETTE Hydromorphone HCl (Hydromorphone Hcl 1 Mg/Ml Syringe) 1 mg IVPUSH Q3H PRN; Protocol PRN Reason: Pain, Severe (Pain Scale 7-10) Last Admin: 11/25/24 06:44 Dose: 1 mg Documented By: MAITE Vancomycin HCl 1,250 mg/ (Sodium Chloride) 250 mls @ 166.667 mls/hr IV Q12H [facility] Last Infusion: 11/25/24 04:20 Dose: Infused Documented By: MAITE Indomethacin (Indomethacin 25 Mg Capsule) 25 mg PO TID [facility] Last Admin: 11/25/24 07:37 Dose: 25 mg Documented By: JACKLYN Lidocaine (Lidocaine 4 % Patch Adh..Patch) 1 patch TRANSDERMA DAILY [facility]; Protocol Last Admin: 11/25/24 07:37 Dose: 1 patch Documented By: JACKLYN Magnesium Hydroxide (Milk Of Magnesia 30 Ml Oral.Susp) 30 ml PO DAILY PRN PRN Reason: Constipation Melatonin (Melatonin 3 Mg Tablet) 6 mg PO BEDTIME [facility] Last Admin: 11/24/24 20:12 Dose: 6 mg Documented By: MAITE Methadone HCl (Methadone Hcl 20 Mg/2 Ml Oral.Conc) 80 mg PO DAILY [facility] Last Admin: 11/25/24 07:38 Dose: 80 mg Documented By: JACKLYN Co-signed By: ASHUTOSH Comments: pt requesting at this time Oxycodone HCl (Oxycodone Hcl Immed Release 5 Mg Tablet) 10 mg PO Q4H PRN PRN Reason: Pain, Moderate(Pain Scale 4-6) Last Admin: 11/25/24 07:54 Dose: 10 mg Documented By: ASHUTOSH Pharmacy Consult (Consult Rx Vancomycin Dosing) 1 each MISCELLANE DAILY PRN PRN Reason: Consult order Sodium Chloride (0.9 % Sodium Chloride Flush 3 Ml Syringe) 3 ml IVFLUSH QSHIFT [facility] Last Admin: 11/25/24 07:45 Dose: 3 ml Documented By: JACKLYN Labs 11/21/24 07:56 11/25/24 08:25 Labs: Laboratory Results - last 24 hr 11/24/24 11/25/24 15:35 08:25 Estim Creat Clear Calc 90.0 Estimated GFR > 60 Vancomycin Trough 16.6 Microbiology Microbiology Results: Microbiology 11/19/24 11:25 Blood Culture - Final Blood - Venous No growth after 5 days. Assessment and Plan (1) Opioid use disorder, severe, dependence: Status: Acute (2) Cellulitis of right foot: Status: Acute (3) Acute osteomyelitis of lumbar spine: Status: Acute (4) Toxic metabolic encephalopathy: Status: Acute (5) Polysubstance abuse: Status: Acute (6) Bacteremia: Status: Acute Plan 33F PMH graves disease, history of hep c (unclear if treated), and polysubstance abuse admitted for further management of cellulitis of the hand and osteomyelitis lumbar spine sepsis 2/2 MRSA Bacteremia with Acute cellulitis R hand and osteomyelitis of lumbar spine without abscess repeat from 11/21/2024 negative plan for 6 weeks iv vanc (end date january 01, 2025) pain management ortho consult recommended Abx treatment, no intervention needed at this point echo unremarkable Bacteruria No growth in Cx. bilateral joint pain could be 2/2 Inflammatory arthropathy will check inflammatory arthritis work up Multilevel spondylosis with central canal stenosis based on MRI finding outpt follow up. pain management as above Polysubstance/IVDA Continue methadone Addiction med following Chronic hepatitis C, noticed back in 2023, will need outpatient treatment viral load positive Transaminitits chronic, r/t liver disease/hepatitis Hx Graves Exopthalmos present mildly elevated TSH w/ normal free t4 dvt prophylaxis- lovenox full code reason for continued hospitalization: placement Quality Stroke Does the patient have a stroke diagnosis?: No VTE Prior VTE?: No VTE Risk Level:: Medical - moderate - high VTE Device Contraindication: Treatment Not Indicated VTE Drug Contraindication: N/A - Med Ordered
[2024-11-25] MEDS: Enoxaparin Sodium 40 MG/0.4 ML SYRINGE SUBCUT (13:08)
--- NOTE | 2024-11-25 14:47 | P.CDIM_ITS ---
PROVIDER RESPONSE TEXT: To clarify, the appropriate diagnosis supported by the clinical indicators: Other (explain): fingers QUERY TEXT: PHYSICIAN'S DOCUMENTATION REQUEST Date of Query: 11/25/2024 02:36 PM EDT Patient Name: Janell Ayala Admit Date: 11/18/2024 Dear Robert Story MD, A review of the medical record indicates additional documentation may be needed. Please review below and update the documentation accordingly. Clinical Indicators: bilateral joint pain noted work up for inflammatory arthritis Based on the above, could you clarify the appropriate location of the joint pain wrist elbow Other (explain) Clinically unable to determine (explain) Thank you, Mela Soto RN Use of terms such as suspected, likely, concern for, or probable (associated with a specific diagnosi s that is being evaluated, monitored, or treated as if it exists) are acceptable and can be coded in the inpatient se tting, when documented at the time of discharge. Please use your independent medical judgment in providing your response. THIS QUERY IS PART OF THE PERMANENT MEDICAL RECORD
--- NOTE | 2024-11-25 15:20 | MHC.CM.PN ---
Patient DX Osteo of Spine.Referrals have been sent. [facility] Jimenez and [facility] following for an open Methadone bed. Patient will need an MDS, Passar, PICC line inserted and Methadone guest dosing set up, prior to DC. Patient will transport via BLS.
[2024-11-25 16:03] VITALS: BP 107/71; PULSE 67; RESP 18; TEMP 36.1; O2SAT 95
[2024-11-25 16:24] LABS: Vancomycin Random 22.7 mcg/mL (15-20)
[2024-11-25 19:17] VITALS: BP 107/64; PULSE 58; RESP 18; TEMP 36.8; O2SAT 97
[2024-11-25] MEDS: vancomycin HCL 1,000 MG in 0.9 % Sodium Chloride 250 ML 270 MG IV (22:00)
[2024-11-25] MEDS: Melatonin 3 MG TABLET 6 MG PO (22:01)
[2024-11-26 02:50] VITALS: BP 144/79; PULSE 82; RESP 16; TEMP 36.6; O2SAT 99
[2024-11-26] MEDS: HYDROmorphone HCl 1 MG/ML SYRINGE IVPUSH ×4 (03:01→19:46)
[2024-11-26 03:03] VITALS: BP 144/79; PULSE 82; RESP 16; TEMP 36.6; O2SAT 99
[2024-11-26] MEDS: Lidocaine 4 % Patch ADH..PATCH 1 PATCH TRANSDERMA (07:47)
[2024-11-26] MEDS: methADONE HCl 20 MG/2 ML ORAL.CONC 80 MG PO (07:47)
[2024-11-26 07:48] VITALS: BP 137/96; PULSE 78; RESP 18; TEMP 37.4; O2SAT 99
[2024-11-26] MEDS: 0.9 % Sodium Chloride Flush 3 ML SYRINGE IVFLUSH ×3 (07:50→22:49)
[2024-11-26] MEDS: oxyCODONE HCl Immed Release 5 MG TABLET 10 MG PO (08:01)
[2024-11-26 10:00] LABS: Alanine Aminotransferase 37 U/L (0-31); Albumin Level 3.4 g/dL (3.5-5.0); Alkaline Phosphatase 88 U/L (39-117); Anion Gap 13 (12-20); Aspartate Amino Transferase 53 U/L (5-31); Bilirubin Direct 0.1 mg/dL (0.0-0.5); Bilirubin Total 0.3 mg/dL (0.0-1.0); Blood Urea Nitrogen 13 mg/dL (9-16); Calcium 9.3 mg/dL (8.4-10.2); Carbon Dioxide 29 mmol/L (22-29); Chloride 102 mmol/L (96-108); Estimated Glomerular Filt Rate > 60; Glucose Random 89 mg/dL (60-115); Magnesium 1.9 mg/dL (1.6-2.6); Potassium 3.7 mmol/L (3.3-5.1); Sodium 140 mmol/L (135-145); Total Protein 8.3 g/dL (6.5-8.0); Uric Acid 5.6 mg/dL (2.4-5.7)
[2024-11-26] MEDS: vancomycin HCL 1,000 MG in 0.9 % Sodium Chloride 250 ML 270 MG IV ×2 (10:55→22:44)
--- NOTE | 2024-11-26 11:00 | HO.PM.IMPN ---
Subjective Subjective Date of Service: 11/26/24 Interval History: hands much better but with dip symmetric swelling Physical Exam Vital Signs: Vital Signs: Last Vital Signs Temp 99.3 F 11/26/24 07:48 Pulse 78 11/26/24 07:48 Resp 18 11/26/24 07:48 BP 137/96 H 11/26/24 07:48 Pulse Ox 99 11/26/24 07:48 O2 Del Method Room Air 11/26/24 07:48 BMI result Body Mass Index 19.5 Const: Other: Constitutional : Awake, interactive, not in distress Neck : Normal inspection, Supple Cardiovascular : RRR, no JVP, no lower extremity edema Respiratory : good bilateral air entry, no crackles, wheezes or rhonchi Gastrointestinal: soft, lax, Normal bowel sounds, Non tender Objective Data Active Medications Acetaminophen (Acetaminophen 325 Mg Tablet) 650 mg PO Q6H PRN PRN Reason: Pain, Mild 1-3,fever,headache Last Admin: 11/25/24 07:54 Dose: 650 mg Documented By: ASHUTOSH Calcium Carbonate (Calcium Carbonate 750 Mg Tab.Chew) 750 mg PO Q4H PRN PRN Reason: Heartburn Enoxaparin Sodium (Enoxaparin Sodium 40 Mg/0.4 Ml Syringe) 40 mg SUBCUT Q24H [facility] Last Admin: 11/25/24 13:08 Dose: 40 mg Documented By: JACKLYN Hydromorphone HCl (Hydromorphone Hcl 1 Mg/Ml Syringe) 1 mg IVPUSH Q3H PRN; Protocol PRN Reason: Pain, Severe (Pain Scale 7-10) Last Admin: 11/26/24 05:42 Dose: 1 mg Documented By: MAITE Vancomycin HCl 1,000 mg/ (Sodium Chloride) 270 mls @ 270 mls/hr IV Q12H [facility] Last Infusion: 11/25/24 23:40 Dose: Infused Documented By: MAITE Lidocaine (Lidocaine 4 % Patch Adh..Patch) 1 patch TRANSDERMA DAILY [facility]; Protocol Last Admin: 11/26/24 07:47 Dose: 1 patch Documented By: JACKLYN Magnesium Hydroxide (Milk Of Magnesia 30 Ml Oral.Susp) 30 ml PO DAILY PRN PRN Reason: Constipation Melatonin (Melatonin 3 Mg Tablet) 6 mg PO BEDTIME [facility] Last Admin: 11/25/24 22:01 Dose: 6 mg Documented By: MAITE Methadone HCl (Methadone Hcl 20 Mg/2 Ml Oral.Conc) 80 mg PO DAILY@0700 [facility] Last Admin: 11/26/24 07:47 Dose: 80 mg Documented By: JACKLYN Co-signed By: BELLA Oxycodone HCl (Oxycodone Hcl Immed Release 5 Mg Tablet) 10 mg PO Q4H PRN PRN Reason: Pain, Moderate(Pain Scale 4-6) Last Admin: 11/26/24 08:01 Dose: 10 mg Documented By: JACKLYN Pharmacy Consult (Consult Rx Vancomycin Dosing) 1 each MISCELLANE DAILY PRN PRN Reason: Consult order Sodium Chloride (0.9 % Sodium Chloride Flush 3 Ml Syringe) 3 ml IVFLUSH QSHIFT [facility] Last Admin: 11/26/24 07:50 Dose: 3 ml Documented By: JACKLYN Labs 11/21/24 07:56 11/26/24 09:29 Labs: Laboratory Results - last 24 hr 11/25/24 11/26/24 14:45 09:29 Anion Gap 13 Estim Creat Clear Calc 84.0 Estimated GFR > 60 Random Glucose 89 Uric Acid 5.6 Calcium 9.3 Magnesium 1.9 Total Bilirubin 0.3 Direct Bilirubin 0.1 AST 53 H ALT 37 H Alkaline Phosphatase 88 Total Protein 8.3 H Albumin 3.4 L Random Vancomycin 22.7 H Microbiology Microbiology Results: Microbiology 11/21/24 07:55 Blood Culture - Final Blood - Venous No growth after 5 days. Assessment and Plan (1) Opioid use disorder, severe, dependence: Status: Acute (2) Cellulitis of right foot: Status: Acute (3) Acute osteomyelitis of lumbar spine: Status: Acute (4) Toxic metabolic encephalopathy: Status: Acute (5) Polysubstance abuse: Status: Acute (6) Bacteremia: Status: Acute Plan 33F PMH graves disease, history of hep c (unclear if treated), and polysubstance abuse admitted for further management of cellulitis of the hand and osteomyelitis lumbar spine sepsis 2/2 MRSA Bacteremia with Acute cellulitis R hand and osteomyelitis of lumbar spine without abscess repeat from 11/21/2024 negative plan for 6 weeks iv vanc (end date january 01, 2025) pain management ortho consult recommended Abx treatment, no intervention needed at this point echo unremarkable Bacteruria No growth in Cx. bilateral joint pain could be 2/2 Inflammatory arthropathy follow up inflammatory arthritis work up Multilevel spondylosis with central canal stenosis based on MRI finding outpt follow up. pain management as above Polysubstance/IVDA Continue methadone Addiction med following Chronic hepatitis C, noticed back in 2023, will need outpatient treatment viral load positive Transaminitits chronic, r/t liver disease/hepatitis Hx Graves Exopthalmos present mildly elevated TSH w/ normal free t4 dvt prophylaxis- lovenox full code reason for continued hospitalization: placement Quality Stroke Does the patient have a stroke diagnosis?: No VTE Prior VTE?: No VTE Risk Level:: Medical - moderate - high VTE Device Contraindication: Treatment Not Indicated VTE Drug Contraindication: N/A - Med Ordered
[2024-11-26 11:02] LABS: Rheumatoid Factor 52.1 IU/mL (<15.0)
[2024-11-26] MEDS: Enoxaparin Sodium 40 MG/0.4 ML SYRINGE SUBCUT (15:04)
[2024-11-26 15:27] LABS: Hematocrit 33.3 % (37.0-47.0); Hemoglobin 10.5 g/dl (12.0-16.0); Mean Corpuscular HGB Conc 31.5 g/dl (31.0-35.0); Mean Corpuscular Hemoglobin 27.1 pg (27.0-33.0); Mean Platelet Volume 8.9 fL (9.4-12.3); Platelet Count 270 X10*3/uL (160-400); Red Blood Count 3.87 X10*6/uL (4.20-5.50); Red Cell Distribution Width 14.6 % (11.0-16.0); White Blood Count 9.7 X10*3/uL (4.8-10.8)
[2024-11-26 15:46] VITALS: BP 137/78; PULSE 66; RESP 18; TEMP 36.6; O2SAT 98
[2024-11-26 19:56] VITALS: BP 128/88; PULSE 62; RESP 20; TEMP 36.3; O2SAT 100
[2024-11-26] MEDS: Melatonin 3 MG TABLET 6 MG PO (22:44)
[2024-11-27 03:29] VITALS: BP 114/76; PULSE 50; RESP 18; TEMP 36.1; O2SAT 97
[2024-11-27] MEDS: HYDROmorphone HCl 1 MG/ML SYRINGE IVPUSH ×4 (06:08→21:21)
[2024-11-27 06:44] LABS: Creatinine Clr Calc Pharmacy 80.8; Estimated Glomerular Filt Rate > 60
[2024-11-27 07:24] VITALS: BP 107/62; PULSE 52; RESP 14; TEMP 36.9; O2SAT 97
[2024-11-27] MEDS: Lidocaine 4 % Patch ADH..PATCH 1 PATCH TRANSDERMA (07:35)
[2024-11-27] MEDS: methADONE HCl 20 MG/2 ML ORAL.CONC 80 MG PO (07:35)
[2024-11-27] MEDS: 0.9 % Sodium Chloride Flush 3 ML SYRINGE IVFLUSH (07:35)
--- NOTE | 2024-11-27 09:07 | P.PNIM_ITS ---
Subjective Subjective Date of Service: 11/27/24 Interval History: hands much better but with dip symmetric swelling Physical Exam 2 Vital Signs: Vital Signs: Last Vital Signs Temp 98.5 F 11/27/24 07:24 Pulse 52 11/27/24 07:24 Resp 14 11/27/24 07:24 BP 107/62 11/27/24 07:24 Pulse Ox 97 11/27/24 07:24 O2 Del Method Room Air 11/27/24 07:24 BMI result Body Mass Index 19.5 Const: Other: Constitutional : Awake, interactive, not in distress Neck : Normal inspection, Supple Cardiovascular : RRR, no JVP, no lower extremity edema Respiratory : good bilateral air entry, no crackles, wheezes or rhonchi Gastrointestinal: soft, lax, Normal bowel sounds, Non tender Objective Data Active Medications Acetaminophen (Acetaminophen 325 Mg Tablet) 650 mg PO Q6H PRN PRN Reason: Pain, Mild 1-3,fever,headache Last Admin: 11/25/24 07:54 Dose: 650 mg Documented By: ASHUTOSH Calcium Carbonate (Calcium Carbonate 750 Mg Tab.Chew) 750 mg PO Q4H PRN PRN Reason: Heartburn Enoxaparin Sodium (Enoxaparin Sodium 40 Mg/0.4 Ml Syringe) 40 mg SUBCUT Q24H [facility] Last Admin: 11/26/24 15:04 Dose: 40 mg Documented By: JACKLYN Hydromorphone HCl (Hydromorphone Hcl 1 Mg/Ml Syringe) 1 mg IVPUSH Q4H PRN; Protocol PRN Reason: Pain, Severe (Pain Scale 7-10) Last Admin: 11/27/24 06:08 Dose: 1 mg Documented By: MAITE Vancomycin HCl 1,000 mg/ (Sodium Chloride) 270 mls @ 270 mls/hr IV Q12H [facility] Last Infusion: 11/26/24 23:48 Dose: Infused Documented By: MAITE Lidocaine (Lidocaine 4 % Patch Adh..Patch) 1 patch TRANSDERMA DAILY [facility]; Protocol Last Admin: 11/27/24 07:35 Dose: 1 patch Documented By: SHARON Magnesium Hydroxide (Milk Of Magnesia 30 Ml Oral.Susp) 30 ml PO DAILY PRN PRN Reason: Constipation Melatonin (Melatonin 3 Mg Tablet) 6 mg PO BEDTIME [facility] Last Admin: 11/26/24 22:44 Dose: 6 mg Documented By: MAITE Methadone HCl (Methadone Hcl 20 Mg/2 Ml Oral.Conc) 80 mg PO DAILY@0700 [facility] Last Admin: 11/27/24 07:35 Dose: 80 mg Documented By: SHARON Co-signed By: JOSE Oxycodone HCl (Oxycodone Hcl Immed Release 5 Mg Tablet) 10 mg PO Q4H PRN PRN Reason: Pain, Moderate(Pain Scale 4-6) Last Admin: 11/26/24 08:01 Dose: 10 mg Documented By: JACKLYN Pharmacy Consult (Consult Rx Vancomycin Dosing) 1 each MISCELLANE DAILY PRN PRN Reason: Consult order Sodium Chloride (0.9 % Sodium Chloride Flush 3 Ml Syringe) 3 ml IVFLUSH QSHIFT [facility] Last Admin: 11/27/24 07:35 Dose: 3 ml Documented By: SHARON Labs 11/26/24 15:17 11/27/24 05:56 Labs: Laboratory Results - last 24 hr 11/26/24 11/26/24 11/26/24 09:29 15:17 21:08 MCV 86.0 MCH 27.1 MCHC 31.5 RDW 14.6 Plt Count 270 D MPV 8.9 L Absolute Nucleated RBC 0.000 Nucleated RBC % (auto) 0.0 Anion Gap 13 Estim Creat Clear Calc 84.0 Estimated GFR > 60 Random Glucose 89 Uric Acid 5.6 Calcium 9.3 Magnesium 1.9 Total Bilirubin 0.3 Direct Bilirubin 0.1 AST 53 H ALT 37 H Alkaline Phosphatase 88 Total Protein 8.3 H Albumin 3.4 L Hold Yellow Top Random Vancomycin 18.0 Rheumatoid Factor 52.1 H 11/26/24 11/27/24 Unknown 05:56 MCV MCH MCHC RDW Plt Count MPV Absolute Nucleated RBC Nucleated RBC % (auto) Anion Gap Estim Creat Clear Calc 80.8 Estimated GFR > 60 Random Glucose Uric Acid Calcium Magnesium Total Bilirubin Direct Bilirubin AST ALT Alkaline Phosphatase Total Protein Albumin Hold Yellow Top See Note Random Vancomycin Rheumatoid Factor Microbiology Microbiology Results: Microbiology 11/21/24 10:53 Blood Culture - Final Blood - Venous No growth after 5 days. 11/21/24 07:55 Blood Culture - Final Blood - Venous No growth after 5 days. Assessment and Plan (1) Opioid use disorder, severe, dependence: Status: Acute (2) Cellulitis of right foot: Status: Acute (3) Acute osteomyelitis of lumbar spine: Status: Acute (4) Toxic metabolic encephalopathy: Status: Acute (5) Polysubstance abuse: Status: Acute (6) Bacteremia: Status: Acute Plan 33F PMH graves disease, history of hep c, and polysubstance abuse admitted for further management of cellulitis of the hand and osteomyelitis lumbar spine sepsis 2/2 MRSA Bacteremia with Acute cellulitis R hand and osteomyelitis of lumbar spine without abscess repeat blood culture from 11/21/2024 negative plan for 6 weeks iv vanc (end date january 01, 2025) pain management ortho consult recommended Abx treatment, no intervention needed at this point echo unremarkable Bacteruria No growth in Cx. 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 pain management as above Polysubstance/IVDA Continue methadone Addiction med following Chronic hepatitis C wtih positive viral load, will need outpatient treatment Hx Graves Exopthalmos present mildly elevated TSH w/ normal free t4 dvt prophylaxis- lovenox full code reason for continued hospitalization: placement for iv abx at facility that can administer opiate replacement therapy Quality Stroke Does the patient have a stroke diagnosis?: No VTE Prior VTE?: No VTE Risk Level:: Medical - moderate - high VTE Device Contraindication: Treatment Not Indicated VTE Drug Contraindication: N/A - Med Ordered
[2024-11-27] MEDS: vancomycin HCL 1,000 MG in 0.9 % Sodium Chloride 250 ML 270 MG IV (10:35)
[2024-11-27] MEDS: oxyCODONE HCl Immed Release 5 MG TABLET 10 MG PO (14:21)
[2024-11-27] MEDS: Enoxaparin Sodium 40 MG/0.4 ML SYRINGE SUBCUT (14:22)
--- NOTE | 2024-11-27 14:31 | MHC.CM.PN ---
Addendum entered by Kathy Barreto 11/27/24 15:01: REFERRALS EXPANDED FURTHER EAST. Original Note: EMR REVIEWED AND PER MD ROUNDS, PT IS MEDICALLY CLEAR FOR DC TO STR FACILITY FOR IV RX. NO BED OFFERS OF YET , CENTERS THAT CONTINUE TO FOLLOW FOR BED AVAILABILITY ([facility]) CM WILL CONTINUE TO FOLLOW
[2024-11-27 15:25] VITALS: BP 131/85; PULSE 56; RESP 18; TEMP 36.6; O2SAT 97
--- NOTE | 2024-11-27 16:00 | MHC.RECOVRN ---
Met with pt to follow up and provide support. Pt sitting in bed, awake, alert, easily engages in conversation. Pt reports her mom has been to visit her twice after not seeing each other for 5 years. Pt very happy about this, in good spirits and hopeful. Pt looking forward to completing IV antibiotics and getting my life back together. Denies questions or concerns at this time.
[2024-11-27 19:37] VITALS: BP 115/67; PULSE 57; RESP 16; TEMP 37.1; O2SAT 97
[2024-11-27] MEDS: Melatonin 3 MG TABLET 6 MG PO (21:22)
--- NOTE | 2024-11-27 21:40 | HE.PHANOTE ---
Re: [place] Renal function has declined. Trough returned at 19. Dose was reduced to 750mg q12h, with predicted AUC 442, predicted trough 13. Next trough / @ 0900.
[2024-11-27] MEDS: vancomycin HCL 750 MG in 0.9 % Sodium Chloride 250 ML 265 MG IV (23:02)
[2024-11-28] MEDS: oxyCODONE HCl Immed Release 5 MG TABLET 10 MG PO (00:12)
[2024-11-28] MEDS: 0.9 % Sodium Chloride Flush 3 ML SYRINGE IVFLUSH ×3 (01:12→15:12)
[2024-11-28 03:15] VITALS: BP 114/67; PULSE 69; RESP 16; TEMP 36.1; O2SAT 96
[2024-11-28 03:26] VITALS: RESP 16
[2024-11-28] MEDS: HYDROmorphone HCl 1 MG/ML SYRINGE IVPUSH ×4 (03:26→20:12)
[2024-11-28 06:26] LABS: Estimated Glomerular Filt Rate > 60
[2024-11-28 07:38] VITALS: BP 102/60; PULSE 56; RESP 16; TEMP 36.2; O2SAT 98
[2024-11-28] MEDS: Lidocaine 4 % Patch ADH..PATCH 1 PATCH TRANSDERMA (08:21)
[2024-11-28] MEDS: methADONE HCl 20 MG/2 ML ORAL.CONC 80 MG PO (08:24)
[2024-11-28] MEDS: vancomycin HCL 750 MG in 0.9 % Sodium Chloride 250 ML 265 MG IV ×2 (11:03→23:18)
--- NOTE | 2024-11-28 11:56 | P.PNIM_ITS ---
Subjective Subjective Date of Service: 11/28/24 Interval History: Seen and evaluated this morning feels better, still having back pain no other events Review of Systems Review of Systems: Yes all other systems are reviewed and are negative Physical Exam 2 Vital Signs: Vital Signs: Last Vital Signs Temp 97.1 F 11/28/24 07:38 Pulse 56 11/28/24 07:38 Resp 16 11/28/24 07:38 BP 102/60 11/28/24 07:38 Pulse Ox 98 11/28/24 07:38 O2 Del Method Room Air 11/28/24 07:38 BMI result Body Mass Index 19.5 Const: Other: Constitutional : Awake, interactive, not in distress Neck : Normal inspection, Supple Cardiovascular : RRR, no JVP, no lower extremity edema Respiratory : good bilateral air entry, no crackles, wheezes or rhonchi Gastrointestinal: soft, lax, Normal bowel sounds, Non tender Objective Data Active Medications Acetaminophen (Acetaminophen 325 Mg Tablet) 650 mg PO Q6H PRN PRN Reason: Pain, Mild 1-3,fever,headache Last Admin: 11/25/24 07:54 Dose: 650 mg Documented By: ASHUTOSH Calcium Carbonate (Calcium Carbonate 750 Mg Tab.Chew) 750 mg PO Q4H PRN PRN Reason: Heartburn Enoxaparin Sodium (Enoxaparin Sodium 40 Mg/0.4 Ml Syringe) 40 mg SUBCUT Q24H [facility] Last Admin: 11/27/24 14:22 Dose: 40 mg Documented By: HSARON Hydromorphone HCl (Hydromorphone Hcl 1 Mg/Ml Syringe) 1 mg IVPUSH Q4H PRN; Protocol PRN Reason: Pain, Severe (Pain Scale 7-10) Last Admin: 11/28/24 08:21 Dose: 1 mg Documented By: MAURICE Vancomycin HCl 750 mg/ Sodium (Chloride) 265 mls @ 265 mls/hr IV Q12H [facility] Last Admin: 11/28/24 11:03 Dose: 265 mls/hr Documented By: MAURICE Lidocaine (Lidocaine 4 % Patch Adh..Patch) 1 patch TRANSDERMA DAILY [facility]; Protocol Last Admin: 11/28/24 08:21 Dose: 1 patch Documented By: MAURICE Magnesium Hydroxide (Milk Of Magnesia 30 Ml Oral.Susp) 30 ml PO DAILY PRN PRN Reason: Constipation Melatonin (Melatonin 3 Mg Tablet) 6 mg PO BEDTIME [facility] Last Admin: 11/27/24 21:22 Dose: 6 mg Documented By: PETRA Methadone HCl (Methadone Hcl 20 Mg/2 Ml Oral.Conc) 80 mg PO DAILY@0700 [facility] Last Admin: 11/28/24 08:24 Dose: 80 mg Documented By: MAURICE Co-signed By: JOSE Oxycodone HCl (Oxycodone Hcl Immed Release 5 Mg Tablet) 10 mg PO Q4H PRN PRN Reason: Pain, Moderate(Pain Scale 4-6) Last Admin: 11/28/24 00:12 Dose: 10 mg Documented By: PETRA Pharmacy Consult (Consult Rx Vancomycin Dosing) 1 each MISCELLANE DAILY PRN PRN Reason: Consult order Sodium Chloride (0.9 % Sodium Chloride Flush 3 Ml Syringe) 3 ml IVFLUSH QSHIFT [facility] Last Admin: 11/28/24 08:22 Dose: 3 ml Documented By: MAURICE Labs 11/26/24 15:17 11/28/24 05:22 Labs: Laboratory Results - last 24 hr 11/27/24 11/28/24 21:02 05:22 Estim Creat Clear Calc 84.0 Estimated GFR > 60 Random Vancomycin 19.0 Assessment and Plan (1) Opioid use disorder, severe, dependence: Status: Acute (2) Bacteremia: Status: Acute Plan 33F PMH graves disease, history of hep c, and polysubstance abuse admitted for further management of cellulitis of the hand and osteomyelitis lumbar spine sepsis 2/2 MRSA Bacteremia with Acute cellulitis R hand and osteomyelitis of lumbar spine without abscess repeat blood culture from 11/21/2024 negative plan for 6 weeks iv vanc (end date january 01, 2025) pain management ortho consult recommended Abx treatment, no intervention needed at this point echo unremarkable Follow Vanco trough Bacteruria No growth in Cx. 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 pain management as above Polysubstance/IVDA Continue methadone Addiction med following Chronic hepatitis C wtih positive viral load, will need outpatient treatment Hx Graves Exopthalmos present mildly elevated TSH w/ normal free t4 dvt prophylaxis- lovenox full code reason for continued hospitalization: placement for iv abx at facility that can administer opiate replacement therapy Quality Stroke Does the patient have a stroke diagnosis?: No VTE Prior VTE?: No VTE Risk Level:: Medical - moderate - high VTE Device Contraindication: Treatment Not Indicated VTE Drug Contraindication: N/A - Med Ordered
--- NOTE | 2024-11-28 12:41 | MHC.RECOVRN ---
Met with pt to follow up and provide support. Pt sitting in bed, awake, alert, easily engages in conversation. Pt continues to wait for STR bed, will need PICC prior to dc. Pt doing well overall, would like to take a shower today. Mom came in during meeting to visit. Pt and mom deny questions or concerns at this time.
[2024-11-28] MEDS: Enoxaparin Sodium 40 MG/0.4 ML SYRINGE SUBCUT (15:10)
[2024-11-28 15:32] VITALS: BP 112/59; PULSE 53; RESP 14; TEMP 36.9; O2SAT 99
[2024-11-28 19:11] VITALS: BP 109/62; PULSE 50; RESP 18; TEMP 37.1; O2SAT 97
[2024-11-28] MEDS: Melatonin 3 MG TABLET 6 MG PO (20:13)
[2024-11-29] MEDS: HYDROmorphone HCl 1 MG/ML SYRINGE IVPUSH ×2 (02:50→20:52)
[2024-11-29 03:02] VITALS: BP 112/56; PULSE 50; RESP 16; TEMP 36.6; O2SAT 96
[2024-11-29 06:14] LABS: Creatinine Clr Calc Pharmacy 79.7; Estimated Glomerular Filt Rate > 60
[2024-11-29] MEDS: methADONE HCl 20 MG/2 ML ORAL.CONC 80 MG PO (06:57)
[2024-11-29] MEDS: oxyCODONE HCl Immed Release 5 MG TABLET 10 MG PO ×2 (06:57→11:38)
[2024-11-29 07:10] VITALS: BP 102/63; PULSE 60; RESP 16; TEMP 36.2; O2SAT 94
[2024-11-29] MEDS: Lidocaine 4 % Patch ADH..PATCH 1 PATCH TRANSDERMA (08:05)
[2024-11-29] MEDS: 0.9 % Sodium Chloride Flush 3 ML SYRINGE IVFLUSH ×3 (08:06→22:46)
[2024-11-29 10:06] LABS: Vancomycin Trough 16.6 mcg/mL (10.0-20.0)
[2024-11-29] MEDS: vancomycin HCL 750 MG in 0.9 % Sodium Chloride 250 ML 265 MG IV ×2 (10:24→22:46)
--- NOTE | 2024-11-29 10:56 | MHC.RECOVRN ---
Pt interested in job coaching. graduation coach referral placed.
--- NOTE | 2024-11-29 11:13 | P.PNIM_ITS ---
Subjective Subjective Date of Service: 11/29/24 Interval History: Seen and evaluated this morning feels better, reporting back pain no other events Review of Systems Review of Systems: Yes all other systems are reviewed and are negative Physical Exam 2 Vital Signs: Vital Signs: Last Vital Signs Temp 97.2 F 11/29/24 07:10 Pulse 60 11/29/24 07:10 Resp 16 11/29/24 07:10 BP 102/63 11/29/24 07:10 Pulse Ox 94 11/29/24 07:10 O2 Del Method Room Air 11/29/24 07:10 BMI result Body Mass Index 19.5 Const: Other: Constitutional : Awake, interactive, not in distress Neck : Normal inspection, Supple Cardiovascular : RRR, no JVP, no lower extremity edema Respiratory : good bilateral air entry, no crackles, wheezes or rhonchi Gastrointestinal: soft, lax, Normal bowel sounds, Non tender Objective Data Active Medications Acetaminophen (Acetaminophen 325 Mg Tablet) 650 mg PO Q6H PRN PRN Reason: Pain, Mild 1-3,fever,headache Last Admin: 11/25/24 07:54 Dose: 650 mg Documented By: ASHUTOSH Calcium Carbonate (Calcium Carbonate 750 Mg Tab.Chew) 750 mg PO Q4H PRN PRN Reason: Heartburn Enoxaparin Sodium (Enoxaparin Sodium 40 Mg/0.4 Ml Syringe) 40 mg SUBCUT Q24H [facility] Last Admin: 11/28/24 15:10 Dose: 40 mg Documented By: GRAZIC Hydromorphone HCl (Hydromorphone Hcl 1 Mg/Ml Syringe) 1 mg IVPUSH Q4H PRN; Protocol PRN Reason: Pain, Severe (Pain Scale 7-10) Last Admin: 11/29/24 02:50 Dose: 1 mg Documented By: ANTRAMAKRISHNA Vancomycin HCl 750 mg/ Sodium (Chloride) 265 mls @ 265 mls/hr IV Q12H [facility] Last Admin: 11/29/24 10:24 Dose: 265 mls/hr Documented By: CIERA Lidocaine (Lidocaine 4 % Patch Adh..Patch) 1 patch TRANSDERMA DAILY [facility]; Protocol Last Admin: 11/29/24 08:05 Dose: 1 patch Documented By: CIERA Magnesium Hydroxide (Milk Of Magnesia 30 Ml Oral.Susp) 30 ml PO DAILY PRN PRN Reason: Constipation Melatonin (Melatonin 3 Mg Tablet) 6 mg PO BEDTIME [facility] Last Admin: 11/28/24 20:13 Dose: 6 mg Documented By: ANTRAMAKRISHNA Methadone HCl (Methadone Hcl 20 Mg/2 Ml Oral.Conc) 80 mg PO DAILY@0700 [facility] Last Admin: 11/29/24 06:57 Dose: 80 mg Documented By: ASHUTOSH Co-signed By: CIERA Oxycodone HCl (Oxycodone Hcl Immed Release 5 Mg Tablet) 10 mg PO Q4H PRN PRN Reason: Pain, Moderate(Pain Scale 4-6) Last Admin: 11/29/24 06:57 Dose: 10 mg Documented By: ASHUTOSH Sodium Chloride (0.9 % Sodium Chloride Flush 3 Ml Syringe) 3 ml IVFLUSH QSHIFT [facility] Last Admin: 11/29/24 08:06 Dose: 3 ml Documented By: CIERA Labs 11/26/24 15:17 11/29/24 05:34 Labs: Laboratory Results - last 24 hr 11/29/24 11/29/24 05:34 09:30 Estim Creat Clear Calc 79.7 Estimated GFR > 60 Vancomycin Trough 16.6 Assessment and Plan (1) Opioid use disorder, severe, dependence: Status: Acute (2) Bacteremia: Status: Acute (3) Cellulitis of right hand: Status: Acute Plan 33F PMH graves disease, history of hep c, and polysubstance abuse admitted for further management of cellulitis of the hand and osteomyelitis lumbar spine sepsis 2/2 MRSA Bacteremia with Acute cellulitis R hand and osteomyelitis of lumbar spine without abscess repeat blood culture from 11/21/2024 negative plan for 6 weeks iv vanc (end date january 01, 2025) pain management ortho consult recommended Abx treatment, no intervention needed at this point echo unremarkable Follow Vanco trough Bacteruria No growth in Cx. 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 pain management as above Polysubstance/IVDA Continue methadone Addiction med following Chronic hepatitis C wtih positive viral load, will need outpatient treatment Hx Graves Exopthalmos present mildly elevated TSH w/ normal free t4 dvt prophylaxis- lovenox full code reason for continued hospitalization: placement for iv abx at facility that can administer opiate replacement therapy Quality Stroke Does the patient have a stroke diagnosis?: No VTE Prior VTE?: No VTE Risk Level:: Medical - moderate - high VTE Device Contraindication: Treatment Not Indicated VTE Drug Contraindication: N/A - Med Ordered
--- NOTE | 2024-11-29 13:33 | MHC.CM.PN ---
Referral updated and sent to facilities following. No bed offers have been received. SNFs following: [facility], [facility], [facility] and [facility]. Methadone guest dosing will need to be set up once a bed is secured. CM will follow for discharge.
[2024-11-29 15:19] VITALS: BP 96/57; PULSE 57; RESP 18; TEMP 36.1; O2SAT 96
[2024-11-29] MEDS: Enoxaparin Sodium 40 MG/0.4 ML SYRINGE SUBCUT (15:19)
[2024-11-29 19:27] LABS: Cyclic Citrullinated Peptide <16 UNITS
[2024-11-29 19:48] VITALS: BP 119/58; PULSE 99; RESP 18; TEMP 36.2; O2SAT 97
[2024-11-29] MEDS: Melatonin 3 MG TABLET 6 MG PO (20:51)
[2024-11-30 04:00] VITALS: BP 102/66; PULSE 57; RESP 16; TEMP 36.7; O2SAT 98
[2024-11-30] MEDS: methADONE HCl 20 MG/2 ML ORAL.CONC 80 MG PO (06:33)
[2024-11-30 07:09] LABS: Creatinine Clr Calc Pharmacy 76.8; Estimated Glomerular Filt Rate > 60
[2024-11-30 07:37] VITALS: BP 97/62; PULSE 62; RESP 16; TEMP 37; O2SAT 97
[2024-11-30] MEDS: Lidocaine 4 % Patch ADH..PATCH 1 PATCH TRANSDERMA (08:55)
[2024-11-30] MEDS: oxyCODONE HCl Immed Release 5 MG TABLET 10 MG PO (08:56)
[2024-11-30] MEDS: 0.9 % Sodium Chloride Flush 3 ML SYRINGE IVFLUSH ×3 (09:02→23:18)
[2024-11-30 09:41] LABS: Vancomycin Random 18.1 mcg/mL (15-20)
[2024-11-30] MEDS: vancomycin HCL 750 MG in 0.9 % Sodium Chloride 250 ML 265 MG IV ×2 (10:24→23:19)
--- NOTE | 2024-11-30 11:01 | PC.NURSE ---
Per MD Dutta Kpad ordered for patient to use on back. Pt educated on importance of heating pad to be used for only for 20 minutes at a time followed by at least 20 minutes off. Kpad setting set to 20 minute intervals. Pt educated on risks of skin damage if heating pad left on for too long or at too hot of a setting. Pt verbalizes understanding of instructions.
--- NOTE | 2024-11-30 11:01 | HO.PM.IMPN ---
Subjective Subjective Date of Service: 11/30/24 Interval History: Seen and evaluated this morning feels better overall reporting back pain no other events Review of Systems Review of Systems: Yes all other systems are reviewed and are negative Physical Exam Vital Signs: Vital Signs: Last Vital Signs Temp 98.6 F 11/30/24 07:37 Pulse 62 11/30/24 07:37 Resp 16 11/30/24 07:37 BP 97/62 11/30/24 07:37 Pulse Ox 97 11/30/24 07:37 O2 Del Method Room Air 11/30/24 07:37 BMI result Body Mass Index 19.5 Const: Other: Constitutional : Awake, interactive, not in distress Neck : Normal inspection, Supple Cardiovascular : RRR, no JVP, no lower extremity edema Respiratory : good bilateral air entry, no crackles, wheezes or rhonchi Gastrointestinal: soft, lax, Normal bowel sounds, Non tender Objective Data Active Medications Acetaminophen (Acetaminophen 325 Mg Tablet) 650 mg PO Q6H PRN PRN Reason: Pain, Mild 1-3,fever,headache Last Admin: 11/25/24 07:54 Dose: 650 mg Documented By: ASHUTOSH Calcium Carbonate (Calcium Carbonate 750 Mg Tab.Chew) 750 mg PO Q4H PRN PRN Reason: Heartburn Enoxaparin Sodium (Enoxaparin Sodium 40 Mg/0.4 Ml Syringe) 40 mg SUBCUT Q24H [facility] Last Admin: 11/29/24 15:19 Dose: 40 mg Documented By: CIERA Hydromorphone HCl (Hydromorphone Hcl 1 Mg/Ml Syringe) 1 mg IVPUSH Q4H PRN; Protocol PRN Reason: Pain, Severe (Pain Scale 7-10) Last Admin: 11/29/24 20:52 Dose: 1 mg Documented By: JUSTYN Vancomycin HCl 750 mg/ Sodium (Chloride) 265 mls @ 265 mls/hr IV Q12H [facility] Last Admin: 11/30/24 10:24 Dose: 265 mls/hr Documented By: JACKLYN Lidocaine (Lidocaine 4 % Patch Adh..Patch) 1 patch TRANSDERMA DAILY [facility]; Protocol Last Admin: 11/30/24 08:55 Dose: 1 patch Documented By: JACKLYN Magnesium Hydroxide (Milk Of Magnesia 30 Ml Oral.Susp) 30 ml PO DAILY PRN PRN Reason: Constipation Melatonin (Melatonin 3 Mg Tablet) 6 mg PO BEDTIME [facility] Last Admin: 11/29/24 20:51 Dose: 6 mg Documented By: JUSTYN Methadone HCl (Methadone Hcl 20 Mg/2 Ml Oral.Conc) 80 mg PO DAILY@0700 [facility] Last Admin: 11/30/24 06:33 Dose: 80 mg Documented By: JUSTYN Co-signed By: GLORIA Sodium Chloride (0.9 % Sodium Chloride Flush 3 Ml Syringe) 3 ml IVFLUSH QSHIFT [facility] Last Admin: 11/30/24 09:02 Dose: 3 ml Documented By: TRAVISUSIA Labs 11/26/24 15:17 11/30/24 06:17 Labs: Laboratory Results - last 24 hr 11/26/24 11/30/24 11/30/24 09:29 06:17 09:11 Hold Purple Top SEE NOTE Estim Creat Clear Calc 76.8 Estimated GFR > 60 Random Vancomycin 18.1 Cycl Citrul Peptide IgG <16 Assessment and Plan (1) Opioid use disorder, severe, dependence: Status: Acute (2) Cellulitis of right foot: Status: Acute (3) Bacteremia: Status: Acute (4) Acute osteomyelitis of lumbar spine: Status: Acute Plan 33F PMH graves disease, history of hep c, and polysubstance abuse admitted for further management of cellulitis of the hand and osteomyelitis lumbar spine sepsis 2/2 MRSA Bacteremia with Acute cellulitis R hand and osteomyelitis of lumbar spine without abscess repeat blood culture from 11/21/2024 negative plan for 6 weeks iv vanc (end date january 01, 2025) pain management ortho consult recommended Abx treatment, no intervention needed at this point echo unremarkable Follow Vanco trough Bacteruria No growth in Cx. 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 pain management as above Polysubstance/IVDA Continue methadone Addiction med following Chronic hepatitis C wtih positive viral load, will need outpatient treatment Hx Graves Exopthalmos present mildly elevated TSH w/ normal free t4 dvt prophylaxis- lovenox full code reason for continued hospitalization: placement for iv abx at facility that can administer opiate replacement therapy Quality Stroke Does the patient have a stroke diagnosis?: No VTE Prior VTE?: No VTE Risk Level:: Medical - moderate - high VTE Device Contraindication: Treatment Not Indicated VTE Drug Contraindication: N/A - Med Ordered
--- NOTE | 2024-11-30 12:11 | MHC.RECOVRN ---
Met with pt in 372-1 to follow up and provide support.? Pt awake, alert, easily engages in conversation. Pt reports fless frequent need for pain med for pain control and is using a hot pack to help manage pain. Pt continues to await placement. Pt shared her future recovery goals with t/w.? Pt denies other concerns at this time.? T/w available as needed.
[2024-11-30] MEDS: HYDROmorphone HCl 1 MG/ML SYRINGE IVPUSH ×2 (14:07→20:51)
[2024-11-30] MEDS: Enoxaparin Sodium 40 MG/0.4 ML SYRINGE SUBCUT (14:13)
[2024-11-30 15:21] VITALS: BP 99/61; PULSE 75; RESP 16; TEMP 36.2; O2SAT 97
[2024-11-30 19:10] VITALS: BP 93/59; PULSE 73; RESP 15; TEMP 36.2; O2SAT 97
[2024-11-30] MEDS: Melatonin 3 MG TABLET 6 MG PO (20:50)
[2024-12-01 01:53] LABS: HLA B27 Negative (Negative)
[2024-12-01 03:09] VITALS: BP 101/61; PULSE 52; RESP 16; TEMP 36.1; O2SAT 97
[2024-12-01] MEDS: methADONE HCl 20 MG/2 ML ORAL.CONC 80 MG PO (06:34)
[2024-12-01 07:48] VITALS: BP 112/84; PULSE 54; RESP 16; TEMP 36.7; O2SAT 98
[2024-12-01] MEDS: Lidocaine 4 % Patch ADH..PATCH 1 PATCH TRANSDERMA (08:37)
[2024-12-01] MEDS: 0.9 % Sodium Chloride Flush 3 ML SYRINGE IVFLUSH ×3 (08:40→21:00)
[2024-12-01] MEDS: oxyCODONE HCl Immed Release 5 MG TABLET PO ×2 (08:40→15:55)
[2024-12-01 09:57] LABS: Creatinine Clr Calc Pharmacy 77.8; Estimated Glomerular Filt Rate > 60; Vancomycin Random 18.5 mcg/mL (15-20)
[2024-12-01] MEDS: vancomycin HCL 750 MG in 0.9 % Sodium Chloride 250 ML 265 MG IV ×2 (10:52→22:39)
--- NOTE | 2024-12-01 11:45 | HO.PM.IMPN ---
Subjective Subjective Date of Service: 12/01/24 Interval History: Seen and evaluated this morning feels better overall reporting back pain no other events Review of Systems Review of Systems: Yes all other systems are reviewed and are negative Physical Exam Vital Signs: Vital Signs: Last Vital Signs Temp 98.0 F 12/01/24 07:48 Pulse 54 12/01/24 07:48 Resp 16 12/01/24 07:48 BP 112/84 12/01/24 07:48 Pulse Ox 98 12/01/24 07:48 O2 Del Method Room Air 12/01/24 07:48 BMI result Body Mass Index 19.5 Const: Other: Constitutional : Awake, interactive, not in distress Neck : Normal inspection, Supple Cardiovascular : RRR, no JVP, no lower extremity edema Respiratory : good bilateral air entry, no crackles, wheezes or rhonchi Gastrointestinal: soft, lax, Normal bowel sounds, Non tender Objective Data Active Medications Acetaminophen (Acetaminophen 325 Mg Tablet) 650 mg PO Q6H PRN PRN Reason: Pain, Mild 1-3,fever,headache Last Admin: 11/25/24 07:54 Dose: 650 mg Documented By: ASHUTOSH Calcium Carbonate (Calcium Carbonate 750 Mg Tab.Chew) 750 mg PO Q4H PRN PRN Reason: Heartburn Enoxaparin Sodium (Enoxaparin Sodium 40 Mg/0.4 Ml Syringe) 40 mg SUBCUT Q24H [facility] Last Admin: 11/30/24 14:13 Dose: 40 mg Documented By: JACKLYN Hydromorphone HCl (Hydromorphone Hcl 1 Mg/Ml Syringe) 1 mg IVPUSH Q4H PRN; Protocol PRN Reason: Pain, Severe (Pain Scale 7-10) Last Admin: 11/30/24 20:51 Dose: 1 mg Documented By: JUSTYN Vancomycin HCl 750 mg/ Sodium (Chloride) 265 mls @ 265 mls/hr IV Q12H [facility] Last Admin: 12/01/24 10:52 Dose: 265 mls/hr Documented By: JACKLYN Lidocaine (Lidocaine 4 % Patch Adh..Patch) 1 patch TRANSDERMA DAILY [facility]; Protocol Last Admin: 12/01/24 08:37 Dose: 1 patch Documented By: JACKLYN Magnesium Hydroxide (Milk Of Magnesia 30 Ml Oral.Susp) 30 ml PO DAILY PRN PRN Reason: Constipation Melatonin (Melatonin 3 Mg Tablet) 6 mg PO BEDTIME [facility] Last Admin: 11/30/24 20:50 Dose: 6 mg Documented By: JUSTYN Methadone HCl (Methadone Hcl 20 Mg/2 Ml Oral.Conc) 80 mg PO DAILY@0700 [facility] Last Admin: 12/01/24 06:34 Dose: 80 mg Documented By: JUSTYN Co-signed By: GLORIA Oxycodone HCl (Oxycodone Hcl Immed Release 5 Mg Tablet) 5 mg PO Q6H PRN PRN Reason: Pain, Moderate(Pain Scale 4-6) Last Admin: 12/01/24 08:40 Dose: 5 mg Documented By: JACKLYN Pharmacy Consult (Consult Rx Vancomycin Dosing) 1 each MISCELLANE DAILY PRN PRN Reason: Consult order Sodium Chloride (0.9 % Sodium Chloride Flush 3 Ml Syringe) 3 ml IVFLUSH QSHIFT [facility] Last Admin: 12/01/24 08:40 Dose: 3 ml Documented By: JACKLYN Labs 11/26/24 15:17 12/01/24 08:58 Labs: Laboratory Results - last 24 hr 11/26/24 12/01/24 15:17 08:58 Hold Purple Top SEE NOTE Estim Creat Clear Calc 77.8 Estimated GFR > 60 Random Vancomycin 18.5 [id number] Negative Assessment and Plan (1) Opioid use disorder, severe, dependence: Status: Acute (2) Bacteremia: Status: Acute (3) Acute osteomyelitis of lumbar spine: Status: Acute Plan 33F PMH graves disease, history of hep c, and polysubstance abuse admitted for further management of cellulitis of the hand and osteomyelitis lumbar spine sepsis 2/2 MRSA Bacteremia with Acute cellulitis R hand and osteomyelitis of lumbar spine without abscess repeat blood culture from 11/21/2024 negative plan for 6 weeks iv vanc (end date january 01, 2025) pain management ortho consult recommended Abx treatment, no intervention needed at this point echo unremarkable Follow Vanco trough Bacteruria No growth in Cx. 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 pain management as above Polysubstance/IVDA Continue methadone Addiction med following Chronic hepatitis C wtih positive viral load, will need outpatient treatment Hx Graves Exopthalmos present mildly elevated TSH w/ normal free t4 dvt prophylaxis- lovenox full code reason for continued hospitalization: placement for iv abx at facility that can administer opiate replacement therapy Quality Stroke Does the patient have a stroke diagnosis?: No VTE Prior VTE?: No VTE Risk Level:: Medical - moderate - high VTE Device Contraindication: Treatment Not Indicated VTE Drug Contraindication: N/A - Med Ordered
--- NOTE | 2024-12-01 11:50 | MHC.RECOVRN ---
Met with pt in 372-1 to follow up and provide support.? Pt awake, alert, easily engages in conversation, laying in bed resting. T/W provided pt with activities to pass her time as she had requested yesterday. No further updates on placement at this time. Pt comfortable. Pt denies other concerns at this time.? T/w available as needed.
[2024-12-01] MEDS: Enoxaparin Sodium 40 MG/0.4 ML SYRINGE SUBCUT (13:40)
[2024-12-01 15:37] VITALS: BP 110/63; PULSE 66; RESP 18; TEMP 36.7; O2SAT 96
[2024-12-01 18:51] VITALS: BP 97/63; PULSE 79; RESP 18; TEMP 36.2; O2SAT 97
[2024-12-01] MEDS: HYDROmorphone HCl 1 MG/ML SYRINGE IVPUSH (19:33)
[2024-12-01] MEDS: Melatonin 3 MG TABLET 6 MG PO (20:59)
[2024-12-02 03:56] VITALS: BP 97/54; PULSE 59; RESP 16; TEMP 36.4; O2SAT 97
[2024-12-02] MEDS: methADONE HCl 20 MG/2 ML ORAL.CONC 80 MG PO (06:34)
[2024-12-02] MEDS: Lidocaine 4 % Patch ADH..PATCH 1 PATCH TRANSDERMA (07:24)
[2024-12-02] MEDS: oxyCODONE HCl Immed Release 5 MG TABLET PO ×2 (07:24→13:52)
[2024-12-02 07:27] LABS: Estimated Glomerular Filt Rate > 60
[2024-12-02 07:42] VITALS: BP 99/66; PULSE 74; TEMP 36.8; O2SAT 99
--- NOTE | 2024-12-02 10:52 | HO.PM.IMPN ---
Subjective Subjective Date of Service: 12/02/24 Interval History: Seen and evaluated this morning feels better overall reporting back pain no other events Review of Systems Review of Systems: Yes all other systems are reviewed and are negative Physical Exam Vital Signs: Vital Signs: Last Vital Signs Temp 98.3 F 12/02/24 07:42 Pulse 74 12/02/24 07:42 Resp 16 12/02/24 03:56 BP 99/66 12/02/24 07:42 Pulse Ox 99 12/02/24 07:42 O2 Del Method Room Air 12/02/24 07:42 BMI result Body Mass Index 19.5 Const: Other: Constitutional : Awake, interactive, not in distress Neck : Normal inspection, Supple Cardiovascular : RRR, no JVP, no lower extremity edema Respiratory : good bilateral air entry, no crackles, wheezes or rhonchi Gastrointestinal: soft, lax, Normal bowel sounds, Non tender Objective Data Active Medications Acetaminophen (Acetaminophen 325 Mg Tablet) 650 mg PO Q6H PRN PRN Reason: Pain, Mild 1-3,fever,headache Last Admin: 11/25/24 07:54 Dose: 650 mg Documented By: ASHUTOSH Calcium Carbonate (Calcium Carbonate 750 Mg Tab.Chew) 750 mg PO Q4H PRN PRN Reason: Heartburn Enoxaparin Sodium (Enoxaparin Sodium 40 Mg/0.4 Ml Syringe) 40 mg SUBCUT Q24H [facility] Last Admin: 12/01/24 13:40 Dose: 40 mg Documented By: JACKLYN Hydromorphone HCl (Hydromorphone Hcl 1 Mg/Ml Syringe) 1 mg IVPUSH Q4H PRN; Protocol PRN Reason: Pain, Severe (Pain Scale 7-10) Last Admin: 12/01/24 19:33 Dose: 1 mg Documented By: CATHY Vancomycin HCl 750 mg/ Sodium (Chloride) 265 mls @ 265 mls/hr IV Q12H [facility] Last Infusion: 12/02/24 00:03 Dose: Infused Documented By: CATHY Lidocaine (Lidocaine 4 % Patch Adh..Patch) 1 patch TRANSDERMA DAILY [facility]; Protocol Last Admin: 12/02/24 07:24 Dose: 1 patch Documented By: ASHUTOSH Magnesium Hydroxide (Milk Of Magnesia 30 Ml Oral.Susp) 30 ml PO DAILY PRN PRN Reason: Constipation Melatonin (Melatonin 3 Mg Tablet) 6 mg PO BEDTIME [facility] Last Admin: 12/01/24 20:59 Dose: 6 mg Documented By: CATHY Methadone HCl (Methadone Hcl 20 Mg/2 Ml Oral.Conc) 80 mg PO DAILY@0700 [facility] Last Admin: 12/02/24 06:34 Dose: 80 mg Documented By: CATHY Co-signed By: GLORIA Oxycodone HCl (Oxycodone Hcl Immed Release 5 Mg Tablet) 5 mg PO Q6H PRN PRN Reason: Pain, Moderate(Pain Scale 4-6) Last Admin: 12/02/24 07:24 Dose: 5 mg Documented By: ASHUTOSH Pharmacy Consult (Consult Rx Vancomycin Dosing) 1 each MISCELLANE DAILY PRN PRN Reason: Consult order Sodium Chloride (0.9 % Sodium Chloride Flush 3 Ml Syringe) 3 ml IVFLUSH QSHIFT [facility] Last Admin: 12/02/24 07:27 Dose: Not Given Documented By: ASHUTOSH Non-Admin Reason: Previously Administered Labs 11/26/24 15:17 12/02/24 06:55 Labs: Laboratory Results - last 24 hr 12/02/24 06:55 Estim Creat Clear Calc 84.0 Estimated GFR > 60 Assessment and Plan (1) Opioid use disorder, severe, dependence: Status: Acute (2) Bacteremia: Status: Acute (3) Acute osteomyelitis of lumbar spine: Status: Acute Plan 33F PMH graves disease, history of hep c, and polysubstance abuse admitted for further management of cellulitis of the hand and osteomyelitis lumbar spine sepsis 2/2 MRSA Bacteremia with Acute cellulitis R hand and osteomyelitis of lumbar spine without abscess repeat blood culture from 11/21/2024 negative plan for 6 weeks iv vanc (end date january 01, 2025) pain management with IV and PO Opioids, wean down as tolerated ortho consult recommended Abx treatment, no intervention needed at this point echo unremarkable Follow Vanco trough Bacteruria No growth in Cx. 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 pain management as above Polysubstance/IVDA Continue methadone Addiction med following Chronic hepatitis C wtih positive viral load, will need outpatient treatment Hx Graves Exopthalmos present mildly elevated TSH w/ normal free t4 dvt prophylaxis- lovenox full code reason for continued hospitalization: placement for iv abx at facility that can administer opiate replacement therapy Quality Stroke Does the patient have a stroke diagnosis?: No VTE Prior VTE?: No VTE Risk Level:: Medical - moderate - high VTE Device Contraindication: Treatment Not Indicated VTE Drug Contraindication: N/A - Med Ordered
[2024-12-02] MEDS: vancomycin HCL 750 MG in 0.9 % Sodium Chloride 250 ML 265 MG IV ×2 (10:59→22:24)
--- NOTE | 2024-12-02 12:41 | MHC.CM.PN ---
EMR REVIEWED. CM CONTINUES TO AWAIT BED OFFER/AVAILABILITY, 3 CENTERS FOLLOWING ([facility], [facility], [facility]) CM WILL CONTINUE TO UPDATE CENTERS AND SEEK BED OFFER.
[2024-12-02 13:33] LABS: Anti Nuclear Antibody Pattern Nuclear, Nucleolar; Anti Nuclear Antibody Screen POSITIVE (NEGATIVE)
[2024-12-02] MEDS: Enoxaparin Sodium 40 MG/0.4 ML SYRINGE SUBCUT (13:53)
[2024-12-02 15:04] VITALS: BP 94/61; PULSE 71; RESP 18; TEMP 36; O2SAT 96
[2024-12-02] MEDS: 0.9 % Sodium Chloride Flush 3 ML SYRINGE IVFLUSH ×2 (16:18→22:24)
[2024-12-02] MEDS: HYDROmorphone HCl 1 MG/ML SYRINGE IVPUSH (18:09)
[2024-12-02 19:30] VITALS: BP 94/54; PULSE 60; RESP 18; TEMP 36.4; O2SAT 96
[2024-12-02 21:21] LABS: Vancomycin Trough 15.6 mcg/mL (10.0-20.0)
--- NOTE | 2024-12-02 21:31 | HE.PHANOTE ---
RE: VANCO DOSING Trough came back as 15.6 mg/L. Continue with dose of 750 mg q12h. Next random is scheduled for 12/03/24 @0900 due to concern of level becoming subtherapeutic.
[2024-12-02] MEDS: Melatonin 3 MG TABLET 6 MG PO (22:24)
[2024-12-03 03:24] VITALS: BP 95/56; PULSE 54; RESP 18; TEMP 36.4; O2SAT 92
[2024-12-03] MEDS: methADONE HCl 20 MG/2 ML ORAL.CONC 80 MG PO (06:30)
[2024-12-03 06:35] LABS: Creatinine Clr Calc Pharmacy 82.9; Estimated Glomerular Filt Rate > 60
[2024-12-03 07:29] VITALS: BP 109/82; PULSE 68; RESP 16; TEMP 36.1; O2SAT 97
[2024-12-03] MEDS: 0.9 % Sodium Chloride Flush 3 ML SYRINGE IVFLUSH ×3 (08:46→23:01)
[2024-12-03] MEDS: Lidocaine 4 % Patch ADH..PATCH 1 PATCH TRANSDERMA (08:46)
[2024-12-03] MEDS: HYDROmorphone HCl 1 MG/ML SYRINGE IVPUSH (08:55)
[2024-12-03 10:34] LABS: Vancomycin Random 18.6 mcg/mL (15-20)
--- NOTE | 2024-12-03 10:48 | HE.PHANOTE ---
RE MAGDIEL: STABLE RENAL FUNCTION. TROUGH RETURNED AT 18.6, CONTINUE DOSE OF 750MG Q12H WITH PREDICTED AUC 485, AND PREDICTED TROUGH 15. NEXT TROUGH 12/04 @ 1900.
[2024-12-03] MEDS: vancomycin HCL 750 MG in 0.9 % Sodium Chloride 250 ML 265 MG IV ×2 (11:29→23:01)
[2024-12-03] MEDS: Enoxaparin Sodium 40 MG/0.4 ML SYRINGE SUBCUT (13:08)
--- NOTE | 2024-12-03 14:51 | MHC.CM.PN ---
PT HAS A BED OFFER FROM [facility] IN [place]. PT ACCEPTS BED OFFER. THIS CM HAS BEGUN GUEST DOSING PROCESS AND LEVEL OF CARE/PASSR SENT TO [facility] VIA FAX. AWARE. CM WILL CONTINUE TO FOLLOW
--- NOTE | 2024-12-03 14:57 | P.PNIM_ITS ---
Subjective Subjective Date of Service: 12/03/24 Interval History: Seen and evaluated this morning feels better reporting stable back pain no other events Review of Systems Review of Systems: Yes all other systems are reviewed and are negative Physical Exam 2 Vital Signs: Vital Signs: Last Vital Signs Temp 97.0 F 12/03/24 07:29 Pulse 68 12/03/24 07:29 Resp 16 12/03/24 07:29 BP 109/82 12/03/24 07:29 Pulse Ox 97 12/03/24 07:29 O2 Del Method Room Air 12/03/24 07:29 BMI result Body Mass Index 19.5 Const: Other: Constitutional : Awake, interactive, not in distress Neck : Normal inspection, Supple Cardiovascular : RRR, no JVP, no lower extremity edema Respiratory : good bilateral air entry, no crackles, wheezes or rhonchi Gastrointestinal: soft, lax, Normal bowel sounds, Non tender Objective Data Active Medications Acetaminophen (Acetaminophen 325 Mg Tablet) 650 mg PO Q6H PRN PRN Reason: Pain, Mild 1-3,fever,headache Last Admin: 11/25/24 07:54 Dose: 650 mg Documented By: ASHUTOSH Calcium Carbonate (Calcium Carbonate 750 Mg Tab.Chew) 750 mg PO Q4H PRN PRN Reason: Heartburn Enoxaparin Sodium (Enoxaparin Sodium 40 Mg/0.4 Ml Syringe) 40 mg SUBCUT Q24H [facility] Last Admin: 12/03/24 13:08 Dose: 40 mg Documented By: WANDER Hydromorphone HCl (Hydromorphone Hcl 1 Mg/Ml Syringe) 0.5 mg IVPUSH Q4H PRN; Protocol PRN Reason: Pain, Severe (Pain Scale 7-10) Vancomycin HCl 750 mg/ Sodium (Chloride) 265 mls @ 265 mls/hr IV Q12H [facility] Last Infusion: 12/03/24 12:34 Dose: Infused Documented By: WANDER Lidocaine (Lidocaine 4 % Patch Adh..Patch) 1 patch TRANSDERMA DAILY [facility]; Protocol Last Admin: 12/03/24 08:46 Dose: 1 patch Documented By: WANDER Magnesium Hydroxide (Milk Of Magnesia 30 Ml Oral.Susp) 30 ml PO DAILY PRN PRN Reason: Constipation Melatonin (Melatonin 3 Mg Tablet) 6 mg PO BEDTIME [facility] Last Admin: 12/02/24 22:24 Dose: 6 mg Documented By: CATHY Methadone HCl (Methadone Hcl 20 Mg/2 Ml Oral.Conc) 80 mg PO DAILY@0700 [facility] Last Admin: 12/03/24 06:30 Dose: 80 mg Documented By: CATHY Co-signed By: KINDRA Oxycodone HCl (Oxycodone Hcl Immed Release 5 Mg Tablet) 5 mg PO Q6H PRN PRN Reason: Pain, Moderate(Pain Scale 4-6) Last Admin: 12/02/24 13:52 Dose: 5 mg Documented By: ASHUTOSH Pharmacy Consult (Consult Rx Vancomycin Dosing) 1 each MISCELLANE DAILY PRN PRN Reason: Consult order Sodium Chloride (0.9 % Sodium Chloride Flush 3 Ml Syringe) 3 ml IVFLUSH [facility] Last Admin: 12/03/24 08:46 Dose: 3 ml Documented By: WANDER Labs 11/26/24 15:17 12/03/24 05:26 Labs: Laboratory Results - last 24 hr 11/26/24 12/02/24 12/03/24 09:29 21:02 05:26 Estim Creat Clear Calc 82.9 Estimated GFR > 60 Vancomycin Trough 15.6 Random Vancomycin HEIDI Titer 2 TNP HEIDI Titer 3 TNP HEIDI Pattern 2 TNP HEIDI Pattern 3 TNP 12/03/24 09:53 Estim Creat Clear Calc Estimated GFR Vancomycin Trough Random Vancomycin 18.6 HEIDI Titer 2 HEIDI Titer 3 HEIDI Pattern 2 HEIDI Pattern 3 Assessment and Plan (1) Opioid use disorder, severe, dependence: Status: Acute (2) Bacteremia: Status: Acute (3) Acute osteomyelitis of lumbar spine: Status: Acute Plan 33F PMH graves disease, history of hep c, and polysubstance abuse admitted for further management of cellulitis of the hand and osteomyelitis lumbar spine sepsis 2/2 MRSA Bacteremia with Acute cellulitis R hand and osteomyelitis of lumbar spine without abscess repeat blood culture from 11/21/2024 negative plan for 6 weeks iv vanc (end date january 01, 2025) pain management with IV and PO Opioids, wean down as tolerated ortho consult recommended Abx treatment, no intervention needed at this point echo unremarkable Follow Vanco trough Place PICC line Bacteruria No growth in Cx. bilateral joint pain could be 2/2 Inflammatory arthropathy follow up inflammatory arthritis work up suspect rheumatoid arthritis with atypical joint involvement (DIPs), follow up ccp IgG antibody ddx includes psoriatic arthritis - follow [id number] will need outpatient rheumatology follow up Multilevel spondylosis with central canal stenosis based on MRI finding outpt follow up. pain management as above Polysubstance/IVDA Continue methadone Addiction med following Chronic hepatitis C wtih positive viral load, will need outpatient treatment Hx Graves Exopthalmos present mildly elevated TSH w/ normal free t4 dvt prophylaxis- lovenox full code reason for continued hospitalization: placement for iv abx at facility that can administer opiate replacement therapy Quality Stroke Does the patient have a stroke diagnosis?: No VTE Prior VTE?: No VTE Risk Level:: Medical - moderate - high VTE Device Contraindication: Treatment Not Indicated VTE Drug Contraindication: N/A - Med Ordered
[2024-12-03 16:03] VITALS: BP 100/59; PULSE 62; RESP 12; TEMP 36.1; O2SAT 94
[2024-12-03] MEDS: HYDROmorphone HCl 1 MG/ML SYRINGE 0.5 MG IVPUSH ×2 (16:41→21:11)
[2024-12-03 19:19] VITALS: BP 100/59; PULSE 73; RESP 18; TEMP 36.8; O2SAT 97
[2024-12-03] MEDS: Melatonin 3 MG TABLET 6 MG PO (21:11)
[2024-12-04 03:28] VITALS: BP 113/72; PULSE 56; RESP 18; TEMP 36.6; O2SAT 98
[2024-12-04 06:08] LABS: Creatinine Clr Calc Pharmacy 78.7; Estimated Glomerular Filt Rate > 60
[2024-12-04] MEDS: methADONE HCl 20 MG/2 ML ORAL.CONC 80 MG PO (06:20)
[2024-12-04 07:42] VITALS: BP 101/59; PULSE 51; RESP 18; TEMP 36.1; O2SAT 95
[2024-12-04] MEDS: HYDROmorphone HCl 1 MG/ML SYRINGE 0.5 MG IVPUSH (08:28)
[2024-12-04] MEDS: Lidocaine 4 % Patch ADH..PATCH 1 PATCH TRANSDERMA (08:28)
[2024-12-04] MEDS: 0.9 % Sodium Chloride Flush 3 ML SYRINGE IVFLUSH (08:28)
[2024-12-04] MEDS: vancomycin HCL 750 MG in 0.9 % Sodium Chloride 250 ML 265 MG IV (11:16)
--- NOTE | 2024-12-04 14:50 | PM.DS ---
DS: Providers Provider Date of Service: 12/04/24 Date of admission: 11/18/24 13:31 Date of discharge: 12/04/24 Primary care physician: None Physician Consults: 11/18/24 13:30 Addiction Medicine Provider Routine Consulting Provider: Addiction Covering Reason for consultation: ongoing polysubstance abuse Consult to Infectious Diseases Routine Consulting Provider: [facility] Reason for consultation: osteo spine Consult to Orthopedics Routine Consulting Provider: [facility] Orthopedic Surgeons Reason for consultation: cellulitis hand 11/19/24 15:55 Inpt - Recovery Team Routine Comment: Reason for consultation: RUMA eval 11/20/24 08:33 Consult to Wound Care Routine Reason for consultation: cellulitis Has provider been notified: Yes DS: Diagnosis Discharge Diagnosis (1) Opioid use disorder, severe, dependence: Status: Acute (2) Bacteremia: Status: Acute (3) Acute osteomyelitis of lumbar spine: Status: Acute (4) Cellulitis of right foot: Status: Acute (5) Cellulitis of right hand: Status: Acute DS: Summary Hospital Course Hospital Course: The patient had prolonged hospital stay. for full details please return to EMR. Admission note HPI 34-year-old female with history of Graves disease, history of hepatitis-C, polysubstance abuse on methadone presented to the ED earlier today for evaluation of 10/10 pain over the lumbar spine. She states this pain started about 3 days ago. The pain is so intense that she has difficulty walking though denies any weakness or paresthesias. No bowel/bladder dysfunction. Does endorse some dysuria however. She also has redness and swelling over the right hand. Reports injecting heroin/fentanyl into the hands bilaterally, last use was yesterday. She did receive her methadone dose this morning. She is quite somnolent on arrival but is arousable and able to give an appropriate history. She denies any fevers or chills. She is right-hand dominant. In the ED, vital signs are stable. There is no leukocytosis. Renal function and electrolyte levels are normal except for sodium 133. ESR is 85, CRP 17.23. Total bili 1.2, AST 47, ALT 47. Urinalysis with 3+ leukocytes, negative nitrites, significant urinary sediment and 2+ bacteria. Urine tox screen positive for opiates, methadone, fentanyl, cocaine. She is negative for COVID-19, RSV, influenza. X-ray of the right wrist and hand shows significant swelling with severe arthritis involving the D IP joints of the 2nd, 3rd, 4th fingers possibly representing of erosive osteoarthritis or other inflammatory arthropathy. Lumbar spine MRI shows concerns for osteomyelitis without abscess and or phlegmon or epidural abscess at L2-3. There is also multilevel spondylosis L2-3 to L5-S1 resulting in central spinal canal and bilateral neural foraminal stenosis. In the ED, has received acetaminophen, lorazepam, Zosyn, vancomycin. Hospital course The patient was admitted for the following: # Sepsis secondary to MRSA Bacteremia with Acute cellulitis R hand and osteomyelitis of lumbar spine without abscess MRI of spine showed Concerning osteomyelitis without abscess and/or phlegmon or epidural abscess at L2-3. Her blood cultures were positive for MRSA. repeat blood culture from 11/21/2024 negative. Treated with IV Vancomycin. Echo did not showed any evidence of vegetations. plan for 6 weeks iv vanc (end date january 01, 2025) per ID recommendation and follow up as outpatient. pain management with IV and PO Opioids, wean down as tolerated and to be discharged on PRN Oxycodone. ortho consult recommended Abx treatment, no intervention needed at this point. Placed PICC line. To be discharged on Vancomycin 750 mg bid until January 01. # bilateral joint pain could be 2/2 Inflammatory arthropathy. suspect rheumatoid arthritis or hepatitis C relatedwith atypical joint involvement (DIPs). She will need follow up with Rheumatology as outpatient for positive RF and AND with negative ccp IgG antibody and HLAb27. # Multilevel spondylosis with central canal stenosis. based on MRI finding . outpt follow up. # Polysubstance/IVDA. Continue methadone as she was followed by Addiction medicine team. # Chronic hepatitis C wtih positive viral load, will need outpatient treatment Discharge plan Continue antibotics as prescribed Follow with Methadone clinic for dose adjustment We advise you abstinence from Drugs Follow with PCP as outpatient to discuss plan for Hepatitis C treatment. Follow with Rheumatology as outpatient for evaluation of joints pain. The patient will likely need less than 30 days of SNF stay. Time Attestation Discharge Coordination Time (in mins): 42 Quality: Safe Use of Opioids Does Pt have an Active Cancer Diagnosis on the Problem List?: No Quality: Stroke Does the patient have a stroke diagnosis?: No Physical Exam Vital Signs: Vital Signs: Last Vital Signs Temp 96.9 F 12/04/24 07:42 Pulse 51 12/04/24 07:42 Resp 18 12/04/24 07:42 BP 101/59 L 12/04/24 07:42 Pulse Ox 95 12/04/24 07:42 O2 Del Method Room Air 12/04/24 07:42 BMI result Body Mass Index 19.5 Const: Other: Constitutional : Awake, interactive, not in distress Neck : Normal inspection, Supple Cardiovascular : RRR, no JVP, no lower extremity edema Respiratory : good bilateral air entry, no crackles, wheezes or rhonchi Gastrointestinal: soft, lax, Normal bowel sounds, Non tender DS: Data Data Completed and Pending Completed studies during hospitalization [Text1]: Procedures Insertion of Infusion Device into Right Internal Jugular Vein, Percutaneous Approach (01/19/22) Insertion of Infusion Device into Upper Vein, Percutaneous Approach (05/13/24) Labs on day of discharge: Laboratory Results - last 24 hr 12/04/24 05:23 Creatinine 0.80 Estim Creat Clear Calc 78.7 Estimated GFR > 60 Imaging Chest x-ray: Radiologist's impression: ITS Impressions Wrist X-Ray 11/18/24 07:34 IMPRESSION: Marked dorsal soft tissue swelling. 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 If there remains clinical concern for osteomyelitis, MRI can be performed. Electronically signed by: Imtiaz Alves MD 11/18/2024 09:00 AM EDT RP Hand X-Ray 11/18/24 08:40 IMPRESSION: Marked dorsal soft tissue swelling. 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 If there remains clinical concern for osteomyelitis, MRI can be performed. Electronically signed by: Imtiaz Alves MD 11/18/2024 09:00 AM EDT RP Lumbar Spine MRI 11/18/24 11:40 IMPRESSION: Concerning osteomyelitis without abscess and/or phlegmon or epidural abscess at L2-3. Multilevel spondylosis L2-3 to L5-S1 resulting in central spinal canal and bilateral neuroforamina stenosis. 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 oxycodone 5 mg Tablet 5 mg PO Q6H PRN (Reason: Pain, Moderate(Pain Scale 4-6)) Qty: 20 0RF Rx Instructions: Partial Fill upon patient request. Continued methadone [Methadone Intensol] 10 mg/mL Concentrate 80 mg PO DAILY Discharge Orders: Discharge Order (Routine); Ordered 12/04/24 Ordered By: Markell Dutta Diet: Advance to usual diet Activity on Discharge: As tolerated Stand Alone Forms: Patient Portal Discharge page Print Language: Mongolian Care Plan Goals: Continue antibotics as prescribed Follow with Methadone clinic for dose adjustment We advise you abstinence from Drugs Follow with PCP as outpatient to discuss plan for Hepatitis C treatment. Follow with Rheumatology as outpatient for evaluation of joints pain. Health Concerns: Bacteremia Osteomyelitis Plan of Treatment: Antibiotic Assessment: as above
--- NOTE | 2024-12-04 15:29 | MHC.CM.PN ---
DP: PT HAS BEEN MEDICALLY CLEARED FOR DC TO STR FOR LT IV ABT AT [facility]. BLS TRANSPORT BOOKED FOR 6 PM VIA [facility]. RN AWARE. PER [facility], APPROVED FOR STAY. CENTER UPDATED.
--- NOTE | 2024-12-04 15:46 | HO.PICC ---
[facility]ion [facility] Diagnosis: BACTEREMIA OSTEO OF LUMBAR SPINE Indication: 6 WEEKS OF ANTIBX Pertinent Labs: REVIEWED Technique: Following informed consent including risks, benefits and alternatives and using sterile technique including cap and mask, sterile gown, glove and drape, the RIGHT arm was prepped and draped in the usual sterile fashion of full barrier technique with G. Following completion of Register Protocol the skin and soft tissues were anesthetized with 1% Lidocaine plain. Using ultrasound guidance, RIGHT BRACHIAL vein access was obtained on first attempt. Over an 0.018 wire through peel-away sheath, a 4fr Single Lumen PASV Powerpicc line was positioned. Catheter length is 35cm internal length, 1cm external length, for a total trimmed length of 36cm. The procedure was performed in rm. 272. Tip verification was performed by Jaquelin Sanchez with Sherlock 3CG. Tip located in SVC. Ultrasound was used to document vein patency and for needle entry. A formal ultrasound picture and cardiac rhythm strip was recorded. [employer] has released the line for use and it is currently dressed with a StatLock, Tegaderm, and CHG disc. Verification has been performed for blood return and line patency. Arm Circumference: 24cm Equipment: Bard powerpicc solo catheter with sherlock 3CG tip Catheter Type:4 FR Single Lumen PASV PowerPICC line Lot #: [id number]
[2024-12-04 15:47] VITALS: BP 119/72; PULSE 72; RESP 18; TEMP 36.6; O2SAT 99
[2024-12-04] MEDS: Enoxaparin Sodium 40 MG/0.4 ML SYRINGE SUBCUT (16:19)
[2024-12-04] MEDS: 0.9 % Sodium Chloride Flush 10 ML SYRINGE 5 ML IVFLUSH (16:20)
== END 2024-12-04 18:32 | disposition skilled nursing facility (03) | DRG 720 ==
LOC: HO.ED 14:33 → HO.EDOVER 14:36 → HO.S3 11-19 06:53
PROVIDERS: Internal Medicine; Physician Assistant; Admitting Provider Physician Assistant; Emergency Provider Emergency Medicine Emergency Medical Services; Visit Provider Student in an Organized Health Care Education/Training Program
DX: A41.02 Sepsis due to Methicillin resistant Staphylococcus aureus (principal); L03.115 Cellulitis of right lower limb; L03.113 Cellulitis of right upper limb; M46.26 Osteomyelitis of vertebra, lumbar region; M47.816 Spondylosis without myelopathy or radiculopathy, lumbar region; M48.061 Spinal stenosis, lumbar region without neurogenic claudication; M47.817 Spondylosis without myelopathy or radiculopathy, lumbosacral region; M48.07 Spinal stenosis, lumbosacral region; M06.4 Inflammatory polyarthropathy; F11.20 Opioid dependence, uncomplicated; F19.10 Other psychoactive substance abuse, uncomplicated; B18.2 Chronic viral hepatitis C; E05.00 Thyrotoxicosis with diffuse goiter without thyrotoxic crisis or storm; Z20.822 Contact with and (suspected) exposure to COVID-19
CPT/HCPCS: 0241U; 36415; 36573; 72158; 73110; 73130; 80048; 80076; 80202; 80307; 81001; 81025; 82550; 82565; 82947; 83605; 83735; 83880; 84439; 84443; 84550; 85025; 85027; 85652; 86038; 86039; 86140; 86200; 86431; 86704; 86706; 86803; 86812; 87040; 87077; 87086; 87147; 87186; 87205; 87340; 87389; 87522; 93005; 93306; 99285; A9585; C1751; J1171; J1650; J2543; J3370; J3371; Q9957; S9485

== ENCOUNTER → 2024-11-18 07:34 | Outpatient (BNV) | payer MEDICAID, SELFPAY | PROVIDERS: Emergency Provider Emergency Medicine Emergency Medical Services; Visit Provider Radiology Diagnostic Radiology | DX: M54.50 Low back pain, unspecified (principal); M19.041 Primary osteoarthritis, right hand | CPT/HCPCS: 72158; 73110; 73130 ==

== ENCOUNTER → 2024-11-18 07:34 | Outpatient (BNV) | payer MEDICAID, SELFPAY | PROVIDERS: Emergency Provider Emergency Medicine Emergency Medical Services; Visit Provider Internal Medicine Cardiovascular Disease | DX: R94.31 Abnormal electrocardiogram [ECG] [EKG] (principal); A41.9 Sepsis, unspecified organism | CPT/HCPCS: 93010 ==

== ENCOUNTER 2024-11-18 13:31 | Outpatient (BNV) | payer MEDICAID, SELFPAY | END 2024-11-19 07:00 | PROVIDERS: Admitting Provider Physician Assistant; Emergency Provider Emergency Medicine Emergency Medical Services; Visit Provider Internal Medicine Cardiovascular Disease | DX: R78.81 Bacteremia (principal) | CPT/HCPCS: 93306 ==

== ENCOUNTER → 2024-11-18 13:31 | Outpatient (BNV) | payer MEDICAID, SELFPAY | PROVIDERS: Admitting Provider Physician Assistant; Emergency Provider Emergency Medicine Emergency Medical Services; Visit Provider Nurse Practitioner Psychiatric/Mental Health | DX: F11.20 Opioid dependence, uncomplicated (principal) | CPT/HCPCS: 99222; 99499 ==

== ENCOUNTER → 2024-11-18 13:31 | Outpatient (BNV) | payer MEDICAID, SELFPAY | PROVIDERS: Admitting Provider Physician Assistant; Emergency Provider Emergency Medicine Emergency Medical Services; Visit Provider Internal Medicine | DX: R78.81 Bacteremia (principal); L03.115 Cellulitis of right lower limb; L03.113 Cellulitis of right upper limb; M46.26 Osteomyelitis of vertebra, lumbar region | CPT/HCPCS: 99222 ==

== ENCOUNTER → 2024-11-18 13:31 | Outpatient (BNV) | payer MEDICAID, SELFPAY | PROVIDERS: Admitting Provider Physician Assistant; Emergency Provider Emergency Medicine Emergency Medical Services | DX: L03.113 Cellulitis of right upper limb (principal) | CPT/HCPCS: 99222 ==

== ENCOUNTER → 2024-11-18 13:31 | Outpatient (BNV) | payer MEDICAID, SELFPAY | PROVIDERS: Admitting Provider Physician Assistant; Emergency Provider Emergency Medicine Emergency Medical Services; Visit Provider Student in an Organized Health Care Education/Training Program | DX: L03.115 Cellulitis of right lower limb (principal); M46.26 Osteomyelitis of vertebra, lumbar region; G92.8 Other toxic encephalopathy; F19.10 Other psychoactive substance abuse, uncomplicated; R78.81 Bacteremia | CPT/HCPCS: 99233 ==